=== PATIENT | male | born 1990 | race Caucasian/White ===

== ENCOUNTER 2016-08-03 01:49 | Emergency (ER) | payer MEDICAID ==
--- NOTE | 2016-08-03 03:48 | ER Document Report ---
ED Extremity Problem, Lower - General Chief Complaint: Knee Pain Stated Complaint: RIGHT KNEE SWELLING Time seen by provider: 03:42 Mode of Arrival: Ambulatory Information source: Patient TRAVEL OUTSIDE OF THE [place]. IN LAST 30 DAYS: No - HPI Patient complains to provider of: Pain, Swelling Location: Knee - Right knee Occurred: Other - Chronic worse since Wednesday Where: Home Onset/Duration: Persistent - Chronic, Worse Quality of pain: Pressure, Sharp Severity: Moderate Pain Level: 4 Context: Other - Hemophilia Recent injury: No Associated symptoms: Painful ambulation Exacerbated by: Movement, Walking Relieved by: Nothing - Related Data Allergies/Adverse Reactions: acetaminophen [From Tylenol] Adverse Reaction (Verified 08/03/16 01:53) aspirin [Aspirin] Adverse Reaction (Verified 08/03/16 01:53) bleeding ibuprofen [From Motrin] Adverse Reaction (Verified 08/03/16 01:53) bleeding morphine [Morphine] Adverse Reaction (Verified 08/03/16 01:53) Hives NSAIDS (Non-Steroidal Anti-Inflamma [Nsaids] Adverse Reaction (Verified 01:53) vancomycin [Vancomycin] Adverse Reaction (Verified 08/03/16 01:53) Past Medical History - General Information source: Patient - Social History Smoking Status: Never Smoker Cigarette use (# per day): No Chew tobacco use (# tins/day): No Smoking Education Provided: No Frequency of alcohol use: None Drug Abuse: None Lives with: Family Family History: DM, Other - autoimmune factor VIII deficiency. Hep C - Medical History Medical History: Other - Hemophilia - Past Medical History Cardiac Medical History: Reports: None Pulmonary Medical History: Reports: None EENT Medical History: Reports: None Neurological Medical History: Reports: None Endocrine Medical History: Reports: None Renal/ Medical History: Reports: None Malignancy Medical History: Reports None GI Medical History: Reports: Hx Hepatitis - hep C Musculoskeltal Medical History: Reports Hx Arthritis Psychiatric Medical History: Reports: None Traumatic Medical History: Reports: None Infectious Medical History: Reports: Hx Hepatitis - hep C Past Surgical History: Reports: Hx Orthopedic Surgery - bilat ankles, bilat knees, L elbow, Bilat Forearms - Immunizations Immunizations up to date: Yes Hx Diphtheria, Pertussis, Tetanus Vaccination: Yes Hx Pneumococcal Vaccination: 06/28/09 Review of Systems - Review of Systems Constitutional: No symptoms reported EENT: No symptoms reported Cardiovascular: No symptoms reported Respiratory: No symptoms reported Gastrointestinal: No symptoms reported Genitourinary: No symptoms reported Male Genitourinary: No symptoms reported Musculoskeletal: No symptoms reported Skin: No symptoms reported Hematologic/Lymphatic: No symptoms reported Neurological/Psychological: No symptoms reported -: Yes All other systems reviewed and negative Physical Exam - Vital signs Vitals: Temp Pulse Resp BP Pulse Ox 99.2 F 135 H 18 110/68 95 08/03/16 01:53 08/03/16 01:53 08/03/16 01:53 08/03/16 01:53 08/03/16 01:53 Interpretation: Normal - General General appearance: Appears well, Alert - HEENT Head: Normocephalic, Atraumatic Eyes: Normal Pupils: PERRL - Respiratory Respiratory status: No respiratory distress Chest status: Nontender Breath sounds: Normal Chest palpation: Normal - Cardiovascular Rhythm: Regular Heart sounds: Normal auscultation Murmur: No - Abdominal Inspection: Normal Distension: No distension Bowel sounds: Normal Tenderness: Nontender Organomegaly: No organomegaly - Back Back: Normal, Nontender - Extremities General upper extremity: Normal inspection, Nontender, Normal color, Normal ROM , Normal temperature General lower extremity: Normal color, Normal temperature. No: Nicolasa's sign Knee: Tender, Joint effusion, Pain with ROM Calf: Normal, Nontender Ankle: Normal, Nontender Foot: Normal, Nontender - Neurological Neuro grossly intact: Yes Cognition: Normal Orientation: AAOx4 Lakes[place] Coma Scale Eye Opening: Spontaneous [place] Coma Scale Verbal: Oriented [place] Coma Scale Motor: Obeys Commands [place] Coma Scale Total: 15 Speech: Normal Motor strength normal: LUE, RUE, LLE, RLE Sensory: Normal - Psychological Associated symptoms: Normal affect, Normal mood - Skin Skin Temperature: Warm Skin Moisture: Dry Skin Color: Normal Course - Re-evaluation Re-evalutation: 08/03/16 04:[address] Gonzalez as patient states that he has already spoken with [facility] and they stated he needed to be transferred ED the ED if his knee did not start decreasing in size. He states he has taken all of his hemophilia Medicine as prescribed for the last 3 days in his knee has not decreased in size. Dr. Gonzalez stated that I should go ahead and call [facility] now but get the blood work that I had ordered. [facility] transfer line called and spoke with Dr. Arce in the ED he has accepted the patient since we can transfer. 08/03/16 04:50 transport at the bedside patient will be transferred to [facility] ED to ED. - Vital Signs Vital signs: Temp Pulse Resp BP Pulse Ox 99.2 F 135 H 18 110/68 95 08/03/16 01:53 08/03/16 01:53 08/03/16 01:53 08/03/16 01:53 08/03/16 01:53 - Laboratory Result Diagrams: 08/03/16 04:08 08/03/16 04:08 Laboratory results interpreted by me: 08/03/16 08/03/16 08/03/16 04:08 04:08 04:08 Hgb 10.6 L Hct 33.1 L MCV 74 L MCH 23.8 L RDW 16.8 H APTT 91.1 H Glucose 113 H - Diagnostic Test Radiology reviewed: Image reviewed, Reports reviewed Discharge - Discharge Clinical Impression: Hemophilia A, Effusion, right knee Condition: Stable Disposition: [facility]
[2016-08-03] MEDS ORDERED: HYDROMORPHONE HCL INJ/PF 2 MG/ML AMPULE IV ONE (04:11)
[2016-08-03 04:24] LABS: ABSOLUTE BASOPHILS # (AUTO) 0.1 10^3/uL (0.0-0.2); ABSOLUTE EOSINOPHILS # (AUTO) 0.1 10^3/uL (0.0-0.6); ABSOLUTE MONOCYTES (AUTO) 0.7 10^3/uL (0.1-1.4); ABSOLUTE NEUT (AUTO) 7.5 10^3/uL (1.7-8.2); BASOPHILS % (AUTO) 0.7 % (0-2); EOSINOPHILS % (AUTO) 1.2 % (0-6); HEMATOCRIT 33.1 % (37.9-51.0); HEMOGLOBIN 10.6 g/dL (13.5-17.0); HGB HCT DIFFERENCE -1.3; LYMPHOCYTES % (AUTO) 19.2 % (13-45); MEAN CORPUSCULAR HEMOGLOBIN 23.8 pg (27.0-33.4); MEAN CORPUSCULAR VOLUME 74 fl (80-97); MONOCYTES % (AUTO) 7.1 % (3-13); RED BLOOD COUNT 4.46 10^6/uL (4.35-5.55); RED CELL DISTRIBUTION WIDTH 16.8 % (11.5-14.0); SEGMENTED NEUTROPHILS % (AUTO) 71.8 % (42-78); WHITE BLOOD COUNT 10.4 10^3/uL (4.0-10.5)
--- NOTE | 2016-08-03 04:28 | ER Document Report ---
Doctor's Note Notes: 08/03/16 04:26 Patient is a 26-year-old male with a hemarthrosis of his right knee. Patient has a history of hemophilia and has been taking his medications at home. Patient has had persistent swelling will be transferred to [facility]. Patient agrees with this plan. He is able to bend his right knee slightly. No erythema or discharge. Stable for transfer.
[2016-08-03 04:37] LABS: PROTHROMBIN TIME 13.7 SEC (11.4-15.4)
[2016-08-03 04:38] LABS: ALBUMIN 3.9 g/dL (3.5-5.0); CARBON DIOXIDE 29 mmol/L (22-30); CREATININE RESULT 0.78 mg/dL (0.52-1.25); TOTAL PROTEIN 7.5 g/dL (6.3-8.2)
[2016-08-03 04:39] LABS: PARTIAL THROMBOPLASTIN TIME 91.1 SEC (23.5-35.8)
[2016-08-03 04:41] LABS: ANION GAP 12 (5-19); CHLORIDE 101 mmol/L (98-107); SODIUM 141.5 mmol/L (137-145)
[2016-08-03 04:45] LABS: ALANINE AMINOTRANSFERASE 27 U/L (21-72); ALKALINE PHOSPHATASE 78 U/L (38-126); ASPARTATE AMINO TRANSFERASE 28 U/L (17-59); BILIRUBIN,TOTAL 0.7 mg/dL (0.2-1.3); BLOOD UREA NITROGEN 20 mg/dL (7-20); CALCIUM 9.1 mg/dL (8.4-10.2); GLUCOSE 113 mg/dL (75-110); POTASSIUM 3.7 mmol/L (3.6-5.0)
[2016-08-03 06:25] VITALS: BP 112/69
== END 2016-08-03 05:00 | disposition short-term general hospital (02) ==
LOC: ER 01:49
DX: D66 Hereditary factor VIII deficiency (principal); M25.461 Effusion, right knee; M25.561 Pain in right knee; M79.89 Other specified soft tissue disorders
CPT/HCPCS: 99284; 96374; 36415; 85025; 85610; 85730; 80053; 73564; J1170

== ENCOUNTER 2016-08-22 17:02 | Emergency (ER) | payer MEDICAID ==
[2016-08-22 17:11] VITALS: BP 114/80
--- NOTE | 2016-08-22 17:15 | ER Document Report ---
ED Medical Screen (RME) - General Chief Complaint: Knee Pain Stated Complaint: RIGHT KNEE PAIN, SWELLING Mode of Arrival: Wheelchair Information source: Patient Notes: She presents to the emergency department with complaints of right knee pain. Patient has a history of hemophilia. Patient reports he has given himself all his treatments without relief the symptoms. Patient is usually transfered to [facility] upon arrival to this ER. TRAVEL OUTSIDE OF THE U.S. IN LAST 30 DAYS: No - HPI Onset: Other - 3 days Onset/Duration: Persistent Severity: Severe Pain Level: 5 - Related Data Allergies/Adverse Reactions: acetaminophen [From Tylenol] Adverse Reaction (Verified 08/22/16 17:13) aspirin [Aspirin] Adverse Reaction (Verified 08/22/16 17:13) bleeding ibuprofen [From Motrin] Adverse Reaction (Verified 08/22/16 17:13) bleeding morphine [Morphine] Adverse Reaction (Verified 08/22/16 17:13) Hives NSAIDS (Non-Steroidal Anti-Inflamma [Nsaids] Adverse Reaction (Verified 17:13) vancomycin [Vancomycin] Adverse Reaction (Verified 08/22/16 17:13) Past Medical History - Social History Chew tobacco use (# tins/day): No Frequency of alcohol use: None Drug Abuse: None Family history: Reviewed & Not Pertinent Renal/ Medical History: Denies: Hx Peritoneal Dialysis GI Medical History: Reports: Hx Hepatitis - hep C Musculoskeltal Medical History: Reports Hx Arthritis Psychiatric Medical History: Denies: Hx Depression Infectious Medical History: Reports: Hx Hepatitis - hep C Past Surgical History: Reports: Hx Orthopedic Surgery - bilat ankles, bilat knees, L elbow, Bilat Forearms - Immunizations Immunizations up to date: Yes Hx Diphtheria, Pertussis, Tetanus Vaccination: Yes Physical Exam - Vital signs Vitals: Temp Pulse Resp BP Pulse Ox 98.6 F 126 H 18 114/80 98 08/22/16 17:10 08/22/16 17:10 08/22/16 17:10 08/22/16 17:10 08/22/16 17:10 Course - Vital Signs Vital signs: Temp Pulse Resp BP Pulse Ox 98.6 F 126 H 18 114/80 98 08/22/16 17:10 08/22/16 17:10 08/22/16 17:10 08/22/16 17:10 08/22/16 17:10
[2016-08-22 18:09] LABS: ABSOLUTE LYMPHOCYTES (AUTO) 0.7 10^3/uL (0.5-4.7); ABSOLUTE MONOCYTES (AUTO) 0.9 10^3/uL (0.1-1.4); ABSOLUTE NEUT (AUTO) 6.8 10^3/uL (1.7-8.2); BASOPHILS % (AUTO) 0.4 % (0-2); EOSINOPHILS % (AUTO) 0.5 % (0-6); HEMATOCRIT 31.1 % (37.9-51.0); HGB HCT DIFFERENCE -1.1; LYMPHOCYTES % (AUTO) 7.9 % (13-45); MEAN CORPUSCULAR HEMOGLOBIN 23.5 pg (27.0-33.4); MEAN CORPUSCULAR HGB CONC 32.3 g/dL (32.0-36.0); MEAN CORPUSCULAR VOLUME 73 fl (80-97); MONOCYTES % (AUTO) 11.2 % (3-13); RED BLOOD COUNT 4.25 10^6/uL (4.35-5.55); RED CELL DISTRIBUTION WIDTH 16.6 % (11.5-14.0); WHITE BLOOD COUNT 8.5 10^3/uL (4.0-10.5)
[2016-08-22 18:15] LABS: PROTHROMBIN TIME 13.7 SEC (11.4-15.4)
[2016-08-22 18:17] LABS: PARTIAL THROMBOPLASTIN TIME 110.4 SEC (23.5-35.8)
[2016-08-22 18:29] LABS: ALANINE AMINOTRANSFERASE 22 U/L (21-72); ALBUMIN 4.1 g/dL (3.5-5.0); ALKALINE PHOSPHATASE 69 U/L (38-126); ANION GAP 13 (5-19); ASPARTATE AMINO TRANSFERASE 26 U/L (17-59); BILIRUBIN,TOTAL 1.5 mg/dL (0.2-1.3); BLOOD UREA NITROGEN 11 mg/dL (7-20); CALCIUM 9.5 mg/dL (8.4-10.2); CARBON DIOXIDE 26 mmol/L (22-30); CHLORIDE 98 mmol/L (98-107); CREATININE RESULT 0.66 mg/dL (0.52-1.25); GLUCOSE 122 mg/dL (75-110); POTASSIUM 4.1 mmol/L (3.6-5.0); TOTAL PROTEIN 7.4 g/dL (6.3-8.2)
--- NOTE | 2016-08-22 18:59 | ER Document Report ---
ED Extremity Problem, Lower - General Chief Complaint: Knee Pain Stated Complaint: RIGHT KNEE PAIN, SWELLING Time seen by provider: 18:54 Mode of Arrival: Wheelchair Information source: Patient TRAVEL OUTSIDE OF THE [place]. IN LAST 30 DAYS: No - HPI Patient complains to provider of: Pain, Swelling Location: Knee Occurred: Other - 3 days Where: Home Onset/Duration: Gradual, Persistent Quality of pain: Achy, Fullness, Pressure Severity: Moderate Pain Level: 4 Recent injury: No Exacerbated by: Movement, Walking Relieved by: Nothing Notes: Patient is a 26-year-old male with history of hemophilia who presents to the emergency room complaining of worsening pain and swelling to his right knee that 's been present for the past 3 days, he has a history of chronic hemarthrosis but states this time it is worse than usual, he states he took his factor VIII 9000 units twice a day times the past 3 days with no relief of symptoms, and requested to be transferred to [facility] to see his slip injector and applicator, patient denies any injury - Related Data Allergies/Adverse Reactions: acetaminophen [From Tylenol] Adverse Reaction (Verified 08/22/16 17:13) aspirin [Aspirin] Adverse Reaction (Verified 08/22/16 17:13) bleeding ibuprofen [From Motrin] Adverse Reaction (Verified 08/22/16 17:13) bleeding morphine [Morphine] Adverse Reaction (Verified 08/22/16 17:13) Hives NSAIDS (Non-Steroidal Anti-Inflamma [Nsaids] Adverse Reaction (Verified 17:13) vancomycin [Vancomycin] Adverse Reaction (Verified 08/22/16 17:13) Past Medical History - General Information source: Patient - Social History Smoking Status: Never Smoker Chew tobacco use (# tins/day): No Frequency of alcohol use: None Drug Abuse: None Family History: DM, Other - autoimmune factor VIII deficiency. Hep C Patient has suicidal ideation: No Patient has homicidal ideation: No Renal/ Medical History: Denies: Hx Peritoneal Dialysis GI Medical History: Reports: Hx Hepatitis - hep C Musculoskeltal Medical History: Reports Hx Arthritis Psychiatric Medical History: Denies: Hx Depression Infectious Medical History: Reports: Hx Hepatitis - hep C Past Surgical History: Reports: Hx Orthopedic Surgery - bilat ankles, bilat knees, L elbow, Bilat Forearms - Immunizations Immunizations up to date: Yes Hx Diphtheria, Pertussis, Tetanus Vaccination: Yes Hx Pneumococcal Vaccination: 06/28/09 Review of Systems - Review of Systems Constitutional: No symptoms reported EENT: No symptoms reported Cardiovascular: No symptoms reported Respiratory: No symptoms reported Gastrointestinal: No symptoms reported Genitourinary: No symptoms reported Male Genitourinary: No symptoms reported Musculoskeletal: See HPI Skin: No symptoms reported Hematologic/Lymphatic: See HPI Neurological/Psychological: No symptoms reported -: Yes All other systems reviewed and negative Physical Exam - Vital signs Vitals: Temp Pulse Resp BP Pulse Ox 98.6 F 126 H 18 114/80 98 08/22/16 17:10 08/22/16 17:10 08/22/16 17:10 08/22/16 17:10 08/22/16 17:10 Interpretation: Tachycardic - General General appearance: Appears well, Alert - HEENT Head: Normocephalic, Atraumatic Eyes: Normal Pupils: PERRL - Respiratory Respiratory status: No respiratory distress Chest status: Nontender Breath sounds: Normal Chest palpation: Normal - Cardiovascular Rhythm: Regular Heart sounds: Normal auscultation Murmur: No - Abdominal Inspection: Normal Distension: No distension Bowel sounds: Normal Tenderness: Nontender Organomegaly: No organomegaly - Back Back: Normal, Nontender - Extremities General upper extremity: Normal inspection, Nontender, Normal color, Normal ROM , Normal temperature General lower extremity: No: Nicolasa's sign Knee: Joint effusion - Moderate joint effusion, tenderness to palpate, pain with range of motion testing, distal sensation motor intact, 2+ DP pulses - Neurological Neuro grossly intact: Yes Cognition: Normal Orientation: AAOx4 [place] Coma Scale Eye Opening: Spontaneous [place] Coma Scale Verbal: Oriented [place] Coma Scale Motor: Obeys Commands [place] Coma Scale Total: 15 Speech: Normal Motor strength normal: LUE, RUE, LLE, RLE Sensory: Normal - Psychological Associated symptoms: Normal affect, Normal mood - Skin Skin Temperature: Warm Skin Moisture: Dry Skin Color: Normal Course - Re-evaluation Re-evalutation: 08/22/16 19:00 A call was placed to [facility] transfer center, spoke with Ashley, requested callback from slip injector and applicator 08/22/16 19:[address] Mccormack- heme fellow, accepts for transfer, ED-ED basis, spoke with ED physician Dr Farley who accepts patient for transfer - Vital Signs Vital signs: Temp Pulse Resp BP Pulse Ox 98.6 F 126 H 18 114/80 98 08/22/16 17:10 08/22/16 17:10 08/22/16 17:10 08/22/16 17:10 08/22/16 17:10 - Laboratory Result Diagrams: 08/22/16 17:50 08/22/16 17:50 Laboratory results interpreted by me: 08/22/16 08/22/16 08/22/16 17:50 17:50 17:50 RBC 4.25 L Hgb 10.0 L Hct 31.1 L MCV 73 L MCH 23.5 L RDW 16.6 H Seg Neutrophils % 80.0 H Lymphocytes % 7.9 L APTT 110.4 H Glucose 122 H Total Bilirubin 1.5 H - Diagnostic Test Radiology reviewed: Image reviewed, Reports reviewed Discharge - Discharge Clinical Impression: Hemarthrosis of right knee, Hemophilia A Condition: Stable Disposition: [facility]
[2016-08-22] MEDS ORDERED: HYDROMORPHONE HCL INJ/PF 2 MG/ML AMPULE IV ONE ×2 (19:32→20:44)
== END 2016-08-22 22:00 | disposition short-term general hospital (02) ==
LOC: ER 17:02
DX: M25.061 Hemarthrosis, right knee (principal); D66 Hereditary factor VIII deficiency; Z88.6 Allergy status to analgesic agent; Z88.3 Allergy status to other anti-infective agents; Z86.19 Personal history of other infectious and parasitic diseases
CPT/HCPCS: 96376; 99284; 96374; 36415; 85025; 85610; 85730; 80053; 73564; J1170

== ENCOUNTER 2016-09-14 03:15 | Emergency (ER) | payer MEDICAID ==
--- NOTE | 2016-09-14 04:39 | ER Document Report ---
Addendum entered and electronically signed by BELLO BANSAL NP 09/14/16 11:29 : Course - Re-evaluation Re-evalutation: 09/14/16 11:28 Patient requesting additional pain medication. Patient sitting up to bedside holding right knee. RN states that transfer crew is less than an hour away. Patient stable for transfer. - Vital Signs Vital signs: Temp Pulse Resp BP Pulse Ox 98.0 F 92 16 125/84 98 09/14/16 09:23 09/14/16 09:23 09/14/16 09:23 09/14/16 09:23 09/14/16 09:23 - Laboratory Result Diagrams: 09/14/16 05:33 09/14/16 05:33 Laboratory results interpreted by me: 09/14/16 09/14/16 09/14/16 05:33 05:33 05:33 RBC 4.09 L Hgb 9.7 L Hct 29.8 L MCV 73 L MCH 23.8 L RDW 17.8 H Lymphocytes % 10.6 L APTT 41.4 H Glucose 117 H Total Bilirubin 1.7 H Original Note: ED Extremity Problem, Lower - General Time seen by provider: 04:39 Mode of Arrival: Ambulatory Information source: Patient TRAVEL OUTSIDE OF THE [place]. 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 He has been giving himself factor VIII twice a day as instructed and it has not relieved the symptoms since Wednesday. He is known to the emergency room for high doses of pain medication. I have not seen the patient for a while but then the appears similar to the other visits. No fever or chills. (PRAMOD VELASQUEZ) - Related Data Allergies/Adverse Reactions: acetaminophen [From Tylenol] Adverse Reaction (Verified 09/14/16 03:22) aspirin [Aspirin] Adverse Reaction (Verified 09/14/16 03:22) bleeding ibuprofen [From Motrin] Adverse Reaction (Verified 09/14/16 03:22) bleeding morphine [Morphine] Adverse Reaction (Verified 09/14/16 03:22) Hives NSAIDS (Non-Steroidal Anti-Inflamma [Nsaids] Adverse Reaction (Verified 03:22) vancomycin [Vancomycin] Adverse Reaction (Verified 09/14/16 03:22) Past Medical History - General Information source: Patient - Social History Smoking Status: Never Smoker Chew tobacco use (# tins/day): No Frequency of alcohol use: None Drug Abuse: None Lives with: Spouse/Significant other Family History: DM, Other - autoimmune factor VIII deficiency. Hep C Renal/ Medical History: Denies: Hx Peritoneal Dialysis GI Medical History: Reports: Hx Hepatitis - hep C Musculoskeltal Medical History: Reports Hx Arthritis Psychiatric Medical History: Denies: Hx Depression Infectious Medical History: Reports: Hx Hepatitis - hep C Past Surgical History: Reports: Hx Orthopedic Surgery - bilat ankles, bilat knees, L elbow, Bilat Forearms - Immunizations Immunizations up to date: Yes Hx Diphtheria, Pertussis, Tetanus Vaccination: Yes Hx Pneumococcal Vaccination: 06/28/09 <PRAMOD VELASQUEZ - Last Filed: 09/14/16 07:39> <BELLO BANSAL - Last Filed: 09/14/16 11:28> <KEVIN HANSEN - Last Filed: 09/14/16 11:38> - Medical History Notes: hemophilia (PRAMOD VELASQUEZ) Review of Systems - Review of Systems Constitutional: No symptoms reported EENT: No symptoms reported Cardiovascular: No symptoms reported Respiratory: No symptoms reported Gastrointestinal: No symptoms reported Genitourinary: No symptoms reported Male Genitourinary: No symptoms reported Musculoskeletal: See HPI Skin: No symptoms reported Hematologic/Lymphatic: No symptoms reported Neurological/Psychological: No symptoms reported <PRAMOD VELASQUEZ - Last Filed: 09/14/16 07:39> Physical Exam - Vital signs Interpretation: Normal - General General appearance: Alert In distress: None - pale - HEENT Head: Normocephalic, Atraumatic Eyes: Normal Conjunctiva: Normal Pupils: PERRL Neck: Supple. No: Lymphadenopathy - Respiratory Respiratory status: No respiratory distress Chest status: Nontender Breath sounds: Normal Chest palpation: Normal - Cardiovascular Rhythm: Regular Heart sounds: Normal auscultation Murmur: No - Abdominal Inspection: Normal Distension: No distension Bowel sounds: Normal Tenderness: Nontender Organomegaly: No organomegaly - Back Back: Normal, Nontender. No: CVA tenderness - Extremities General upper extremity: Normal inspection, Nontender, Normal color, Normal ROM , Normal temperature General lower extremity: Normal inspection, Nontender, Normal color, Normal ROM , Normal temperature, Normal weight bearing. No: Nicolasa's sign Knee: Tender, Joint effusion - not red, mild warm - Neurological Neuro grossly intact: Yes Cognition: Normal Orientation: AAOx4 [place] Coma Scale Eye Opening: Spontaneous Lakeshia Coma Scale Verbal: Oriented [place] Coma Scale Motor: Obeys Commands [place] Coma Scale Total: 15 Speech: Normal Motor strength normal: LUE, RUE, LLE, RLE Sensory: Normal - Psychological Associated symptoms: Normal affect, Normal mood - Skin Skin Temperature: Warm Skin Moisture: Dry Skin Color: Normal Skin irregularity: negative: Rash <PRAMOD VELASQUEZ - Last Filed: 09/14/16 07:39> Course - Laboratory Result Diagrams: 09/14/16 05:33 09/14/16 05:33 - Transfer of Care Care transferred to following provider: reema SILVA, dr. hansen aware/ knows the pt, will see pt / sign emtala <PRAMOD VELASQUEZ - Last Filed: 09/14/16 07:39> <BELLO BANSAL - Last Filed: 09/14/16 11:28> - Laboratory Result Diagrams: 09/14/16 05:33 09/14/16 05:33 <KEVIN HANSEN - Last Filed: 09/14/16 11:38> - Re-evaluation Re-evalutation: 09/14/16 04:[address] yoo who states get the labwork first before calling [facility] for transfer to hematology. Also do tx his pain. 09/14/16 06:20 Call to [facility] transfer center for hematology transfer per dr. munoz recommendation. similar care 08-22-16 for factor infusions. 09/14/16 06:[address] mota hem/onc who would consult, it will be ER to ER transfer , [facility] transfer center will call be back with the ER attending. 09/14/16 06:58 Dr. Rosario the ER attending at [facility] will accept the patient for ER to ER transfer. She will be giving report to the ER attending day shift. 09/14/16 07:48 awaiting [facility] (PRAMOD VELASQUEZ) 09/14/16 11:38 Patient reevaluated stable at this time awaiting transport (KEVIN HANSEN) - Vital Signs Vital signs: Temp Pulse Resp BP Pulse Ox 98.5 F 93 15 128/86 H 99 09/14/16 11:14 09/14/16 11:14 09/14/16 11:14 09/14/16 11:14 09/14/16 11:14 - Laboratory Laboratory results interpreted by me: 09/14/16 09/14/16 09/14/16 05:33 05:33 05:33 RBC 4.09 L Hgb 9.7 L Hct 29.8 L MCV 73 L MCH 23.8 L RDW 17.8 H Lymphocytes % 10.6 L APTT 41.4 H Glucose 117 H Total Bilirubin 1.7 H Discharge <PRAMOD VELASQUEZ - Last Filed: 09/14/16 07:39> <BELLO BANSAL - Last Filed: 09/14/16 11:28> <KEVIN HANSEN - Last Filed: 09/14/16 11:38> - Discharge Clinical Impression: Hemarthrosis, right knee, Hemophilia Condition: Good Disposition: HOME, SELF-CARE
[2016-09-14] MEDS ORDERED: ONDANSETRON 4 MG TAB.RAPDIS PO ONE (04:56)
[2016-09-14] MEDS ORDERED: NORMAL SALINE 1000 ML 1,000 ML IV ONE ×2 (04:56→04:57)
[2016-09-14] MEDS ORDERED: HYDROMORPHONE HCL INJ/PF 2 MG/ML AMPULE IV ONE ×5 (04:56→11:27)
[2016-09-14 05:47] LABS: ABSOLUTE MONOCYTES (AUTO) 1.2 10^3/uL (0.1-1.4); ABSOLUTE NEUT (AUTO) 7.5 10^3/uL (1.7-8.2); BASOPHILS % (AUTO) 0.2 % (0-2); EOSINOPHILS % (AUTO) 0.3 % (0-6); HEMATOCRIT 29.8 % (37.9-51.0); HEMOGLOBIN 9.7 g/dL (13.5-17.0); HGB HCT DIFFERENCE -0.7; LYMPHOCYTES % (AUTO) 10.6 % (13-45); MEAN CORPUSCULAR HEMOGLOBIN 23.8 pg (27.0-33.4); MEAN CORPUSCULAR HGB CONC 32.7 g/dL (32.0-36.0); MEAN CORPUSCULAR VOLUME 73 fl (80-97); MONOCYTES % (AUTO) 12.3 % (3-13); RED BLOOD COUNT 4.09 10^6/uL (4.35-5.55); RED CELL DISTRIBUTION WIDTH 17.8 % (11.5-14.0); SEGMENTED NEUTROPHILS % (AUTO) 76.6 % (42-78); WHITE BLOOD COUNT 9.8 10^3/uL (4.0-10.5)
[2016-09-14 05:53] LABS: PROTHROMBIN TIME 13.8 SEC (11.4-15.4)
[2016-09-14 05:54] LABS: PARTIAL THROMBOPLASTIN TIME 41.4 SEC (23.5-35.8)
[2016-09-14 06:08] LABS: ALANINE AMINOTRANSFERASE 32 U/L (21-72); ALBUMIN 4.1 g/dL (3.5-5.0); ALKALINE PHOSPHATASE 84 U/L (38-126); ANION GAP 10 (5-19); ASPARTATE AMINO TRANSFERASE 19 U/L (17-59); BILIRUBIN,TOTAL 1.7 mg/dL (0.2-1.3); BLOOD UREA NITROGEN 9 mg/dL (7-20); CALCIUM 9.6 mg/dL (8.4-10.2); CARBON DIOXIDE 29 mmol/L (22-30); CHLORIDE 99 mmol/L (98-107); CREATININE RESULT 0.59 mg/dL (0.52-1.25); GLUCOSE 117 mg/dL (75-110); POTASSIUM 4.1 mmol/L (3.6-5.0); SODIUM 137.5 mmol/L (137-145); TOTAL PROTEIN 6.8 g/dL (6.3-8.2)
[2016-09-14 11:31] VITALS: BP 128/86
== END 2016-09-14 11:44 | disposition short-term general hospital (02) ==
LOC: ER 03:15
DX: M25.061 Hemarthrosis, right knee (principal); D66 Hereditary factor VIII deficiency; M25.561 Pain in right knee
CPT/HCPCS: 96376; 99284; 96374; 36415; 85025; 85610; 85730; 80053; 73560; S0119; J1170; J7030

== ENCOUNTER 2016-11-26 10:57 | Emergency (ER) | payer MEDICAID ==
[2016-11-26] MEDS ORDERED: OXYCODONE HCL SR 10 MG TABLET PO ONE (11:30)
--- NOTE | 2016-11-26 11:31 | ER Document Report ---
ED Medical Screen (RME) - General Chief Complaint: Swelling of Lower Extremity Stated Complaint: LEG/FOOT SWELLING Time Seen by Provider: 11/26/16 11:21 Mode of Arrival: Ambulatory Information source: Patient Notes: Patient presents to emergency department with hemophilia factor VIII. Reports pain to his right knee with swelling. Patient has been homeless for the past week and out of his factor VIII. Patient has been here in the past and is usually transferred to [facility]. TRAVEL OUTSIDE OF THE [place] IN LAST 30 DAYS: No - Related Data Allergies/Adverse Reactions: acetaminophen [From Tylenol] Adverse Reaction (Verified 11/26/16 11:01) aspirin [Aspirin] Adverse Reaction (Verified 11/26/16 11:01) bleeding ibuprofen [From Motrin] Adverse Reaction (Verified 11/26/16 11:01) bleeding morphine [Morphine] Adverse Reaction (Verified 11/26/16 11:01) Hives NSAIDS (Non-Steroidal Anti-Inflamma [Nsaids] Adverse Reaction (Verified 11:01) vancomycin [Vancomycin] Adverse Reaction (Verified 11/26/16 11:01) Past Medical History - Social History Family history: Reviewed & Not Pertinent Renal/ Medical History: Denies: Hx Peritoneal Dialysis GI Medical History: Reports: Hx Hepatitis - hep C Musculoskeltal Medical History: Reports Hx Arthritis Psychiatric Medical History: Denies: Hx Depression Infectious Medical History: Reports: Hx Hepatitis - hep C Past Surgical History: Reports: Hx Orthopedic Surgery - bilat ankles, bilat knees, L elbow, Bilat Forearms - Immunizations Immunizations up to date: Yes Hx Diphtheria, Pertussis, Tetanus Vaccination: Yes Physical Exam - Vital signs Vitals: Temp Pulse Resp BP Pulse Ox 98.4 F 91 16 120/79 98 11/26/16 11:11/26/16 11:11/26/16 11:11/26/16 11:01 11/26/16 11:01 Course - Vital Signs Vital signs: Temp Pulse Resp BP Pulse Ox 98.4 F 91 16 120/79 98 11/26/16 11:01 11/26/16 11:01 11/26/16 11:01 11/26/16 11:01 11/26/16 11:01
--- NOTE | 2016-11-26 12:50 | RADIOLOGY REPORT (SQ) ---
EXAM DESCRIPTION: KNEE RIGHT 4 VIEWS COMPLETED DATE/TIME: 11/26/2016 12:17 pm REASON FOR STUDY: swelling pain COMPARISON: None. NUMBER OF VIEWS: Four views. TECHNIQUE: AP, lateral, and both oblique radiographic images acquired of the right knee. LIMITATIONS: None. FINDINGS: MINERALIZATION: Normal. BONES: No acute fracture or dislocation. No worrisome bone lesions. JOINT: 3 compartment degenerative joint changes are present. There is subchondral sclerosis and ther e are subchondral cysts in the femoral condyles and in the tibial plateaus. There are posterior estrada llar spurs. There is a joint effusion. SOFT TISSUES: No soft tissue swelling. No radio-opaque foreign body. OTHER: No other significant finding. IMPRESSION: Extensive degenerative joint disease striking because of the patient's age. There is an effusion in the joint. If there is clinical suspicion of internal derangement, consider MRI. TECHNICAL DOCUMENTATION: JOB ID: [id number] [employer]- All Rights Reserved
[2016-11-26 12:56] LABS: ABSOLUTE EOSINOPHILS # (AUTO) 0.1 10^3/uL (0.0-0.6); ABSOLUTE LYMPHOCYTES (AUTO) 1.4 10^3/uL (0.5-4.7); ABSOLUTE MONOCYTES (AUTO) 0.6 10^3/uL (0.1-1.4); ABSOLUTE NEUT (AUTO) 3.7 10^3/uL (1.7-8.2); BASOPHILS % (AUTO) 0.4 % (0-2); EOSINOPHILS % (AUTO) 1.3 % (0-6); HEMATOCRIT 37.5 % (37.9-51.0); HEMOGLOBIN 11.8 g/dL (13.5-17.0); HGB HCT DIFFERENCE -2.1; LYMPHOCYTES % (AUTO) 23.7 % (13-45); MEAN CORPUSCULAR HEMOGLOBIN 23.9 pg (27.0-33.4); MEAN CORPUSCULAR HGB CONC 31.4 g/dL (32.0-36.0); MEAN CORPUSCULAR VOLUME 76 fl (80-97); MONOCYTES % (AUTO) 10.9 % (3-13); RED BLOOD COUNT 4.93 10^6/uL (4.35-5.55); RED CELL DISTRIBUTION WIDTH 18.7 % (11.5-14.0); SEGMENTED NEUTROPHILS % (AUTO) 63.7 % (42-78); WHITE BLOOD COUNT 5.8 10^3/uL (4.0-10.5)
[2016-11-26 12:59] LABS: PROTHROMBIN TIME 12.8 SEC (11.4-15.4)
[2016-11-26 13:01] LABS: PARTIAL THROMBOPLASTIN TIME 88.7 SEC (23.5-35.8)
[2016-11-26 15:01] LABS: ALANINE AMINOTRANSFERASE 35 U/L (21-72); ALBUMIN 4.5 g/dL (3.5-5.0); ALKALINE PHOSPHATASE 96 U/L (38-126); ANION GAP 14 (5-19); ASPARTATE AMINO TRANSFERASE 32 U/L (17-59); BILIRUBIN,DIRECT 0.4 mg/dL (0.0-0.4); BILIRUBIN,TOTAL 1.1 mg/dL (0.2-1.3); BLOOD UREA NITROGEN 16 mg/dL (7-20); CARBON DIOXIDE 27 mmol/L (22-30); CHLORIDE 104 mmol/L (98-107); CREATININE RESULT 0.79 mg/dL (0.52-1.25); GLUCOSE 84 mg/dL (75-110); POTASSIUM 4.2 mmol/L (3.6-5.0); SODIUM 144.6 mmol/L (137-145); TOTAL PROTEIN 7.6 g/dL (6.3-8.2)
[2016-11-26] MEDS ORDERED: HYDROMORPHONE HCL INJ/PF 2 MG/ML AMPULE IV ONE ×2 (15:49→17:44)
--- NOTE | 2016-11-26 15:56 | ER Document Report ---
ED General - General Chief Complaint: Swelling of Lower Extremity Stated Complaint: LEG/FOOT SWELLING Time Seen by Provider: 11/26/16 11:21 Mode of Arrival: Ambulatory Information source: Patient Notes: This is a 26-year-old man with a history of hemophilia A (father that [employer]) who presents to the emergency room with pain and spontaneous bruising to the left foot as well as pain and swelling to the right knee. TRAVEL OUTSIDE OF THE [place] IN LAST 30 DAYS: No - HPI Onset: Yesterday Onset/Duration: Gradual Quality of pain: Dull Severity: Moderate Pain Level: 3 Associated symptoms: denies: Chills, Nonproductive cough, Productive cough, Fever, Shortness of breath Exacerbated by: Movement Relieved by: Remaining still Similar symptoms previously: Yes Recently seen / treated by doctor: Yes - Related Data Allergies/Adverse Reactions: acetaminophen [From Tylenol] Adverse Reaction (Verified 11/26/16 11:01) aspirin [Aspirin] Adverse Reaction (Verified 11/26/16 11:01) bleeding ibuprofen [From Motrin] Adverse Reaction (Verified 11/26/16 11:01) bleeding morphine [Morphine] Adverse Reaction (Verified 11/26/16 11:01) Hives NSAIDS (Non-Steroidal Anti-Inflamma [Nsaids] Adverse Reaction (Verified 11:01) vancomycin [Vancomycin] Adverse Reaction (Verified 11/26/16 11:01) Past Medical History - General Information source: Patient - Social History Smoking Status: Never Smoker Chew tobacco use (# tins/day): No Frequency of alcohol use: None Drug Abuse: None Lives with: Family Family History: DM, Other - autoimmune factor VIII deficiency. Hep C Patient has suicidal ideation: No Patient has homicidal ideation: No - Medical History Notes: Patient has a history of hemophilia A - Past Medical History Cardiac Medical History: Reports: None Pulmonary Medical History: Reports: None EENT Medical History: Reports: None Neurological Medical History: Reports: None Endocrine Medical History: Reports: None Renal/ Medical History: Reports: None. Denies: Hx Peritoneal Dialysis Malignancy Medical History: Reports None GI Medical History: Reports: None, Hx Hepatitis - hep C Musculoskeltal Medical History: Reports Hx Arthritis Skin Medical History: Reports None Psychiatric Medical History: Denies: Hx Depression Infectious Medical History: Reports: Hx Hepatitis - hep C Past Surgical History: Reports: Hx Orthopedic Surgery - bilat ankles, bilat knees, L elbow, Bilat Forearms - Immunizations Immunizations up to date: Yes Hx Diphtheria, Pertussis, Tetanus Vaccination: Yes Hx Pneumococcal Vaccination: 06/28/09 Immunizations Comment: +pneu vacx Review of Systems - Review of Systems Constitutional: denies: Chills, Fever EENT: No symptoms reported Cardiovascular: No symptoms reported Respiratory: No symptoms reported Gastrointestinal: No symptoms reported Genitourinary: No symptoms reported Male Genitourinary: No symptoms reported Musculoskeletal: See HPI Skin: No symptoms reported Hematologic/Lymphatic: No symptoms reported Neurological/Psychological: No symptoms reported Physical Exam - Vital signs Vitals: Temp Pulse Resp BP Pulse Ox 98.4 F 91 16 120/79 98 11/26/16 11:11/26/16 11:11/26/16 11:11/26/16 11:11/26/16 11:01 Notes: Physical exam: GENERAL: 26-year-old man, alert and oriented 3, no acute distress HEAD: Atraumatic, normocephalic. EYES: Pupils equal round and reactive to light, extraocular movements intact, sclera anicteric, conjunctiva are normal. ENT: TMs normal, nares patent, oropharynx clear without exudates. Moist mucous membranes. NECK: Normal range of motion, supple without lymphadenopathy or JVD. LUNGS: Breath sounds clear to auscultation bilaterally and equal. No wheezes rales or rhonchi. HEART: Regular rate and rhythm without murmurs, rubs or gallops. ABDOMEN: Soft, normoactive bowel sounds. No tenderness to palpation. No guarding, no rebound. No masses appreciated. EXTREMITIES: Right knee pain and swelling. No erythema or warmth. Left foot contusion dorsally. Evidence of old surgery on the left ankle. NEUROLOGICAL: Cranial nerves II through XII grossly intact. Normal speech, normal gait. PSYCH: Normal mood, normal affect. SKIN: Warm, Dry, normal turgor, no rashes or lesions noted. Course - Re-evaluation Re-evalutation: 11/26/16 18:29 Note: This is a 26-year-old man with hemophilia A followed at [facility] (Dr. Horvath) who presents to the emergency room with right knee pain and left foot hematoma. Patient has had spontaneous hemarthrosis in the past and the concern is that he is having this event now. He has not had any trauma. He does not have his own factor. Discussed the case with Dr. Arthur (hematology fellow at [facility]). We have discussed the case and I informed him that the only factor we have is Humate-P. He discussed the case with his attending physician and they have recommended that we give the patient Humate-P. We have enough Humate-P for 39units/kg will not correct him to 100%. Therefore initiate Humate-P here and arrange transport to [facility]. Dementia has recommended that we transfer the patient ER to ER. I have Spoken with Dr. Davies accepted the patient to the ER. - Vital Signs Vital signs: Temp Pulse Resp BP Pulse Ox 98.4 F 86 16 104/65 98 11/26/16 19:06 11/26/16 19:06 11/26/16 19:06 11/26/16 19:06 11/26/16 19:06 - Laboratory Result Diagrams: 11/26/16 12:43 11/26/16 14:10 Laboratory results interpreted by me: 11/26/16 11/26/16 12:43 12:43 Hgb 11.8 L Hct 37.5 L MCV 76 L MCH 23.9 L MCHC 31.4 L RDW 18.7 H APTT 88.7 H Critical Care Note - Critical Care Note Total time excluding time spent on procedures (mins): 55 Discharge - Discharge Clinical Impression: Hemophilia A, Hemarthrosis spontaneous Condition: Stable Disposition: [facility]
[2016-11-26] MEDS ORDERED: DIPHENHYDRAMINE HCL 50 MG/ML VIAL IV ONE (18:13)
[2016-11-26] MEDS ORDERED: [UNRECOGNIZED DRUG - MIXTURE] IV ONE (19:00)
[2016-11-26 19:09] VITALS: BP 104/65
== END 2016-11-26 19:22 | disposition short-term general hospital (02) ==
LOC: ER 10:57
DX: D66 Hereditary factor VIII deficiency (principal); M25.00 Hemarthrosis, unspecified joint; M79.89 Other specified soft tissue disorders; Z88.6 Allergy status to analgesic agent; Z86.19 Personal history of other infectious and parasitic diseases
CPT/HCPCS: 96376; 99284; 96374; 96375; 36415; 85025; 85610; 85730; 80053; 73564; J1200; J3490 ×2; J1170; J7187

== ENCOUNTER 2017-01-06 11:12 | Emergency (ER) | payer MEDICAID ==
--- NOTE | 2017-01-06 11:44 | ER Document Report ---
ED Medical Screen (RME) - General Chief Complaint: Knee Pain Stated Complaint: RIGHT KNEE SWELLING Time Seen by Provider: 01/06/17 11:38 TRAVEL OUTSIDE OF THE [place] IN LAST 30 DAYS: No - HPI Notes: 01/06/17 11:41 Patient is a 26-year-old male with a history of factor VIII deficiency and hemarthrosis who presents to the ED complaining of right knee pain. Patient states that his been inflamed over the last 3-4 days. He has not had any of his factor injections in the last 3 weeks. Patient states that he believes that he needs transferred again to [facility] as this is usually what happens when he comes here for this knee pain and swelling. Denies any fever, chest pain, shortness of breath, purulent drainage, erythema. I have treated and performed a rapid initial assessment of this patient. A comprehensive ED assessment and evaluation of the patient, analysis of test results and completion of medical decision making process will be conducted by additional ED providers. - Related Data Allergies/Adverse Reactions: acetaminophen [From Tylenol] Adverse Reaction (Verified 01/06/17 11:27) aspirin [Aspirin] Adverse Reaction (Verified 01/06/17 11:27) bleeding ibuprofen [From Motrin] Adverse Reaction (Verified 01/06/17 11:27) bleeding morphine [Morphine] Adverse Reaction (Verified 01/06/17 11:27) Hives NSAIDS (Non-Steroidal Anti-Inflamma [Nsaids] Adverse Reaction (Verified 11:27) vancomycin [Vancomycin] Adverse Reaction (Verified 01/06/17 11:27) Past Medical History - Social History Family history: Reviewed & Not Pertinent Renal/ Medical History: Denies: Hx Peritoneal Dialysis GI Medical History: Reports: Hx Hepatitis - hep C Musculoskeltal Medical History: Reports Hx Arthritis Psychiatric Medical History: Denies: Hx Depression Infectious Medical History: Reports: Hx Hepatitis - hep C Past Surgical History: Reports: Hx Orthopedic Surgery - bilat ankles, bilat knees, L elbow, Bilat Forearms - Immunizations Immunizations up to date: Yes Hx Diphtheria, Pertussis, Tetanus Vaccination: Yes Physical Exam - Vital signs Vitals: Temp Pulse Resp BP Pulse Ox 98.1 F 82 16 117/82 98 01/06/17 11:28 01/06/17 11:28 01/06/17 11:28 01/06/17 11:28 01/06/17 11:28 - Extremities General lower extremity: Tender - rt knee, Edema - + swelling/effusion noted to rt knee, Normal color - rt knee, Normal strength, Normal temperature - rt knee Course - Vital Signs Vital signs: Temp Pulse Resp BP Pulse Ox 98.1 F 82 16 117/82 98 01/06/17 11:28 01/06/17 11:28 01/06/17 11:28 01/06/17 11:28 01/06/17 11:28
[2017-01-06] MEDS ORDERED: PROMETHAZINE HCL 25 MG TABLET PO ONE ×2 (13:32→18:51)
[2017-01-06] MEDS ORDERED: OXYCODONE-ACETAMINOPHEN 5-325 MG TABLET PO ONE (13:32)
[2017-01-06] MEDS ORDERED: OXYCODONE HCL IR 5 MG TABLET PO ONE ×2 (13:41→18:50)
--- NOTE | 2017-01-06 16:41 | ER Document Report ---
ED Extremity Problem, Lower - General Chief Complaint: Knee Pain Stated Complaint: RIGHT KNEE SWELLING Time Seen by Provider: 01/06/17 11:38 Notes: Patient is complaining of pain and swelling of his right knee for the past 3-4 days. Patient is a known hemophiliac, factor VIII deficient. He normally takes prophylactic factor VIII-III times a week, but has been incarcerated for the past 3 weeks so he has not had this prophylactic factor VIII for 3 weeks. He has no injury history to the knee. This is a typical presentation for this patient. Patient has been under the care of the hematology department at [place]. Usually, when the patient presents in this manner, he is transferred to another facility such as [place] where he receives a continuous infusion drip of factor VIII. TRAVEL OUTSIDE OF THE [place] IN LAST 30 DAYS: No - Related Data Allergies/Adverse Reactions: acetaminophen [From Tylenol] Adverse Reaction (Verified 01/06/17 11:27) aspirin [Aspirin] Adverse Reaction (Verified 01/06/17 11:27) bleeding ibuprofen [From Motrin] Adverse Reaction (Verified 01/06/17 11:27) bleeding morphine [Morphine] Adverse Reaction (Verified 01/06/17 11:27) Hives NSAIDS (Non-Steroidal Anti-Inflamma [Nsaids] Adverse Reaction (Verified 11:27) vancomycin [Vancomycin] Adverse Reaction (Verified 01/06/17 11:27) Past Medical History - Social History Smoking Status: Never Smoker Frequency of alcohol use: None Drug Abuse: None Family History: Reviewed & Not Pertinent, DM, Other - autoimmune factor VIII deficiency. Hep C GI Medical History: Reports: Hx Hepatitis - hep C Musculoskeltal Medical History: Reports Hx Arthritis Infectious Medical History: Reports: Hx Hepatitis - hep C Past Surgical History: Reports: Hx Orthopedic Surgery - bilat ankles, bilat knees, L elbow, Bilat Forearms Removal synovial memb L - Immunizations Immunizations up to date: Yes Hx Diphtheria, Pertussis, Tetanus Vaccination: Yes Hx Pneumococcal Vaccination: 06/28/09 Review of Systems - Review of Systems Notes: REVIEW OF SYSTEMS: CONSTITUTIONAL : Denies fever. EENT: Denies eye, ear, nose or mouth or throat pain or other symptoms. CARDIOVASCULAR: Denies chest pain. RESPIRATORY: Denies cough, chest congestion, or shortness of breath. GASTROINTESTINAL: Denies abdominal pain or nausea, vomiting, or diarrhea. GENITOURINARY: Denies difficulty or painful urinating, urinary frequency, blood in urine. MUSCULOSKELETAL: Denies back or neck pain. See HPI.. SKIN: Denies rash or skin lesions. NEUROLOGICAL: Denies LOC or altered mental status. Denies headache. Denies sensory loss or motor deficits. ALL OTHER SYSTEMS REVIEWED AND NEGATIVE. Physical Exam - Vital signs Vitals: Temp Pulse Resp BP Pulse Ox 98.1 F 82 16 117/82 98 01/06/17 11:28 01/06/17 11:28 01/06/17 11:28 01/06/17 11:28 01/06/17 11:28 Interpretation: Normal - Notes Notes: PHYSICAL EXAMINATION: Vital signs are all normal. GENERAL: Well-appearing, in no acute distress. Initially in handcuffs and ankle cuffs. Patient is in police custody. HEAD: Atraumatic, normocephalic. EYES: Pupils equal round and reactive to light, extraocular movements intact. ENT: oropharynx clear without exudates. Moist mucous membranes. NECK: Normal range of motion, supple. LUNGS: Breath sounds clear and equal bilaterally. HEART: Regular rate and rhythm without murmurs. ABDOMEN: Soft, nontender. No guarding or rebound. BACK: No tenderness throughout entire back. EXTREMITIES: Normal range of motion without pain. Right knee with a moderate amount of effusion, tender to the touch or any attempted flexion. NEUROLOGICAL: Normal speech, normal gait. Normal sensory, motor, and reflex exams. Awake, alert, and oriented x3. Cranial nerves normal. PSYCH: Normal mood, normal affect. SKIN: Warm, dry, no rashes. Course - Re-evaluation Re-evalutation: During the patient's stay, I contacted hematology at [facility] in [place]. I also spoke with the hospitalist about transferring this patient. Both of them were agreeable to accepting the patient in transfer to give him a constant infusion of factor VIII, but they did not have any beds at [place]. Eventually, we were able to obtain an accepting doctor at the [facility] and a bed was available and they were able to accept this patient to be transferred there to receive factor VIII infusion. I chose not to give the patient the entire supply of factor VIII that we have here as this hospital as we only had enough to give him a bolus of about 50 U/ kg and would not be able to follow that up with any more factor VIII here because our stock would be completely infused in this patient. 01/06/17 19:35 - Vital Signs Vital signs: Temp Pulse Resp BP Pulse Ox 98.1 F 85 16 99/56 L 98 01/06/17 19:06 01/06/17 19:06 01/06/17 19:06 01/06/17 19:06 01/06/17 19:06 Discharge - Discharge Clinical Impression: Hemophilia, Hemarthrosis, right knee Condition: Stable Disposition: [place]
[2017-01-06] MEDS ORDERED: HYDROMORPHONE HCL 2 MG TABLET PO ONE (22:04)
[2017-01-07 00:19] VITALS: BP 104/66
== END 2017-01-07 00:45 | disposition short-term general hospital (02) ==
LOC: ER 11:12
DX: M25.061 Hemarthrosis, right knee (principal); T45.8X6A Underdosing of other primarily systemic and hematological agents, initial encounter; Z91.128 Patient's intentional underdosing of medication regimen for other reason; Y92.149 Unspecified place in prison as the place of occurrence of the external cause; Z91.14 Patient's other noncompliance with medication regimen; D66 Hereditary factor VIII deficiency
CPT/HCPCS: 99285; J3490 ×3

== ENCOUNTER 2017-01-17 10:47 | Emergency (ER) | payer MEDICAID ==
[2017-01-17] MEDS ORDERED: HYDROMORPHONE HCL 2 MG TABLET PO ONE (12:57)
--- NOTE | 2017-01-17 13:48 | ER Document Report ---
ED Extremity Problem, Lower - General Chief Complaint: Knee Pain Stated Complaint: RIGHT KNEE SWELLING Time Seen by Provider: 01/17/17 11:46 TRAVEL OUTSIDE OF THE [place] IN LAST 30 DAYS: No - Related Data Allergies/Adverse Reactions: acetaminophen [From Tylenol] Adverse Reaction (Verified 01/17/17 11:44) aspirin [Aspirin] Adverse Reaction (Verified 01/17/17 11:44) bleeding ibuprofen [From Motrin] Adverse Reaction (Verified 01/17/17 11:44) bleeding morphine [Morphine] Adverse Reaction (Verified 01/17/17 11:44) Hives NSAIDS (Non-Steroidal Anti-Inflamma [Nsaids] Adverse Reaction (Verified 11:44) vancomycin [Vancomycin] Adverse Reaction (Verified 01/17/17 11:44) Home Medications: Current Home Medications No Home Medications 01/17/17 [History] Past Medical History - Social History Smoking Status: Never Smoker Chew tobacco use (# tins/day): No Frequency of alcohol use: None Drug Abuse: None Family History: Reviewed & Not Pertinent, DM, Other - autoimmune factor VIII deficiency. Hep C Patient has suicidal ideation: No Patient has homicidal ideation: No Renal/ Medical History: Denies: Hx Peritoneal Dialysis GI Medical History: Reports: Hx Hepatitis - hep C Musculoskeltal Medical History: Reports Hx Arthritis Psychiatric Medical History: Denies: Hx Depression Infectious Medical History: Reports: Hx Hepatitis - hep C Past Surgical History: Reports: Hx Orthopedic Surgery - bilat ankles, bilat knees, L elbow, Bilat Forearms Removal synovial memb L - Immunizations Immunizations up to date: Yes Hx Diphtheria, Pertussis, Tetanus Vaccination: Yes Hx Pneumococcal Vaccination: 06/28/09 Review of Systems - Review of Systems Constitutional: No symptoms reported. denies: Chills, Fever EENT: No symptoms reported Cardiovascular: No symptoms reported Respiratory: No symptoms reported Gastrointestinal: No symptoms reported Genitourinary: No symptoms reported Musculoskeletal: See HPI Skin: No symptoms reported Neurological/Psychological: No symptoms reported Physical Exam - Vital signs Vitals: Temp Pulse Resp BP Pulse Ox 98.7 F 100 18 124/85 97 01/17/17 10:50 01/17/17 10:50 01/17/17 10:50 01/17/17 10:50 01/17/17 10:50 Interpretation: Normal - General General appearance: Appears well, Alert In distress: None - HEENT Head: Normocephalic Eyes: Normal Conjunctiva: Normal Ears: Normal Nasal: Normal Mouth/Lips: Normal Mucous membranes: Normal - Respiratory Respiratory status: No respiratory distress - Cardiovascular Rhythm: Regular - Abdominal Inspection: Normal Distension: No distension - Extremities General upper extremity: Normal inspection General lower extremity: No: Normal inspection - R. KNEE (SEE BELOW) Knee: Tender, Joint effusion, Pain with ROM - Neurological Neuro grossly intact: Yes Cognition: Normal Orientation: AAOx4 - Psychological Associated symptoms: Normal affect, Normal mood - Skin Skin Temperature: Warm Skin Moisture: Dry Skin Color: Normal Skin Turgor: Elastic Course - Re-evaluation Re-evalutation: 01/17/17 21:30 PATIENT RE-EVALUATED @ 1445: STATUS UNCHANGED, STABLE FOR TRANSPORT - Vital Signs Vital signs: Temp Pulse Resp BP Pulse Ox 98.1 F 78 18 119/83 97 01/17/17 14:18 01/17/17 14:18 01/17/17 14:18 01/17/17 14:18 01/17/17 14:18 - Consults HEATHER Time consulted: 13:05 Reason for consultation: 01/17/17 21:29 ACCEPTED FOR TRANSFER, ED-TO-ED Discharge - Discharge Clinical Impression: Hemophilia A, Hemarthrosis of knee, right Condition: Good Disposition: [facility]
[2017-01-17 14:19] VITALS: BP 119/83
== END 2017-01-17 14:32 | disposition short-term general hospital (02) ==
LOC: ER 10:47
DX: D66 Hereditary factor VIII deficiency (principal); M25.061 Hemarthrosis, right knee; Z86.19 Personal history of other infectious and parasitic diseases; Z98.890 Other specified postprocedural states
CPT/HCPCS: 99284; J3490

== ENCOUNTER 2017-01-24 17:27 | Emergency (ER) | payer MEDICAID ==
--- NOTE | 2017-01-24 18:58 | ER Document Report ---
ED Medical Screen (RME) - General Chief Complaint: Knee Pain Stated Complaint: KNEE PAIN Time Seen by Provider: 01/24/17 18:41 Notes: Patient is a 18-year-old male who presents emergency department complaining of left ankle and right knee pain. Patient states that he tripped in a pothole last evening, causing left ankle pain. Patient states that he woke up this morning with right knee swelling. Patient states that when his right knee swelled up it is indicative of his hemophilia A. Patient states that in the past he is come here for pain management and usually requires transfer for her to [facility] monthly. Patient states that he is up-to-date on his injections he received blood last . Was recently discharged from [facility]. states that he was taking 15 mg oxycodone with minimal improvement in his pain. TRAVEL OUTSIDE OF THE [place] IN LAST 30 DAYS: No - Related Data Allergies/Adverse Reactions: acetaminophen [From Tylenol] Adverse Reaction (Verified 01/24/17 17:53) aspirin [Aspirin] Adverse Reaction (Verified 01/24/17 17:53) bleeding ibuprofen [From Motrin] Adverse Reaction (Verified 01/24/17 17:53) bleeding morphine [Morphine] Adverse Reaction (Verified 01/24/17 17:53) Hives NSAIDS (Non-Steroidal Anti-Inflamma [Nsaids] Adverse Reaction (Verified 17:53) vancomycin [Vancomycin] Adverse Reaction (Verified 01/24/17 17:53) Past Medical History - Social History Family history: Reviewed & Not Pertinent Renal/ Medical History: Denies: Hx Peritoneal Dialysis GI Medical History: Reports: Hx Hepatitis - hep C Musculoskeltal Medical History: Reports Hx Arthritis Psychiatric Medical History: Denies: Hx Depression Infectious Medical History: Reports: Hx Hepatitis - hep C Past Surgical History: Reports: Hx Orthopedic Surgery - bilat ankles, bilat knees, L elbow, Bilat Forearms Removal synovial memb L - Immunizations Immunizations up to date: Yes Hx Diphtheria, Pertussis, Tetanus Vaccination: Yes Physical Exam - Vital signs Vitals: Temp Pulse Resp BP Pulse Ox 98.0 F 84 16 118/82 100 01/24/17 17:52 01/24/17 17:52 01/24/17 17:52 01/24/17 17:52 01/24/17 17:52 - Extremities Knee: Tender, Joint effusion - Right knee Ankle: Normal, Nontender, Tender - along the lateral aspect of the left ankle. No: Edema, Unable to bear weight - Skin Skin Color: Normal Skin Turgor: Elastic Course - Vital Signs Vital signs: Temp Pulse Resp BP Pulse Ox 98.0 F 84 16 118/82 100 01/24/17 17:52 01/24/17 17:52 01/24/17 17:52 01/24/17 17:52 01/24/17 17:52
[2017-01-24] MEDS ORDERED: OXYCODONE HCL IR 5 MG TABLET PO PRN (19:12)
--- NOTE | 2017-01-24 19:18 | ER Document Report ---
ED General - General Chief Complaint: Knee Pain Stated Complaint: KNEE PAIN Time Seen by Provider: 01/24/17 18:41 Notes: Patient is a 26-year-old male with a past medical history of hemophilia A, frequent visits to the emergency department for right-sided knee hemarthrosis who presents today again with concerns that he has developed recurrent hemarthrosis. Patient was just discharged from [facility] for the exact same presentation 3 days ago. States that however the hemarthrosis has recurred after he stepped in a pothole and twisted his knee. He is asking for oxycodone for pain control. States that he has a severe, constant, throbbing pain to the right knee. Moving worsens the pain. Nothing improves the pain. TRAVEL OUTSIDE OF THE [place] IN LAST 30 DAYS: No - Related Data Allergies/Adverse Reactions: acetaminophen [From Tylenol] Adverse Reaction (Verified 01/24/17 17:53) aspirin [Aspirin] Adverse Reaction (Verified 01/24/17 17:53) bleeding ibuprofen [From Motrin] Adverse Reaction (Verified 01/24/17 17:53) bleeding morphine [Morphine] Adverse Reaction (Verified 01/24/17 17:53) Hives NSAIDS (Non-Steroidal Anti-Inflamma [Nsaids] Adverse Reaction (Verified 17:53) vancomycin [Vancomycin] Adverse Reaction (Verified 01/24/17 17:53) Past Medical History - General Information source: Patient - Social History Smoking Status: Never Smoker Chew tobacco use (# tins/day): No Frequency of alcohol use: None Drug Abuse: None Family History: Reviewed & Not Pertinent, DM, Other - autoimmune factor VIII deficiency. Hep C Renal/ Medical History: Denies: Hx Peritoneal Dialysis GI Medical History: Reports: Hx Hepatitis - hep C Musculoskeltal Medical History: Reports Hx Arthritis Psychiatric Medical History: Denies: Hx Depression Infectious Medical History: Reports: Hx Hepatitis - hep C Past Surgical History: Reports: Hx Orthopedic Surgery - bilat ankles, bilat knees, L elbow, Bilat Forearms Removal synovial memb L - Immunizations Immunizations up to date: Yes Hx Diphtheria, Pertussis, Tetanus Vaccination: Yes Hx Pneumococcal Vaccination: 06/28/09 Review of Systems - Review of Systems Notes: Constitutional: Negative for fever. HENT: Negative for sore throat. Eyes: Negative for visual changes. Cardiovascular: Negative for chest pain. Respiratory: Negative for shortness of breath. Gastrointestinal: Negative for abdominal pain, vomiting or diarrhea. Genitourinary: Negative for dysuria. Musculoskeletal: Positive for right knee and left ankle pain Skin: Negative for rash. Neurological: Negative for headaches, weakness or numbness. 10 point ROS negative except as marked above and in HPI. Physical Exam - Vital signs Vitals: Temp Pulse Resp BP Pulse Ox 98.0 F 84 16 118/82 100 01/24/17 17:52 01/24/17 17:52 01/24/17 17:52 01/24/17 17:52 01/24/17 17:52 Interpretation: Normal Notes: PHYSICAL EXAMINATION: GENERAL: Well-appearing, well-nourished and in no acute distress. HEAD: Atraumatic, normocephalic. EYES: Pupils equal round and reactive to light, extraocular movements intact, sclera anicteric, conjunctiva are normal. ENT: nares patent, oropharynx clear without exudates. Moist mucous membranes. NECK: Normal range of motion, supple without lymphadenopathy LUNGS: Breath sounds clear to auscultation bilaterally and equal. No wheezes rales or rhonchi. HEART: Regular rate and rhythm without murmurs ABDOMEN: Soft, nontender, normoactive bowel sounds. No guarding, no rebound. No masses appreciated. EXTREMITIES: Normal range of motion, mild swelling to the right knee without any appreciable erythema or limited range of motion. Left ankle without any focal tenderness to palpation or limited range of motion NEUROLOGICAL: No focal neurological deficits. Moves all extremities spontaneously and on command. PSYCH: Patient seems ambivalent to being in the emergency department, playing on his cell phone SKIN: Warm, Dry, normal turgor, no rashes or lesions noted. Course - Re-evaluation Re-evalutation: 01/24/17 19:15 Patient presents with a recurrent right knee hemarthrosis complaining of significant pain although he does not appear to be in any pain whatsoever, playing on a cell phone. He frequently comes to the emergency department and subsequently transferred to [facility] for factor VIII infusions. He was after just discharged 3 days ago and is stating that he stepped in a pothole and injured that knee again. He does have high opiate requirement stating that nothing less than 15 mg of oxycodone controls his pain. Patient is often transferred to [facility] for this exact presentation. 01/24/17 19:35 I discussed this case with hematology oncology fellow on-call who will speak with her attending. Apparently patient never follows up for his hematology oncology appointments and did not receive any narcotic or factor prescriptions upon discharge from their facility due to his refusal to follow-up in clinic appointments. Again I have a high level of concern that this patient does demonstrate drug-seeking behaviors although he clearly does have underlying pathology. I am working to confirm that 01/24/17 20:28 I discussed with the heme fellow at [facility] who is working under who has stated patient can be transferred to [facility] ED-ED with the understanding that he will not receive pain medications while admitted. I have discussed this with the patient who is agreeable to transfer despite the understand that he will not receive pain medications here or at that facility. I will contact the [facility] emergency department for transfer at this time 01/25/17 00:26 Transport has arrived for transfer. Patient remained stable and is cleared for transport - Vital Signs Vital signs: Temp Pulse Resp BP Pulse Ox 98.0 F 99 17 105/63 97 01/25/17 00:00 01/25/17 00:00 01/25/17 00:00 01/25/17 00:00 01/25/17 00:00 - Diagnostic Test Radiology reviewed: Image reviewed, Reports reviewed Discharge - Discharge Clinical Impression: Hemarthrosis of knee, right, Hemophilia A Condition: Stable Disposition: [place]
--- NOTE | 2017-01-24 19:56 | RADIOLOGY REPORT (SQ) ---
EXAM DESCRIPTION: KNEE RIGHT 4 VIEWS COMPLETED DATE/TIME: 01/24/2017 7:44 pm REASON FOR STUDY: fall with hemophilia COMPARISON: 11/26/2016 NUMBER OF VIEWS: Four views. TECHNIQUE: AP, lateral, and both oblique radiographic images acquired of the right knee. LIMITATIONS: None. FINDINGS: MINERALIZATION: Normal. BONES: Extensive degenerative changes. JOINT: Joint effusion. SOFT TISSUES: No soft tissue swelling. No radio-opaque foreign body. OTHER: No other significant finding. IMPRESSION: Chronic bony changes. Joint effusion. No acute fracture. TECHNICAL DOCUMENTATION: JOB ID: [id number] [email or web address]- All Rights Reserved
--- NOTE | 2017-01-24 19:57 | RADIOLOGY REPORT (SQ) ---
EXAM DESCRIPTION: ANKLE LEFT COMPLETE COMPLETED DATE/TIME: 01/24/2017 7:44 pm REASON FOR STUDY: fall with hemophilia COMPARISON: 01/16/2016 NUMBER OF VIEWS: Three views. TECHNIQUE: AP, lateral, and oblique radiographic images acquired of the left ankle. LIMITATIONS: None. FINDINGS: MINERALIZATION: Normal. BONES: No acute fracture. Old ankle fusion. Old posttraumatic changes. JOINTS: No effusions. SOFT TISSUES: No soft tissue swelling. No foreign body. OTHER: No other significant finding. IMPRESSION: No acute fracture. Chronic postsurgical and posttraumatic changes. TECHNICAL DOCUMENTATION: JOB ID: [id number] [employer]- All Rights Reserved
[2017-01-25 00:24] VITALS: BP 105/63
== END 2017-01-25 00:28 | disposition short-term general hospital (02) ==
LOC: ER 17:27
DX: M25.061 Hemarthrosis, right knee (principal); S89.91XA Unspecified injury of right lower leg, initial encounter; X50.1XXA Overexertion from prolonged static or awkward postures, initial encounter; Y93.9 Activity, unspecified; D66 Hereditary factor VIII deficiency; Z88.8 Allergy status to other drugs, medicaments and biological substances; M25.561 Pain in right knee; M25.572 Pain in left ankle and joints of left foot
CPT/HCPCS: 99284; 73610; 73564; J3490

== ENCOUNTER 2017-02-01 12:42 | Emergency (ER) | payer MEDICAID ==
--- NOTE | 2017-02-01 16:22 | ER Document Report ---
ED Extremity Problem, Lower - General Chief Complaint: Knee Pain Stated Complaint: RIGHT KNEE SWELLING Time Seen by Provider: 02/01/17 13:19 Notes: Patient is a 26-year-old male who is here for concerns with his hemophilia A. Patient was discharged on 01/28/2017 from [facility] with a prescription for Factor 8. he states he has not been able to get his factor 8 because he has moved out of his family home with his and children. He states he cannot live there and will not go back. He states he is trying to get into a new apartment within the next week. Until then, he states he does not have a place to keep his factor 8 stored appropriately. He states he needs to be transferred to [facility] so they can manage his current right knee discomfort/hemarthrosis. He states he has not been taking his factor 8 as prescribed therefore his right knee has started hurt over the past 24 hours. he states he Has been able to walk without difficulty. States the swelling is about the same as his baseline He is due to follow up with [facility] 02/17/2017 TRAVEL OUTSIDE OF THE [place] IN LAST 30 DAYS: No - Related Data Allergies/Adverse Reactions: acetaminophen [From Tylenol] Adverse Reaction (Verified 02/01/17 12:46) aspirin [Aspirin] Adverse Reaction (Verified 02/01/17 12:46) bleeding ibuprofen [From Motrin] Adverse Reaction (Verified 02/01/17 12:46) bleeding morphine [Morphine] Adverse Reaction (Verified 02/01/17 12:46) Hives NSAIDS (Non-Steroidal Anti-Inflamma [Nsaids] Adverse Reaction (Verified 12:46) vancomycin [Vancomycin] Adverse Reaction (Verified 02/01/17 12:46) Past Medical History - Social History Smoking Status: Current Every Day Smoker Family History: Reviewed & Not Pertinent, DM, Other - autoimmune factor VIII deficiency. Hep C Renal/ Medical History: Denies: Hx Peritoneal Dialysis GI Medical History: Reports: Hx Hepatitis - hep C Musculoskeltal Medical History: Reports Hx Arthritis Psychiatric Medical History: Denies: Hx Depression Infectious Medical History: Reports: Hx Hepatitis - hep C Past Surgical History: Reports: Hx Orthopedic Surgery - bilat ankles, bilat knees, L elbow, Bilat Forearms Removal synovial memb L, Hx Vascular Surgery - ports (inactive) - Immunizations Immunizations up to date: Yes Hx Diphtheria, Pertussis, Tetanus Vaccination: Yes Hx Pneumococcal Vaccination: 06/28/09 Review of Systems - Review of Systems Constitutional: No symptoms reported Physical Exam - Vital signs Vitals: Temp Pulse Resp BP Pulse Ox 98.6 F 115 H 16 125/78 97 02/01/17 12:46 02/01/17 12:46 02/01/17 12:46 02/01/17 12:46 02/01/17 12:46 - Notes Notes: PHYSICAL EXAM GENERAL: Alert, interacts well. LUNGS: Clear to auscultation bilaterally, no wheezes, rales, or rhonchi. No respiratory distress. HEART: Regular rate and rhythm. No murmurs, gallops, or rubs. EXTREMITIES: Normal range of motion, mild swelling to the right knee without any appreciable erythema or limited range of motion. Remaining joints without any focal tenderness to palpation or limited range of motion. No edema, radial and dorsalis pedis pulses 2/4 bilaterally. No cyanosis. NEUROLOGICAL: Alert and oriented x4. Normal speech. PSYCH: Normal affect, normal mood. SKIN: Warm, dry, normal turgor. No rashes or lesions noted. Course - Re-evaluation Re-evalutation: 02/01/17 13:30 Patient presents with a recurrent right knee hemarthrosis stating he needs to be transferred to [facility] because he doesnt have a refrigerator for his factor 8. He does not appear to be in any pain whatsoever, playing on a cell phone. He frequently comes to the emergency department and subsequently transferred to [facility] for factor VIII infusions. He was just discharged 4 days ago and has been noncompliant with factor 8 because he refuses to live at his current address due to social issues. He does have high opiate requirement stating that nothing less than 15 mg of oxycodone controls his pain. Patient is often transferred to [facility] for this exact presentation. 01/24/17 14:36 I discussed this case with hematology oncology attending Dr. Shreyas Stephens at [facility] who agrees that this patient does not require transfer to [facility]. The patient is medically stable, no acute distress and afebrile playing on his phone. His physician at [facility] states the pharmacy who mails him his medications can be sent to any address. I have consulted our case manage to help organize a solution given patient has a home he is refusing to return to and is in the process of getting a new apartment. He is stating that he has spoken with the nurse at [facility] who is stating he needs to be transferred but when I spoke with Dr. Stephens, this is not the case. 01/24/17 16:22 Our case preparer and liner has spoken with a pharmacist at [facility] pharmacy in [place] who is willing to hold the medication there and the patient can give his injections himself. In the meantime he was given resources for local homeless halfway and transition housing. Patient is DECLINING assistance with this plan. He states he came here so he could be transferred to [facility]. I have gone over with the patient multiple times that his complaint does not require inpatient treatment and can continue to treat himself with factor 8 with the plan described above. He states that he would like to leave and does not want me to organize his factor 8 to be delivered to a pharmacy in the area. I have discussed this with Dr. Stephens and he states he will have his social media content specialist at [facility] touch base with him 01/24/17 17:15 Dr. Stephens states his social media content specialist was able to speak with the patient. Per Dr. Stephens, patient declined assistance - Vital Signs Vital signs: Temp Pulse Resp BP Pulse Ox 98.0 F 78 18 115/79 100 02/01/17 16:30 02/01/17 16:30 02/01/17 16:30 02/01/17 16:30 02/01/17 16:30 Discharge - Discharge Clinical Impression: Hemophilia A Condition: Good Disposition: HOME, SELF-CARE Additional Instructions: Please follow-up with your Hematology and Oncology team at [facility] at Please feel free to contact [facility] located at [address] [place] [address] [address], [place] [address], regarding storing your medication. Please follow up with the local [facility] homeless halfway while you are establishing residency
[2017-02-01 16:31] VITALS: BP 115/79
== END 2017-02-01 16:31 | disposition home or self-care (01) ==
LOC: ER 12:42
DX: D66 Hereditary factor VIII deficiency (principal); M25.561 Pain in right knee; M79.89 Other specified soft tissue disorders; F17.200 Nicotine dependence, unspecified, uncomplicated
CPT/HCPCS: 99283

== ENCOUNTER 2017-02-02 17:23 | Emergency (ER) | payer MEDICAID ==
[2017-02-02 17:37] VITALS: BP 130/78
--- NOTE | 2017-02-02 17:52 | ER Document Report ---
ED Medical Screen (RME) - General Chief Complaint: Knee Injury Stated Complaint: RIGHT KNEE PAIN Time Seen by Provider: 02/02/17 17:51 Notes: Patient is a hemophiliac who has been here multiple times. He states he has had some right knee swelling and has been using his factor at home but with no relief. He states he came here because he needs help with supplies and he needs to have someone discussed the case with his station operator. TRAVEL OUTSIDE OF THE [place] IN LAST 30 DAYS: No - Related Data Allergies/Adverse Reactions: acetaminophen [From Tylenol] Adverse Reaction (Verified 02/01/17 12:46) aspirin [Aspirin] Adverse Reaction (Verified 02/01/17 12:46) bleeding ibuprofen [From Motrin] Adverse Reaction (Verified 02/01/17 12:46) bleeding morphine [Morphine] Adverse Reaction (Verified 02/01/17 12:46) Hives NSAIDS (Non-Steroidal Anti-Inflamma [Nsaids] Adverse Reaction (Verified 12:46) vancomycin [Vancomycin] Adverse Reaction (Verified 02/01/17 12:46) Past Medical History - Social History Drug Abuse: None Family history: Reviewed & Not Pertinent Renal/ Medical History: Denies: Hx Peritoneal Dialysis GI Medical History: Reports: Hx Hepatitis - hep C Musculoskeltal Medical History: Reports Hx Arthritis Psychiatric Medical History: Denies: Hx Depression Infectious Medical History: Reports: Hx Hepatitis - hep C Past Surgical History: Reports: Hx Orthopedic Surgery - bilat ankles, bilat knees, L elbow, Bilat Forearms Removal synovial memb L, Hx Vascular Surgery - ports (inactive) - Immunizations Immunizations up to date: Yes Hx Diphtheria, Pertussis, Tetanus Vaccination: Yes Physical Exam - Vital signs Vitals: Temp Pulse Resp BP Pulse Ox 98.7 F 103 H 14 130/78 H 97 02/02/17 17:36 02/02/17 17:36 02/02/17 17:36 02/02/17 17:36 02/02/17 17:36 Course - Vital Signs Vital signs: Temp Pulse Resp BP Pulse Ox 98.7 F 103 H 14 130/78 H 97 02/02/17 17:36 02/02/17 17:36 02/02/17 17:36 02/02/17 17:36 02/02/17 17:36
--- NOTE | 2017-02-02 18:28 | ER Document Report ---
ED Extremity Problem, Lower - General Mode of Arrival: Ambulatory Information source: Patient TRAVEL OUTSIDE OF THE [place] IN LAST 30 DAYS: No - HPI Patient complains to provider of: Swelling Location: Knee - right Occurred: Other - Refer to HPI notes <DANO MATA - Last Filed: 02/02/17 19:15> <STACY RAMOS - Last Filed: 02/08/17 12:17> - General Chief Complaint: Knee Injury Stated Complaint: RIGHT KNEE PAIN Time Seen by Provider: 02/02/17 17:51 Notes: Patient is a 26 year old male presenting to the ED for right knee swelling and a history of hemophilia. Patient has been evaluated at this emergency department multiple times in the past for this. 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 Patient is homeless. Patient presents with the same symptoms as he did yesterday but states he has his supplies here and just needs a "butterfly and syringe" in order to mix and give himself the dose of medication. Patient states he is not out of the medication and that he just needs supplies. Patient does not have a primary care physician. (DANO MATA) - Related Data Allergies/Adverse Reactions: acetaminophen [From Tylenol] Adverse Reaction (Verified 02/01/17 12:46) aspirin [Aspirin] Adverse Reaction (Verified 02/01/17 12:46) bleeding ibuprofen [From Motrin] Adverse Reaction (Verified 02/01/17 12:46) bleeding morphine [Morphine] Adverse Reaction (Verified 02/01/17 12:46) Hives NSAIDS (Non-Steroidal Anti-Inflamma [Nsaids] Adverse Reaction (Verified 12:46) vancomycin [Vancomycin] Adverse Reaction (Verified 02/01/17 12:46) Home Medications: Current Home Medications Antihemophilic Factor/Vwf [Alphanate 2,000-800 Unit Vial] 5,000 unit IV ASDIR PRN 02/02/17 [History] Past Medical History - General Information source: Patient - Social History Smoking Status: Never Smoker Cigarette use (# per day): No Chew tobacco use (# tins/day): No Smoking Education Provided: No Frequency of alcohol use: None Drug Abuse: None Family History: DM, Other - autoimmune factor VIII deficiency. Hep C Patient has suicidal ideation: No Patient has homicidal ideation: No GI Medical History: Reports: Hx Hepatitis - hep C Musculoskeltal Medical History: Reports Hx Arthritis Infectious Medical History: Reports: Hx Hepatitis - hep C Past Surgical History: Reports: Hx Orthopedic Surgery - bilat ankles, bilat knees, L elbow, Bilat Forearms Removal synovial memb L, Hx Vascular Surgery - ports (inactive) - Immunizations Immunizations up to date: Yes Hx Diphtheria, Pertussis, Tetanus Vaccination: Yes Hx Pneumococcal Vaccination: 06/28/09 <DANO MATA - Last Filed: 02/02/17 19:15> Review of Systems - Review of Systems Constitutional: No symptoms reported EENT: No symptoms reported Cardiovascular: No symptoms reported Respiratory: No symptoms reported Gastrointestinal: No symptoms reported Genitourinary: No symptoms reported Male Genitourinary: No symptoms reported Musculoskeletal: See HPI Skin: No symptoms reported Hematologic/Lymphatic: No symptoms reported Neurological/Psychological: No symptoms reported -: Yes All other systems reviewed and negative <ADOLFODANO - Last Filed: 02/02/17 19:15> Physical Exam - Vital signs Interpretation: Normal <DANO MATA - Last Filed: 02/02/17 19:15> <RACHELHARSHADSTACY - Last Filed: 02/08/17 12:17> - Vital signs Vitals: Temp Pulse Resp BP Pulse Ox 98.7 F 103 H 14 130/78 H 97 02/02/17 17:36 02/02/17 17:36 02/02/17 17:36 02/02/17 17:36 02/02/17 17:36 - Notes Notes: GENERAL: Alert, interacts well. No acute distress. HEAD: Normocephalic, atraumatic. EYES: Appear normal. Pupils equal, round, and reactive to light. ENT: Moist mucus membranes, tongue midline. NECK: Full range of motion. Supple. Trachea midline. LUNGS: Clear to auscultation bilaterally, no wheezes, rales, or rhonchi. No respiratory distress. HEART: Regular rate and rhythm. No murmurs, gallops, or rubs. ABDOMEN: Soft, non-tender. Non-distended. Normal bowel sounds. EXTREMITIES: Moves all 4 extremities spontaneously. Normal strength. Swelling over the right knee which is consistent to yesterday's exam. NEUROLOGICAL: Alert and oriented x3. Normal speech. No focal neurological deficits. GSC 15. PSYCH: Normal affect, normal mood. SKIN: Warm, dry, normal turgor. No rashes or lesions noted. (DANO MATA) Course - Laboratory Result Diagrams: 02/02/17 18:15 02/02/17 18:15 <ADOLFOAMILCARDANO - Last Filed: 02/02/17 19:15> - Laboratory Result Diagrams: 02/02/17 18:15 02/02/17 18:15 <STACY RAMOS - Last Filed: 02/08/17 12:17> - Re-evaluation Re-evalutation: 02/02/17 18:29 Patient has a history of factor VIII hemophilia a has been seen in our emergency department numerous times including yesterday below is a summary that was written by the APC who cared form yesterday including talking with attendings at [facility] and finding a pharmacy to store his medication. He is here today saying he has his medication that he does not have anything to give it to himself and he came to the emergency department so he could administer it himself with our supplies. On examination I had the same APC calling come and see the patient is not a different from yesterday. He is awake alert minimal right knee swelling. He has medication with them at the bedside the nurse is going to confirm the medicine with pharmacy and administer the medicine herself. And the patient will be discharged. He needs to contact the individuals who provide supplies for him to make sure he is not running out of them. Discussed clinic follow-up urgent care and reasons for ED return sooner Patient presents with a recurrent right knee hemarthrosis stating he needs to be transferred to [facility] because he doesnt have a refrigerator for his factor 8. He does not appear to be in any pain whatsoever, playing on a cell phone. He frequently comes to the emergency department and subsequently transferred to [facility] for factor VIII infusions. He was just discharged 4 days ago and has been noncompliant with factor 8 because he refuses to live at his current address due to social issues. He does have high opiate requirement stating that nothing less than 15 mg of oxycodone controls his pain. Patient is often transferred to [facility] for this exact presentation. 01/24/17 14:36 I discussed this case with hematology oncology attending Dr. Shreyas Stephens at [facility] who agrees that this patient does not require transfer to [facility]. The patient is medically stable, no acute distress and afebrile playing on his phone. His physician at [facility] states the pharmacy who mails him his medications can be sent to any address. I have consulted our case manage to help organize a solution given patient has a home he is refusing to return to and is in the process of getting a new apartment. He is stating that he has spoken with the nurse at [facility] who is stating he needs to be transferred but when I spoke with Dr. Stephens, this is not the case. 01/24/17 16:22 Our nurse outreach case manager has spoken with a pharmacist at [facility] pharmacy in [place] who is willing to hold the medication there and the patient can give his injections himself. In the meantime he was given resources for local homeless skilled nursing and transition housing. Patient is DECLINING assistance with this plan. He states he came here so he could be transferred to [facility]. I have gone over with the patient multiple times that his complaint does not require inpatient treatment and can continue to treat himself with factor 8 with the plan described above. He states that he would like to leave and does not want me to organize his factor 8 to be delivered to a pharmacy in the area. I have discussed this with Dr. Stephens and he states he will have his outreach and education social worker at [facility] touch base with him 01/24/17 17:15 Dr. Stephens states his outreach and education social worker was able to speak with the patient. Per Dr. Stephens, patient declined assistance (STACY RAMOS) - Vital Signs Vital signs: Temp Pulse Resp BP Pulse Ox 98.7 F 99 18 130/78 H 100 02/02/17 17:36 02/02/17 22:16 02/02/17 22:16 02/02/17 17:36 02/02/17 22:16 - Laboratory Laboratory results interpreted by sc: 02/02/17 02/02/17 18:15 18:15 Hgb 12.6 L MCV 78 L MCH 24.8 L MCHC 31.6 L RDW 17.5 H Carbon Dioxide 20 L Glucose 159 H Discharge <DANO MATA - Last Filed: 02/02/17 19:15> <STACY RAMOS - Last Filed: 02/08/17 12:17> - Discharge Clinical Impression: Administration of factor VIII Condition: Stable Disposition: HOME, SELF-CARE Additional Instructions: factor 8 Hemophilia is an inherited disease that prevents proper clotting of the blood. The three types are Hemophilia A (classic hemophilia), Hemophilia B ( Viborg disease), and von Willebrand's disease. In each type of hemophilia, a different "clotting factor" is missing. Von Willebrand's disease is milder, and usually only becomes a problem after major trauma or during surgery. In hemophilia A and B, there is often severe bleeding after dental work, tongue biting, or small cuts. Sports can cause hemorrhages in the muscle. Spontaneous bleeding can occur into a joint or muscle. We treat bleeding episodes by replacing the missing factor. With less dangerous bleeding, we replace just enough to control the bleeding. With more dangerous problems (for example, head injury or major surgery), we continue replacing clotting factor for a week or more, until there's complete healing. Ice packs, splinting, and an chelsi wrap can help limit extremity bleeding. Sometimes steroids are used after joint hemorrhages. Pain medication is often required. Of course, you should avoid anything containing aspirin or aspirin- like antiinflammatory medicines. Return if symptoms increase, or if there are new symptoms (such as numbness or weakness "downstream" from the area of bleeding). Referrals: [facility] [Provider Group] (Call them to make arrangements to assist you with your factor VIII that you require and supplies. Return to emerged from sooner for increasing worsening or new symptoms) Scribe Attestation: 02/02/17 19:11 I personally performed the services described in the documentation reviewed the documentation recorded by my scribe in my presence and it accurately and completely records my words and actions (STACY RAMOS) Scribe Documentation - Scribe Written by Marcus:: Marcus Manriquez 02/02/17 19:32 acting as scribe for :: Rachel <DANO MATA - Last Filed: 02/02/17 19:15>
[2017-02-02 18:39] LABS: ABSOLUTE EOSINOPHILS # (AUTO) 0.2 10^3/uL (0.0-0.6); ABSOLUTE LYMPHOCYTES (AUTO) 1.8 10^3/uL (0.5-4.7); ABSOLUTE MONOCYTES (AUTO) 0.7 10^3/uL (0.1-1.4); ABSOLUTE NEUT (AUTO) 4.5 10^3/uL (1.7-8.2); BASOPHILS % (AUTO) 0.5 % (0-2); EOSINOPHILS % (AUTO) 2.8 % (0-6); HEMOGLOBIN 12.6 g/dL (13.5-17.0); HGB HCT DIFFERENCE -2.2; LYMPHOCYTES % (AUTO) 25.3 % (13-45); MEAN CORPUSCULAR HEMOGLOBIN 24.8 pg (27.0-33.4); MEAN CORPUSCULAR HGB CONC 31.6 g/dL (32.0-36.0); MEAN CORPUSCULAR VOLUME 78 fl (80-97); MONOCYTES % (AUTO) 9.6 % (3-13); RED CELL DISTRIBUTION WIDTH 17.5 % (11.5-14.0); SEGMENTED NEUTROPHILS % (AUTO) 61.8 % (42-78); WHITE BLOOD COUNT 7.2 10^3/uL (4.0-10.5)
[2017-02-02 18:47] LABS: ANION GAP 16 (5-19); BLOOD UREA NITROGEN 13 mg/dL (7-20); CARBON DIOXIDE 20 mmol/L (22-30); CHLORIDE 105 mmol/L (98-107); CREATININE RESULT 0.74 mg/dL (0.52-1.25); GLUCOSE 159 mg/dL (75-110); POTASSIUM 3.8 mmol/L (3.6-5.0); SODIUM 140.8 mmol/L (137-145)
[2017-02-02] MEDS ORDERED: [UNRECOGNIZED DRUG - MIXTURE] IV PRN (20:13)
[2017-02-02] MEDS ORDERED: [UNRECOGNIZED DRUG - OTHER] IV PRN ×2 (20:15→20:22)
[2017-02-02] MEDS ORDERED: ANTIHEMOPHILIC FACTOR IV PRN ×2 (20:15→20:22)
== END 2017-02-02 21:01 | disposition home or self-care (01) ==
LOC: ER 17:23
DX: D66 Hereditary factor VIII deficiency (principal); Z91.19 Patient's noncompliance with other medical treatment and regimen; Z59.0 Homelessness; Z88.6 Allergy status to analgesic agent; Z88.3 Allergy status to other anti-infective agents; Z86.19 Personal history of other infectious and parasitic diseases
CPT/HCPCS: 36415; 80048; 85025; 99283

== ENCOUNTER 2017-02-03 17:44 | Emergency (ER) | payer MEDICAID ==
--- NOTE | 2017-02-03 19:17 | ER Document Report ---
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 He states that he has not gone away in 3 days and usually that means he needs to be transferred. He has been giving himself factor VIII with the help of the ED in fact he has been here several times to either get the fracture or get supplies to administer the factor as he is homeless. Denies fever chills. He says he can barely bear weight but when I pulled into the parking lot he saw the patient walking into the ED without apparent limp. TRAVEL OUTSIDE OF THE [place] IN LAST 30 DAYS: No - Related Data Allergies/Adverse Reactions: acetaminophen [From Tylenol] Adverse Reaction (Verified 02/01/17 12:46) aspirin [Aspirin] Adverse Reaction (Verified 02/01/17 12:46) bleeding ibuprofen [From Motrin] Adverse Reaction (Verified 02/01/17 12:46) bleeding morphine [Morphine] Adverse Reaction (Verified 02/01/17 12:46) Hives NSAIDS (Non-Steroidal Anti-Inflamma [Nsaids] Adverse Reaction (Verified 12:46) vancomycin [Vancomycin] Adverse Reaction (Verified 02/01/17 12:46) Past Medical History - General Information source: Patient - Social History Smoking Status: Never Smoker Chew tobacco use (# tins/day): No Frequency of alcohol use: None Drug Abuse: None Family History: DM, Other - autoimmune factor VIII deficiency. Hep C Renal/ Medical History: Denies: Hx Peritoneal Dialysis GI Medical History: Reports: Hx Hepatitis - hep C Musculoskeltal Medical History: Reports Hx Arthritis Psychiatric Medical History: Denies: Hx Depression Infectious Medical History: Reports: Hx Hepatitis - hep C Past Surgical History: Reports: Hx Orthopedic Surgery - bilat ankles, bilat knees, L elbow, Bilat Forearms Removal synovial memb L, Hx Vascular Surgery - ports (inactive) - Immunizations Immunizations up to date: Yes Hx Diphtheria, Pertussis, Tetanus Vaccination: Yes Hx Pneumococcal Vaccination: 06/28/09 Review of Systems - Review of Systems Notes: REVIEW OF SYSTEMS GEN: Denies fever, chills, weight loss ENT: Denies sore throat, nasal discharge, ear pain EYES: Denies blurry vision, eye pain, discharge CV: Denies chest pain, palpitations, edema RESP: Denies cough, shortness of breath, wheezing GI: Denies abdominal pain, nausea, vomiting, diarrhea MSK: R knee pain swelling SKIN: Denies rash, skin lesions LYMPH: Denies swollen glands/lymph nodes NEURO: Denies headache, focal weakness or numbness, dizziness PSYCH: Denies depression, suicidal or homicidal ideation PHYSICAL EXAMINATION General: No acute distress, well-nourished Head: Atraumatic, normocephalic ENT: Mouth normal, oropharynx moist, no exudates or tonsillar enlargement Eyes: Conjunctiva normal, pupils equal, lids normal Neck: No JVD, supple, no guarding CVS: Normal rate, regular rhythm, no murmurs Resp: No resp distress, equal and normal breath sounds bilaterally GI: Nondistended, soft, no tenderness to palpation, no rebound or guarding Ext: R knee mild/mod effusion decr OM, min TTP Back: No CVA or midline TTP Skin: No rash, warm Lymphatic: No lymphadeopathy noted Neuro: Awake, alert. Face symmetric. GCS 15. Physical Exam - Vital signs Vitals: Temp Pulse Resp BP Pulse Ox 97.8 F 87 16 115/80 100 02/03/17 18:21 02/03/17 18:21 02/03/17 18:21 02/03/17 18:21 02/03/17 18:21 Course - Re-evaluation Re-evalutation: 02/03/17 19:17 02/03/17 19:24 18-year-old male presents with 3 days of right knee swelling in the setting of hemophilia. The patient has multiple ED visits and I suspect there is some component of secondary gain since he is not housed as well as desire for pain medication. That said he does have a hemarthrosis with limited range of motion. He is embellishing his symptoms because I in fact witnessed him walking as I was driving into work and he was not limping. That said he claims that the doctor at [place] who he called and stated that he needed to be transferred. Consequently, I page for hematology consult via the transfer center at [place] to discuss the case. 02/03/17 19:[address] avina from hematology oncology at [facility] who stated that is not necessary to transfer the patient and he would not accept the patient unless he were nonambulatory or had uncontrollable pain. The patient swelling is minimal does not seem worse than before and his pain seems adequately controlled without any ED intervention. I discussed this with the patient he is amenable to discharge pain medication and close follow-up. I have discussed with the patient there likely diagnosis, aftercare plan, follow -up plans and my usual and customary return precautions. They verbalized understanding of this. - Vital Signs Vital signs: Temp Pulse Resp BP Pulse Ox 97.8 F 87 16 115/80 100 02/03/17 18:21 02/03/17 18:21 02/03/17 18:21 02/03/17 18:21 02/03/17 18:21 Discharge - Discharge Clinical Impression: Hemarthrosis, right knee Condition: Good Disposition: HOME, SELF-CARE Instructions: Oral Narcotic Medication ([facility]) Additional Instructions: If despite taking the factor in the pain medicine you are unable to walk or swelling gets worse or your pain is uncontrolled please return to the ER for transfer to [facility]. Prescriptions: Oxycodone HCl/Acetaminophen [Percocet 5-325 mg Tablet] 1 - 2 tab PO Q4H PRN #25 tablet PRN Reason:
[2017-02-03] MEDS ORDERED: OXYCODONE HCL IR 5 MG TABLET PO ONE (19:25)
[2017-02-03 21:23] VITALS: BP 127/83
== END 2017-02-03 20:15 | disposition home or self-care (01) ==
LOC: ER 17:44
DX: M25.061 Hemarthrosis, right knee (principal); M25.561 Pain in right knee; D66 Hereditary factor VIII deficiency; Z59.0 Homelessness
CPT/HCPCS: 99283

== ENCOUNTER 2017-02-13 19:06 | Emergency (ER) | payer MEDICAID ==
[2017-02-13 19:11] VITALS: BP 133/90
== END 2017-02-13 19:45 | disposition left against medical advice (07) ==
LOC: ER 19:06
DX: M25.561 Pain in right knee (principal); Z53.21 Procedure and treatment not carried out due to patient leaving prior to being seen by health care provider

== ENCOUNTER 2017-02-14 21:02 | Emergency (ER) | payer MEDICAID ==
[2017-02-14 21:41] VITALS: BP 117/74
== END 2017-02-14 22:34 | disposition left against medical advice (07) ==
LOC: ER 21:02
DX: Z53.21 Procedure and treatment not carried out due to patient leaving prior to being seen by health care provider (principal)

== ENCOUNTER 2017-02-15 11:36 | Emergency (ER) | payer MEDICAID ==
--- NOTE | 2017-02-15 12:01 | ER Document Report ---
ED Medical Screen (RME) - General Chief Complaint: Knee Pain Stated Complaint: KNEE PAIN Time Seen by Provider: 02/15/17 12:00 Notes: The patient is a 26-year-old male, past medical history hemophiliac, presents with increased swelling of his right knee. He used his factor VIII eight times this morning without relief of his pain or swelling. He follows at [facility] hematology and was told to come to the ER. He frequently comes to the ER for similar complaints. PE: Mild swelling of right knee. No redness or warmth. I have greeted and performed a rapid initial assessment of this patient. A comprehensive ED assessment and evaluation of the patient, analysis of test results and completion of the medical decision making process will be conducted by additional ED providers. TRAVEL OUTSIDE OF THE [place] IN LAST 30 DAYS: No - Related Data Allergies/Adverse Reactions: acetaminophen [From Tylenol] Adverse Reaction (Verified 02/15/17 11:47) aspirin [Aspirin] Adverse Reaction (Verified 02/15/17 11:47) bleeding ibuprofen [From Motrin] Adverse Reaction (Verified 02/15/17 11:47) bleeding morphine [Morphine] Adverse Reaction (Verified 02/15/17 11:47) Hives NSAIDS (Non-Steroidal Anti-Inflamma [Nsaids] Adverse Reaction (Verified 11:47) vancomycin [Vancomycin] Adverse Reaction (Verified 02/15/17 11:47) Past Medical History - Social History Chew tobacco use (# tins/day): No Frequency of alcohol use: None Drug Abuse: None Family history: Reviewed & Not Pertinent Renal/ Medical History: Denies: Hx Peritoneal Dialysis GI Medical History: Reports: Hx Hepatitis - hep C Musculoskeltal Medical History: Reports Hx Arthritis Psychiatric Medical History: Denies: Hx Depression Infectious Medical History: Reports: Hx Hepatitis - hep C Past Surgical History: Reports: Hx Orthopedic Surgery - bilat ankles, bilat knees, L elbow, Bilat Forearms Removal synovial memb L, Hx Vascular Surgery - ports (inactive) - Immunizations Immunizations up to date: Yes Hx Diphtheria, Pertussis, Tetanus Vaccination: Yes Physical Exam - Vital signs Vitals: Temp Pulse Resp BP Pulse Ox 98.4 F 83 16 130/73 H 97 02/15/17 11:43 02/15/17 11:43 02/15/17 11:43 02/15/17 11:43 02/15/17 11:43 Course - Vital Signs Vital signs: Temp Pulse Resp BP Pulse Ox 98.4 F 83 16 130/73 H 97 02/15/17 11:43 02/15/17 11:43 02/15/17 11:43 02/15/17 11:43 02/15/17 11:43
--- NOTE | 2017-02-15 12:35 | ER Document Report ---
ED Extremity Problem, Lower - General Mode of Arrival: Ambulatory Information source: Patient TRAVEL OUTSIDE OF THE U.S. IN LAST 30 DAYS: No - HPI Patient complains to provider of: Pain, Swelling Location: Knee - right Associated symptoms: Other - see above - General Chief Complaint: Knee Pain Stated Complaint: KNEE PAIN Time Seen by Provider: 02/15/17 12:00 Notes: Patient is a 26 year old male who presents to the ED with complaints of right knee pain and swelling. Patient has been walking on his leg a lot and states he cannot get off of his feet here because he has kids. Patient has a history of hemophilia and he states he has been taking his factor injections 2x a day for the past 3 days with no relief. Patient states he needs to be admitted and transferred to [facility] for treatment like in the past. He states his pain is as bad as the last time he was admitted for this. Patient was in the ED on 02/13/2017 stayed for 1 hour after being triaged and then left without treatment and again on 02/14/2017 and stayed for 1 hour before leaving without being seen. Patient is requesting pain medication at this time and was told he will not be receiving any Narcotics. Patient admitted that when he was admitted to [facility], his knee improved because he was kept off of it. He states that he cannot do that here because he has kids. Patient was told he will no longer be receiving Narcotic pain medication when he was asking for pain medication. Patient ambulated into the ED and did not appear to be in any distress as he was playing on his phone. (NUHA BANG) - Related Data Allergies/Adverse Reactions: acetaminophen [From Tylenol] Adverse Reaction (Verified 02/15/17 11:47) aspirin [Aspirin] Adverse Reaction (Verified 02/15/17 11:47) bleeding ibuprofen [From Motrin] Adverse Reaction (Verified 02/15/17 11:47) bleeding morphine [Morphine] Adverse Reaction (Verified 02/15/17 11:47) Hives NSAIDS (Non-Steroidal Anti-Inflamma [Nsaids] Adverse Reaction (Verified 11:47) vancomycin [Vancomycin] Adverse Reaction (Verified 02/15/17 11:47) Past Medical History - General Information source: Patient - Social History Smoking Status: Never Smoker Chew tobacco use (# tins/day): No Frequency of alcohol use: None Drug Abuse: None Family History: DM, Other - autoimmune factor VIII deficiency. Hep C Renal/ Medical History: Denies: Hx Peritoneal Dialysis GI Medical History: Reports: Hx Hepatitis - hep C Musculoskeltal Medical History: Reports Hx Arthritis Psychiatric Medical History: Denies: Hx Depression Infectious Medical History: Reports: Hx Hepatitis - hep C Past Surgical History: Reports: Hx Orthopedic Surgery - bilat ankles, bilat knees, L elbow, Bilat Forearms Removal synovial memb L, Hx Vascular Surgery - ports (inactive) - Immunizations Immunizations up to date: Yes Hx Diphtheria, Pertussis, Tetanus Vaccination: Yes Hx Pneumococcal Vaccination: 06/28/09 Review of Systems - Review of Systems Constitutional: No symptoms reported EENT: No symptoms reported Cardiovascular: No symptoms reported Respiratory: No symptoms reported Gastrointestinal: No symptoms reported Genitourinary: No symptoms reported Male Genitourinary: No symptoms reported Musculoskeletal: See HPI, Joint pain - right knee, Joint swelling - right knee Skin: No symptoms reported Hematologic/Lymphatic: No symptoms reported Neurological/Psychological: No symptoms reported Physical Exam - General General appearance: Appears well, Alert, Other - playing on phone, does not appear to be in any distress, ambulated into the ED, requesting pain medication In distress: None - HEENT Head: Normocephalic, Atraumatic Eyes: Normal Extraocular movements intact: Yes Pupils: PERRL - Respiratory Respiratory status: No respiratory distress - Cardiovascular Rhythm: Regular - Abdominal Distension: No distension - Back Back: Normal - Extremities General upper extremity: Normal inspection, Normal ROM General lower extremity: Normal ROM, Other - right knee has mild effusion, he claims it is very tender, no warmth - Neurological Neuro grossly intact: Yes - Psychological Associated symptoms: Normal affect, Normal mood - Skin Skin Temperature: Warm Skin Moisture: Dry Skin Color: Normal - Vital signs Vitals: Temp Pulse Resp BP Pulse Ox 98.4 F 83 16 130/73 H 97 02/15/17 11:43 02/15/17 11:43 02/15/17 11:43 02/15/17 11:43 02/15/17 11:43 Course - Consults [facility] transfer line Time consulted: 12:40 Dr. Ward Time consulted: 12:57 - Re-evaluation Re-evalutation: 02/15/17 13:52 I discussed this patient's case with a Dr. Berrios at [facility]. He had a long discussion with Dr. Bates, the hematology-oncology attending and with the pharmacist. They did extensive review of the patient's records. On his most recent visit his factor VIII level was 130% of normal and they felt it should still be fine. He was just discharged on 02/11/2017. Apparently this patient's case was discussed extensively by the ethics committee recently. At this time they feel that if the exam here and clinical feeling is that he does not warrant transfer, then he should not be transferred. If he wants to have his factor VIII level checked, he can drive himself to the [facility] emergency room. He did suggest that I check a PTT since we cannot get factor VIII levels here, and if it is close to normal that is indication that he is receiving adequate levels of factor VIII and his self-administered injections. The caveat being that he did give himself an injection today. 02/15/17 15:43 The patient's PTT is 73.0 this afternoon. He states he last took his factor VIII at 10 PM last night. That is unlikely since he checked in at triage about 20 minutes before 10 PM last night and left without being seen sometime before 10:30 PM. 02/15/17 15:53 The manager social work nurse here tells me she spoke with his Medicaid paralegal and found the phone number he gave was not good. She also reports the patient was discharged from [place] on 02/11/2017, at that time he was quite upset about not receiving additional pain medication and stated he was not coming back for follow-up. 02/15/17 15:58 The patient claimed the number was good, so the manager social work here dialed the number in front of him to let him here the recording that the number was changed or is no longer in service. He then provided the real phone number to his phone. 02/15/17 16:26 I discussed the case again in view of the PTT of [address] Berrios and his team, they agreed given all the known fax in this case that it is unlikely he is taking his medication and requests that he be instructed to take the medicine twice daily, stay off of the leg for the next few days to let it get well. 02/15/17 16:40 The patient tells me that he cannot stay off of his knee because he is homeless , and that he has to go see his children every day. When I pointed out to him that he does not see his children if he is in the hospital at [place] he had no response. I believe that he is homeless due to his spouse kicking him out of the house. ( HILARIO HERNANDEZ) - Vital Signs Vital signs: Temp Pulse Resp BP Pulse Ox 98.4 F 83 16 130/73 H 97 02/15/17 11:43 02/15/17 11:43 02/15/17 11:43 02/15/17 11:43 02/15/17 11:43 - Laboratory Laboratory results interpreted by me: 02/15/17 14:00 APTT 73.0 H - Consults [facility] transfer line Reason for consultation: 02/15/17 12:41 Discussed patient with [facility] transfer line. They will have the appropriate doctor call back. (NUHA BANG) Dr. Ward Reason for consultation: 02/15/17 12:59 Discussed patient. He is a Fellow and somewhat familiar with the case. He will call the attending to discuss the case and call back. (NUHA BANG) Discharge - Discharge Clinical Impression: Hemarthrosis, Hemophilia Condition: Stable Disposition: HOME, SELF-CARE Additional Instructions: Your hematology doctors at [facility] have asked that you be sure to take your medicine twice daily and to go home and stay off of the leg to let the knee improve. They do not feel you need to be admitted to the hospital to stop walking around. You should follow-up with your doctors at [facility] and your Medicaid paralegal for any problems. [email or web address] Attestation: 02/15/17 16:28 I personally performed the services described in the documentation, reviewed and edited the documentation which was dictated to the scribe in my presence, and it accurately records my words and actions. (HILARIO HERNANDEZ) Scribe Documentation - Scribe Written by Freddie:: freddie Melendrez, 02/15/2017, 1240 acting as scribe for :: Alma
[2017-02-15] MEDS ORDERED: TRAMADOL HCL 50 MG TABLET PO ONE (12:42)
[2017-02-15 16:53] VITALS: BP 110/67
== END 2017-02-15 17:03 | disposition home or self-care (01) ==
LOC: ER 11:36
DX: M25.561 Pain in right knee (principal); M25.061 Hemarthrosis, right knee; D66 Hereditary factor VIII deficiency; Z59.0 Homelessness; Z86.19 Personal history of other infectious and parasitic diseases; Z88.3 Allergy status to other anti-infective agents; Z88.6 Allergy status to analgesic agent
CPT/HCPCS: 36415; 85730; 99283

== ENCOUNTER 2017-06-15 10:34 | Emergency (ER) | payer SELFPAY ==
--- NOTE | 2017-06-15 11:04 | ER Document Report ---
ED Medical Screen (RME) - General Chief Complaint: Knee Pain Stated Complaint: RIGHT KNEE PAIN Notes: Patient has a history of hemophilia A. He states he is having right knee swelling. He states usually when this happens he comes here and is transferred to [facility] hospital for further treatment. TRAVEL OUTSIDE OF THE U.S[place] IN LAST 30 DAYS: No - Related Data Allergies/Adverse Reactions: acetaminophen [From Tylenol] Adverse Reaction (Verified 06/15/17 10:35) aspirin [Aspirin] Adverse Reaction (Verified 06/15/17 10:35) bleeding ibuprofen [From Motrin] Adverse Reaction (Verified 06/15/17 10:35) bleeding morphine [Morphine] Adverse Reaction (Verified 06/15/17 10:35) Hives NSAIDS (Non-Steroidal Anti-Inflamma [Nsaids] Adverse Reaction (Verified 10:35) vancomycin [Vancomycin] Adverse Reaction (Verified 06/15/17 10:35) Past Medical History - Social History Chew tobacco use (# tins/day): No Frequency of alcohol use: None Drug Abuse: None Family history: Reviewed & Not Pertinent Renal/ Medical History: Denies: Hx Peritoneal Dialysis GI Medical History: Reports: Hx Hepatitis - hep C Musculoskeltal Medical History: Reports Hx Arthritis Psychiatric Medical History: Denies: Hx Depression Infectious Medical History: Reports: Hx Hepatitis - hep C Past Surgical History: Reports: Hx Orthopedic Surgery - bilat ankles, bilat knees, L elbow, Bilat Forearms Removal synovial memb L, Hx Vascular Surgery - ports (inactive) - Immunizations Immunizations up to date: Yes Hx Diphtheria, Pertussis, Tetanus Vaccination: Yes Physical Exam - Vital signs Vitals: Temp Pulse Resp BP Pulse Ox 98.4 F 93 18 116/73 98 06/15/17 10:45 06/15/17 10:45 06/15/17 10:45 06/15/17 10:45 06/15/17 10:45 Course - Vital Signs Vital signs: Temp Pulse Resp BP Pulse Ox 98.4 F 93 18 116/73 98 06/15/17 10:45 06/15/17 10:45 06/15/17 10:45 06/15/17 10:45 06/15/17 10:45
--- NOTE | 2017-06-15 12:21 | ER Document Report ---
ED Extremity Problem, Lower - General Chief Complaint: Knee Pain Stated Complaint: RIGHT KNEE PAIN Time Seen by Provider: 06/15/17 11:37 Notes: Patient twisted his right knee and right ankle yesterday playing with his daughter. He says he was not running when it happened, but right knee got pulled and that resulted in twisting of the knee and the ankle. Patient now has swelling of both the right knee with what appears to be an effusion and soft tissue swelling of the right ankle. Denies any other injuries. Denies any fever. Says he has difficulty walking on this leg because of the pain. Patient is a factor VIII deficient hemophiliac. Patient usually gives himself factor VIII 3 times a week prophylactically, but he has been out of his factor VIII for a couple of weeks because he does not have insurance to cover the cost. Patient has been a frequent visitor to this emergency department in the past, although he has not been here since February 15, of this year. He is followed at [facility] and his last visit to their clinics was in early January. TRAVEL OUTSIDE OF THE [place] IN LAST 30 DAYS: No - Related Data Allergies/Adverse Reactions: acetaminophen [From Tylenol] Adverse Reaction (Verified 06/15/17 10:35) aspirin [Aspirin] Adverse Reaction (Verified 06/15/17 10:35) bleeding ibuprofen [From Motrin] Adverse Reaction (Verified 06/15/17 10:35) bleeding morphine [Morphine] Adverse Reaction (Verified 06/15/17 10:35) Hives NSAIDS (Non-Steroidal Anti-Inflamma [Nsaids] Adverse Reaction (Verified 10:35) vancomycin [Vancomycin] Adverse Reaction (Verified 06/15/17 10:35) Past Medical History - Social History Smoking Status: Never Smoker Chew tobacco use (# tins/day): No Frequency of alcohol use: None Drug Abuse: None Family History: Reviewed & Not Pertinent, DM, Other - autoimmune factor VIII deficiency. Hep C Patient has suicidal ideation: No Patient has homicidal ideation: No - Medical History Medical History: Other - Factor VIII deficient hemophilia GI Medical History: Reports: Hx Hepatitis - hep C Musculoskeltal Medical History: Reports Hx Arthritis Infectious Medical History: Reports: Hx Hepatitis - hep C Past Surgical History: Reports: Hx Orthopedic Surgery - bilat ankles, bilat knees, L elbow, Bilat Forearms Removal synovial memb L, Hx Vascular Surgery - ports (inactive) - Immunizations Immunizations up to date: Yes Hx Diphtheria, Pertussis, Tetanus Vaccination: Yes Hx Pneumococcal Vaccination: 06/28/09 Review of Systems - Review of Systems Notes: REVIEW OF SYSTEMS: CONSTITUTIONAL : Denies fever. EENT: Denies eye, ear, nose or mouth or throat pain or other symptoms. CARDIOVASCULAR: Denies chest pain. RESPIRATORY: Denies cough, chest congestion, or shortness of breath. GASTROINTESTINAL: Denies abdominal pain or nausea, vomiting, or diarrhea. GENITOURINARY: Denies difficulty or painful urinating, urinary frequency, blood in urine. MUSCULOSKELETAL: Denies back or neck pain. See HPI. SKIN: Denies rash or skin lesions. NEUROLOGICAL: Denies LOC or altered mental status. Denies headache. Denies sensory loss or motor deficits. ALL OTHER SYSTEMS REVIEWED AND NEGATIVE. Physical Exam - Vital signs Vitals: Temp Pulse Resp BP Pulse Ox 98.4 F 93 18 116/73 98 06/15/17 10:45 06/15/17 10:45 06/15/17 10:45 06/15/17 10:45 06/15/17 10:45 Interpretation: Normal - Notes Notes: PHYSICAL EXAMINATION: GENERAL: Well-appearing, in no acute distress. Vital signs are all normal. Afebrile. HEAD: Atraumatic, normocephalic. EYES: Pupils equal round and reactive to light, extraocular movements intact. ENT: oropharynx clear without exudates. Moist mucous membranes. NECK: Normal range of motion, supple. LUNGS: Breath sounds clear and equal bilaterally. HEART: Regular rate and rhythm without murmurs. ABDOMEN: Soft, nontender. No guarding or rebound. BACK: No tenderness throughout entire back. EXTREMITIES: Right knee has a moderate size effusion, not tense. Some pain to palpate and move the right knee joint. The right ankle joint has some soft tissue swelling, mostly posterior to the medial malleolus. I do not feel an actual effusion of the ankle. Neither of these is warm or red or suggestive of infection. Patient is unable to bear weight on these because of pain. No other joint involvement. NEUROLOGICAL: Normal speech, normal gait. Normal sensory, motor, and reflex exams. Awake, alert, and oriented x3. Cranial nerves normal. PSYCH: Normal mood, normal affect. SKIN: Warm, dry, no rashes. Course - Re-evaluation Re-evalutation: 06/15/17 12:21 Have called [facility] and spoken with Dr. Bates. 06/15/17 18:50 late entry Several phone calls later, Dr. Linn accepted the patient in transfer to [place]. However, no beds are available. Hopefully there will be one available later in the afternoon or evening. I also tried [facility] for transfer, but they declined transferring the patient to their facility. I found that the hospital actually has 6 vials of factor VIII, each with 504 units present resulting in about 3000 units. Patient says he usually gets about 2786-7315 units twice a day when he is in his current condition. Still, I went ahead and gave the patient what we had available. We got word the patient does have a bed assignment, but initially, we were not going to have transport because the patient has no health insurance or capability of pain for the transport. Later, hospital was able to agree to pay the patient's transport fee. - Vital Signs Vital signs: Temp Pulse Resp BP Pulse Ox 98.1 F 81 18 111/70 100 06/15/17 17:11 06/15/17 17:11 06/15/17 17:11 06/15/17 17:11 06/15/17 17:11 - Laboratory Result Diagrams: 06/15/17 13:35 06/15/17 13:35 Laboratory results interpreted by me: 06/15/17 06/15/17 06/15/17 13:35 13:35 13:35 RDW 15.1 H APTT 84.2 H Carbon Dioxide 31 H Glucose 141 H Total Bilirubin 1.9 H Discharge - Discharge Clinical Impression: Factor VIII deficiency hemophilia, Knee effusion, right Condition: Stable Disposition: [place]
[2017-06-15 13:51] LABS: ABSOLUTE LYMPHOCYTES (AUTO) 1.1 10^3/uL (0.5-4.7); ABSOLUTE MONOCYTES (AUTO) 0.5 10^3/uL (0.1-1.4); BASOPHILS % (AUTO) 0.3 % (0-2); EOSINOPHILS % (AUTO) 0.3 % (0-6); HEMOGLOBIN 13.6 g/dL (13.5-17.0); HGB HCT DIFFERENCE 1.8; LYMPHOCYTES % (AUTO) 16.5 % (13-45); MEAN CORPUSCULAR HEMOGLOBIN 29.3 pg (27.0-33.4); MEAN CORPUSCULAR HGB CONC 34.9 g/dL (32.0-36.0); MEAN CORPUSCULAR VOLUME 84 fl (80-97); MONOCYTES % (AUTO) 8.1 % (3-13); RED BLOOD COUNT 4.64 10^6/uL (4.35-5.55); RED CELL DISTRIBUTION WIDTH 15.1 % (11.5-14.0); SEGMENTED NEUTROPHILS % (AUTO) 74.8 % (42-78); WHITE BLOOD COUNT 6.6 10^3/uL (4.0-10.5)
[2017-06-15 14:25] LABS: ALANINE AMINOTRANSFERASE 46 U/L (21-72); ALBUMIN 4.8 g/dL (3.5-5.0); ALKALINE PHOSPHATASE 88 U/L (38-126); ANION GAP 13 (5-19); ASPARTATE AMINO TRANSFERASE 34 U/L (17-59); BILIRUBIN,DIRECT 0.3 mg/dL (0.0-0.4); BILIRUBIN,TOTAL 1.9 mg/dL (0.2-1.3); BLOOD UREA NITROGEN 15 mg/dL (7-20); CALCIUM 9.6 mg/dL (8.4-10.2); CARBON DIOXIDE 31 mmol/L (22-30); CHLORIDE 98 mmol/L (98-107); CREATININE RESULT 0.69 mg/dL (0.52-1.25); GLUCOSE 141 mg/dL (75-110); POTASSIUM 4.3 mmol/L (3.6-5.0); SODIUM 142.3 mmol/L (137-145); TOTAL PROTEIN 7.3 g/dL (6.3-8.2)
[2017-06-15] MEDS ORDERED: OXYCODONE HCL SR 10 MG TABLET PO ONE (16:48)
[2017-06-15] MEDS ORDERED: OXYCODONE HCL IR 5 MG TABLET PO ONE (17:08)
[2017-06-15] MEDS ORDERED: [UNRECOGNIZED DRUG - MIXTURE] IV ONE (18:00)
[2017-06-15 20:14] VITALS: BP 123/75
== END 2017-06-15 20:05 | disposition short-term general hospital (02) ==
LOC: ER 10:34
DX: D66 Hereditary factor VIII deficiency (principal); M25.461 Effusion, right knee; M25.561 Pain in right knee; M79.89 Other specified soft tissue disorders; X50.1XXA Overexertion from prolonged static or awkward postures, initial encounter
CPT/HCPCS: 99285; 96365; 36415; 85025; 85730; 80053; J3490; J7187

== ENCOUNTER 2017-07-06 10:00 | Emergency (ER) | payer SELFPAY ==
[2017-07-06] MEDS ORDERED: OXYCODONE-ACETAMINOPHEN 5-325 MG TABLET PO ONE (10:35)
--- NOTE | 2017-07-06 10:39 | ER Document Report ---
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 Slipped on ice this morning twisting his right knee. Is now starting to swell and hurt. He does not have factor VIII at home for administration. Pharmacy reports that it has to be ordered on a written form and cannot be ordered through the [employer] system. His normal dose is about 60 mL's of the factor VIII which is just over 3000 units. I have greeted and performed a rapid initial assessment of this patient. A comprehensive ED assessment and evaluation of the patient, analysis of test results and completion of the medical decision making process will be conducted by additional ED providers. TRAVEL OUTSIDE OF THE [place] IN LAST 30 DAYS: No - Related Data Allergies/Adverse Reactions: acetaminophen [From Tylenol] Adverse Reaction (Verified 07/06/17 10:21) aspirin [Aspirin] Adverse Reaction (Verified 07/06/17 10:21) bleeding ibuprofen [From Motrin] Adverse Reaction (Verified 07/06/17 10:21) bleeding morphine [Morphine] Adverse Reaction (Verified 07/06/17 10:21) Hives NSAIDS (Non-Steroidal Anti-Inflamma [Nsaids] Adverse Reaction (Verified 10:21) vancomycin [Vancomycin] Adverse Reaction (Verified 07/06/17 10:21) Past Medical History - Social History Chew tobacco use (# tins/day): No Frequency of alcohol use: None Drug Abuse: None Family history: Reviewed & Not Pertinent Renal/ Medical History: Denies: Hx Peritoneal Dialysis GI Medical History: Reports: Hx Hepatitis - hep C Musculoskeltal Medical History: Reports Hx Arthritis Psychiatric Medical History: Denies: Hx Depression Infectious Medical History: Reports: Hx Hepatitis - hep C Past Surgical History: Reports: Hx Orthopedic Surgery - bilat ankles, bilat knees, L elbow, Bilat Forearms Removal synovial memb L, Hx Vascular Surgery - ports (inactive) - Immunizations Immunizations up to date: Yes Hx Diphtheria, Pertussis, Tetanus Vaccination: Yes Physical Exam - Vital signs Vitals: Temp Pulse Resp BP Pulse Ox 98.9 F 126 H 14 116/82 97 07/06/17 10:11 07/06/17 10:11 07/06/17 10:11 07/06/17 10:11 07/06/17 10:11 Course - Vital Signs Vital signs: Temp Pulse Resp BP Pulse Ox 98.9 F 126 H 14 116/82 97 07/06/17 10:11 07/06/17 10:11 07/06/17 10:11 07/06/17 10:11 07/06/17 10:11
[2017-07-06] MEDS ORDERED: OXYCODONE HCL IR 5 MG TABLET PO ONE (10:51)
[2017-07-06] MEDS ORDERED: ANTIHEMOPHILIC FACTOR IV ONE ×4 (12:00→12:30)
[2017-07-06] MEDS ORDERED: [UNRECOGNIZED DRUG - OTHER] IV ONE ×4 (12:00→12:30)
--- NOTE | 2017-07-06 13:07 | ER Document Report ---
ED Extremity Problem, Lower - General Chief Complaint: Knee Injury Stated Complaint: FALL, KNEE PAIN Time Seen by Provider: 07/06/17 10:25 Mode of Arrival: Ambulatory Information source: Patient, [facility] Records Notes: This 27-year-old male patient comes emergency room complaining of pain and swelling to his right knee. He reports slipping on ice this morning and twisting the about 7 AM. It is begun to swell and hurt. 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 He does not have effect rate medication to be given due to being off of Medicaid at this time. TRAVEL OUTSIDE OF THE [place] IN LAST 30 DAYS: No - Related Data Allergies/Adverse Reactions: acetaminophen [From Tylenol] Adverse Reaction (Verified 07/06/17 10:21) aspirin [Aspirin] Adverse Reaction (Verified 07/06/17 10:21) bleeding ibuprofen [From Motrin] Adverse Reaction (Verified 07/06/17 10:21) bleeding morphine [Morphine] Adverse Reaction (Verified 07/06/17 10:21) Hives NSAIDS (Non-Steroidal Anti-Inflamma [Nsaids] Adverse Reaction (Verified 10:21) vancomycin [Vancomycin] Adverse Reaction (Verified 07/06/17 10:21) Past Medical History - General Information source: Patient, [facility] Records - Social History Smoking Status: Never Smoker Cigarette use (# per day): No Chew tobacco use (# tins/day): No Smoking Education Provided: No Frequency of alcohol use: None Drug Abuse: None Occupation: Unemployed Lives with: Family Family History: Reviewed & Not Pertinent, DM, Other - autoimmune factor VIII deficiency. Hep C Patient has suicidal ideation: No Patient has homicidal ideation: No - Medical History Medical History: Other - Autoimmune factor VIII deficiency - Past Medical History Cardiac Medical History: Reports: None Pulmonary Medical History: Reports: None EENT Medical History: Reports: None Neurological Medical History: Reports: None Endocrine Medical History: Reports: None Renal/ Medical History: Reports: None GI Medical History: Reports: Hx Hepatitis - hep C Musculoskeltal Medical History: Reports Hx Arthritis Skin Medical History: Reports None Psychiatric Medical History: Reports: None Infectious Medical History: Reports: Hx Hepatitis - hep C Past Surgical History: Reports: Hx Orthopedic Surgery - bilat ankles, bilat knees, L elbow, Bilat Forearms Removal synovial memb L, Hx Vascular Surgery - ports (inactive) - Immunizations Immunizations up to date: Yes Hx Diphtheria, Pertussis, Tetanus Vaccination: Yes Hx Pneumococcal Vaccination: 06/28/09 Review of Systems - Review of Systems Constitutional: No symptoms reported EENT: No symptoms reported Cardiovascular: No symptoms reported Respiratory: No symptoms reported Gastrointestinal: No symptoms reported Genitourinary: No symptoms reported Musculoskeletal: See HPI Skin: No symptoms reported Hematologic/Lymphatic: Easy bleeding, Easy bruising Neurological/Psychological: No symptoms reported Physical Exam - Vital signs Vitals: Temp Pulse Resp BP Pulse Ox 98.9 F 126 H 14 116/82 97 07/06/17 10:11 07/06/17 10:11 07/06/17 10:11 07/06/17 10:11 07/06/17 10:11 Interpretation: Normal - General General appearance: Appears well, Alert In distress: Mild - HEENT Head: Normocephalic, Atraumatic Eyes: Normal Pupils: PERRL - Respiratory Respiratory status: No respiratory distress - Cardiovascular Rhythm: Regular - Abdominal Inspection: Normal - Back Back: Normal - Extremities General upper extremity: Normal inspection General lower extremity: Other - Right knee is tender with some effusion developing. - Neurological Neuro grossly intact: Yes - Psychological Associated symptoms: Normal affect, Normal mood - Skin Skin Temperature: Warm Skin Moisture: Dry Skin Color: Normal Course - Re-evaluation Re-evalutation: 07/06/17 14:26 Patient was given 3000 units of factor VIII, pain medication prescription and discharged home. He is to follow-up with his doctors in [place] if any problems. - Vital Signs Vital signs: Temp Pulse Resp BP Pulse Ox 98.1 F 95 16 115/80 100 07/06/17 13:12 07/06/17 13:12 07/06/17 13:12 07/06/17 13:12 07/06/17 13:12 Discharge - Discharge Clinical Impression: Hemarthrosis, right knee, Hemophilia A Condition: Stable Disposition: HOME, SELF-CARE Additional Instructions: Elevate your leg. Use ice packs today. Limit walking and only use crutches to avoid weightbearing. Follow-up with your doctors in [place] if not improving. Prescriptions: Oxycodone HCl 5 mg PO Q4 PRN #12 tablet PRN Reason:
[2017-07-06 13:13] VITALS: BP 115/80
== END 2017-07-06 13:13 | disposition home or self-care (01) ==
LOC: ER 10:00
DX: M25.061 Hemarthrosis, right knee (principal); D66 Hereditary factor VIII deficiency; S89.91XA Unspecified injury of right lower leg, initial encounter; M25.561 Pain in right knee; X50.1XXA Overexertion from prolonged static or awkward postures, initial encounter
CPT/HCPCS: 99283; 96374; J3490; J7187

== ENCOUNTER 2017-07-07 12:20 | Emergency (ER) | payer SELFPAY ==
[2017-07-07] MEDS ORDERED: OXYCODONE HCL IR 5 MG TABLET PO ONE (13:32)
--- NOTE | 2017-07-07 13:33 | ER Document Report ---
ED Medical Screen (RME) - General Chief Complaint: Knee Injury Stated Complaint: RIGHT KNEE PAIN Time Seen by Provider: 07/07/17 13:28 Mode of Arrival: Ambulatory Information source: Patient Notes: Pt slipped and fell two days ago, injuring his right knee. 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 [facility] harbor boat pilot that follows him says he needs more factor today. told him to come to ER. TRAVEL OUTSIDE OF THE [place] IN LAST 30 DAYS: No - Related Data Allergies/Adverse Reactions: acetaminophen [From Tylenol] Adverse Reaction (Verified 07/07/17 12:24) aspirin [Aspirin] Adverse Reaction (Verified 07/07/17 12:24) bleeding ibuprofen [From Motrin] Adverse Reaction (Verified 07/07/17 12:24) bleeding morphine [Morphine] Adverse Reaction (Verified 07/07/17 12:24) Hives NSAIDS (Non-Steroidal Anti-Inflamma [Nsaids] Adverse Reaction (Verified 12:24) vancomycin [Vancomycin] Adverse Reaction (Verified 07/07/17 12:24) Past Medical History - General Information source: Patient - Social History Family history: Reviewed & Not Pertinent Renal/ Medical History: Denies: Hx Peritoneal Dialysis GI Medical History: Reports: Hx Hepatitis - hep C Musculoskeltal Medical History: Reports Hx Arthritis Psychiatric Medical History: Denies: Hx Depression Infectious Medical History: Reports: Hx Hepatitis - hep C Past Surgical History: Reports: Hx Orthopedic Surgery - bilat ankles, bilat knees, L elbow, Bilat Forearms Removal synovial memb L, Hx Vascular Surgery - ports (inactive) - Immunizations Immunizations up to date: Yes Hx Diphtheria, Pertussis, Tetanus Vaccination: Yes Review of Systems - Review of Systems Musculoskeletal: See HPI Physical Exam - Vital signs Vitals: Temp Pulse Resp BP Pulse Ox 98.9 F 113 H 16 106/70 95 07/07/17 12:37 07/07/17 12:37 07/07/17 12:37 07/07/17 12:37 07/07/17 12:37 - Notes Notes: general: holding right knee Course - Vital Signs Vital signs: Temp Pulse Resp BP Pulse Ox 98.6 F 107 H 18 133/115 H 96 07/07/17 12:46 07/07/17 12:46 07/07/17 12:46 07/07/17 12:46 07/07/17 12:46
--- NOTE | 2017-07-07 13:56 | RADIOLOGY REPORT (SQ) ---
EXAM DESCRIPTION: KNEE RIGHT 2 VIEWS COMPLETED DATE/TIME: 07/07/2017 1:45 pm REASON FOR STUDY: fell on ice, hemophilia A COMPARISON: 12/22/2014, 03/05/2016, 01/24/2017 right knee films NUMBER OF VIEWS: Two views. TECHNIQUE: AP and lateral radiographic images acquired of the right knee. LIMITATIONS: None. FINDINGS: MINERALIZATION: Overall bone density is normal. Over the series of exams, patient has dev eloped diffuse chondromalacia, with joint space narrowing and subcortical cyst formation along the ar ticular surfaces of the right knee joint, related to patient's hemophilia at multiple repeated hemart hrosis. BONES: No acute fracture or dislocation. Articular surface subcortical cyst formation along the estrada lla, fever, tibia. JOINT: Large suprapatellar knee joint effusion SOFT TISSUES: No soft tissue swelling. No radio-opaque foreign body. OTHER: No other significant finding. IMPRESSION: Large suprapatellar knee joint effusion Progressive arthritis right knee with joint space narrowing and subcortical cyst formation related to multiple repeated hemarthrosis from patient's hemophilia TECHNICAL DOCUMENTATION: JOB ID: [id number] [employer]- All Rights Reserved
[2017-07-07] MEDS ORDERED: TRAMADOL HCL 50 MG TABLET PO ONE (15:14)
[2017-07-07 15:16] LABS: ABSOLUTE EOSINOPHILS # (AUTO) 0.1 10^3/uL (0.0-0.6); ABSOLUTE LYMPHOCYTES (AUTO) 1.7 10^3/uL (0.5-4.7); ABSOLUTE MONOCYTES (AUTO) 0.9 10^3/uL (0.1-1.4); ABSOLUTE NEUT (AUTO) 6.1 10^3/uL (1.7-8.2); BASOPHILS % (AUTO) 0.2 % (0-2); EOSINOPHILS % (AUTO) 0.7 % (0-6); HEMATOCRIT 36.8 % (37.9-51.0); HEMOGLOBIN 12.5 g/dL (13.5-17.0); LYMPHOCYTES % (AUTO) 19.7 % (13-45); MEAN CORPUSCULAR HEMOGLOBIN 29.1 pg (27.0-33.4); MEAN CORPUSCULAR HGB CONC 33.9 g/dL (32.0-36.0); MEAN CORPUSCULAR VOLUME 86 fl (80-97); MONOCYTES % (AUTO) 10.3 % (3-13); PLATELET COUNT 330 10^3/uL (150-450); RED BLOOD COUNT 4.28 10^6/uL (4.35-5.55); RED CELL DISTRIBUTION WIDTH 16.7 % (11.5-14.0); SEGMENTED NEUTROPHILS % (AUTO) 69.1 % (42-78); TOTAL CELLS COUNTED % (AUTO) 100 %; WHITE BLOOD COUNT 8.8 10^3/uL (4.0-10.5)
[2017-07-07 15:25] LABS: INTERNATIONAL RATION (INR) 0.86; PROTHROMBIN TIME 12.4 SEC (11.4-15.4)
[2017-07-07 15:26] LABS: PARTIAL THROMBOPLASTIN TIME 59.4 SEC (23.5-35.8)
[2017-07-07 15:47] LABS: ALANINE AMINOTRANSFERASE 60 U/L (21-72); ALBUMIN 4.7 g/dL (3.5-5.0); ALKALINE PHOSPHATASE 78 U/L (38-126); ANION GAP 13 (5-19); ASPARTATE AMINO TRANSFERASE 54 U/L (17-59); BILIRUBIN,DIRECT 0.4 mg/dL (0.0-0.4); BILIRUBIN,TOTAL 2.2 mg/dL (0.2-1.3); BLOOD UREA NITROGEN 15 mg/dL (7-20); CALCIUM 9.5 mg/dL (8.4-10.2); CARBON DIOXIDE 30 mmol/L (22-30); CHLORIDE 97 mmol/L (98-107); GLUCOSE 89 mg/dL (75-110); SODIUM 140.4 mmol/L (137-145); TOTAL PROTEIN 7.6 g/dL (6.3-8.2)
--- NOTE | 2017-07-07 18:12 | ER Document Report ---
ED Extremity Problem, Lower - General Chief Complaint: Knee Injury Stated Complaint: RIGHT KNEE PAIN Time Seen by Provider: 07/07/17 13:28 Mode of Arrival: Ambulatory Notes: Patient with history of hemophilia A. Chronic condition. Seen here on countless visits for same complaint of right knee pain. States he needs multiple days of factor VIII and pain medication. Was seen here yesterday and received 3000 units of factor VIII and given prescription medications for pain and was DC'd. Now back to the ER requesting to be transferred to [facility] to be treated by robot programmer. Denies any fevers, chills, sweats. Denies any other conditions at this time. States that his right foot is numb. TRAVEL OUTSIDE OF THE [place]. IN LAST 30 DAYS: No - HPI Patient complains to provider of: Altered sensation, Pain, Swelling Onset/Duration: Gradual, Constant Severity: Severe Pain Level: 4 - Related Data Allergies/Adverse Reactions: acetaminophen [From Tylenol] Adverse Reaction (Verified 07/07/17 12:24) aspirin [Aspirin] Adverse Reaction (Verified 07/07/17 12:24) bleeding ibuprofen [From Motrin] Adverse Reaction (Verified 07/07/17 12:24) bleeding morphine [Morphine] Adverse Reaction (Verified 07/07/17 12:24) Hives NSAIDS (Non-Steroidal Anti-Inflamma [Nsaids] Adverse Reaction (Verified 12:24) vancomycin [Vancomycin] Adverse Reaction (Verified 07/07/17 12:24) Past Medical History - General Information source: Patient - Social History Smoking Status: Never Smoker Chew tobacco use (# tins/day): No Frequency of alcohol use: None Drug Abuse: None Family History: Reviewed & Not Pertinent, DM, Other - autoimmune factor VIII deficiency. Hep C Patient has suicidal ideation: No Patient has homicidal ideation: No Renal/ Medical History: Denies: Hx Peritoneal Dialysis GI Medical History: Reports: Hx Hepatitis - hep C Musculoskeltal Medical History: Reports Hx Arthritis Psychiatric Medical History: Denies: Hx Depression Infectious Medical History: Reports: Hx Hepatitis - hep C Past Surgical History: Reports: Hx Orthopedic Surgery - bilat ankles, bilat knees, L elbow, Bilat Forearms Removal synovial memb L, Hx Vascular Surgery - ports (inactive) - Immunizations Immunizations up to date: Yes Hx Diphtheria, Pertussis, Tetanus Vaccination: Yes Hx Pneumococcal Vaccination: 06/28/09 Review of Systems - Review of Systems Constitutional: No symptoms reported Cardiovascular: No symptoms reported Respiratory: No symptoms reported Gastrointestinal: No symptoms reported Musculoskeletal: Joint swelling Hematologic/Lymphatic: See HPI Physical Exam - Vital signs Vitals: Temp Pulse Resp BP Pulse Ox 98.9 F 113 H 16 106/70 95 07/07/17 12:37 07/07/17 12:37 07/07/17 12:37 07/07/17 12:37 07/07/17 12:37 Interpretation: Tachycardic - General General appearance: Appears well Notes: No acute distress. Requesting pain medication on initial evaluation of note patient received oral pain medication at triage. - Respiratory Respiratory status: No respiratory distress Breath sounds: Normal Chest palpation: Normal - Cardiovascular Rhythm: Tachycardia Heart sounds: Normal auscultation - Extremities General upper extremity: Normal inspection, Nontender General lower extremity: Other - Left knee is normal in appearance and palpation. Right knee with small N. Diffusely tender. Able to locate landmarks without difficulty. Able to palpate the patella without difficulty. Patient has bounding pulses in dorsalis pedis as well as posterior tibialis of the right knee. - Neurological Cognition: Normal Orientation: AAOx4 Speech: Normal Sensory: Normal - Skin Skin Temperature: Warm Skin Color: Normal Skin irregularity: negative: Rash Course - Re-evaluation Re-evalutation: 07/07/17 18:19 Patient has a chronic condition. Received factor VIII yesterday. No other factor VIII is available in the hospital at this time. Will consult with robot programmer at [facility]. 07/07/17 18:19 Laboratory 07/07/17 07/07/17 07/07/17 14:55 14:55 14:55 WBC 8.8 RBC 4.28 L Hgb 12.5 L Hct 36.8 L MCV 86 MCH 29.1 MCHC 33.9 RDW 16.7 H Plt Count 330 Seg Neutrophils % 69.1 Lymphocytes % 19.7 Monocytes % 10.3 Eosinophils % 0.7 Basophils % 0.2 Absolute Neutrophils 6.1 Absolute Lymphocytes 1.7 Absolute Monocytes 0.9 Absolute Eosinophils 0.1 Absolute Basophils 0.0 PT 12.4 INR 0.86 APTT 59.4 H Sodium 140.4 Potassium 4.0 Chloride 97 L Carbon Dioxide 30 Anion Gap 13 BUN 15 Creatinine 0.67 Est GFR ( Amer) > 60 Est GFR (Non-Af Amer) > 60 Glucose 89 Calcium 9.5 Total Bilirubin 2.2 H Direct Bilirubin 0.4 Neonat Total Bilirubin Not Reportable Neonat Direct Bilirubin Not Reportable Neonat Indirect Bili Not Reportable AST 54 ALT 60 Alkaline Phosphatase 78 Total Protein 7.6 Albumin 4.7 07/07/17 19:16 Previous physician which saw patient last night states that the knee is getting worse. Will call the oncologist/robot programmer back and see if we can get him transferred to [facility] as there is no product available in this hospital for treatment. 07/07/17 20:31 No beds are available at [facility], [facility], [facility] there is no factors available at our hospital. Discussed these options with the patient. No clear answer at this time of what to do. No one is excepting the patient. I will give him some pain medication. I do not feel at this time that this is a life-threatening condition. He did have a dose of factor VIII yesterday. 07/07/17 21:13 At this time pain is not getting worse. I have exhausted all options that I am aware of at this time. Patient states that he would rather go home. I have instructed him to immobilize the knee, elevated, ice it, pain control as needed and to return if things are getting worse or go to another hospital that may potentially carry the factor where he can get it even as an ER patient which will be unlikely here. - Vital Signs Vital signs: Temp Pulse Resp BP Pulse Ox 98.1 F 111 H 18 117/77 98 07/07/17 20:08 07/07/17 20:08 07/07/17 20:08 07/07/17 20:08 07/07/17 20:08 - Laboratory Result Diagrams: 07/07/17 14:55 07/07/17 14:55 Laboratory results interpreted by me: 07/07/17 07/07/17 07/07/17 14:55 14:55 14:55 RBC 4.28 L Hgb 12.5 L Hct 36.8 L RDW 16.7 H APTT 59.4 H Chloride 97 L Total Bilirubin 2.2 H Discharge - Discharge Clinical Impression: Hemarthrosis, Hemophilia A, Hemarthrosis, right knee Condition: Good Disposition: HOME, SELF-CARE Instructions: Ice & Elevation ([facility]) Additional Instructions: Please follow-up with a robot programmer. If symptoms are getting worse and no better please return to the emergency department or to the nearest facility. Prescriptions: Hydromorphone HCl [Dilaudid 2 mg Tablet] 2 mg PO Q6H PRN 5 Days #15 tablet PRN Reason:
[2017-07-07] MEDS ORDERED: FENTANYL CITRATE INJ/PF 100 MCG/2 ML AMPUL IV ONE (19:16)
[2017-07-07 21:55] VITALS: BP 120/72
== END 2017-07-07 21:55 | disposition home or self-care (01) ==
LOC: ER 12:20
DX: M25.061 Hemarthrosis, right knee (principal); D66 Hereditary factor VIII deficiency; R20.0 Anesthesia of skin; M25.561 Pain in right knee
CPT/HCPCS: 99284; 96374; 36415; 85025; 85610; 85730; 80053; 73560; J3010

== ENCOUNTER 2017-07-10 07:55 | Emergency (ER) | payer SELFPAY ==
--- NOTE | 2017-07-10 08:08 | ER Document Report ---
ED Extremity Problem, Lower - General Chief Complaint: Knee Pain Stated Complaint: KNEE SWELLING Time Seen by Provider: 07/10/17 08:08 Notes: Patient is a 27-year-old male who is well-known to this emergency department with a history of hemophilia and hemarthrosis of the right knee. Patient presents today with concern for his left knee with pain and swelling. Patient states he has not had a bleed into his left knee since he was 14. Patient states that since he lost his insurance is not been able to do his home factor VIII. Patient was seen 3 days ago in this emergency department with the hopes for transfer to [facility] but they were diverting and did not have any beds available. Patient was discharged home with pain medication. Otherwise he denies any recent traumas, fevers, weakness. TRAVEL OUTSIDE OF THE [place] IN LAST 30 DAYS: No - Related Data Allergies/Adverse Reactions: acetaminophen [From Tylenol] Adverse Reaction (Verified 07/07/17 12:24) aspirin [Aspirin] Adverse Reaction (Verified 07/07/17 12:24) bleeding ibuprofen [From Motrin] Adverse Reaction (Verified 07/07/17 12:24) bleeding morphine [Morphine] Adverse Reaction (Verified 07/07/17 12:24) Hives NSAIDS (Non-Steroidal Anti-Inflamma [Nsaids] Adverse Reaction (Verified 12:24) vancomycin [Vancomycin] Adverse Reaction (Verified 07/07/17 12:24) Past Medical History - Social History Smoking Status: Current Every Day Smoker Family History: Reviewed & Not Pertinent, DM, Other - autoimmune factor VIII deficiency. Hep C Renal/ Medical History: Denies: Hx Peritoneal Dialysis GI Medical History: Reports: Hx Hepatitis - hep C Musculoskeltal Medical History: Reports Hx Arthritis Psychiatric Medical History: Denies: Hx Depression Infectious Medical History: Reports: Hx Hepatitis - hep C Past Surgical History: Reports: Hx Orthopedic Surgery - bilat ankles, bilat knees, L elbow, Bilat Forearms Removal synovial memb L, Hx Vascular Surgery - ports (inactive) - Immunizations Immunizations up to date: Yes Hx Diphtheria, Pertussis, Tetanus Vaccination: Yes Hx Pneumococcal Vaccination: 06/28/09 Review of Systems - Review of Systems Constitutional: No symptoms reported Cardiovascular: No symptoms reported Respiratory: No symptoms reported Gastrointestinal: No symptoms reported Musculoskeletal: See HPI Hematologic/Lymphatic: See HPI -: Yes All other systems reviewed and negative Physical Exam - Vital signs Vitals: Temp Pulse Resp BP Pulse Ox 98.1 F 127 H 24 H 127/76 H 96 07/10/17 07:58 07/10/17 07:58 07/10/17 07:58 07/10/17 07:58 07/10/17 07:58 - Notes Notes: PHYSICAL EXAM GENERAL: Alert, interacts well. LUNGS: Clear to auscultation bilaterally, no wheezes, rales, or rhonchi. No respiratory distress. HEART: Regular rate and rhythm. No murmurs, gallops, or rubs. ABDOMEN: Soft, nondistended, nontender. No guarding, rebound, or rigidity.. Bowel sounds present in all 4 quadrants. EXTREMITIES: Patient with bilateral swelling of the knees. Right worse than the left. Patient not able to bend his right knee at all with palpable swelling. Left knee able to bend but not to 90 with palpable effusion. No evidence of bruising or deformity at this time.. No edema, radial and dorsalis pedis pulses 2/4 bilaterally. No cyanosis. NEUROLOGICAL: Alert and oriented x4. Normal speech. PSYCH: Normal affect, normal mood. SKIN: Warm, dry, normal turgor. No rashes or lesions noted. Course - Re-evaluation Re-evalutation: 07/10/17 9:50 Patient is a 27-year-old male who is hemodynamically stable, no acute distress and afebrile. Labs were sent as well as a image of the left knee. I have ordered a dose of factor VIII to be given here. This is all that we have in the hospital. Patient is presenting with concerns for hemarthrosis of the left knee. Discussed with hospitalist Dr. Sharma was agrees that if we do not have factor VIII at the facility that we will not be able to manage him here therefore he requires transport to a tertiary center with enough product to manage this patient. I did get in contact with [facility] with hospitalist Dr. Snyder and camilo Logan specialist on-call who both agreed that the patient does not meet requirement for transfer and they will discuss with their transfer department about bed availability in the meantime suggesting I reached out to surrounding facilities. 07/10/17 1015 call placed to [facility]. I spoke with Dr. Patrick who is a hospitalist, He will talk to Dr. Vang of hem onc. Both do agree that the patient does require transfer for factor VIII administration. They state that their transfer facility is also backed up that they do not think that they have in a factory to their facility to treat the patient. Recommending discussion with [facility] Patient CBC does show evidence of blood loss from labs drawn 3 days ago when his hemoglobin was 12.5 now down to 10.8. Based on my assessment I do not think that the patient requires transfusion at this time given that his labs are still stable and patient is hemodynamically stable. We will continue to monitor 07/10/17 10:47 Discussion with [facility] who state that they were not accepting any patients from outside of their hospitals. Discussion with [facility] who states that they do not have beds available at this time. Meanwhile I did receive a phone call from [facility] who has accepted the patient under Dr. Carlos Yeboah. Transport pending at this time. 07/10/17 15:12 patient is resting comfortably he was able to eat. Ice has been applied to both knees any has been waiting for transport. Has been premedicated for pain at this time. - Vital Signs Vital signs: Temp Pulse Resp BP Pulse Ox 98.0 F 127 H 18 121/87 H 100 07/10/17 15:22 07/10/17 07:58 07/10/17 15:22 07/10/17 15:22 07/10/17 15:22 - Laboratory Result Diagrams: 07/10/17 09:15 07/10/17 09:15 Laboratory results interpreted by me: 07/10/17 07/10/17 07/10/17 09:15 09:15 09:15 RBC 3.75 L Hgb 10.8 L Hct 32.5 L RDW 16.3 H Lymphocytes % 12.2 L Monocytes % 15.4 H APTT 62.1 H Glucose 118 H Total Bilirubin 1.6 H - Diagnostic Test Radiology reviewed: Image reviewed, Reports reviewed Discharge - Discharge Clinical Impression: Hemophilia A, Hemarthrosis Condition: Stable Disposition: [place]
[2017-07-10 09:27] LABS: ABSOLUTE BASOPHILS # (AUTO) 0.1 10^3/uL (0.0-0.2); ABSOLUTE EOSINOPHILS # (AUTO) 0.1 10^3/uL (0.0-0.6); ABSOLUTE LYMPHOCYTES (AUTO) 0.8 10^3/uL (0.5-4.7); ABSOLUTE MONOCYTES (AUTO) 0.9 10^3/uL (0.1-1.4); ABSOLUTE NEUT (AUTO) 4.3 10^3/uL (1.7-8.2); BASOPHILS % (AUTO) 0.9 % (0-2); EOSINOPHILS % (AUTO) 1.6 % (0-6); HEMATOCRIT 32.5 % (37.9-51.0); HEMOGLOBIN 10.8 g/dL (13.5-17.0); LYMPHOCYTES % (AUTO) 12.2 % (13-45); MEAN CORPUSCULAR HEMOGLOBIN 28.9 pg (27.0-33.4); MEAN CORPUSCULAR HGB CONC 33.3 g/dL (32.0-36.0); MEAN CORPUSCULAR VOLUME 87 fl (80-97); MONOCYTES % (AUTO) 15.4 % (3-13); PLATELET COUNT 226 10^3/uL (150-450); RED BLOOD COUNT 3.75 10^6/uL (4.35-5.55); RED CELL DISTRIBUTION WIDTH 16.3 % (11.5-14.0); SEGMENTED NEUTROPHILS % (AUTO) 69.9 % (42-78); TOTAL CELLS COUNTED % (AUTO) 100 %; WHITE BLOOD COUNT 6.2 10^3/uL (4.0-10.5)
[2017-07-10 09:33] LABS: INTERNATIONAL RATION (INR) 0.87; PROTHROMBIN TIME 12.5 SEC (11.4-15.4)
[2017-07-10 09:34] LABS: PARTIAL THROMBOPLASTIN TIME 62.1 SEC (23.5-35.8)
[2017-07-10 09:48] LABS: ALANINE AMINOTRANSFERASE 53 U/L (21-72); ALBUMIN 3.9 g/dL (3.5-5.0); ALKALINE PHOSPHATASE 59 U/L (38-126); ANION GAP 10 (5-19); ASPARTATE AMINO TRANSFERASE 36 U/L (17-59); BILIRUBIN,DIRECT 0.4 mg/dL (0.0-0.4); BILIRUBIN,TOTAL 1.6 mg/dL (0.2-1.3); BLOOD UREA NITROGEN 16 mg/dL (7-20); CALCIUM 9.1 mg/dL (8.4-10.2); CARBON DIOXIDE 28 mmol/L (22-30); CHLORIDE 105 mmol/L (98-107); GLUCOSE 118 mg/dL (75-110); POTASSIUM 3.9 mmol/L (3.6-5.0); TOTAL PROTEIN 6.6 g/dL (6.3-8.2)
[2017-07-10] MEDS ORDERED: HYDROMORPHONE HCL 2 MG TABLET PO ONE (09:49)
--- NOTE | 2017-07-10 09:51 | RADIOLOGY REPORT (SQ) ---
EXAM DESCRIPTION: KNEE LEFT 3 VIEWS COMPLETED DATE/TIME: 07/10/2017 9:32 am REASON FOR STUDY: hemaphilia A, pain, swelling COMPARISON: None. NUMBER OF VIEWS: 3 views. TECHNIQUE: AP, lateral, sunrise view of the patella radiographic images acquired of the left knee. LIMITATIONS: None. FINDINGS: MINERALIZATION: No osteopenia or demineralization identified. BONES: Subchondral cystic change medial tibial plateau. Subchondral cystic change left lateral femor al condyle. JOINT: Prominent joint effusion possibly hemarthrosis SOFT TISSUES: No soft tissue swelling. No radio-opaque foreign body. OTHER: No other significant finding. IMPRESSION: Prominent left knee effusion and subchondral cystic changes which can be seen with hemop hilic arthritis. TECHNICAL DOCUMENTATION: JOB ID: [id number] [email or web address]- All Rights Reserved
[2017-07-10] MEDS ORDERED: [UNRECOGNIZED DRUG - MIXTURE] IV ONE (10:30)
[2017-07-10] MEDS ORDERED: [UNRECOGNIZED DRUG - OTHER] IV ONE ×2 (11:00)
[2017-07-10] MEDS ORDERED: ANTIHEMOPHILIC FACTOR IV ONE ×2 (11:00)
[2017-07-10] MEDS ORDERED: HYDROMORPHONE HCL INJ/PF 2 MG/ML AMPULE IV ONE (14:54)
[2017-07-10 15:25] VITALS: BP 121/87
== END 2017-07-10 15:30 | disposition short-term general hospital (02) ==
LOC: ER 07:55
DX: D66 Hereditary factor VIII deficiency (principal); M25.00 Hemarthrosis, unspecified joint; M25.561 Pain in right knee; F17.200 Nicotine dependence, unspecified, uncomplicated; Z88.6 Allergy status to analgesic agent; Z88.3 Allergy status to other anti-infective agents; Z86.19 Personal history of other infectious and parasitic diseases
CPT/HCPCS: 96376; 99285; 96374; 36415; 85025; 85610; 85730; 80053; 73562; J3490; J1170; J7187

== ENCOUNTER 2017-07-20 08:27 | Emergency (ER) | payer MEDICAID ==
--- NOTE | 2017-07-20 09:36 | ER Document Report ---
ED Extremity Problem, Lower - General Mode of Arrival: Ambulatory Information source: Patient TRAVEL OUTSIDE OF THE [place] IN LAST 30 DAYS: No - HPI Patient complains to provider of: Pain, Swelling Location: Knee - right Occurred: This morning Context: Other - history of hemophilia A Associated symptoms: Other - see notes above <TOBIAS SANZ - Last Filed: 07/20/17 12:35> <MARTHABEAR Shanks - Last Filed: 07/20/17 12:45> - General Chief Complaint: Knee Pain Stated Complaint: KNEE SWELLING Time Seen by Provider: 07/20/17 09:29 Notes: 27 year old male with history of hemophilia A presents to the ED complaining of right knee swelling and pain that started this morning. Patient was last seen here on 07/10/2017 for similar reasons and was sent to [place] to receive factor treatments. Patient explains that he was given factor twice daily for many days until the swelling was under control. Patient was discharged and noticed swelling this morning. Patient's last factor dose was 4 days ago, but has since ran out. Patient is here to receive a dose of factor to get him through today since he has factor coming in tomorrow. Patient denies lightheadedness, dizziness, or any other recent illnesses. (TOBIAS SANZ) - Related Data Allergies/Adverse Reactions: acetaminophen [From Tylenol] Adverse Reaction (Verified 07/07/17 12:24) aspirin [Aspirin] Adverse Reaction (Verified 07/07/17 12:24) bleeding ibuprofen [From Motrin] Adverse Reaction (Verified 07/07/17 12:24) bleeding morphine [Morphine] Adverse Reaction (Verified 07/07/17 12:24) Hives NSAIDS (Non-Steroidal Anti-Inflamma [Nsaids] Adverse Reaction (Verified 12:24) vancomycin [Vancomycin] Adverse Reaction (Verified 07/07/17 12:24) Past Medical History - General Information source: Patient - Social History Smoking Status: Former Smoker Chew tobacco use (# tins/day): No Frequency of alcohol use: None Drug Abuse: None Family History: Reviewed & Not Pertinent, DM, Other - autoimmune factor VIII deficiency. Hep C Patient has suicidal ideation: No Patient has homicidal ideation: No Renal/ Medical History: Denies: Hx Peritoneal Dialysis GI Medical History: Reports: Hx Hepatitis - hep C Musculoskeltal Medical History: Reports Hx Arthritis Psychiatric Medical History: Denies: Hx Depression Infectious Medical History: Reports: Hx Hepatitis - hep C Past Surgical History: Reports: Hx Orthopedic Surgery - bilat ankles, bilat knees, L elbow, Bilat Forearms Removal synovial memb L, Hx Vascular Surgery - ports (inactive) - Immunizations Immunizations up to date: Yes Hx Diphtheria, Pertussis, Tetanus Vaccination: Yes Hx Pneumococcal Vaccination: 06/28/09 <TOBIAS SANZ - Last Filed: 07/20/17 12:35> <BEAR THOMAS - Last Filed: 07/20/17 12:45> - Medical History Notes: history of Hemophilia A (TOBIAS SANZ) Review of Systems - Review of Systems Constitutional: No symptoms reported. denies: Recent illness EENT: No symptoms reported Cardiovascular: No symptoms reported. denies: Dizziness, Lightheaded Respiratory: No symptoms reported Gastrointestinal: No symptoms reported Genitourinary: No symptoms reported Male Genitourinary: No symptoms reported Musculoskeletal: See HPI, Joint pain - right knee, Joint swelling - right knee Skin: No symptoms reported Hematologic/Lymphatic: No symptoms reported Neurological/Psychological: No symptoms reported -: Yes All other systems reviewed and negative <TOBIAS SANZ - Last Filed: 07/20/17 12:35> Physical Exam - General General appearance: Alert In distress: None - HEENT Head: Normocephalic, Atraumatic Eyes: Normal Conjunctiva: Normal Extraocular movements intact: Yes Pupils: PERRL - Respiratory Respiratory status: No respiratory distress Breath sounds: Normal - Cardiovascular Rhythm: Regular, Tachycardia Heart sounds: Normal auscultation Murmur: No - Abdominal Inspection: Normal - Back Back: Normal - Extremities General upper extremity: Normal inspection, Normal ROM General lower extremity: No: Normal inspection - see knee exam below Knee: Other - Swelling and minor tenderness to palpation of the right knee. Patient is able to bend and ambulate on right knee.. No: Normal, Abrasion, Deformity, Ecchymosis - Neurological Neuro grossly intact: Yes Cognition: Normal Orientation: AAOx4 [place] Coma Scale Eye Opening: Spontaneous [place] Coma Scale Verbal: Oriented [place] Coma Scale Motor: Obeys Commands [place] Coma Scale Total: 15 Speech: Normal - Psychological Associated symptoms: Normal affect, Normal mood - Skin Skin Temperature: Warm Skin Moisture: Dry Skin Color: Normal <TOBIAS SANZ - Last Filed: 07/20/17 12:35> - Vital signs Vitals: Temp Pulse Resp BP Pulse Ox 98.3 F 114 H 20 124/85 95 07/20/17 08:32 07/20/17 08:32 07/20/17 08:32 07/20/17 08:32 07/20/17 08:32 Course - Laboratory Result Diagrams: 07/20/17 10:10 <TOBIAS SANZ - Last Filed: 07/20/17 12:35> - Laboratory Result Diagrams: 07/20/17 10:10 <BEAR THOMAS - Last Filed: 07/20/17 12:45> - Re-evaluation Re-evalutation: 07/20/17 11:09 Patient is seen ambulating throughout the ED. (TOBIAS SANZ) 07/20/17 12:30 Patient is well-appearing with x-ray showed mild effusion. Medications were hung in the emergency department. Patient is receiving his home medications tomorrow. Discussed with any worsening symptoms return for evaluation (BEAR THOMAS) - Vital Signs Vital signs: Temp Pulse Resp BP Pulse Ox 98.3 F 114 H 20 124/85 95 07/20/17 08:32 07/20/17 08:32 07/20/17 08:32 07/20/17 08:32 07/20/17 08:32 - Laboratory Laboratory results interpreted by me: 07/20/17 10:10 RDW 16.1 H Discharge <TOBIAS SANZ - Last Filed: 07/20/17 12:35> <BEAR THOMAS - Last Filed: 07/20/17 12:45> - Discharge Clinical Impression: Effusion, right knee, Hemophilia A Condition: Good Disposition: HOME, SELF-CARE Instructions: Knee Effusion ([facility]) Additional Instructions: Please follow up with your java engineer regarding your visit to the ED. Please return to the ED for any new or worsening symptoms. Prescriptions: Oxycodone HCl 5 mg PO Q6HWA #6 tablet Scribe Documentation - Scribe Written by Marcus:: Marcus Urias, 07/20/2017 [id number] acting as scribe for :: Martha <TOBIAS SANZ - Last Filed: 07/20/17 12:35>
--- NOTE | 2017-07-20 10:20 | RADIOLOGY REPORT (SQ) ---
EXAM DESCRIPTION: KNEE RIGHT 3 VIEWS COMPLETED DATE/TIME: 07/20/2017 10:07 am REASON FOR STUDY: knee pain, effusion COMPARISON: 07/07/2017, 11/26/2016, 03/05/2016, 12/22/2014, 11/04/2011, 02/19/2011 NUMBER OF VIEWS: Three views. TECHNIQUE: AP, lateral, and sunrise patella radiographic images acquired of the right knee. LIMITATIONS: None. FINDINGS: MINERALIZATION: Normal. BONES: No acute fracture or dislocation. No worrisome bone lesions. JOINT: Small suprapatellar knee joint effusion. High-grade medial and lateral compartment and high-g rade patellofemoral compartment joint space narrowing is present, with subcortical cyst formation. M inimal osteophyte formation findings are worrisome for rheumatoid arthritis or other spondyloarthropa thy. SOFT TISSUES: No soft tissue swelling. No radio-opaque foreign body. OTHER: No other significant finding. IMPRESSION: Tricompartment high-grade joint space narrowing with subcortical cyst formation and smal l joint effusion No acute fracture TECHNICAL DOCUMENTATION: JOB ID: [id number]- All Rights Reserved
[2017-07-20 10:22] LABS: ABSOLUTE EOSINOPHILS # (AUTO) 0.1 10^3/uL (0.0-0.6); ABSOLUTE LYMPHOCYTES (AUTO) 1.5 10^3/uL (0.5-4.7); ABSOLUTE MONOCYTES (AUTO) 0.7 10^3/uL (0.1-1.4); ABSOLUTE NEUT (AUTO) 7.5 10^3/uL (1.7-8.2); BASOPHILS % (AUTO) 0.4 % (0-2); EOSINOPHILS % (AUTO) 0.7 % (0-6); HEMATOCRIT 41.9 % (37.9-51.0); HEMOGLOBIN 14.1 g/dL (13.5-17.0); LYMPHOCYTES % (AUTO) 15.1 % (13-45); MEAN CORPUSCULAR HEMOGLOBIN 29.4 pg (27.0-33.4); MEAN CORPUSCULAR HGB CONC 33.7 g/dL (32.0-36.0); MEAN CORPUSCULAR VOLUME 87 fl (80-97); PLATELET COUNT 326 10^3/uL (150-450); RED BLOOD COUNT 4.79 10^6/uL (4.35-5.55); RED CELL DISTRIBUTION WIDTH 16.1 % (11.5-14.0); SEGMENTED NEUTROPHILS % (AUTO) 76.8 % (42-78); TOTAL CELLS COUNTED % (AUTO) 100 %; WHITE BLOOD COUNT 9.8 10^3/uL (4.0-10.5)
[2017-07-20] MEDS ORDERED: OXYCODONE HCL IR 5 MG TABLET PO ONE (10:46)
[2017-07-20] MEDS ORDERED: ANTIHEMOPHILIC FACTOR IV ONE ×2 (12:00)
[2017-07-20] MEDS ORDERED: [UNRECOGNIZED DRUG - OTHER] IV ONE ×2 (12:00)
[2017-07-20] MEDS ORDERED: [UNRECOGNIZED DRUG - MIXTURE] IV ONE (12:00)
[2017-07-20 13:03] VITALS: BP 131/81
== END 2017-07-20 13:03 | disposition home or self-care (01) ==
LOC: ER 08:27
DX: M25.461 Effusion, right knee (principal); D66 Hereditary factor VIII deficiency; M25.561 Pain in right knee; M79.89 Other specified soft tissue disorders; Z87.891 Personal history of nicotine dependence
CPT/HCPCS: 99283; 36415; 85025; 73562; J3490 ×2; J7187

== ENCOUNTER 2017-07-21 12:56 | Observation (INO) | payer MEDICAID ==
[2017-07-21] MEDS ORDERED: OXYCODONE HCL IR 5 MG TABLET PO ONE ×2 (15:13→18:31)
--- NOTE | 2017-07-21 16:53 | ER Document Report ---
ED Medical Screen (RME) - General Chief Complaint: Knee Pain Stated Complaint: KNEE PAIN Time Seen by Provider: 07/21/17 15:10 Notes: Patient presents stating that he needs to give himself his factor twice a day. He states he has had some right knee swelling and he is unable to give himself his factor because his veins keep blowing. A PICC line was attempted but there was no appropriate access identified. TRAVEL OUTSIDE OF THE [place] IN LAST 30 DAYS: No - Related Data Allergies/Adverse Reactions: acetaminophen [From Tylenol] Adverse Reaction (Verified 07/21/17 12:57) aspirin [Aspirin] Adverse Reaction (Verified 07/21/17 12:57) bleeding ibuprofen [From Motrin] Adverse Reaction (Verified 07/21/17 12:57) bleeding morphine [Morphine] Adverse Reaction (Verified 07/21/17 12:57) Hives NSAIDS (Non-Steroidal Anti-Inflamma [Nsaids] Adverse Reaction (Verified 12:57) vancomycin [Vancomycin] Adverse Reaction (Verified 07/21/17 12:57) Past Medical History - Social History Chew tobacco use (# tins/day): No Frequency of alcohol use: None Drug Abuse: None Family history: Reviewed & Not Pertinent Renal/ Medical History: Denies: Hx Peritoneal Dialysis GI Medical History: Reports: Hx Hepatitis - hep C Musculoskeltal Medical History: Reports Hx Arthritis Psychiatric Medical History: Denies: Hx Depression Infectious Medical History: Reports: Hx Hepatitis - hep C Past Surgical History: Reports: Hx Orthopedic Surgery - bilat ankles, bilat knees, L elbow, Bilat Forearms Removal synovial memb L, Hx Vascular Surgery - ports (inactive) - Immunizations Immunizations up to date: Yes Hx Diphtheria, Pertussis, Tetanus Vaccination: Yes Physical Exam - Vital signs Vitals: Temp Pulse Resp BP Pulse Ox 98.7 F 104 H 16 124/79 99 07/21/17 13:18 07/21/17 13:18 07/21/17 13:18 07/21/17 13:18 07/21/17 13:18 Course - Vital Signs Vital signs: Temp Pulse Resp BP Pulse Ox 98.7 F 104 H 16 124/79 99 07/21/17 13:18 07/21/17 13:18 07/21/17 13:18 07/21/17 13:18 07/21/17 13:18
--- NOTE | 2017-07-21 17:44 | ER Document Report ---
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 Patient states he has been unable to take his Factor 8. Upon arrival to the emergency department a PICC line was attempted on the patient but was unsuccessful. TRAVEL OUTSIDE OF THE [place] IN LAST 30 DAYS: No - Related Data Allergies/Adverse Reactions: acetaminophen [From Tylenol] Adverse Reaction (Verified 07/21/17 12:57) aspirin [Aspirin] Adverse Reaction (Verified 07/21/17 12:57) bleeding ibuprofen [From Motrin] Adverse Reaction (Verified 07/21/17 12:57) bleeding morphine [Morphine] Adverse Reaction (Verified 07/21/17 12:57) Hives NSAIDS (Non-Steroidal Anti-Inflamma [Nsaids] Adverse Reaction (Verified 12:57) vancomycin [Vancomycin] Adverse Reaction (Verified 07/21/17 12:57) Past Medical History - General Information source: Patient - Social History Smoking Status: Never Smoker Chew tobacco use (# tins/day): No Frequency of alcohol use: None Drug Abuse: None Family History: Reviewed & Not Pertinent, DM, Other - autoimmune factor VIII deficiency. Hep C Patient has suicidal ideation: No Patient has homicidal ideation: No GI Medical History: Reports: Hx Hepatitis - hep C Musculoskeltal Medical History: Reports Hx Arthritis Infectious Medical History: Reports: Hx Hepatitis - hep C Past Surgical History: Reports: Hx Orthopedic Surgery - bilat ankles, bilat knees, L elbow, Bilat Forearms Removal synovial memb L, Hx Vascular Surgery - ports (inactive) - Immunizations Immunizations up to date: Yes Hx Diphtheria, Pertussis, Tetanus Vaccination: Yes Hx Pneumococcal Vaccination: 06/28/09 Review of Systems - Review of Systems Constitutional: No symptoms reported EENT: No symptoms reported Cardiovascular: No symptoms reported Respiratory: No symptoms reported Gastrointestinal: No symptoms reported Genitourinary: No symptoms reported Male Genitourinary: No symptoms reported Musculoskeletal: See HPI, Joint swelling Skin: No symptoms reported Hematologic/Lymphatic: No symptoms reported Neurological/Psychological: No symptoms reported -: Yes All other systems reviewed and negative Physical Exam - Vital signs Vitals: Temp Pulse Resp BP Pulse Ox 98.7 F 104 H 16 124/79 99 07/21/17 13:18 07/21/17 13:18 07/21/17 13:18 07/21/17 13:18 07/21/17 13:18 - Extremities Knee: Other - Swelling to the right knee. Course - Vital Signs Vital signs: Temp Pulse Resp BP Pulse Ox 98.7 F 104 H 16 124/79 99 07/21/17 13:18 07/21/17 13:18 07/21/17 13:18 07/21/17 13:18 07/21/17 13:18 Scribe Documentation - Scribe Written by Marcus:: Marcus Coronado, 07/21/2017 17:50 acting as scribe for :: Satish
--- NOTE | 2017-07-21 18:30 | ER Document Report ---
ED General <ANNEL PARKER - Last Filed: 07/21/17 18:56> - General Mode of Arrival: Ambulatory TRAVEL OUTSIDE OF THE [place] IN LAST 30 DAYS: No <BEAR THOMAS - Last Filed: 07/22/17 11:01> - General Chief Complaint: Knee Pain Stated Complaint: KNEE PAIN Time Seen by Provider: 07/21/17 15:10 Notes: Patient with known history of hemophilia a presents to emergency department for concern of unable to establish IV access. Patient takes factor VIII twice a day when he had symptoms of hemarthrosis. He currently has a right joint effusion in the absence of any recent fevers or illnesses to signify infection. He comes to the emergency department with his factor VIII because he is unable to insert IV several times at his home. PICC line group was consulted in triage and was able to obtain access due to scarring of the patient's bilateral upper extremities due to multiple insertions in the past. (BEAR THOMAS) - Related Data Allergies/Adverse Reactions: acetaminophen [From Tylenol] Adverse Reaction (Verified 07/21/17 12:57) aspirin [Aspirin] Adverse Reaction (Verified 07/21/17 12:57) bleeding ibuprofen [From Motrin] Adverse Reaction (Verified 07/21/17 12:57) bleeding morphine [Morphine] Adverse Reaction (Verified 07/21/17 12:57) Hives NSAIDS (Non-Steroidal Anti-Inflamma [Nsaids] Adverse Reaction (Verified 12:57) vancomycin [Vancomycin] Adverse Reaction (Verified 07/21/17 12:57) Past Medical History - General Information source: Patient - Social History Smoking Status: Current Some Day Smoker Chew tobacco use (# tins/day): No Frequency of alcohol use: None Drug Abuse: None Family History: Reviewed & Not Pertinent, DM, Other - autoimmune factor VIII deficiency. Hep C Patient has suicidal ideation: No Patient has homicidal ideation: No Renal/ Medical History: Denies: Hx Peritoneal Dialysis GI Medical History: Reports: Hx Hepatitis - hep C Musculoskeltal Medical History: Reports Hx Arthritis Psychiatric Medical History: Denies: Hx Depression Infectious Medical History: Reports: Hx Hepatitis - hep C Past Surgical History: Reports: Hx Orthopedic Surgery - bilat ankles, bilat knees, L elbow, Bilat Forearms Removal synovial memb L, Hx Vascular Surgery - ports (inactive) - Immunizations Immunizations up to date: Yes Hx Diphtheria, Pertussis, Tetanus Vaccination: Yes Hx Pneumococcal Vaccination: 06/28/09 <BEAR THOMAS - Last Filed: 07/22/17 11:01> Review of Systems - Review of Systems Constitutional: No symptoms reported EENT: No symptoms reported Cardiovascular: No symptoms reported Respiratory: No symptoms reported Gastrointestinal: No symptoms reported Genitourinary: No symptoms reported Male Genitourinary: See HPI Musculoskeletal: No symptoms reported Skin: No symptoms reported Hematologic/Lymphatic: No symptoms reported Neurological/Psychological: No symptoms reported <BEAR THOMAS - Last Filed: 07/22/17 11:01> Physical Exam - General General appearance: Appears well, Alert - HEENT Head: Normocephalic, Atraumatic - Respiratory Respiratory status: No respiratory distress Chest status: Nontender Breath sounds: Normal Chest palpation: Normal - Cardiovascular Rhythm: Regular Heart sounds: Normal auscultation - Abdominal Inspection: Normal Distension: No distension - Extremities General upper extremity: Normal inspection Knee: Other - Able to ambulate mild tenderness to right knee with full range of motion but with mild pain - Skin Irregularity with: Other - Multiple scarring on upper extremities from multiple insertion attempts from previous history of hemophilia A <BEAR THOMAS - Last Filed: 07/22/17 11:01> - Vital signs Vitals: Temp Pulse Resp BP Pulse Ox 98.7 F 104 H 16 124/79 99 07/21/17 13:18 07/21/17 13:18 07/21/17 13:18 07/21/17 13:18 07/21/17 13:18 Course - Laboratory Result Diagrams: 07/21/17 18:00 07/21/17 18:00 <ANNEL PARKER - Last Filed: 07/21/17 18:56> - Laboratory Result Diagrams: 07/22/17 07:19 07/22/17 07:19 <BEAR THOMAS - Last Filed: 07/22/17 11:01> - Re-evaluation Re-evalutation: 07/21/17 18:29 Due to patient's inability to obtain access and need on a daily to by daily basis patient will be admitted for factor VIII administration and surgical consultation for tunnel cath line consideration (BEAR THOMAS) - Vital Signs Vital signs: Temp Pulse Resp BP Pulse Ox 98.3 F 97 18 108/69 96 07/22/17 08:23 07/22/17 08:23 07/22/17 08:23 07/22/17 08:23 07/22/17 08:23 - Laboratory Laboratory results interpreted by me: 07/21/17 07/21/17 18:00 19:25 RBC 4.25 L Hgb 12.4 L Hct 37.2 L RDW 15.7 H Chloride 97 L Albumin 5.1 H Discharge - Discharge Admitting Provider: Jamaal Unit Admitted: Medical Floor <ANNEL PARKER - Last Filed: 07/21/17 18:56> - Discharge Admitting Provider: Jamaal <BEAR THOMAS - Last Filed: 07/22/17 11:01> - Discharge Clinical Impression: Hemophilia A Condition: Good Disposition: ADMITTED INPATIENT Scribe Attestation: 07/22/17 11:01 I personally performed the services described in the documentation, reviewed and edited the documentation which was dictated to describe my presence, and it accurately records my words and actions (BEAR THOMAS)
[2017-07-21 18:39] LABS: ABSOLUTE BASOPHILS # (AUTO) 0.1 10^3/uL (0.0-0.2); ABSOLUTE EOSINOPHILS # (AUTO) 0.1 10^3/uL (0.0-0.6); ABSOLUTE LYMPHOCYTES (AUTO) 1.9 10^3/uL (0.5-4.7); ABSOLUTE NEUT (AUTO) 6.2 10^3/uL (1.7-8.2); BASOPHILS % (AUTO) 0.5 % (0-2); EOSINOPHILS % (AUTO) 0.6 % (0-6); HEMATOCRIT 37.2 % (37.9-51.0); HEMOGLOBIN 12.4 g/dL (13.5-17.0); LYMPHOCYTES % (AUTO) 20.6 % (13-45); MEAN CORPUSCULAR HEMOGLOBIN 29.2 pg (27.0-33.4); MEAN CORPUSCULAR HGB CONC 33.4 g/dL (32.0-36.0); MEAN CORPUSCULAR VOLUME 88 fl (80-97); MONOCYTES % (AUTO) 10.9 % (3-13); PLATELET COUNT 290 10^3/uL (150-450); RED BLOOD COUNT 4.25 10^6/uL (4.35-5.55); RED CELL DISTRIBUTION WIDTH 15.7 % (11.5-14.0); SEGMENTED NEUTROPHILS % (AUTO) 67.4 % (42-78); TOTAL CELLS COUNTED % (AUTO) 100 %; WHITE BLOOD COUNT 9.2 10^3/uL (4.0-10.5)
--- NOTE | 2017-07-21 19:12 | PDOC CONSULTATION ---
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 He injects himself Factor VIII three times a week vi self started peripheral IV's; however, doring the past few days he not been able to access hi peripheral veins. This has complicated his need for additional F VIII necessary to control his recently developed right knee hemoarthrosis. Usualy, his F VIII is in the range of @ 40%. 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 Hep C Parental Family History Reviewed: Yes - mother was Hemophylia gene carrier Children Family History Reviewed: Yes Sibling(s) Family History Reviewed.: Yes Medication/Allergy Home Medications: Antihemophilic Factor/Vwf [Alphanate 2,000-800 Unit Vial] 5,000 unit IV ASDIR PRN 02/02/17 Oxycodone HCl 5 mg PO Q4 PRN #12 tablet 07/06/17 Hydromorphone HCl [Dilaudid 2 mg Tablet] 2 mg PO Q6H PRN 5 Days #15 tablet 07/07 Oxycodone HCl 5 mg PO Q6HWA #6 tablet 07/20/17 Allergies/Adverse Reactions: acetaminophen [From Tylenol] Adverse Reaction (Verified 07/21/17 12:57) aspirin [Aspirin] Adverse Reaction (Verified 07/21/17 12:57) bleeding ibuprofen [From Motrin] Adverse Reaction (Verified 07/21/17 12:57) bleeding morphine [Morphine] Adverse Reaction (Verified 07/21/17 12:57) Hives NSAIDS (Non-Steroidal Anti-Inflamma [Nsaids] Adverse Reaction (Verified 12:57) vancomycin [Vancomycin] Adverse Reaction (Verified 07/21/17 12:57) Physical Exam Vital Signs: Temp Pulse Resp BP Pulse Ox 98.7 F 103 H 16 124/79 99 07/21/17 18:12 07/21/17 18:12 07/21/17 18:12 07/21/17 18:12 07/21/17 18:12 General appearance: PRESENT: no acute distress, well-developed, well-nourished Head exam: PRESENT: atraumatic, normocephalic Eye exam: PRESENT: conjunctiva pink, EOMI, PERRLA. ABSENT: scleral icterus Ear exam: PRESENT: normal external ear exam Mouth exam: PRESENT: moist, tongue midline Neck exam: PRESENT: full ROM. ABSENT: carotid bruit, JVD, lymphadenopathy, thyromegaly Respiratory exam: PRESENT: clear to auscultation iliana. ABSENT: rales, rhonchi, wheezes Cardiovascular exam: PRESENT: RRR. ABSENT: diastolic murmur, rubs, systolic murmur Pulses: PRESENT: normal dorsalis pedis pul Vascular exam: PRESENT: normal capillary refill GI/Abdominal exam: PRESENT: normal bowel sounds, soft. ABSENT: distended, guarding, mass, organolmegaly, rebound, tenderness Rectal exam: PRESENT: deferred Extremities exam: PRESENT: full ROM. ABSENT: calf tenderness, clubbing, pedal edema Musculoskeletal exam: PRESENT: deformity - rigth knee, swollen Neurological exam: PRESENT: alert, awake, oriented to person, oriented to place , oriented to time, oriented to situation, CN II-XII grossly intact. ABSENT: motor sensory deficit Psychiatric exam: PRESENT: appropriate affect, normal mood. ABSENT: homicidal ideation, suicidal ideation Skin exam: PRESENT: dry, intact, warm. ABSENT: cyanosis, rash Assessment & Plan - Plan Summary Plan Summary: A/ Hemophilia A Recent spontaneous knee hemoarthrosis Need to chronic (three times a week) self-injection if FYIII Present need of injection of additional F VIII to control the right knee hemoarthrosis P/ Increase the Factor VIII level to an acceptable level before a permanent venous access can be carried out.
[2017-07-21] MEDS ORDERED: [UNRECOGNIZED DRUG - MIXTURE] IV PRN (20:00)
[2017-07-21] MEDS ORDERED: [UNRECOGNIZED DRUG - MIXTURE] IV ONE (20:00)
[2017-07-21 20:19] LABS: ALANINE AMINOTRANSFERASE 59 U/L (21-72); ALBUMIN 5.1 g/dL (3.5-5.0); ALKALINE PHOSPHATASE 80 U/L (38-126); ANION GAP 16 (5-19); ASPARTATE AMINO TRANSFERASE 49 U/L (17-59); BILIRUBIN,DIRECT 0.3 mg/dL (0.0-0.4); BILIRUBIN,TOTAL 1.1 mg/dL (0.2-1.3); BLOOD UREA NITROGEN 15 mg/dL (7-20); CARBON DIOXIDE 27 mmol/L (22-30); CHLORIDE 97 mmol/L (98-107); GLUCOSE 103 mg/dL (75-110); POTASSIUM 4.6 mmol/L (3.6-5.0); SODIUM 139.7 mmol/L (137-145); TOTAL PROTEIN 7.9 g/dL (6.3-8.2)
[2017-07-21] MEDS ORDERED: ZOLPIDEM TARTRATE 5 MG TABLET PO PRN (20:21)
[2017-07-21] MEDS ORDERED: ONDANSETRON 4 MG TAB.RAPDIS PO PRN (20:21)
[2017-07-21] MEDS ORDERED: HYDROMORPHONE HCL 2 MG TABLET PO ONE (20:30)
[2017-07-21] MEDS ORDERED: ANTIHEMOPHILIC FACTOR IV PRN (20:31)
[2017-07-21] MEDS ORDERED: [UNRECOGNIZED DRUG - OTHER] IV PRN (20:31)
--- NOTE | 2017-07-21 21:10 | PDOC H&P ---
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 He injects himself Factor VIII three times a week vi self started peripheral IV's; however, doring the past few days he not been able to access hi peripheral veins. This has complicated his need for additional F VIII necessary to control his recently developed right knee hemoarthrosis. Usualy, his F VIII is in the range of @ 40%. He has presented several times this month to the emergency room. The last was yesterday when he had run out of his factor VIII. He did receive his shipment today but he was unable to achieve venous access and so again presents to the emergency room. He was seen in consultation by surgery who was willing to place a tunneled catheter once he received factor VIII. He is therefore admitted to our service for ongoing care and eventual surgery. It should be noted also that the patient has been receiving prescriptions for narcotics from various visits to the emergency room. It is reported that that he [facility] when they would not continue his narcotics as an inpatient. Past Medical History GI Medical History: Reports: Hepatitis - hep C Musculoskeltal Medical History: Reports: Arthritis Psychiatric Medical History: Denies: Depression Hematology: Reports: Hemophilia Infectious Medical History: Reports: Hepatitis C Past Surgical History Past Surgical History: Reports: Orthopedic Surgery - bilat ankles, bilat knees, L elbow, Bilat Forearms Removal synovial memb L, Vascular Surgery - ports ( inactive) Social History Information Source: Patient Lives with: Family Smoking Status: Current Some Day Smoker Frequency of Alcohol Use: None Hx Recreational Drug Use: No Hx Prescription Drug Abuse: No - Advance Directive Resuscitation Status: Full Code Family History Family History: DM, Other - autoimmune factor VIII deficiency. Hep C Parental Family History Reviewed: Yes Children Family History Reviewed: Yes Sibling(s) Family History Reviewed.: Yes Medication/Allergy Home Medications: Antihemophilic Factor/Vwf [Humate-P 500 Unit Factor VIII Vial] 4,000 unit IV BIDP PRN 07/21/17 Antihemophilic Factor/Vwf [Humate-P 500 Unit Factor VIII Vial] 4,000 unit IV MOWEFR@1000 07/21/17 Allergies/Adverse Reactions: acetaminophen [From Tylenol] Adverse Reaction (Verified 07/21/17 12:57) aspirin [Aspirin] Adverse Reaction (Verified 07/21/17 12:57) bleeding ibuprofen [From Motrin] Adverse Reaction (Verified 07/21/17 12:57) bleeding morphine [Morphine] Adverse Reaction (Verified 07/21/17 12:57) Hives NSAIDS (Non-Steroidal Anti-Inflamma [Nsaids] Adverse Reaction (Verified 12:57) vancomycin [Vancomycin] Adverse Reaction (Verified 07/21/17 12:57) Review of Systems Constitutional: ABSENT: chills, fatigue, fever(s), night sweats, weakness Eyes: ABSENT: visual disturbances Ears: ABSENT: hearing changes Nose, Mouth, and Throat: ABSENT: mouth pain, sore throat Cardiovascular: ABSENT: chest pain, dyspnea on exertion, orthropnea, palpitations Respiratory: ABSENT: cough, dyspnea, hemoptysis Gastrointestinal: ABSENT: abdominal pain, constipation, diarrhea, heartburn Genitourinary: ABSENT: dysuria, hematuria Musculoskeletal: PRESENT: joint swelling Integumentary: ABSENT: rash, wounds Neurological: ABSENT: abnormal gait, abnormal speech, confusion, dizziness, focal weakness, syncope Psychiatric: ABSENT: anxiety, depression, homidical ideation, suicidal ideation Endocrine: ABSENT: cold intolerance, heat intolerance, polydipsia, polyuria Physical Exam Vital Signs: Temp Pulse Resp BP Pulse Ox 98.7 F 103 H 16 124/79 99 07/21/17 18:12 07/21/17 18:12 07/21/17 18:12 07/21/17 18:12 07/21/17 18:12 General appearance: PRESENT: no acute distress, cooperative, well-developed, well-nourished Head exam: PRESENT: atraumatic, normocephalic Eye exam: PRESENT: EOMI, PERRLA. ABSENT: nystagmus Ear exam: PRESENT: normal external ear exam Neck exam: PRESENT: full ROM. ABSENT: carotid bruit, JVD, meningismus Respiratory exam: PRESENT: clear to auscultation iliana, symmetrical, unlabored. ABSENT: accessory muscle use Cardiovascular exam: PRESENT: RRR. ABSENT: diastolic murmur, gallop, systolic murmur GI/Abdominal exam: PRESENT: normal bowel sounds, soft. ABSENT: guarding, organolmegaly, tenderness Rectal exam: PRESENT: deferred Extremities exam: PRESENT: joint swelling - Right knee Musculoskeletal exam: ABSENT: deformity Neurological exam: PRESENT: alert, awake, oriented to person, oriented to place , oriented to time, oriented to situation Psychiatric exam: PRESENT: appropriate affect, normal mood Skin exam: PRESENT: dry, intact, warm. ABSENT: cyanosis, rash Results Laboratory Results: 07/21/17 07/21/17 18:00 18:00 WBC 9.2 Hgb 12.4 L Hct 37.2 L Plt Count 290 Sodium Cancelled Potassium Cancelled Chloride Cancelled Carbon Dioxide Cancelled BUN Cancelled Creatinine Cancelled Glucose Cancelled AST Cancelled ALT Cancelled Albumin Cancelled Assessment & Plan - Diagnosis (1) Hemarthrosis Is this a current diagnosis for this admission?: Yes (2) Hepatitis C Qualifiers: Viral hepatitis chronicity: chronic Hepatic coma status: without hepatic coma Qualified Code(s): B18.2 - Chronic viral hepatitis C Is this a current diagnosis for this admission?: Yes (3) Hemophilia A Is this a current diagnosis for this admission?: Yes - Time Time Spent: 30 to 50 Minutes - Inpatient Certification Based on my medical assessment, after consideration of the patient's comorbidities, presenting symptoms, or acuity I expect that the services needed warrant INPATIENT care.: Yes I certify that my determination is in accordance with my understanding of Medicare's requirements for reasonable and necessary INPATIENT services [42 CFR 412.3e].: Yes Medical Necessity: Failure to Improve With Outpatient Therapy, Need for Surgery - Plan Summary Plan Summary: Patient will be admitted to hospital. He will continue to receive factor VIII replacement. Once his pro time and PTT have normalized he will hopefully have surgery. Pharmacologic prophylaxis for DVT is contraindicated due to his underlying condition
[2017-07-21] MEDS ORDERED: ACETAMINOPHEN 325 MG TABLET PO ONE (21:25)
[2017-07-21] MEDS ORDERED: DOCUSATE SODIUM 100 MG CAPSULE PO ONE (22:00)
[2017-07-22] MEDS: FAMOTIDINE 20 MG TABLET PO SCH ×3 (00:08→21:54)
[2017-07-22] MEDS: HYDROMORPHONE HCL 2 MG TABLET PO PRN ×6 (00:09→20:22)
[2017-07-22 04:52] LABS: URINE AMPHETAMINES SCREEN NEGATIVE; URINE BARBITURATES SCREEN NEGATIVE; URINE BENZODIAZEPINES SCREEN NEGATIVE; URINE COCAINE SCREEN NEGATIVE; URINE MARIJUANA (THC) SCREEN NEGATIVE; URINE METHADONE SCREEN NEGATIVE; URINE PHENCYCLIDINE SCREEN NEGATIVE
[2017-07-22 05:02] LABS: APPEARANCE,URINE SLIGHTLY-CLOUDY; BILIRUBIN,URINE NEGATIVE (NEGATIVE); COLOR,URINE YELLOW; GLUCOSE, URINE >=500 mg/dL (NEGATIVE); KETONES,URINE NEGATIVE (NEGATIVE); LEUKOCYTE ESTERASE,URINE NEGATIVE (NEGATIVE); NITRITE,URINE NEGATIVE (NEGATIVE); PROTEIN,URINE NEGATIVE (NEGATIVE); URINE SPECIFIC GRAVITY 1.023
[2017-07-22 07:35] LABS: HEMATOCRIT 35.9 % (37.9-51.0); MEAN CORPUSCULAR HEMOGLOBIN 29.5 pg (27.0-33.4); MEAN CORPUSCULAR HGB CONC 33.5 g/dL (32.0-36.0); MEAN CORPUSCULAR VOLUME 88 fl (80-97); PLATELET COUNT 244 10^3/uL (150-450); RED BLOOD COUNT 4.07 10^6/uL (4.35-5.55); RED CELL DISTRIBUTION WIDTH 15.9 % (11.5-14.0); WHITE BLOOD COUNT 7.8 10^3/uL (4.0-10.5)
[2017-07-22 07:45] LABS: INTERNATIONAL RATION (INR) 0.94; PROTHROMBIN TIME 13.3 SEC (11.4-15.4)
[2017-07-22 07:46] LABS: PARTIAL THROMBOPLASTIN TIME 55.3 SEC (23.5-35.8)
[2017-07-22 07:56] LABS: ANION GAP 12 (5-19); BLOOD UREA NITROGEN 13 mg/dL (7-20); CALCIUM 9.4 mg/dL (8.4-10.2); CARBON DIOXIDE 29 mmol/L (22-30); CHLORIDE 98 mmol/L (98-107); GLUCOSE 89 mg/dL (75-110); SODIUM 138.8 mmol/L (137-145)
[2017-07-22] MEDS ORDERED: [UNRECOGNIZED DRUG - OTHER] IV ONE ×2 (11:00)
[2017-07-22] MEDS ORDERED: ANTIHEMOPHILIC FACTOR IV ONE ×2 (11:00)
[2017-07-22] MEDS: DOCUSATE SODIUM 100 MG CAPSULE PO SCH (11:12)
--- NOTE | 2017-07-22 12:16 | PDOC PROGRESS REPORT ---
Subjective Progress Note for:: 07/22/17 Subjective:: Patient relates that he had been getting off and on swelling of his right knee and and when that happens he has to inject factor VII. He has been getting recently more difficult for him to take the factor because of lack of IV access. Review of system All organ systems evaluated and negative except as in subjective All significant laboratories and diagnostics had been reviewed Reason For Visit: HEMOPHILIA WITH HEMARTHROSIS Physical Exam Vital Signs: Temp Pulse Resp BP Pulse Ox 98.3 F 97 18 108/69 96 07/22/17 08:23 07/22/17 08:23 07/22/17 08:23 07/22/17 08:23 07/22/17 08:23 Intake & Output 07/21/17 07/22/17 07/23/17 06:59 06:59 06:59 Intake Total 690 Balance 690 Weight 77.3 kg General appearance: PRESENT: no acute distress, cooperative, well-developed, well-nourished Head exam: PRESENT: atraumatic, normocephalic Eye exam: PRESENT: conjunctiva pink, EOMI, PERRLA Ear exam: PRESENT: normal external ear exam Mouth exam: PRESENT: moist Neck exam: PRESENT: full ROM, JVD, tenderness. ABSENT: lymphadenopathy Respiratory exam: PRESENT: clear to auscultation iliana Cardiovascular exam: PRESENT: RRR. ABSENT: diastolic murmur, systolic murmur Vascular exam: PRESENT: normal capillary refill GI/Abdominal exam: PRESENT: normal bowel sounds, soft. ABSENT: tenderness Extremities exam: PRESENT: full ROM, joint swelling - Slight right knee swelling , tenderness - Mild tenderness upon palpation of right knee Musculoskeletal exam: PRESENT: ambulatory Neurological exam: PRESENT: alert, awake, oriented to person, oriented to place , oriented to time, oriented to situation, CN II-XII grossly intact Psychiatric exam: PRESENT: appropriate affect, normal mood Skin exam: PRESENT: intact, pallor Results Laboratory Results: 07/22/17 07:19 07/22/17 07:19 07/22/17 07/22/17 07/22/17 04:00 07:19 07:19 WBC 7.8 RBC 4.07 L Hgb 12.0 L Hct 35.9 L MCV 88 MCH 29.5 MCHC 33.5 RDW 15.9 H Plt Count 244 Sodium 138.8 Potassium 4.0 Chloride 98 Carbon Dioxide 29 Anion Gap 12 BUN 13 Creatinine 0.64 Est GFR ( Amer) > 60 Est GFR (Non-Af Amer) > 60 Glucose 89 Calcium 9.4 Urine Color YELLOW Urine Appearance SLIGHTLY-CLOUDY Urine pH 5.0 Ur Specific [place] 1.023 Urine Protein NEGATIVE Urine Glucose (UA) >=500 H Urine Ketones NEGATIVE Urine Blood NEGATIVE Urine Nitrite NEGATIVE Ur Leukocyte Esterase NEGATIVE Urine WBC (Auto) 1 Urine RBC (Auto) 1 Assessment & Plan - Diagnosis (1) Poor intravenous access Is this a current diagnosis for this admission?: Yes Plan: Surgeon involved in the case and would like for factor VII level to be around 40 % (2) Hemarthrosis Is this a current diagnosis for this admission?: Yes Plan: Then knee appears to be mildly swollen. Patient does have his personal factor and requested nurse to verify with pharmacy as first protocol is to use patient on personal supply of medication. 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 Nurse to assist contacting surgeon since for insurance purposes patient was only allowed observation status - Time Time Spent with patient: 15-24 minutes Medications reviewed and adjusted accordingly: Yes Anticipated discharge: Home - Inpatient Certification Based on my medical assessment, after consideration of the patient's comorbidities, presenting symptoms, or acuity I expect that the services needed warrant INPATIENT care.: No I certify that my determination is in accordance with my understanding of Medicare's requirements for reasonable and necessary INPATIENT services [42 CFR 412.3e].: Yes
--- NOTE | 2017-07-22 19:09 | PDOC PROGRESS REPORT ---
Subjective Progress Note for:: 07/22/17 Subjective:: Pt. c/o some knee pain which happens after injections (Factor VII). Reason For Visit: DIZZINESS Physical Exam Vital Signs: Temp Pulse Resp BP Pulse Ox 97.9 F 89 16 112/68 100 07/22/17 14:43 07/22/17 14:43 07/22/17 14:43 07/22/17 14:43 07/22/17 14:43 Intake & Output 07/21/17 07/22/17 07/23/17 06:59 06:59 06:59 Intake Total 690 Balance 690 Weight 77.3 kg General appearance: PRESENT: no acute distress Head exam: PRESENT: atraumatic, normocephalic Respiratory exam: PRESENT: clear to auscultation iliana, unlabored Cardiovascular exam: PRESENT: RRR GI/Abdominal exam: PRESENT: normal bowel sounds, soft. ABSENT: tenderness Musculoskeletal exam: PRESENT: full ROM, normal inspection Results Laboratory Results: 07/22/17 07:19 07/22/17 07:19 07/22/17 07/22/17 07/22/17 04:00 07:19 07:19 WBC 7.8 RBC 4.07 L Hgb 12.0 L Hct 35.9 L MCV 88 MCH 29.5 MCHC 33.5 RDW 15.9 H Plt Count 244 Sodium 138.8 Potassium 4.0 Chloride 98 Carbon Dioxide 29 Anion Gap 12 BUN 13 Creatinine 0.64 Est GFR ( Amer) > 60 Est GFR (Non-Af Amer) > 60 Glucose 89 Calcium 9.4 Urine Color YELLOW Urine Appearance SLIGHTLY-CLOUDY Urine pH 5.0 Ur Specific [place] 1.023 Urine Protein NEGATIVE Urine Glucose (UA) >=500 H Urine Ketones NEGATIVE Urine Blood NEGATIVE Urine Nitrite NEGATIVE Ur Leukocyte Esterase NEGATIVE Urine WBC (Auto) 1 Urine RBC (Auto) 1 Assessment & Plan - Diagnosis (1) Hemophilia A Is this a current diagnosis for this admission?: Yes - Plan Summary Plan Summary: According to recommended plan, patient will have the Mediport placed as an outpatient.
[2017-07-22] MEDS: ANTIHEMOPHILIC FACTOR IV SCH (21:55)
[2017-07-22] MEDS: [UNRECOGNIZED DRUG - OTHER] IV SCH (21:55)
[2017-07-23] MEDS: HYDROMORPHONE HCL 2 MG TABLET PO PRN ×6 (00:23→20:50)
[2017-07-23 07:19] LABS: HEMOGLOBIN 11.8 g/dL (13.5-17.0); MEAN CORPUSCULAR HEMOGLOBIN 29.4 pg (27.0-33.4); MEAN CORPUSCULAR HGB CONC 33.6 g/dL (32.0-36.0); MEAN CORPUSCULAR VOLUME 87 fl (80-97); PLATELET COUNT 233 10^3/uL (150-450); RED BLOOD COUNT 4.01 10^6/uL (4.35-5.55); RED CELL DISTRIBUTION WIDTH 15.7 % (11.5-14.0); WHITE BLOOD COUNT 6.4 10^3/uL (4.0-10.5)
[2017-07-23 07:22] LABS: INTERNATIONAL RATION (INR) 0.88; PROTHROMBIN TIME 12.6 SEC (11.4-15.4)
[2017-07-23 07:23] LABS: PARTIAL THROMBOPLASTIN TIME 42.5 SEC (23.5-35.8)
[2017-07-23 07:46] LABS: ANION GAP 10 (5-19); BLOOD UREA NITROGEN 12 mg/dL (7-20); CALCIUM 9.5 mg/dL (8.4-10.2); CARBON DIOXIDE 30 mmol/L (22-30); CHLORIDE 97 mmol/L (98-107); GLUCOSE 72 mg/dL (75-110); POTASSIUM 4.4 mmol/L (3.6-5.0); SODIUM 136.6 mmol/L (137-145)
[2017-07-23] MEDS: ANTIHEMOPHILIC FACTOR IV SCH ×2 (10:03→22:27)
[2017-07-23] MEDS: FAMOTIDINE 20 MG TABLET PO SCH ×2 (10:03→22:27)
[2017-07-23] MEDS: DOCUSATE SODIUM 100 MG CAPSULE PO SCH (10:03)
[2017-07-23] MEDS: [UNRECOGNIZED DRUG - OTHER] IV SCH ×2 (10:03→22:27)
[2017-07-23] MEDS ORDERED: DEXTROSE 50%-WATER 25 GM/50 ML DISP.SYRIN IV PRN ×2 (16:53)
[2017-07-23] MEDS ORDERED: GLUCAGON,HUMAN RECOMB 1 MG INJ SUBCUT PRN (16:53)
[2017-07-23] MEDS ORDERED: DEXTROSE 40% GEL 15 GM TUBE PO PRN ×2 (16:53)
--- NOTE | 2017-07-23 16:58 | PDOC PROGRESS REPORT ---
Subjective Progress Note for:: 07/23/17 Subjective:: Pt. still has knee swelling from hemarthrosis. Has brought hos own supply of Factor VIII from home. Reason For Visit: DIZZINESS Physical Exam Vital Signs: Temp Pulse Resp BP Pulse Ox 98.4 F 81 20 109/71 99 07/23/17 15:42 07/23/17 15:42 07/23/17 15:42 07/23/17 15:42 07/23/17 15:42 Intake & Output 07/22/17 07/23/17 07/24/17 06:59 06:59 06:59 Intake Total 690 200 Balance 690 200 Weight 77.3 kg 80.3 kg General appearance: PRESENT: no acute distress Head exam: PRESENT: atraumatic, normocephalic Respiratory exam: PRESENT: clear to auscultation iliana, unlabored Cardiovascular exam: PRESENT: RRR Extremities exam: PRESENT: joint swelling - right knee. Results Laboratory Results: 07/23/17 06:19 07/23/17 06:19 07/23/17 07/23/17 06:19 06:19 WBC 6.4 RBC 4.01 L Hgb 11.8 L Hct 35.0 L MCV 87 MCH 29.4 MCHC 33.6 RDW 15.7 H Plt Count 233 Sodium 136.6 L Potassium 4.4 Chloride 97 L Carbon Dioxide 30 Anion Gap 10 BUN 12 Creatinine 0.66 Est GFR ( Amer) > 60 Est GFR (Non-Af Amer) > 60 Glucose 72 L Calcium 9.5 Assessment & Plan - Diagnosis (1) Hemophilia A Is this a current diagnosis for this admission?: Yes - Plan Summary Plan Summary: Patient will be taken to O.R today for mediport insertion, which was the original plan.
[2017-07-23] MEDS ORDERED: PROPOFOL INJ 200 MG/20 ML VIAL IV ONE (18:31)
[2017-07-23] MEDS ORDERED: FENTANYL CITRATE INJ/PF 100 MCG/2 ML AMPUL ONE ×2 (18:31→20:13)
[2017-07-23] MEDS ORDERED: LIDOCAINE 2% INJ-PF (20 MG/ML) 10 ML AMPUL ONE (18:31)
[2017-07-23] MEDS ORDERED: MIDAZOLAM 2 MG/2 ML INJ ONE (18:31)
[2017-07-23] MEDS ORDERED: BUPIVACAINE HCL 0.5 % INJ/PF 30 ML SDV ONE (18:35)
[2017-07-23] MEDS ORDERED: ONDANSETRON HCL INJ/PF 4 MG/2 ML SDV IV PRN (19:08)
[2017-07-23] MEDS ORDERED: FENTANYL CITRATE INJ/PF 100 MCG/2 ML AMPUL IV PRN ×3 (19:08)
[2017-07-23] MEDS ORDERED: DIPHENHYDRAMINE HCL 50 MG/ML VIAL IV PRN (19:08)
[2017-07-23] MEDS ORDERED: PROMETHAZINE HCL INJ 25 MG/1 ML VIAL IV PRN ×2 (19:08)
[2017-07-23] MEDS ORDERED: MEPERIDINE HCL/PF INJ 25 MG/1 ML DISP.SYRIN IV PRN (19:08)
[2017-07-23] MEDS ORDERED: MORPHINE SULFATE 10 MG/ML INJ IV PRN (19:08)
[2017-07-23] MEDS ORDERED: DEXTROSE 5%-LACTATED RINGERS 1,000 ML IV PRN (19:53)
--- NOTE | 2017-07-23 19:53 | Brief Operative Note ---
BRIEF OPERATIVE REPORT DATE OF SURGERY: 07/23/17 TIME OF SURGERY: 19:00 PREOPERATIVE DIAGNOSIS: Hemophilia with need for central venous access for Factor VIII Infusions POSTOPERATIVE DIAGNOSIS: Same SURGEON: NICOLE KENNEDY FINDINGS: N/A COMPLICATIONS: None ESTIMATED BLOOD LOSS: Negligible TISSUE REMOVED OR ALTERED: N/A TECHNICAL PROCEDURE: See dictation
--- NOTE | 2017-07-24 00:19 | OPERATIVE REPORT E ---
Operative Report NAME: RENAN RAMOS : 1990 AGE: 27Y DATE OF SURGERY: 07/23/2017 ROOM: 205 PREOPERATIVE DIAGNOSIS: Need for central venous access for infusion of Factor VIII secondary to hemophilia with hemarthrosis of the right knee. POSTOPERATIVE DIAGNOSIS: Need for central venous access for infusion of Factor VIII secondary to hemophilia with hemarthrosis of the right knee. OPERATION: MediPort insertion. SURGEON: NICOLE KENNEDY M.D. ANESTHESIA: MAC. REPLACEMENTS: Crystalloids. DRAINS: None. COMPLICATIONS: None. CONDITION: Stable. INDICATION FOR PROCEDURE: This 27-year-old male with history of hemophilia presented with hemarthrosis and low Factor VIII levels. Patient has received transfusion through a peripheral line of Factor VIII in order to correct his hemarthrosis. Patient is now in need of permanent, long-term access as his peripheral access is poor. PROCEDURE: Patient was brought to the operating room suite and placed in the supine position on the operating table. Monitoring devices were attached, IV sedation was administered and the patient's chest wall and neck were prepped and draped in the usual sterile manner. Timeout was achieved when all concurred. The local anesthesia was injected and the space between the clavicle and the first rib. We then accessed the left subclavian vein without complication and when there was flesh or venous blood in the syringe, the syringe was removed and the guidewire was inserted through the needle. Fluoroscopy was done with a C-arm in order to determine if the wire was in the superior vena cava which it confirmed. We then anesthetized from the guidewire to the deltopectoral groove and inferiorly where we reformed the subcutaneous pocket. We then made an incision from the guidewire to the deltopectoral groove. This was carried through the skin and subcutaneous tissue and then we developed a subcutaneous pocket using sharp and blunt dissection to develop pocket going inferiorly along over the pectoralis major. After creating the pocket, we then brought the MediPort and the catheter to the table. We measured it and cut the catheter at the 26 cm yarely and connected it to the MediPort reservoir and secured it in the usual manner. Once this was completed, we then placed under fluoroscopy the vein dilator over the guidewire and the guidewire was removed. Left behind was the vein dilator and the introducer for the MediPort and catheter. We put the catheter at the end of the introducer to make sure there was retrograde blood flow which was noted. We then removed the vein dilator leaving the introducer in place and we then inserted the catheter attached to the MediPort reservoir into the introducer and then peeled the introducer away. We then placed the MediPort in its subcutaneous pocket over the pectoralis major muscle on the left. The C-arm revealed that the catheter was in the superior vena cava and that there were no kinks or natural curves in the catheter. We accessed the catheter which has been flushed with heparinized saline before insertion and there was good antegrade and retrograde blood flow through the MediPort after having been placed in the superior vena cava. We then secured the MediPort to the underlying subcutaneous tissue using 2-0 silk. Once this was secured, we then closed the subcutaneous tissue using 3-0 Vicryl and the skin was approximated using 4-0 Vicryl subcuticular closure. We accessed the MediPort and there was good antegrade and retrograde flow. We attached the Jones needle and the attached tubing so that patient can have immediate access for his Factor VIII infusion. Final C-arm visualization revealed that the catheter was in the superior vena cava and the catheter is smooth without any kinks and the reservoir is in the subcutaneous pocket with good function. DICTATING PHYSICIAN: NICOLE KENNEDY M.D. [id number] PHY#: [id number] ID: [id number] JOB#: [id number] ACCT: [id number] cc:NICOLE KENNEDY M.D. >
[2017-07-24] MEDS: HYDROMORPHONE HCL 2 MG TABLET PO PRN ×3 (00:22→08:22)
[2017-07-24 08:21] LABS: HEMATOCRIT 34.4 % (37.9-51.0); HEMOGLOBIN 11.5 g/dL (13.5-17.0); MEAN CORPUSCULAR HEMOGLOBIN 29.4 pg (27.0-33.4); MEAN CORPUSCULAR HGB CONC 33.3 g/dL (32.0-36.0); MEAN CORPUSCULAR VOLUME 88 fl (80-97); PLATELET COUNT 243 10^3/uL (150-450); RED CELL DISTRIBUTION WIDTH 15.8 % (11.5-14.0)
[2017-07-24 08:24] LABS: INTERNATIONAL RATION (INR) 0.85; PROTHROMBIN TIME 12.2 SEC (11.4-15.4)
--- NOTE | 2017-07-24 08:24 | RADIOLOGY REPORT (SQ) ---
EXAM DESCRIPTION: CHEST SINGLE VIEW; FLUORO/CV PLACEMENT COMPLETED DATE/TIME: 07/23/2017 9:48 pm REASON FOR STUDY: LT SIDED PORT A CATH COMPARISON: None. FLUOROSCOPY TIME: 0.3 minutes 2 images saved to PACS. TECHNIQUE: Intra-operative images acquired during surgical procedure to evaluate progress. NUMBER OF IMAGES: 2 LIMITATIONS: None. FINDINGS: Limited field of view imaging reveals placement of a left port via subclavian vein approac h. Tip grossly to the superior vena cava. IMPRESSION: IMAGE(S) OBTAINED DURING PROCEDURE. COMMENT: Quality ID [id number]: Final reports for procedures using fluoroscopy that document radiation exp osure indices, or exposure time and number of fluorographic images (if radiation exposure indices are not available) Please consult full operative report of the attending physician for description of the procedure. TECHNICAL DOCUMENTATION: JOB ID: [id number] [employer]- All Rights Reserved
--- NOTE | 2017-07-24 08:24 | RADIOLOGY REPORT (SQ) ---
EXAM DESCRIPTION: CHEST SINGLE VIEW; FLUORO/CV PLACEMENT COMPLETED DATE/TIME: 07/23/2017 9:48 pm REASON FOR STUDY: LT SIDED PORT A CATH COMPARISON: None. FLUOROSCOPY TIME: 0.3 minutes 2 images saved to PACS. TECHNIQUE: Intra-operative images acquired during surgical procedure to evaluate progress. NUMBER OF IMAGES: 2 LIMITATIONS: None. FINDINGS: Limited field of view imaging reveals placement of a left port via subclavian vein approac h. Tip grossly to the superior vena cava. IMPRESSION: IMAGE(S) OBTAINED DURING PROCEDURE. COMMENT: Quality ID [id number]: Final reports for procedures using fluoroscopy that document radiation exp osure indices, or exposure time and number of fluorographic images (if radiation exposure indices are not available) Please consult full operative report of the attending physician for description of the procedure. TECHNICAL DOCUMENTATION: JOB ID: [id number] [employer]- All Rights Reserved
[2017-07-24 08:25] LABS: PARTIAL THROMBOPLASTIN TIME 42.8 SEC (23.5-35.8)
[2017-07-24 08:37] LABS: ANION GAP 12 (5-19); BLOOD UREA NITROGEN 15 mg/dL (7-20); CALCIUM 9.4 mg/dL (8.4-10.2); CARBON DIOXIDE 30 mmol/L (22-30); CHLORIDE 97 mmol/L (98-107); GLUCOSE 103 mg/dL (75-110); POTASSIUM 4.3 mmol/L (3.6-5.0); SODIUM 138.5 mmol/L (137-145)
[2017-07-24 08:44] VITALS: BP 109/71
--- NOTE | 2017-07-24 13:41 | PDOC PROGRESS REPORT ---
Subjective Progress Note for:: 07/23/17 Subjective:: Patient was supposed to be discharged on July 23 however discharge was halted by surgical list since could not get medications for pain Review of system All organ systems evaluated and negative except as in subjective All significant laboratories and diagnostics had been reviewed Reason For Visit: DIZZINESS Physical Exam Vital Signs: Temp Pulse Resp BP Pulse Ox 98.3 F 95 16 98/58 L 98 07/24/17 00:39 07/24/17 00:39 07/24/17 00:39 07/24/17 00:39 07/24/17 00:39 Intake & Output 07/23/17 07/24/17 07/25/17 06:59 06:59 06:59 Intake Total 200 200 Output Total 5 Balance 200 195 Weight 80.3 kg General appearance: PRESENT: no acute distress, cooperative Head exam: PRESENT: atraumatic, normocephalic Eye exam: PRESENT: EOMI, PERRLA Mouth exam: PRESENT: moist Respiratory exam: PRESENT: clear to auscultation iliana Cardiovascular exam: PRESENT: RRR. ABSENT: diastolic murmur, systolic murmur Neurological exam: PRESENT: alert, awake, oriented to time, oriented to situation, CN II-XII grossly intact Results Laboratory Results: 07/23/17 06:19 07/23/17 06:19 07/23/17 07/23/17 06:19 06:19 WBC 6.4 RBC 4.01 L Hgb 11.8 L Hct 35.0 L MCV 87 MCH 29.4 MCHC 33.6 RDW 15.7 H Plt Count 233 Sodium 136.6 L Potassium 4.4 Chloride 97 L Carbon Dioxide 30 Anion Gap 10 BUN 12 Creatinine 0.66 Est GFR ( Amer) > 60 Est GFR (Non-Af Amer) > 60 Glucose 72 L Calcium 9.5 Assessment & Plan - Diagnosis (1) Poor intravenous access Is this a current diagnosis for this admission?: Yes Plan: Access was placed by surgery on January 20, 2018. Tolerated procedure well (2) Hemarthrosis Is this a current diagnosis for this admission?: Yes Plan: Patient complains of pain however the knee has been minimally swollen. (3) Hemophilia A Is this a current diagnosis for this admission?: Yes Plan: Continue diffusing factor VII from personal supply as previously instructed by his accountant assistant - Time Time Spent with patient: Less than 15 minutes Medications reviewed and adjusted accordingly: Yes Anticipated discharge: Home Within: within 24 hours - Inpatient Certification Based on my medical assessment, after consideration of the patient's comorbidities, presenting symptoms, or acuity I expect that the services needed warrant INPATIENT care.: No I certify that my determination is in accordance with my understanding of Medicare's requirements for reasonable and necessary INPATIENT services [42 CFR 412.3e].: Yes Medical Necessity: Need for Pain Control
--- NOTE | 2017-07-24 13:51 | PDOC DISCHARGE SUMMARY ---
General - Admit/Disc Date/PCP Admission Date/Primary Care Provider: 07/21/17 19:55 Discharge Date: 07/24/17 - Discharge Diagnosis (1) Poor intravenous access Is this a current diagnosis for this admission?: Yes (2) Hemarthrosis Is this a current diagnosis for this admission?: Yes (3) Hemophilia A Is this a current diagnosis for this admission?: Yes - Additional Information Resuscitation Status: Full Code Discharge Diet: As Tolerated Discharge Activity: Activity As Tolerated Prescriptions: Hydromorphone HCl [Dilaudid 2 mg Tablet] 1 mg PO Q4HP PRN 5 Days #20 tablet PRN Reason: Pain Scale Of 5 Home Medications: Antihemophilic Factor/Vwf [Humate-P 500 Unit Factor VIII Vial] 4,000 unit IV BIDP PRN 07/21/17 Hydromorphone HCl [Dilaudid 2 mg Tablet] 1 mg PO Q4HP PRN 5 Days #20 tablet History of Present Illness History of Present Illness: RENAN RAMOS is a 27 year old male with type A hemophilia. Hismother is carrier, his maternal grandfather was either affected in a laght fashion or suffered of type B hemophilia. He injects himself Factor VIII three times a week via self started peripheral IV's; however, during the past few days he not been able to access his peripheral veins. This has complicated his need for additional F VIII necessary to control his recently developed right knee hemoarthrosis. Usually, his F VIII is in the range of @ 40%. He has presented several times this month to the emergency room. The last was one day prior to admission when he had run out of his factor VIII. He did receive his shipment on the day of admission but he was unable to achieve venous access and so again presented to the emergency room. He was seen in consultation by surgery who was willing to place a tunneled catheter once he received factor VIII. He was therefore admitted to the hospitalist service for ongoing care and eventual surgery. It should be noted also that the patient has been receiving prescriptions for narcotics from various visits to the emergency room. It is reported that that he left AMA from [facility] when they would not continue his narcotics as an inpatient. Hospital Course Hospital Course: Patient was admitted under the hospitalist service and he underwent placement of Mediport on on July 23 and tolerated procedure well. He was expected to be discharged the same day however since his pharmacy was closed surgicalist held discharge for today. Patient continues to be stable and in no distress at the time of discharge. Physical Exam Vital Signs: Temp Pulse Resp BP Pulse Ox 98.3 F 95 16 98/58 L 98 07/24/17 00:39 07/24/17 00:39 07/24/17 00:39 07/24/17 00:39 07/24/17 00:39 Intake & Output 07/23/17 07/24/17 07/25/17 06:59 06:59 06:59 Intake Total 200 200 Output Total 5 Balance 200 195 Weight 80.3 kg General appearance: PRESENT: no acute distress, cooperative Head exam: PRESENT: atraumatic, normocephalic Eye exam: PRESENT: conjunctiva pink, EOMI, PERRLA Ear exam: PRESENT: normal external ear exam Mouth exam: PRESENT: moist Neck exam: PRESENT: full ROM. ABSENT: JVD, lymphadenopathy, tenderness Respiratory exam: PRESENT: clear to auscultation iliana Cardiovascular exam: PRESENT: RRR. ABSENT: diastolic murmur, systolic murmur Vascular exam: PRESENT: normal capillary refill GI/Abdominal exam: PRESENT: normal bowel sounds, soft. ABSENT: tenderness Extremities exam: PRESENT: full ROM Musculoskeletal exam: PRESENT: ambulatory, full ROM Neurological exam: PRESENT: alert, awake, oriented to person, oriented to place , oriented to time, oriented to situation, CN II-XII grossly intact Psychiatric exam: PRESENT: appropriate affect, normal mood Skin exam: PRESENT: intact, normal color Results Laboratory Results: 07/23/17 06:19 07/23/17 06:19 07/23/17 07/23/17 06:19 06:19 WBC 6.4 RBC 4.01 L Hgb 11.8 L Hct 35.0 L MCV 87 MCH 29.4 MCHC 33.6 RDW 15.7 H Plt Count 233 Sodium 136.6 L Potassium 4.4 Chloride 97 L Carbon Dioxide 30 Anion Gap 10 BUN 12 Creatinine 0.66 Est GFR ( Amer) > 60 Est GFR (Non-Af Amer) > 60 Glucose 72 L Calcium 9.5 Plan Discharge Plan: Discharge home Time Spent: Less than 30 Minutes
== END 2017-07-24 08:58 | disposition home or self-care (01) ==
LOC: ER 12:56 → EH 19:55 → INTOOBSV 19:55 → 2N 21:55
PROVIDERS: ADMIT Family Medicine; ATTEND Family Medicine
PROC: 02HV33Z Insertion of Infusion Device into Superior Vena Cava, Percutaneous Approach (ICD-10-PCS; 2017-07-23)
PROC: B518ZZA Fluoroscopy of Superior Vena Cava, Guidance (ICD-10-PCS; 2017-07-23)
PROC: 30233V1 Transfusion of Nonautologous Antihemophilic Factors into Peripheral Vein, Percutaneous Approach (ICD-10-PCS; 2017-07-23)
PROC: 0JH60WZ Insertion of Totally Implantable Vascular Access Device into Chest Subcutaneous Tissue and Fascia, Open Approach (ICD-10-PCS; principal; 2017-07-23 19:30)
DX: M25.061 Hemarthrosis, right knee (principal); D66 Hereditary factor VIII deficiency; B18.2 Chronic viral hepatitis C; F17.200 Nicotine dependence, unspecified, uncomplicated; Z79.899 Other long term (current) drug therapy; Z98.890 Other specified postprocedural states; Z83.2 Family history of diseases of the blood and blood-forming organs and certain disorders involving the immune mechanism; Z84.81 Family history of carrier of genetic disease; Z83.1 Family history of other infectious and parasitic diseases
CPT/HCPCS: 99285; 36415 ×4; 85025; 85027 ×3; 85610 ×3; 85730 ×3; 80048 ×3; 80053; 81001; 80307; 71045; 77001; 36561; 36430; G0378 ×4; C1788; J3490 ×18; J2250; J3010; J2704; J1642; J7187 ×3; 532

== ENCOUNTER 2017-07-24 18:13 | Emergency (ER) | payer MEDICAID ==
[2017-07-24 18:21] VITALS: BP 117/61
--- NOTE | 2017-07-24 18:49 | ER Document Report ---
ED General - General Chief Complaint: Other Stated Complaint: NEED DRESSING CHANGE FOR PORT Time Seen by Provider: 07/24/17 18:43 Notes: Patient is a 27-year-old male requesting a dressing policy change clerk his PowerPort in his left chest. States it was placed during his most recent hospitalization he was not discharged with any supplies for changing the dressing. He denies any additional concerns or complaints TRAVEL OUTSIDE OF THE [place] IN LAST 30 DAYS: No - Related Data Allergies/Adverse Reactions: acetaminophen [From Tylenol] Adverse Reaction (Verified 07/24/17 18:48) aspirin [Aspirin] Adverse Reaction (Verified 07/24/17 18:48) bleeding ibuprofen [From Motrin] Adverse Reaction (Verified 07/24/17 18:48) bleeding morphine [Morphine] Adverse Reaction (Verified 07/24/17 18:48) Hives NSAIDS (Non-Steroidal Anti-Inflamma [Nsaids] Adverse Reaction (Verified 18:48) vancomycin [Vancomycin] Adverse Reaction (Verified 07/24/17 18:48) Past Medical History - General Information source: Patient - Social History Smoking Status: Never Smoker Frequency of alcohol use: None Drug Abuse: None Lives with: Family Family History: Reviewed & Not Pertinent, DM, Other - autoimmune factor VIII deficiency. Hep C Renal/ Medical History: Denies: Hx Peritoneal Dialysis GI Medical History: Reports: Hx Hepatitis - hep C Musculoskeltal Medical History: Reports Hx Arthritis Psychiatric Medical History: Denies: Hx Depression Infectious Medical History: Reports: Hx Hepatitis - hep C Past Surgical History: Reports: Hx Orthopedic Surgery - bilat ankles, bilat knees, L elbow, Bilat Forearms Removal synovial memb L, Hx Vascular Surgery - ports (inactive) - Immunizations Immunizations up to date: Yes Hx Diphtheria, Pertussis, Tetanus Vaccination: Yes Hx Pneumococcal Vaccination: 06/28/09 Review of Systems - Review of Systems Notes: Constitutional: Negative for fever. Cardiovascular: Negative for chest pain. Respiratory: Negative for shortness of breath. Gastrointestinal: Negative for vomiting Musculoskeletal: Negative for back pain. Skin: Negative for rash. Neurological: Negative for weakness or numbness. 10 point ROS negative except as marked above and in HPI. Physical Exam - Vital signs Vitals: Temp Pulse Resp BP Pulse Ox 99.5 F 114 H 20 117/61 97 07/24/17 18:20 07/24/17 18:20 07/24/17 18:20 07/24/17 18:20 07/24/17 18:20 Interpretation: Tachycardic Notes: PHYSICAL EXAMINATION: GENERAL: Well-appearing, well-nourished and in no acute distress. HEAD: Atraumatic, normocephalic. EYES: sclera anicteric, conjunctiva are normal. ENT: Moist mucous membranes. NECK: Normal range of motion LUNGS: Normal work of breathing HEART: 2+ radial pulses bilaterally EXTREMITIES: no pitting or edema. No cyanosis. NEUROLOGICAL: No focal neurological deficits. Moves all extremities spontaneously. PSYCH: Normal mood, normal affect. SKIN: Warm, Dry, normal turgor, power port accessed over left chest Course - Re-evaluation Re-evalutation: 07/24/17 19:02 Patient presents with need of a PowerPort dressing change. The dressing is been changed without difficulty and he will be discharged home. He denies any additional complaints. - Vital Signs Vital signs: Temp Pulse Resp BP Pulse Ox 99.5 F 114 H 20 117/61 97 07/24/17 18:20 07/24/17 18:20 07/24/17 18:20 07/24/17 18:20 07/24/17 18:20 Discharge - Discharge Clinical Impression: Dressing change Condition: Good Disposition: HOME, SELF-CARE Additional Instructions: Please return to the emergency room immediately if you experience any concerning symptoms including high fevers, severe headache, chest pain, difficulty breathing, abdominal pain, slurred speech, numbness or weakness in your arms or legs, or any other symptom that concerns you.
== END 2017-07-24 19:52 | disposition home or self-care (01) ==
LOC: ER 18:13
DX: Z48.01 Encounter for change or removal of surgical wound dressing (principal); R00.0 Tachycardia, unspecified
CPT/HCPCS: 99282

== ENCOUNTER 2017-07-25 10:37 | Emergency (ER) | payer MEDICAID ==
[2017-07-25] MEDS ORDERED: ONDANSETRON 4 MG TAB.RAPDIS PO ONE (10:54)
--- NOTE | 2017-07-25 10:54 | ER Document Report ---
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 Patient denies any fevers or chills admits to nausea I have greeted and performed a rapid initial assessment of this patient. A comprehensive ED assessment and evaluation of the patient, analysis of test results and completion of the medical decision making process will be conducted by additional ED providers. PHYSICAL EXAMINATION: GENERAL: Well-appearing, well-nourished and in no acute distress. HEAD: Atraumatic, normocephalic. EYES: Pupils equal round extraocular movements intact, conjunctiva are normal. ENT: Nares patent NECK: Normal range of motion LUNGS: No respiratory distress Musculoskeletal: Normal range of motion NEUROLOGICAL: Normal speech, normal gait. PSYCH: Normal mood, normal affect. SKIN: Left chest Port-A-Cath mild edema noted TRAVEL OUTSIDE OF THE [place] IN LAST 30 DAYS: No - Related Data Allergies/Adverse Reactions: acetaminophen [From Tylenol] Adverse Reaction (Verified 07/25/17 10:39) aspirin [Aspirin] Adverse Reaction (Verified 07/25/17 10:39) bleeding ibuprofen [From Motrin] Adverse Reaction (Verified 07/25/17 10:39) bleeding morphine [Morphine] Adverse Reaction (Verified 07/25/17 10:39) Hives NSAIDS (Non-Steroidal Anti-Inflamma [Nsaids] Adverse Reaction (Verified 10:39) vancomycin [Vancomycin] Adverse Reaction (Verified 07/25/17 10:39) Past Medical History - Social History Frequency of alcohol use: None Drug Abuse: None Family history: Reviewed & Not Pertinent Renal/ Medical History: Denies: Hx Peritoneal Dialysis GI Medical History: Reports: Hx Hepatitis - hep C Musculoskeltal Medical History: Reports Hx Arthritis Psychiatric Medical History: Denies: Hx Depression Infectious Medical History: Reports: Hx Hepatitis - hep C Past Surgical History: Reports: Hx Orthopedic Surgery - bilat ankles, bilat knees, L elbow, Bilat Forearms Removal synovial memb L, Hx Vascular Surgery - ports (inactive) - Immunizations Immunizations up to date: Yes Hx Diphtheria, Pertussis, Tetanus Vaccination: Yes History of Influenza Vaccine for 03/2017 - 08/2017 Season: Yes Influenza Administration Date for 03/2017 - 08/2017 Season: 06/27/17 Physical Exam - Vital signs Vitals: Temp Pulse Resp BP Pulse Ox 98.4 F 99 20 108/68 94 07/25/17 10:42 07/25/17 10:42 07/25/17 10:42 07/25/17 10:42 07/25/17 10:42 Course - Vital Signs Vital signs: Temp Pulse Resp BP Pulse Ox 98.4 F 99 20 108/68 94 07/25/17 10:42 07/25/17 10:42 07/25/17 10:42 07/25/17 10:42 07/25/17 10:42
[2017-07-25] MEDS ORDERED: ONDANSETRON HCL INJ/PF 4 MG/2 ML SDV IV ONE (11:31)
[2017-07-25] MEDS ORDERED: HYDROMORPHONE HCL INJ/PF 2 MG/ML AMPULE IV ONE ×2 (11:31→14:37)
--- NOTE | 2017-07-25 12:15 | ER Document Report ---
ED General - General Chief Complaint: Other Stated Complaint: PORTACATH SWOLLEN Time Seen by Provider: 07/25/17 10:49 Mode of Arrival: Ambulatory TRAVEL OUTSIDE OF THE [place] 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 Patient infuses himself with factor VIII 3 times per week. The patient denies any difficulty breathing or measured fever, but he does report having chills at home. The patient denies any nausea or vomiting. The patient reports no cough or congestion. Patient has the port accessed since the procedure and was told he could continue to use it, by his report. Patient is unaware of any trauma to the chest wall since the original surgery. - Related Data Allergies/Adverse Reactions: acetaminophen [From Tylenol] Adverse Reaction (Verified 07/25/17 10:39) aspirin [Aspirin] Adverse Reaction (Verified 07/25/17 10:39) bleeding ibuprofen [From Motrin] Adverse Reaction (Verified 07/25/17 10:39) bleeding morphine [Morphine] Adverse Reaction (Verified 07/25/17 10:39) Hives NSAIDS (Non-Steroidal Anti-Inflamma [Nsaids] Adverse Reaction (Verified 10:39) vancomycin [Vancomycin] Adverse Reaction (Verified 07/25/17 10:39) Past Medical History - General Information source: Patient - Social History Smoking Status: Never Smoker Frequency of alcohol use: None Drug Abuse: None Family History: Reviewed & Not Pertinent, DM, Other - autoimmune factor VIII deficiency. Hep C Patient has suicidal ideation: No Patient has homicidal ideation: No Renal/ Medical History: Denies: Hx Peritoneal Dialysis GI Medical History: Reports: Hx Hepatitis - hep C Musculoskeltal Medical History: Reports Hx Arthritis Psychiatric Medical History: Denies: Hx Depression Infectious Medical History: Reports: Hx Hepatitis - hep C Past Surgical History: Reports: Hx Orthopedic Surgery - bilat ankles, bilat knees, L elbow, Bilat Forearms Removal synovial memb L, Hx Vascular Surgery - ports (inactive) - Immunizations Immunizations up to date: Yes Hx Diphtheria, Pertussis, Tetanus Vaccination: Yes Hx Pneumococcal Vaccination: 06/28/09 Review of Systems - Review of Systems Notes: REVIEW OF SYSTEMS: CONSTITUTIONAL : Denies fever or sweats. EENT: Denies eye, ear, throat, or mouth pain or symptoms. Denies nasal or sinus congestion or discharge. Denies throat, tongue, or mouth swelling or difficulty swallowing. CARDIOVASCULAR: RESPIRATORY: No cold or chest congestion. Denies shortness of breath, difficulty breathing, or wheezing. GASTROINTESTINAL: Denies abdominal pain or distention. Denies nausea, vomiting , or diarrhea. Denies blood in vomitus, stools, or per rectum. Denies black, tarry stools. Denies constipation. GENITOURINARY: Denies difficulty urinating, painful urination, burning, frequency, blood in urine, or discharge. MUSCULOSKELETAL: Denies back or neck pain or stiffness. Denies joint pain or swelling. SKIN: Denies rash, lesions or sores. HEMATOLOGIC : patient reports chronic difficulty with bruising and bleeding from various locations. LYMPHATIC: Denies swollen, enlarged glands. NEUROLOGICAL: Denies confusion or altered mental status. Denies passing out or loss of consciousness. Denies dizziness or lightheadedness. Denies headache. Denies weakness or paralysis or loss of use of either side. Denies problems with gait or speech. Denies sensory loss, numbness, or tingling. Denies seizures. PSYCHIATRIC: Denies anxiety or stress. Denies depression, suicidal ideation, or homicidal ideation. ALL OTHER SYSTEMS REVIEWED AND NEGATIVE. Dictation was performed using [employer] voice recognition software Physical Exam - Vital signs Vitals: Temp Pulse Resp BP Pulse Ox 98.4 F 99 20 108/68 94 07/25/17 10:42 07/25/17 10:42 07/25/17 10:42 07/25/17 10:42 07/25/17 10:42 - Notes Notes: PHYSICAL EXAMINATION: GENERAL: Well-appearing, well-nourished and in no acute distress. HEAD: Atraumatic, normocephalic. EYES: Pupils equal round and reactive to light, extraocular movements intact, sclera anicteric, conjunctiva are normal. ENT: Nares patent, oropharynx clear without exudates. Moist mucous membranes. NECK: Normal range of motion, supple without lymphadenopathy LUNGS: Breath sounds clear to auscultation bilaterally and equal. No wheezes rales or rhonchi. HEART: Regular rate and rhythm without murmurs. Examination of the chest wall port shows some swelling with hematoma to the upper aspect surrounding the incisional area measuring 2.5 x 4 cm, but there is only minimal erythema. No gross cellulitic change or abscess noted. Distally, patient is neurovascularly intact in the left upper extremity with good distal pulses and capillary refill and sensation. ABDOMEN: Soft, nontender, nondistended abdomen. No guarding, no rebound. No masses appreciated. Musculoskeletal: Normal range of motion, no pitting or edema. No cyanosis. NEUROLOGICAL: Cranial nerves grossly intact. Normal speech, normal gait. Normal sensory, motor exams PSYCH: Normal mood, normal affect. SKIN: Warm, Dry, normal turgor, no rashes or lesions noted. Course - Re-evaluation Re-evalutation: 07/25/17 13:56 Patient was seen by surgery Dr. Muñiz, who agreed with placing the patient on oral antibiotics for prevention of skin infection. The patient is also given IV Rocephin after blood cultures. Dr. Muñiz agreed that the port was appropriate for use and could remain with access in place. Chest x-ray as interpreted by radiology was negative for acute infiltrate or other abnormality with the port. No evidence for sepsis or port site abscess. There is a mild progression of the patient's relative anemia, but no obvious evidence for significant ongoing blood loss. 07/25/17 13:59 - Vital Signs Vital signs: Temp Pulse Resp BP Pulse Ox 98.4 F 99 20 108/68 94 07/25/17 10:42 07/25/17 10:42 07/25/17 10:42 07/25/17 10:42 07/25/17 10:42 - Laboratory Result Diagrams: 07/25/17 12:18 07/25/17 12:18 Laboratory results interpreted by me: 07/25/17 07/25/17 07/25/17 12:11 12:18 12:18 WBC 13.4 H RBC 3.79 L Hgb 10.9 L Hct 33.0 L RDW 15.2 H Seg Neutrophils % 85.2 H Lymphocytes % 5.5 L Absolute Neutrophils 11.4 H Sodium 136.9 L Chloride 93 L Carbon Dioxide 33 H POC Glucose 128 H Total Bilirubin 2.0 H Discharge - Discharge Clinical Impression: Hematoma Condition: Stable Disposition: HOME, SELF-CARE Instructions: Hematoma ([facility]) Additional Instructions: Return to the emergency department in case of fever, severe pain or swelling. Prescriptions: Cefuroxime Axetil [Ceftin 500 mg Tablet] 1 tab PO BID #16 tablet
[2017-07-25 12:41] LABS: ABSOLUTE BASOPHILS # (AUTO) 0.1 10^3/uL (0.0-0.2); ABSOLUTE LYMPHOCYTES (AUTO) 0.7 10^3/uL (0.5-4.7); ABSOLUTE MONOCYTES (AUTO) 1.2 10^3/uL (0.1-1.4); ABSOLUTE NEUT (AUTO) 11.4 10^3/uL (1.7-8.2); BASOPHILS % (AUTO) 0.5 % (0-2); EOSINOPHILS % (AUTO) 0.2 % (0-6); HEMOGLOBIN 10.9 g/dL (13.5-17.0); LYMPHOCYTES % (AUTO) 5.5 % (13-45); MEAN CORPUSCULAR HEMOGLOBIN 28.8 pg (27.0-33.4); MEAN CORPUSCULAR HGB CONC 33.2 g/dL (32.0-36.0); MEAN CORPUSCULAR VOLUME 87 fl (80-97); MONOCYTES % (AUTO) 8.6 % (3-13); PLATELET COUNT 235 10^3/uL (150-450); RED BLOOD COUNT 3.79 10^6/uL (4.35-5.55); RED CELL DISTRIBUTION WIDTH 15.2 % (11.5-14.0); SEGMENTED NEUTROPHILS % (AUTO) 85.2 % (42-78); TOTAL CELLS COUNTED % (AUTO) 100 %; WHITE BLOOD COUNT 13.4 10^3/uL (4.0-10.5)
[2017-07-25 13:06] LABS: ALANINE AMINOTRANSFERASE 58 U/L (21-72); ALBUMIN 4.4 g/dL (3.5-5.0); ALKALINE PHOSPHATASE 82 U/L (38-126); ANION GAP 11 (5-19); ASPARTATE AMINO TRANSFERASE 43 U/L (17-59); BILIRUBIN,DIRECT 0.3 mg/dL (0.0-0.4); BLOOD UREA NITROGEN 14 mg/dL (7-20); CALCIUM 9.3 mg/dL (8.4-10.2); CARBON DIOXIDE 33 mmol/L (22-30); CHLORIDE 93 mmol/L (98-107); GLUCOSE 108 mg/dL (75-110); POTASSIUM 4.3 mmol/L (3.6-5.0); SODIUM 136.9 mmol/L (137-145); TOTAL PROTEIN 6.9 g/dL (6.3-8.2)
--- NOTE | 2017-07-25 13:32 | RADIOLOGY REPORT (SQ) ---
EXAM DESCRIPTION: CHEST PA/LAT COMPLETED DATE/TIME: 07/25/2017 1:12 pm REASON FOR STUDY: s/p L chest power port placement 07/23/17 with pain COMPARISON: Chest x-ray 06/28/2014 EXAM PARAMETERS: NUMBER OF VIEWS: two views TECHNIQUE: Digital Frontal and Lateral radiographic views of the chest acquired. RADIATION DOSE: NA LIMITATIONS: none FINDINGS: LUNGS AND PLEURA: No consolidation, pneumothorax or pleural effusion. MEDIASTINUM AND HILAR STRUCTURES: No masses or contour abnormalities. HEART AND VASCULAR STRUCTURES: Heart normal size. No evidence for failure. BONES: No acute findings. HARDWARE: Left-sided Port-A-Cath with the tip overlying the region of the SVC. IMPRESSION: No acute radiographic finding in the chest. TECHNICAL DOCUMENTATION: JOB ID: [id number] [employer]- All Rights Reserved
[2017-07-25] MEDS ORDERED: CEFTRIAXONE INJ 1000 MG VIAL IV ONE (13:55)
[2017-07-25 15:17] VITALS: BP 101/68
== END 2017-07-25 15:17 | disposition home or self-care (01) ==
LOC: ER 10:37
DX: L76.32 Postprocedural hematoma of skin and subcutaneous tissue following other procedure (principal); D66 Hereditary factor VIII deficiency; Y83.8 Other surgical procedures as the cause of abnormal reaction of the patient, or of later complication, without mention of misadventure at the time of the procedure; Z86.19 Personal history of other infectious and parasitic diseases; Z88.6 Allergy status to analgesic agent; Z88.3 Allergy status to other anti-infective agents
CPT/HCPCS: 96376; 99284; 96375; 96365; 36415; 87040; 82962; 85025; 87077; 80053; 87186; 71046; S0119; J1170; J0696; J2405

== ENCOUNTER 2017-07-26 14:22 | Inpatient (IN) | payer MEDICAID ==
[2017-07-26] MEDS ORDERED: OXYCODONE-ACETAMINOPHEN 5-325 MG TABLET PO ONE ×2 (15:02→18:09)
--- NOTE | 2017-07-26 15:03 | ER Document Report ---
ED Medical Screen (RME) - General Chief Complaint: Medical Complaint Stated Complaint: PORT PROBLEMS Time Seen by Provider: 07/26/17 15:01 Mode of Arrival: Wheelchair Information source: Patient TRAVEL OUTSIDE OF THE [place] IN LAST 30 DAYS: No - HPI Patient complains to provider of: port issue Onset: Other - pt. has a port-a-cath placed for his Hemophilia that he states has been bleeding intermittently since earlier today - Related Data Allergies/Adverse Reactions: acetaminophen [From Tylenol] Adverse Reaction (Verified 07/26/17 14:24) aspirin [Aspirin] Adverse Reaction (Verified 07/26/17 14:24) bleeding ibuprofen [From Motrin] Adverse Reaction (Verified 07/26/17 14:24) bleeding morphine [Morphine] Adverse Reaction (Verified 07/26/17 14:24) Hives NSAIDS (Non-Steroidal Anti-Inflamma [Nsaids] Adverse Reaction (Verified 14:24) vancomycin [Vancomycin] Adverse Reaction (Verified 07/26/17 14:24) Past Medical History - Social History Family history: Reviewed & Not Pertinent Renal/ Medical History: Denies: Hx Peritoneal Dialysis GI Medical History: Reports: Hx Hepatitis - hep C Musculoskeltal Medical History: Reports Hx Arthritis Psychiatric Medical History: Denies: Hx Depression Infectious Medical History: Reports: Hx Hepatitis - hep C Past Surgical History: Reports: Hx Orthopedic Surgery - bilat ankles, bilat knees, L elbow, Bilat Forearms Removal synovial memb L, Hx Vascular Surgery - ports (inactive) - Immunizations Immunizations up to date: Yes Hx Diphtheria, Pertussis, Tetanus Vaccination: Yes History of Influenza Vaccine for 03/2017 - 08/2017 Season: Yes Influenza Administration Date for 03/2017 - 08/2017 Season: 06/27/17 Physical Exam - Vital signs Vitals: Temp Pulse Resp BP Pulse Ox 98.9 F 114 H 16 114/75 97 07/26/17 14:36 07/26/17 14:36 07/26/17 14:36 07/26/17 14:36 07/26/17 14:36 Course - Vital Signs Vital signs: Temp Pulse Resp BP Pulse Ox 98.9 F 114 H 16 114/75 97 07/26/17 14:36 07/26/17 14:36 07/26/17 14:36 07/26/17 14:36 07/26/17 14:36
[2017-07-26 15:55] LABS: ABSOLUTE EOSINOPHILS # (AUTO) 0.1 10^3/uL (0.0-0.6); ABSOLUTE LYMPHOCYTES (AUTO) 1.1 10^3/uL (0.5-4.7); ABSOLUTE MONOCYTES (AUTO) 0.6 10^3/uL (0.1-1.4); ABSOLUTE NEUT (AUTO) 3.1 10^3/uL (1.7-8.2); BASOPHILS % (AUTO) 0.7 % (0-2); EOSINOPHILS % (AUTO) 2.1 % (0-6); HEMATOCRIT 36.7 % (37.9-51.0); HEMOGLOBIN 12.4 g/dL (13.5-17.0); LYMPHOCYTES % (AUTO) 22.4 % (13-45); MEAN CORPUSCULAR HEMOGLOBIN 29.4 pg (27.0-33.4); MEAN CORPUSCULAR HGB CONC 33.8 g/dL (32.0-36.0); MEAN CORPUSCULAR VOLUME 87 fl (80-97); MONOCYTES % (AUTO) 12.1 % (3-13); PLATELET COUNT 308 10^3/uL (150-450); RED BLOOD COUNT 4.22 10^6/uL (4.35-5.55); RED CELL DISTRIBUTION WIDTH 15.5 % (11.5-14.0); SEGMENTED NEUTROPHILS % (AUTO) 62.7 % (42-78); TOTAL CELLS COUNTED % (AUTO) 100 %; WHITE BLOOD COUNT 4.9 10^3/uL (4.0-10.5)
[2017-07-26 16:12] LABS: ALANINE AMINOTRANSFERASE 71 U/L (21-72); ALBUMIN 4.8 g/dL (3.5-5.0); ALKALINE PHOSPHATASE 75 U/L (38-126); ANION GAP 13 (5-19); ASPARTATE AMINO TRANSFERASE 51 U/L (17-59); BILIRUBIN,DIRECT 0.3 mg/dL (0.0-0.4); BLOOD UREA NITROGEN 16 mg/dL (7-20); CALCIUM 9.6 mg/dL (8.4-10.2); CARBON DIOXIDE 31 mmol/L (22-30); CHLORIDE 100 mmol/L (98-107); GLUCOSE 103 mg/dL (75-110); POTASSIUM 4.2 mmol/L (3.6-5.0); SODIUM 143.5 mmol/L (137-145); TOTAL PROTEIN 7.6 g/dL (6.3-8.2)
[2017-07-26 16:29] LABS: INTERNATIONAL RATION (INR) 0.89; PROTHROMBIN TIME 12.7 SEC (11.4-15.4)
--- NOTE | 2017-07-26 17:32 | ER Document Report ---
ED General - General Chief Complaint: Medical Complaint Stated Complaint: PORT PROBLEMS Time Seen by Provider: 07/26/17 15:01 Mode of Arrival: Wheelchair Information source: Patient TRAVEL OUTSIDE OF THE [place] IN LAST 30 DAYS: No - HPI Notes: 27 yr old male with a history of hemophilia A where he injects himself with factor VIII today, recently had a powerport placed in his left upper chest for issues of access x 3 days ago. Pt presents today because he was called back by the hospital because he did show to have gram-negative E. coli in his blood culture after labs were drawn yesterday when patient came in for swelling around Port-A-Cath site. Today was given 1 g Rocephin and placed on oral Ceftin antibiotic. Denies any chest pain, shortness of breath, nausea, vomiting, diarrhea. His any cough or congestion. Denies any fevers or chills. Reports some noted bloodiness around the insertion site. - Related Data Allergies/Adverse Reactions: acetaminophen [From Tylenol] Adverse Reaction (Verified 07/26/17 14:24) aspirin [Aspirin] Adverse Reaction (Verified 07/26/17 14:24) bleeding ibuprofen [From Motrin] Adverse Reaction (Verified 07/26/17 14:24) bleeding morphine [Morphine] Adverse Reaction (Verified 07/26/17 14:24) Hives NSAIDS (Non-Steroidal Anti-Inflamma [Nsaids] Adverse Reaction (Verified 14:24) vancomycin [Vancomycin] Adverse Reaction (Verified 07/26/17 14:24) Past Medical History - General Information source: Patient - Social History Smoking Status: Never Smoker Frequency of alcohol use: None Drug Abuse: None Family History: Reviewed & Not Pertinent, DM, Other - autoimmune factor VIII deficiency. Hep C Patient has suicidal ideation: No Patient has homicidal ideation: No Renal/ Medical History: Denies: Hx Peritoneal Dialysis GI Medical History: Reports: Hx Hepatitis - hep C Musculoskeltal Medical History: Reports Hx Arthritis Psychiatric Medical History: Denies: Hx Depression Infectious Medical History: Reports: Hx Hepatitis - hep C Past Surgical History: Reports: Hx Orthopedic Surgery - bilat ankles, bilat knees, L elbow, Bilat Forearms Removal synovial memb L, Hx Vascular Surgery - ports (inactive) - Immunizations Immunizations up to date: Yes Hx Diphtheria, Pertussis, Tetanus Vaccination: Yes Hx Pneumococcal Vaccination: 06/28/09 Review of Systems - Review of Systems Constitutional: No symptoms reported EENT: No symptoms reported Cardiovascular: No symptoms reported Respiratory: No symptoms reported Gastrointestinal: No symptoms reported Genitourinary: No symptoms reported Musculoskeletal: See HPI Skin: No symptoms reported Hematologic/Lymphatic: See HPI Neurological/Psychological: No symptoms reported Physical Exam - Vital signs Vitals: Temp Pulse Resp BP Pulse Ox 98.9 F 114 H 16 114/75 97 07/26/17 14:36 07/26/17 14:36 07/26/17 14:36 07/26/17 14:36 07/26/17 14:36 - Notes Notes: PHYSICAL EXAMINATION: GENERAL: Well-appearing, well-nourished and in no acute distress. HEAD: Atraumatic, normocephalic. EYES: Pupils equal round and reactive to light, extraocular movements intact, sclera anicteric, conjunctiva are normal. ENT: Nares patent, oropharynx clear without exudates. Moist mucous membranes. NECK: Normal range of motion, supple without lymphadenopathy LUNGS: Breath sounds clear to auscultation bilaterally and equal. No wheezes rales or rhonchi. HEART: Regular rate and rhythm without murmurs ABDOMEN: Soft, nontender, nondistended abdomen. No guarding, no rebound. No masses appreciated. Musculoskeletal: Normal range of motion, no pitting or edema. No cyanosis. NEUROLOGICAL: Cranial nerves grossly intact. Normal speech, normal gait. Normal sensory, motor exams PSYCH: Normal mood, normal affect. SKIN: Warm, Dry, normal turgor, no rashes or lesions noted. Noted port to left chest wall. Noted swelling with hematoma to the left upper chest around the power port area measures approximately 2.5 x 4 cm with minimal erythema. No villitis or abscessed noted. 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 DTR +2 in bilateral upper extremities. Course - Re-evaluation Re-evalutation: 07/26/17 18:[address] Kapadia about gram negative blood culture, advised that patient would need admission. Consulted case with Dr. Breonna Hinton, hospitalist, due to gram-negative blood culture that was drawn yesterday. For admission. Patient will be admitted to medical floor for further evaluation. Will accept patient for admission for septicemia. - Vital Signs Vital signs: Temp Pulse Resp BP Pulse Ox 98.9 F 114 H 16 114/75 97 07/26/17 14:36 07/26/17 14:36 07/26/17 14:36 07/26/17 14:36 07/26/17 14:36 - Laboratory Result Diagrams: 07/26/17 15:42 07/26/17 15:42 Laboratory results interpreted by me: 07/26/17 07/26/17 15:42 15:42 RBC 4.22 L Hgb 12.4 L Hct 36.7 L RDW 15.5 H Carbon Dioxide 31 H Discharge - Discharge Clinical Impression: Septicemia associated with vascular access catheter Condition: Good Disposition: ADMITTED INPATIENT Admitting Provider: Hospitalist - Dr. Breonna Hinton Unit Admitted: Medical Floor
[2017-07-26] MEDS ORDERED: OXYCODONE-ACETAMINOPHEN 5-325 MG TABLET PO PRN (17:48)
[2017-07-26] MEDS ORDERED: ZOLPIDEM TARTRATE 5 MG TABLET PO PRN (17:48)
[2017-07-26] MEDS ORDERED: GABAPENTIN 300 MG CAPSULE PO SCH (18:15)
--- NOTE | 2017-07-26 18:22 | PDOC H&P ---
History of Present Illness Patient complains of: Bleeding and pain from the port site since Wednesday History of Present Illness: RENAN RAMOS is a 27 year old male presents complaining of pain and bleeding in the area where he had a MediPort putting on Wednesday. Patient states that he came to emergency room yesterday because of bleeding and pain. Patient also complains of having some fever. Patient was seen in emergency room and then sent home. He was then called because the culture grew gram-negative bacilli. He denies having any problems with his right knee. Due to presentation our hospitalist service was contacted for further management Past Medical History Cardiac Medical History: Reports: None Pulmonary Medical History: Reports: None EENT Medical History: Reports: None Neurological Medical History: Reports: None Endocrine Medical History: Reports: None Renal/ Medical History: Reports: None Malignancy Medical History: Reports: None GI Medical History: Reports: Hepatitis - hep C Musculoskeltal Medical History: Reports: Arthritis Psychiatric Medical History: Reports: Other - Chronic opioid dependency Denies: Depression Traumatic Medical History: Reports: None Hematology: Reports: Anemia - hemophilia, Hemophilia Past Surgical History Past Surgical History: Reports: Orthopedic Surgery - bilat ankles, bilat knees, L elbow, Bilat Forearms Removal synovial memb L, Vascular Surgery - ports ( inactive) Social History Information Source: Patient Lives with: Family Smoking Status: Never Smoker Frequency of Alcohol Use: None Hx Recreational Drug Use: No Drugs: None Hx Prescription Drug Abuse: No Family History Family History: Reviewed & Not Pertinent, DM, Other - autoimmune factor VIII deficiency. Hep C Parental Family History Reviewed: Yes Children Family History Reviewed: Yes Sibling(s) Family History Reviewed.: Yes Medication/Allergy Home Medications: Antihemophilic Factor/Vwf [Humate-P 500 Unit Factor VIII Vial] 4,000 unit IV BIDP PRN 07/21/17 Hydromorphone HCl [Dilaudid 2 mg Tablet] 1 mg PO Q4HP PRN 5 Days #20 tablet Cefuroxime Axetil [Ceftin 500 mg Tablet] 1 tab PO BID #16 tablet 07/25/17 Ciprofloxacin HCl 500 mg PO BID 14 Days #7 tablet 07/26/17 Allergies/Adverse Reactions: acetaminophen [From Tylenol] Adverse Reaction (Verified 07/26/17 14:24) aspirin [Aspirin] Adverse Reaction (Verified 07/26/17 14:24) bleeding ibuprofen [From Motrin] Adverse Reaction (Verified 07/26/17 14:24) bleeding morphine [Morphine] Adverse Reaction (Verified 07/26/17 14:24) Hives NSAIDS (Non-Steroidal Anti-Inflamma [Nsaids] Adverse Reaction (Verified 14:24) vancomycin [Vancomycin] Adverse Reaction (Verified 07/26/17 14:24) Review of Systems Constitutional: PRESENT: fever(s) Eyes: ABSENT: visual disturbances Ears: ABSENT: hearing changes Nose, Mouth, and Throat: ABSENT: mouth pain, sore throat Cardiovascular: ABSENT: edema, orthropnea, palpitations Respiratory: ABSENT: cough, dyspnea Gastrointestinal: ABSENT: nausea, vomiting Genitourinary: ABSENT: dysuria, hematuria Neurological: ABSENT: dizziness Physical Exam Vital Signs: Temp Pulse Resp BP Pulse Ox 98.9 F 114 H 16 114/75 97 07/26/17 14:36 07/26/17 14:36 07/26/17 14:36 07/26/17 14:36 07/26/17 14:36 Intake & Output 07/25/17 07/26/17 07/27/17 06:59 06:59 06:59 Weight 76.9 kg General appearance: PRESENT: no acute distress, cooperative, well-developed, well-nourished Head exam: PRESENT: atraumatic, normocephalic Eye exam: PRESENT: EOMI, PERRLA Ear exam: PRESENT: normal external ear exam Mouth exam: PRESENT: moist Neck exam: PRESENT: full ROM. ABSENT: JVD, lymphadenopathy, tenderness Respiratory exam: PRESENT: clear to auscultation iliana, other - There is redness swelling and ecchymosis localized around the MediPort area in left subclavicular area Cardiovascular exam: PRESENT: RRR. ABSENT: diastolic murmur, systolic murmur Vascular exam: PRESENT: normal capillary refill GI/Abdominal exam: PRESENT: normal bowel sounds, soft. ABSENT: tenderness Extremities exam: PRESENT: full ROM. ABSENT: joint swelling, pedal edema Musculoskeletal exam: PRESENT: ambulatory Neurological exam: PRESENT: alert, awake, oriented to person, oriented to place , oriented to time, oriented to situation, CN II-XII grossly intact Psychiatric exam: PRESENT: appropriate affect, normal mood Results Laboratory Results: 07/26/17 15:42 07/26/17 15:42 07/26/17 07/26/17 15:42 15:42 WBC 4.9 RBC 4.22 L Hgb 12.4 L Hct 36.7 L MCV 87 MCH 29.4 MCHC 33.8 RDW 15.5 H Plt Count 308 Seg Neutrophils % 62.7 Lymphocytes % 22.4 Monocytes % 12.1 Eosinophils % 2.1 Basophils % 0.7 Absolute Neutrophils 3.1 Absolute Lymphocytes 1.1 Absolute Monocytes 0.6 Absolute Eosinophils 0.1 Absolute Basophils 0.0 Sodium 143.5 Potassium 4.2 Chloride 100 Carbon Dioxide 31 H Anion Gap 13 BUN 16 Creatinine 0.73 Est GFR ( Amer) > 60 Est GFR (Non-Af Amer) > 60 Glucose 103 Calcium 9.6 Total Bilirubin 1.0 AST 51 ALT 71 Alkaline Phosphatase 75 Total Protein 7.6 Albumin 4.8 Assessment & Plan - Diagnosis (1) Septicemia associated with vascular access catheter Is this a current diagnosis for this admission?: Yes Plan: Consult surgeon for removal of access. Start rocephin IV. (2) Hemarthrosis Is this a current diagnosis for this admission?: Yes Plan: Resolved. (3) Hemophilia A Is this a current diagnosis for this admission?: Yes Plan: Continue with factor infusion prn - Time Time Spent: 30 to 50 Minutes Medications reviewed and adjusted accordingly: Yes Anticipated discharge: Home Within: within 72 hours - Inpatient Certification Based on my medical assessment, after consideration of the patient's comorbidities, presenting symptoms, or acuity I expect that the services needed warrant INPATIENT care.: Yes I certify that my determination is in accordance with my understanding of Medicare's requirements for reasonable and necessary INPATIENT services [42 CFR 412.3e].: Yes Medical Necessity: Need for Pain Control, Need for IV Antibiotics
[2017-07-26] MEDS: HYDROMORPHONE HCL 2 MG TABLET PO PRN ×2 (19:09→23:34)
[2017-07-26] MEDS ORDERED: DAPTOMYCIN INJ 500 MG VIAL IV SCH (20:00)
[2017-07-26] MEDS ORDERED: CEFTRIAXONE 2 GM/D5W RTU 2 GM/50 ML RTUPB IV ONE (20:10)
[2017-07-26 21:17] LABS: INTERNATIONAL RATION (INR) 0.92
[2017-07-26 21:19] LABS: PARTIAL THROMBOPLASTIN TIME 80.2 SEC (23.5-35.8)
[2017-07-26] MEDS ORDERED: DAPTOMYCIN 500 MG in NORMAL SALINE 50 ML IV SCH (22:00)
[2017-07-26] MEDS: NORMAL SALINE 1000 ML 1,000 ML IV PRN (22:11)
--- NOTE | 2017-07-26 22:43 | CONSULTATION REPORT E ---
Consultation Report NAME: RENAN RAMOS : 1990 AGE: 27Y DATE: 07/26/2017 ED47 A TO: MICHAELA HIGGINS M.D. FROM: LEONILA WESTON M.D. Requesting Physician CHIEF COMPLAINT: Rule out infected Infusaport catheter port. HISTORY OF PRESENT ILLNESS: Patient is a 27-year-old white male with a history of hemophilia, factor VIII deficiency, hemarthrosis, who underwent a left subclavian Infusaport catheter placement by Dr. Go Morejon on 07/23/2017, Wednesday evening at approximately 10:00 p.m. The patient went home thereafter with the port access with a Jones needle from the operating room. He underwent factor VIII infusion on Wednesday as well as Wednesday. On Wednesday, he had a chill but did not measure his temperature. The patient continued to do well as a baseline level of function until yesterday when he came to the Emergency Department because of some swelling of the subclavian site and discoloration. The area was assessed and felt to have possible early infection and was seen by Dr. Muñiz, Surgicalist, who recommended oral antibiotics. The port had been accessed the entire time with the initial Jones needle. The exterior dressing was changed, according to the patient. The patient was sent home on p.o. Ceftin and returns to the Emergency Department today complaining of persisting swelling of the subclavian port site and some bleeding. The patient was called back because positive blood cultures, 1 out of 2 growing gram positive cocci and gram negative rods. He was evaluated in the Emergency Department and recommendations were made for intravenous antibiotics and possible port removal. PAST MEDICAL AND SURGICAL HISTORY: Can be found in his admission history and physical document. REVIEW OF SYSTEMS: Can be found in his admission history and physical document. MEDICATIONS: Can be found in his admission history and physical document. PHYSICAL EXAMINATION: Patient is examined in the Emergency Department. VITAL SIGNS: He is afebrile. His heart rate is approximately 90. GENERAL: He is in no acute distress. CUTANEOUS: Multiple scars, lacerations, healed, as well as fasciotomy sites on the upper extremities. CHEST: Left subclavian port site fresh with Opsite dressing and Jones needle exiting from underneath. There is moderate hematoma around the port with some swelling and bruising but no darian cellulitis or drainage LUNGS: Clear to auscultation bilaterally. HEART: Without murmur or gallop. The remainder of the examination is nonfocal. LABORATORY: Laboratory profile this evening shows a white blood cell count of 4900; yesterday white count was 13.4, hemoglobin 12.4. IMAGING STUDIES: Chest x-ray yesterday in the Emergency Department showed no acute findings, a port in appropriate position with tip in the superior vena cava. IMPRESSION: 1. Lula port hematoma, rule out infection. 2. Bacteremia with gram positive cocci and gram negative jyoti, 1 out of 2 bottles from 07/25/2017. 3. Hemarthrosis. 4. 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 DISCUSSION AND PLAN: 1. At bedside tonight in the Emergency Department, we had a peripheral IV started and intravenous antibiotic initiated; I took the left subclavian port site dressing off and removed the Jones needle. From the percutaneous hole above the port, I expressed some postoperative , periport liquified hematoma which was sent for culture and sensitivity. I placed an antimicrobial biologic patch over the exit site and placed a Tegaderm. 2. It would be unusual but not impossible to have a port infected at time of insertion using sterile technique; I reviewed Dr. Go Morejon's operative note from 72 hours ago. We will therefore await results of the repeat blood cultures from today, as well as the surgical site hematoma gram stain and sensitivity. I explained to the patient that he require port removal pending the results of these studies. We will also follow the patient's clinical course and certainly if he develops evidence of sepsis and/or cellulitis, then port removal will be required. 3. Dr. Tejada, Surgicalist for July 27, will round on the patient in the morning and reassess the situation. DICTATING PHYSICIAN: MICHAELA HIGGINS M.D. [id number] PHY#: [id number] ID: [id number] JOB#: [id number] ACCT: [id number] cc:MICHAELA HIGGINS M.D. > [facility]
[2017-07-27] MEDS: GABAPENTIN 400 MG CAPSULE PO SCH ×3 (00:10→13:56)
[2017-07-27] MEDS: GABAPENTIN 100 MG CAPSULE PO SCH ×3 (00:11→13:55)
[2017-07-27] MEDS ORDERED: DEXAMETHASONE SOD PHOSPHATE INJ 4 MG/1 ML VIAL ONE (01:09)
[2017-07-27] MEDS ORDERED: DIPHENHYDRAMINE HCL 50 MG/ML VIAL ONE (01:10)
[2017-07-27] MEDS ORDERED: DEXAMETHASONE SOD PHOSPHATE INJ 4 MG/1 ML VIAL IV ONE (01:21)
[2017-07-27] MEDS ORDERED: DIPHENHYDRAMINE HCL 50 MG/ML VIAL IV ONE (01:21)
[2017-07-27] MEDS ORDERED: ACETAMINOPHEN 325 MG TABLET PO ONE (02:01)
[2017-07-27] MEDS: HYDROMORPHONE HCL 2 MG TABLET PO PRN ×5 (03:42→20:07)
[2017-07-27] MEDS: NORMAL SALINE 1000 ML 1,000 ML IV PRN ×2 (03:54→13:56)
[2017-07-27 06:10] LABS: HEMATOCRIT 30.1 % (37.9-51.0); MEAN CORPUSCULAR HEMOGLOBIN 29.7 pg (27.0-33.4); MEAN CORPUSCULAR VOLUME 88 fl (80-97); PLATELET COUNT 256 10^3/uL (150-450); RED BLOOD COUNT 3.44 10^6/uL (4.35-5.55); RED CELL DISTRIBUTION WIDTH 15.5 % (11.5-14.0)
[2017-07-27 06:30] LABS: ANION GAP 10 (5-19); BLOOD UREA NITROGEN 16 mg/dL (7-20); CARBON DIOXIDE 28 mmol/L (22-30); CHLORIDE 103 mmol/L (98-107); GLUCOSE 221 mg/dL (75-110); POTASSIUM 4.7 mmol/L (3.6-5.0); SODIUM 140.6 mmol/L (137-145)
[2017-07-27 07:28] LABS: ABSOLUTE LYMPHOCYTES# (MANUAL) 0.2 10^3/uL (0.5-4.7); ABSOLUTE MONOCYTES # (MANUAL) 0.6 10^3/uL (0.1-1.4); ABSOLUTE NEUTROPHILS# (MANUAL) 10.4 10^3/uL (1.7-8.2); BAND NEUTROPHILS % (MANUAL) 2 % (3-5); BASOPHILS % (MANUAL) 0 % (0-2); EOSINOPHILS % (MANUAL) 0 % (0-6); LYMPHOCYTES % (MANUAL) 2 % (13-45); MONOCYTES % (MANUAL) 5 % (3-13); SEGMENTED NEUTROPHILS % (MAN) 91 % (42-78); TOTAL CELLS COUNTED 100
[2017-07-27 07:29] LABS: ANISOCYTOSIS SLIGHT; OVALOCYTES SLIGHT; PLATELET COMMENT ADEQUATE; POIKILOCYTOSIS SLIGHT; POLYCHROMASIA SLIGHT; TOXIC GRANULATION 1+; WHITE BLOOD COUNT 11.2 10^3/uL (4.0-10.5)
[2017-07-27 07:30] LABS: HEMOGLOBIN 10.2 g/dL (13.5-17.0)
[2017-07-27] MEDS: DOCUSATE SODIUM 100 MG CAPSULE PO SCH (09:57)
[2017-07-27] MEDS ORDERED: LINEZOLID 300 ML IV SCH ×2 (10:00→22:00)
[2017-07-27] MEDS ORDERED: CEFTRIAXONE 2 GM/D5W RTU 2 GM/50 ML RTUPB IV SCH (10:00)
[2017-07-27] MEDS ORDERED: VANCOMYCIN HCL 0 MG in DEXTROSE 5%-WATER 250 ML IV NR (16:00)
[2017-07-27] MEDS ORDERED: CEFEPIME 2 GM/D5W RTU 2 GM/50 ML RTUPB IV SCH (16:00)
--- NOTE | 2017-07-27 16:16 | PDOC PROGRESS REPORT ---
Subjective Progress Note for:: 07/27/17 Subjective:: Complaining of pain in the left anterior chest And some fever and chills No shortness of breath Blood cultures came back positive for Klebsiella and 2 gram-positive rods The patient is allergic to vancomycin He received daptomycin yesterday and had chills and rigors and it was discontinued He is now on linezolid which is not FDA approved for MRSA bacteremia We will discontinue linezolid and initiate daptomycin watching for allergic reaction Patient agrees Reason For Visit: BACTEREMIA,HEMOPHILIA A,OPIOD DEPENDANCE,CHRONIC Physical Exam Vital Signs: Temp Pulse Resp BP Pulse Ox 97.6 F 68 14 107/68 100 07/27/17 14:44 07/27/17 14:44 07/27/17 14:44 07/27/17 14:44 07/27/17 14:44 Intake & Output 07/26/17 07/27/17 07/28/17 00:59 00:59 00:59 Intake Total 360 Balance 360 Weight 76.9 kg General appearance: PRESENT: no acute distress, well-developed, well-nourished Head exam: PRESENT: atraumatic, normocephalic Eye exam: PRESENT: conjunctiva pink, EOMI, PERRLA. ABSENT: scleral icterus Ear exam: PRESENT: normal external ear exam Mouth exam: PRESENT: moist, tongue midline Neck exam: ABSENT: carotid bruit, JVD, lymphadenopathy, thyromegaly Respiratory exam: PRESENT: chest wall tenderness - Lt upperanterior chest, clear to auscultation iliana. ABSENT: rales, rhonchi, wheezes Cardiovascular exam: PRESENT: RRR. ABSENT: diastolic murmur, rubs, systolic murmur Pulses: PRESENT: normal dorsalis pedis pul Vascular exam: PRESENT: normal capillary refill GI/Abdominal exam: PRESENT: normal bowel sounds, soft. ABSENT: distended, guarding, mass, organolmegaly, rebound, tenderness Rectal exam: PRESENT: deferred Extremities exam: PRESENT: full ROM. ABSENT: calf tenderness, clubbing, pedal edema Neurological exam: PRESENT: alert, awake, oriented to person, oriented to place , oriented to time, oriented to situation, CN II-XII grossly intact. ABSENT: motor sensory deficit Psychiatric exam: PRESENT: appropriate affect, normal mood Skin exam: PRESENT: intact, other - Left anterior chest at site Port-A-Cath ecchymosis swelling Tenderness on palpation No clear cellulitis noted Results Laboratory Results: 07/27/17 05:45 07/27/17 05:45 07/27/17 07/27/17 05:45 05:45 WBC 11.2 H D RBC 3.44 L Hgb 10.2 L D Hct 30.1 L MCV 88 MCH 29.7 MCHC 34.0 RDW 15.5 H Plt Count 256 Seg Neutrophils % Not Reportable Lymphocytes % Not Reportable Monocytes % Not Reportable Eosinophils % Not Reportable Basophils % Not Reportable Absolute Neutrophils Not Reportable Absolute Lymphocytes Not Reportable Absolute Monocytes Not Reportable Absolute Eosinophils Not Reportable Absolute Basophils Not Reportable Sodium 140.6 Potassium 4.7 Chloride 103 Carbon Dioxide 28 Anion Gap 10 BUN 16 Creatinine 0.79 Est GFR ( Amer) > 60 Est GFR (Non-Af Amer) > 60 Glucose 221 H Calcium 9.0 07/26/17 21:44 Gram Stain - Preliminary Arm - Left Upper Wound Culture - Preliminary NO GROWTH IN 1 DAY 07/26/17 20:58 Blood Culture - Pending Blood 07/26/17 15:42 Blood Culture - Pending Blood 07/25/17 14:50 Blood Culture - Preliminary Blood NO GROWTH AFTER 48 HOURS 07/25/17 12:18 Blood Culture - Preliminary Blood Klebsiella Pneumoniae Gram Positive Cocci Clusters Gram Positive Cocci In Chains Assessment & Plan - Diagnosis (1) Bacteremia Is this a current diagnosis for this admission?: Yes Plan: Klebsiella and 2 gram-positive rods were isolated Continue treatment with cefepime and daptomycin i (2) Hemarthrosis Is this a current diagnosis for this admission?: Yes (4) Hemophilia A Is this a current diagnosis for this admission?: Yes - Time Time Spent with patient: As stated above Treat with daptomycin and cefepime Further management as per surgery Time Spent with patient: 25-34 minutes
[2017-07-27] MEDS ORDERED: CEFEPIME HCL 2 GM in DEXTROSE 5%-WATER 50 ML IV ONE (17:00)
[2017-07-27] MEDS: CEFEPIME HCL 2 GM in DEXTROSE 5%-WATER 50 ML IV SCH (18:14)
[2017-07-27] MEDS: GABAPENTIN 300 MG CAPSULE PO SCH (21:34)
[2017-07-27] MEDS ORDERED: DAPTOMYCIN IV SCH (22:00)
[2017-07-27] MEDS ORDERED: NORMAL SALINE IV SCH (22:00)
[2017-07-28] MEDS: HYDROMORPHONE HCL 2 MG TABLET PO PRN ×3 (00:09→09:21)
[2017-07-28] MEDS: CEFEPIME HCL 2 GM in DEXTROSE 5%-WATER 50 ML IV SCH ×2 (05:14→17:55)
[2017-07-28] MEDS ORDERED: CEFEPIME HCL 2 GM in DEXTROSE 5%-WATER 50 ML IV SCH (06:00)
--- NOTE | 2017-07-28 09:03 | PDOC PROGRESS REPORT ---
Subjective Progress Note for:: 07/27/17 Subjective:: No complaints and he is still having some pain around the insertion site of the Port-A-Cath Reason For Visit: BACTEREMIA,HEMOPHILIA A,OPIOD DEPENDANCE,CHRONIC Physical Exam Vital Signs: Temp Pulse Resp BP Pulse Ox 98.3 F 75 16 107/57 L 99 07/28/17 04:04 07/28/17 04:04 07/28/17 04:04 07/28/17 04:04 07/28/17 04:04 Intake & Output 07/27/17 07/28/17 07/29/17 06:59 06:59 06:59 Intake Total 360 Balance 360 Weight 76.9 kg 81.1 kg General appearance: PRESENT: no acute distress Skin exam: PRESENT: other - Port site with hematoma around the port. No cellulitis. Results Laboratory Results: 07/27/17 05:45 07/27/17 05:45 Assessment & Plan - Diagnosis (1) Bacteremia Is this a current diagnosis for this admission?: Yes (2) Hemophilia A Is this a current diagnosis for this admission?: Yes - Plan Summary Plan Summary: Preliminary Gram stain done on the fluid around the port by Dr. Beltre revealed no polys and no bacteria. Initial blood culture did suggest Klebsiella and gram-positive cocci in clusters and chains. Subsequent cultures were negative. Continue observation. I would not remove the port at this point.
--- NOTE | 2017-07-28 09:05 | PDOC PROGRESS REPORT ---
Subjective Progress Note for:: 07/28/17 Subjective:: No new complaints. No fevers overnight. No chills. Reason For Visit: BACTEREMIA,HEMOPHILIA A,OPIOD DEPENDANCE,CHRONIC Physical Exam Vital Signs: Temp Pulse Resp BP Pulse Ox 98.3 F 75 16 107/57 L 99 07/28/17 04:04 07/28/17 04:04 07/28/17 04:04 07/28/17 04:04 07/28/17 04:04 Intake & Output 07/27/17 07/28/17 07/29/17 06:59 06:59 06:59 Intake Total 360 Balance 360 Weight 76.9 kg 81.1 kg Skin exam: PRESENT: other - No change in exam. He still has a hematoma around the port site. There is no drainage. No cellulitis. Results Laboratory Results: 07/27/17 05:45 07/27/17 05:45 Assessment & Plan - Diagnosis (1) Bacteremia Is this a current diagnosis for this admission?: Yes (2) Hemophilia A Is this a current diagnosis for this admission?: Yes - Plan Summary Plan Summary: Continue antibiotics per medicine service. I would not recommend removal of the port at this time as he remains afebrile. Gram stain done by Dr. Beltre at the time of admission revealed no polys and no bacteria. Initial blood culture did reveal Klebsiella as well as gram-positive cocci in chains and clusters however subsequent blood cultures have been negative. We will sign off at this point. If you have any further problems questions or concerns please reconsult surgery.
[2017-07-28] MEDS: GABAPENTIN 300 MG CAPSULE PO SCH ×2 (09:21→21:19)
[2017-07-28] MEDS: DOCUSATE SODIUM 100 MG CAPSULE PO SCH (09:21)
--- NOTE | 2017-07-28 11:22 | PDOC PROGRESS REPORT ---
Subjective Progress Note for:: 07/28/17 Subjective:: Doing extremely well he has no complaints No fever no chills He did tolerate the daptomycin well Culture and sensitivity of blood culture is now completed Patient had Klebsiella, strep mitis. and Staphylococcus aureus sensitive to ceftriaxone Reason For Visit: BACTEREMIA,HEMOPHILIA A,OPIOD DEPENDANCE,CHRONIC Physical Exam Vital Signs: Temp Pulse Resp BP Pulse Ox 97.5 F 68 15 100/63 98 07/28/17 07:42 07/28/17 07:42 07/28/17 07:42 07/28/17 07:42 07/28/17 07:42 Intake & Output 07/27/17 07/28/17 07/29/17 00:59 00:59 00:59 Intake Total 360 Balance 360 Weight 76.9 kg 81.1 kg General appearance: PRESENT: no acute distress, well-developed, well-nourished Head exam: PRESENT: atraumatic, normocephalic Eye exam: PRESENT: conjunctiva pink, EOMI, PERRLA. ABSENT: scleral icterus Ear exam: PRESENT: normal external ear exam Mouth exam: PRESENT: moist, tongue midline Neck exam: ABSENT: carotid bruit, JVD, lymphadenopathy, thyromegaly Respiratory exam: PRESENT: clear to auscultation iliana. ABSENT: rales, rhonchi, wheezes Cardiovascular exam: PRESENT: RRR. ABSENT: diastolic murmur, rubs, systolic murmur Pulses: PRESENT: normal dorsalis pedis pul Vascular exam: PRESENT: normal capillary refill GI/Abdominal exam: PRESENT: normal bowel sounds, soft. ABSENT: distended, guarding, mass, organolmegaly, rebound, tenderness Rectal exam: PRESENT: deferred Extremities exam: PRESENT: full ROM. ABSENT: calf tenderness, clubbing, pedal edema Neurological exam: PRESENT: alert, awake, CN II-XII grossly intact Psychiatric exam: PRESENT: appropriate affect, normal mood Skin exam: PRESENT: dry, intact, warm - Hematoma left upper chest wall at site of Port-A-Cath tende on palpation. ABSENT: cyanosis, rash Results Laboratory Results: 07/27/17 05:45 07/27/17 05:45 Assessment & Plan - Diagnosis (1) Bacteremia Is this a current diagnosis for this admission?: Yes Plan: 3 bacteria cultured in the blood are sensitive to ceftriaxone We will switch the antibiotic treatment to ceftriaxone 2 g IV daily Treatment should be continued for 14 days after negative blood culture Treatment will be completed on 08/09/2017 (2) Hemarthrosis Is this a current diagnosis for this admission?: Yes (4) Hemophilia A Is this a current diagnosis for this admission?: Yes - Time Time Spent with patient: 25-34 minutes
[2017-07-28] MEDS: OXYCODONE HCL IR 5 MG TABLET PO PRN ×3 (14:24→22:36)
[2017-07-28] MEDS: NORMAL SALINE 1000 ML 1,000 ML IV PRN (22:39)
[2017-07-29] MEDS: OXYCODONE HCL IR 5 MG TABLET PO PRN ×5 (04:11→20:45)
[2017-07-29] MEDS: CEFEPIME HCL 2 GM in DEXTROSE 5%-WATER 50 ML IV SCH ×2 (06:05→17:41)
[2017-07-29] MEDS: GABAPENTIN 300 MG CAPSULE PO SCH ×2 (09:54→21:58)
[2017-07-29] MEDS: DOCUSATE SODIUM 100 MG CAPSULE PO SCH (09:54)
[2017-07-29] MEDS: NORMAL SALINE 1000 ML 1,000 ML IV PRN (17:18)
--- NOTE | 2017-07-29 18:08 | PDOC PROGRESS REPORT ---
Subjective Progress Note for:: 07/29/17 - Patient is doing extremely well Subjective:: Patient is doing extremely well no specific complaints Reason For Visit: BACTEREMIA,HEMOPHILIA A,OPIOD DEPENDANCE,CHRONIC Physical Exam Vital Signs: Temp Pulse Resp BP Pulse Ox 98.3 F 83 15 120/68 98 07/29/17 15:46 07/29/17 15:46 07/29/17 15:46 07/29/17 15:46 07/29/17 15:46 Intake & Output 07/28/17 07/29/17 07/30/17 00:59 00:59 00:59 Intake Total 360 Output Total 700 Balance 360 -700 Weight 76.9 kg 81.1 kg 84.3 kg Results Laboratory Results: 07/27/17 05:45 07/27/17 05:45 07/26/17 21:44 Arm - Left Upper Gram Stain - Final 07/26/17 21:44 Arm - Left Upper Wound Culture - Final NO GROWTH 3 DAYS Assessment & Plan - Diagnosis (1) Bacteremia Is this a current diagnosis for this admission?: Yes (2) Hemarthrosis Is this a current diagnosis for this admission?: Yes (4) Hemophilia A Is this a current diagnosis for this admission?: Yes - Time Time Spent with patient: Continue cefepime IV patient will be discharged home tomorrow with home infusions To complete the treatment on 08/09/2017 Time Spent with patient: 15-24 minutes
[2017-07-29] MEDS ORDERED: CEFTRIAXONE 2 GM/D5W RTU 2 GM/50 ML RTUPB IV ONE (19:00)
[2017-07-30] MEDS: OXYCODONE HCL IR 5 MG TABLET PO PRN ×5 (00:28→20:34)
[2017-07-30] MEDS: NORMAL SALINE 1000 ML 1,000 ML IV PRN ×3 (03:00→22:18)
[2017-07-30 07:06] LABS: ABSOLUTE BASOPHILS # (AUTO) 0.1 10^3/uL (0.0-0.2); ABSOLUTE EOSINOPHILS # (AUTO) 0.1 10^3/uL (0.0-0.6); ABSOLUTE LYMPHOCYTES (AUTO) 1.7 10^3/uL (0.5-4.7); ABSOLUTE MONOCYTES (AUTO) 0.6 10^3/uL (0.1-1.4); ABSOLUTE NEUT (AUTO) 3.2 10^3/uL (1.7-8.2); BASOPHILS % (AUTO) 0.9 % (0-2); EOSINOPHILS % (AUTO) 2.4 % (0-6); HEMATOCRIT 32.1 % (37.9-51.0); HEMOGLOBIN 10.8 g/dL (13.5-17.0); LYMPHOCYTES % (AUTO) 29.9 % (13-45); MEAN CORPUSCULAR HEMOGLOBIN 29.2 pg (27.0-33.4); MEAN CORPUSCULAR HGB CONC 33.7 g/dL (32.0-36.0); MEAN CORPUSCULAR VOLUME 87 fl (80-97); MONOCYTES % (AUTO) 11.1 % (3-13); PLATELET COUNT 321 10^3/uL (150-450); RED BLOOD COUNT 3.71 10^6/uL (4.35-5.55); RED CELL DISTRIBUTION WIDTH 15.2 % (11.5-14.0); SEGMENTED NEUTROPHILS % (AUTO) 55.7 % (42-78); TOTAL CELLS COUNTED % (AUTO) 100 %; WHITE BLOOD COUNT 5.7 10^3/uL (4.0-10.5)
[2017-07-30 07:23] LABS: ANION GAP 9 (5-19); BLOOD UREA NITROGEN 10 mg/dL (7-20); CARBON DIOXIDE 34 mmol/L (22-30); CHLORIDE 99 mmol/L (98-107); GLUCOSE 84 mg/dL (75-110); SODIUM 141.5 mmol/L (137-145)
[2017-07-30] MEDS: GABAPENTIN 300 MG CAPSULE PO SCH ×2 (09:00→22:49)
[2017-07-30] MEDS: DOCUSATE SODIUM 100 MG CAPSULE PO SCH (09:00)
--- NOTE | 2017-07-30 11:24 | PDOC DISCHARGE SUMMARY ---
General - Admit/Disc Date/PCP Admission Date/Primary Care Provider: 07/26/17 18:03 Discharge Date: 07/30/17 - Discharge Diagnosis (1) Bacteremia Is this a current diagnosis for this admission?: Yes (2) Hemarthrosis Is this a current diagnosis for this admission?: Yes (4) Hemophilia A Is this a current diagnosis for this admission?: Yes - Additional Information Discharge Diet: As Tolerated Discharge Activity: Activity As Tolerated Prescriptions: Ceftriaxone 2 gm/D5w RTU [Rocephin RTU 2 gm/D5w 50 ml Premix Bag] 2 gm IV DAILY #10 rtupb Home Medications: Antihemophilic Factor/Vwf [Humate-P 500 Unit Factor VIII Vial] 4,000 unit IV BIDP PRN 07/26/17 Antihemophilic Factor/Vwf [Humate-P 500 Unit Factor VIII Vial] 4,000 unit IV MOWEFR@10 07/27/17 Ceftriaxone 2 gm/D5w RTU [Rocephin RTU 2 gm/D5w 50 ml Premix Bag] 2 gm IV DAILY #10 rtupb 07/30/17 History of Present Illness Patient complains of: pain bleeding mediport site History of Present Illness: RENAN RAMOS is a 27 year old male presents complaining of pain and bleeding in the area where he had a MediPort putting on Wednesday. Patient states that he came to emergency room yesterday because of bleeding and pain. Patient also complains of having some fever. Patient was seen in emergency room and then sent home. He was then called because the culture grew gram-negative bacilli. He denies having any problems with his right knee. Due to presentation our hospitalist service was contacted for further management Hospital Course Hospital Course: (1) Bacteremia Is this a current diagnosis for this admission?: Yes Plan: 3 bacteria cultured in the blood are sensitive to ceftriaxone We will switch the antibiotic treatment to ceftriaxone 2 g IV daily Treatment should be continued for 14 days after negative blood culture Treatment will be completed on 08/09/2017 07/25/17 12:18 Blood Culture - Final Blood Klebsiella Pneumoniae Staphylococcus Aureus Strep Mutans (Viridans Strep) Patient was evaluated by surgery Mediport was left in place repeat blood cultures were negative 07/26/17 21:44 Gram Stain - Final Arm - Left Upper Wound Culture - Final NO GROWTH 3 DAYS 07/26/17 20:58 Blood Culture - Preliminary Blood NO GROWTH AFTER 72 HOURS 07/26/17 15:42 Blood Culture - Preliminary Blood NO GROWTH AFTER 72 HOURS 07/25/17 14:50 Blood Culture - Preliminary Blood NO GROWTH 4 DAYS (2) Hematoma at site Mediport resolving Physical Exam Vital Signs: Temp Pulse Resp BP Pulse Ox 98.0 F 80 18 114/69 100 07/30/17 03:38 07/30/17 03:38 07/30/17 03:38 07/30/17 03:38 07/30/17 00:16 Intake & Output 07/29/17 07/30/17 07/31/17 00:59 00:59 00:59 Output Total 700 Balance -700 Weight 81.1 kg 84.3 kg 83 kg General appearance: PRESENT: no acute distress, well-developed, well-nourished Head exam: PRESENT: atraumatic, normocephalic Eye exam: PRESENT: conjunctiva pink, EOMI, PERRLA. ABSENT: scleral icterus Ear exam: PRESENT: normal external ear exam Mouth exam: PRESENT: moist, tongue midline Neck exam: ABSENT: carotid bruit, JVD, lymphadenopathy, thyromegaly Respiratory exam: PRESENT: clear to auscultation iliana. ABSENT: rales, rhonchi, wheezes Cardiovascular exam: PRESENT: RRR. ABSENT: diastolic murmur, rubs, systolic murmur Pulses: PRESENT: normal dorsalis pedis pul Vascular exam: PRESENT: normal capillary refill GI/Abdominal exam: PRESENT: normal bowel sounds, soft. ABSENT: distended, guarding, mass, organolmegaly, rebound, tenderness Rectal exam: PRESENT: deferred Extremities exam: PRESENT: full ROM. ABSENT: calf tenderness, clubbing, pedal edema Neurological exam: PRESENT: alert, awake, CN II-XII grossly intact Psychiatric exam: PRESENT: appropriate affect, normal mood Skin exam: PRESENT: dry, intact, warm - Hematoma left upper chest wall at site of Port-A-Cath tende on palpatio Results Laboratory Results: 07/30/17 06:24 07/30/17 06:24 07/30/17 07/30/17 06:24 06:24 WBC 5.7 RBC 3.71 L Hgb 10.8 L Hct 32.1 L MCV 87 MCH 29.2 MCHC 33.7 RDW 15.2 H Plt Count 321 Seg Neutrophils % 55.7 Lymphocytes % 29.9 Monocytes % 11.1 Eosinophils % 2.4 Basophils % 0.9 Absolute Neutrophils 3.2 Absolute Lymphocytes 1.7 Absolute Monocytes 0.6 Absolute Eosinophils 0.1 Absolute Basophils 0.1 Sodium 141.5 Potassium 4.0 Chloride 99 Carbon Dioxide 34 H Anion Gap 9 BUN 10 Creatinine 0.67 Est GFR ( Amer) > 60 Est GFR (Non-Af Amer) > 60 Glucose 84 Calcium 9.0 07/26/17 21:44 Arm - Left Upper Gram Stain - Final 07/26/17 21:44 Arm - Left Upper Wound Culture - Final NO GROWTH 3 DAYS
[2017-07-30] MEDS ORDERED: ACETAMINOPHEN 325 MG TABLET ONE (14:58)
[2017-07-30] MEDS ORDERED: ACETAMINOPHEN 325 MG TABLET PO ONE (15:00)
[2017-07-30] MEDS ORDERED: NORMAL SALINE 1000 ML 2,500 ML IV ONE (15:12)
[2017-07-30] MEDS ORDERED: PIPERACILLIN SODIUM/TAZOBACTAM 3.375 GM in NORMAL SALINE 100 ML IV ONE (16:30)
[2017-07-30] MEDS ORDERED: DEXTROSE 5%-WATER 250 ML with NOREPINEPHRINE BITARTRATE 4 MG IV PRN ×2 (16:35)
--- NOTE | 2017-07-30 16:42 | Progress Note ---
Provider Note Provider Note: Patient was about to be discharged when he spiked a temp of 102 shaking chills it happened About a couple hours after the port was accessed Patient went into septic shock with a blood pressure of 80/60 Mentation excellent Sepsis protocol followed IV antibiotics vancomycin and Zosyn initiated Surgical consult to remove Mediport Patient will be transferred to the intensive care unit
[2017-07-30] MEDS ORDERED: NOREPINEPHRINE BITARTRATE INJ/PF 4 MG/4 ML SDV IV ONE (16:48)
[2017-07-30] MEDS: DAPTOMYCIN 500 MG in NORMAL SALINE 50 ML IV SCH (18:09)
[2017-07-30] MEDS: HYDROMORPHONE HCL INJ/PF 2 MG/ML AMPULE IV PRN ×2 (18:12→23:52)
[2017-07-30] MEDS ORDERED: PIPERACILLIN SODIUM/TAZOBACTAM 3.375 GM in NORMAL SALINE 100 ML IV SCH (21:00)
--- NOTE | 2017-07-30 21:16 | RADIOLOGY REPORT (SQ) ---
EXAM DESCRIPTION: CT CHEST WITHOUT COMPLETED DATE/TIME: 07/30/2017 8:57 pm REASON FOR STUDY: check port for hematoma or abcess COMPARISON: None. TECHNIQUE: CT scan performed of the chest without intravenous contrast. Images reviewed with lung, soft tissue and bone windows. Reconstructed coronal and sagittal MPR images reviewed. All images st ored on PACS. All CT scanners at this facility use dose modulation, iterative reconstruction, and/or weight based d osing when appropriate to reduce radiation dose to as low as reasonably achievable (ALARA). [facility]: Dose Right [facility]: CareDose [facility]: Dose Right [facility]: Teradose 4D [facility]: Biosensia RADIATION DOSE: CT Rad equipment meets quality standard of care and radiation dose reduction techniq ues were employed. CTDIvol: 9.4 mGy. DLP: 375 mGy-cm. mGy. LIMITATIONS: No technical limitations. FINDINGS: LUNGS AND PLEURA: No masses, infiltrates, pneumothorax. No pleural effusions, calcificati ons. HILAR AND MEDIASTINAL STRUCTURES: No identified masses or abnormal nodes. No obvious aneurysm. HEART AND VASCULAR STRUCTURES: No aneurysm. No pericardial effusion. UPPER ABDOMEN: No significant findings. Limited exam. THYROID AND OTHER SOFT TISSUES: There is a small amount of soft tissue attenuation surrounding the p atient's left or which is accessed. No masses. No adenopathy. BONES: Advanced arthritic change of the shoulders consistent with history of hemophilia. No acute os seous abnormality. HARDWARE: Left-sided port in place. OTHER: No other significant findings. IMPRESSION: NO SIGNIFICANT FINDING ON NON-CONTRASTED CHEST CT. THERE IS A SMALL AMOUNT OF SOFT TISSUE ATTENUATION SURROUNDING THE LEFT POOR WHICH IS ACCESS PRESUMAB LY REPRESENTS A SMALL AMOUNT OF BLOOD PRODUCTS. TECHNICAL DOCUMENTATION: JOB ID: [id number] Quality ID # [id number]: Final reports with documentation of one or more dose reduction techniques (e.g., Au tomated exposure control, adjustment of the mA and/or kV according to patient size, use of iterative reconstruction technique) 2010 [employer]- All Rights Reserved
[2017-07-30] MEDS ORDERED: CEFTRIAXONE 2 GM/D5W RTU 2 GM/50 ML RTUPB IV SCH (22:00)
--- NOTE | 2017-07-30 23:28 | PDOC PROGRESS REPORT ---
Subjective Progress Note for:: 07/30/17 Subjective:: Patient was said to have spiked a fever up to 107F today after port flush with trigors. Apparently subsequently had a drop in BP Reason For Visit: BACTEREMIA,HEMOPHILIA A,OPIOD DEPENDANCE,CHRONIC Physical Exam Vital Signs: Temp Pulse Resp BP Pulse Ox 98.6 F 94 15 107/64 96 07/30/17 20:00 07/30/17 22:00 07/30/17 22:00 07/30/17 22:00 07/30/17 22:00 Intake & Output 07/29/17 07/30/17 07/31/17 06:59 06:59 06:59 Intake Total 480 Output Total 700 Balance -700 480 Weight 84.3 kg 83 kg General appearance: PRESENT: no acute distress Head exam: PRESENT: normocephalic Respiratory exam: PRESENT: clear to auscultation iliana Cardiovascular exam: PRESENT: +S1, +S2 GI/Abdominal exam: PRESENT: normal bowel sounds, soft Neurological exam: PRESENT: alert, oriented to person, oriented to place, oriented to time, oriented to situation, CN II-XII grossly intact Skin exam: PRESENT: other - Left chest wall mediport with some surrounding swelling, presently accessed and functioning. Results Laboratory Results: 07/30/17 06:24 07/30/17 06:24 07/30/17 07/30/17 07/30/17 06:24 06:24 16:20 WBC 5.7 RBC 3.71 L Hgb 10.8 L Hct 32.1 L MCV 87 MCH 29.2 MCHC 33.7 RDW 15.2 H Plt Count 321 Seg Neutrophils % 55.7 Lymphocytes % 29.9 Monocytes % 11.1 Eosinophils % 2.4 Basophils % 0.9 Absolute Neutrophils 3.2 Absolute Lymphocytes 1.7 Absolute Monocytes 0.6 Absolute Eosinophils 0.1 Absolute Basophils 0.1 Sodium 141.5 Potassium 4.0 Chloride 99 Carbon Dioxide 34 H Anion Gap 9 BUN 10 Creatinine 0.67 Est GFR ( Amer) > 60 Est GFR (Non-Af Amer) > 60 Glucose 84 Lactic Acid 2.3 H Calcium 9.0 07/30/17 21:25 WBC RBC Hgb Hct MCV MCH MCHC RDW Plt Count Seg Neutrophils % Lymphocytes % Monocytes % Eosinophils % Basophils % Absolute Neutrophils Absolute Lymphocytes Absolute Monocytes Absolute Eosinophils Absolute Basophils Sodium Potassium Chloride Carbon Dioxide Anion Gap BUN Creatinine Est GFR ( Amer) Est GFR (Non-Af Amer) Glucose Lactic Acid 2.0 Calcium Impressions: Chest CT 07/30/17 00:00 IMPRESSION: NO SIGNIFICANT FINDING ON NON-CONTRASTED CHEST CT. THERE IS A SMALL AMOUNT OF SOFT TISSUE ATTENUATION SURROUNDING THE LEFT POOR WHICH IS ACCESS PRESUMABLY REPRESENTS A SMALL AMOUNT OF BLOOD PRODUCTS. Assessment & Plan - Diagnosis (1) History of vascular access device Is this a current diagnosis for this admission?: Yes Plan: Await cultures from today before embarking on port-a-cath removal. All prior cultures from 07/26/17 are negative. 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
[2017-07-30] MEDS: PIPERACILLIN SODIUM/TAZOBACTAM 3.375 GM in NORMAL SALINE 100 ML IV SCH (23:45)
[2017-07-31] MEDS: HYDROMORPHONE HCL INJ/PF 2 MG/ML AMPULE IV PRN ×3 (04:26→14:12)
[2017-07-31 04:28] LABS: HEMATOCRIT 29.9 % (37.9-51.0); HEMOGLOBIN 9.9 g/dL (13.5-17.0); MEAN CORPUSCULAR HEMOGLOBIN 28.8 pg (27.0-33.4); MEAN CORPUSCULAR HGB CONC 33.2 g/dL (32.0-36.0); MEAN CORPUSCULAR VOLUME 87 fl (80-97); PLATELET COUNT 295 10^3/uL (150-450); RED BLOOD COUNT 3.45 10^6/uL (4.35-5.55); RED CELL DISTRIBUTION WIDTH 15.5 % (11.5-14.0)
[2017-07-31 04:29] LABS: WHITE BLOOD COUNT 18.1 10^3/uL (4.0-10.5)
[2017-07-31 04:40] LABS: ANION GAP 9 (5-19); BLOOD UREA NITROGEN 10 mg/dL (7-20); CALCIUM 8.6 mg/dL (8.4-10.2); CARBON DIOXIDE 29 mmol/L (22-30); CHLORIDE 107 mmol/L (98-107); GLUCOSE 133 mg/dL (75-110); POTASSIUM 3.9 mmol/L (3.6-5.0); SODIUM 144.5 mmol/L (137-145)
[2017-07-31 04:53] LABS: ABSOLUTE LYMPHOCYTES# (MANUAL) 1.8 10^3/uL (0.5-4.7); ABSOLUTE MONOCYTES # (MANUAL) 1.3 10^3/uL (0.1-1.4); BAND NEUTROPHILS % (MANUAL) 5 % (3-5); BASOPHILS % (MANUAL) 0 % (0-2); EOSINOPHILS % (MANUAL) 0 % (0-6); LYMPHOCYTES % (MANUAL) 10 % (13-45); MONOCYTES % (MANUAL) 7 % (3-13); SEGMENTED NEUTROPHILS % (MAN) 78 % (42-78); TOTAL CELLS COUNTED 100
[2017-07-31 04:54] LABS: TOXIC GRANULATION 1+; TOXIC VACUOLATION PRESENT
[2017-07-31 04:55] LABS: ANISOCYTOSIS SLIGHT; POLYCHROMASIA SLIGHT
[2017-07-31 04:57] LABS: TARGET CELLS 1+
[2017-07-31 04:58] LABS: PLATELET CLUMPS PRESENT; PLATELET COMMENT ADEQUATE
[2017-07-31] MEDS: PIPERACILLIN SODIUM/TAZOBACTAM 3.375 GM in NORMAL SALINE 100 ML IV SCH ×4 (05:04→23:45)
[2017-07-31] MEDS: NORMAL SALINE 1000 ML 1,000 ML IV PRN ×2 (06:46→12:04)
[2017-07-31] MEDS: OXYCODONE HCL IR 5 MG TABLET PO PRN ×4 (06:52→23:43)
[2017-07-31] MEDS: GABAPENTIN 300 MG CAPSULE PO SCH ×2 (09:00→23:43)
[2017-07-31] MEDS: DOCUSATE SODIUM 100 MG CAPSULE PO SCH (09:00)
--- NOTE | 2017-07-31 09:29 | PDOC PROGRESS REPORT ---
Subjective Progress Note for:: 07/31/17 Subjective:: Patient seen on rounds.He is resting comfortably in bed. He denies any chest pain, shortness of breath or dyspnea. He denies any fever or chills. Denies any nausea, vomiting or abdominal pain. He denies any significant arthralgias or myalgias. Remaining review of systems are negative. Reason For Visit: BACTEREMIA,HEMOPHILIA A,OPIOD DEPENDANCE,CHRONIC Physical Exam Vital Signs: Temp Pulse Resp BP Pulse Ox 98.4 F 91 13 98/65 L 100 07/31/17 08:00 07/31/17 08:00 07/31/17 08:00 07/31/17 08:00 07/31/17 08:00 Intake & Output 07/30/17 07/31/17 08/01/17 06:59 06:59 06:59 Intake Total 2874 Output Total 1675 Balance 1199 Weight 83 kg 86.1 kg General appearance: PRESENT: no acute distress, well-developed, well-nourished Head exam: PRESENT: atraumatic, normocephalic Eye exam: PRESENT: conjunctiva pink, EOMI, PERRLA. ABSENT: scleral icterus Ear exam: PRESENT: normal external ear exam Neck exam: ABSENT: carotid bruit, JVD, lymphadenopathy, thyromegaly Respiratory exam: PRESENT: clear to auscultation iliana. ABSENT: rales, rhonchi, wheezes Cardiovascular exam: PRESENT: RRR. ABSENT: diastolic murmur, rubs, systolic murmur Pulses: PRESENT: normal dorsalis pedis pul Vascular exam: PRESENT: normal capillary refill GI/Abdominal exam: PRESENT: normal bowel sounds, soft. ABSENT: distended, guarding, mass, organolmegaly, rebound, tenderness Rectal exam: PRESENT: deferred Extremities exam: PRESENT: full ROM. ABSENT: calf tenderness, clubbing, pedal edema Neurological exam: PRESENT: alert, awake, oriented to person, oriented to place , oriented to time, oriented to situation, CN II-XII grossly intact. ABSENT: motor sensory deficit Psychiatric exam: PRESENT: appropriate affect, normal mood. ABSENT: homicidal ideation, suicidal ideation Skin exam: PRESENT: dry, intact, warm. ABSENT: cyanosis, rash Results Laboratory Results: 07/31/17 04:15 07/31/17 04:15 07/30/17 07/30/17 07/31/17 16:20 21:25 04:15 WBC 18.1 H D RBC 3.45 L Hgb 9.9 L Hct 29.9 L MCV 87 MCH 28.8 MCHC 33.2 RDW 15.5 H Plt Count 295 Seg Neutrophils % Not Reportable Lymphocytes % Not Reportable Monocytes % Not Reportable Eosinophils % Not Reportable Basophils % Not Reportable Absolute Neutrophils Not Reportable Absolute Lymphocytes Not Reportable Absolute Monocytes Not Reportable Absolute Eosinophils Not Reportable Absolute Basophils Not Reportable Sodium Potassium Chloride Carbon Dioxide Anion Gap BUN Creatinine Est GFR ( Amer) Est GFR (Non-Af Amer) Glucose Lactic Acid 2.3 H 2.0 Calcium Magnesium 07/31/17 04:15 WBC RBC Hgb Hct MCV MCH MCHC RDW Plt Count Seg Neutrophils % Lymphocytes % Monocytes % Eosinophils % Basophils % Absolute Neutrophils Absolute Lymphocytes Absolute Monocytes Absolute Eosinophils Absolute Basophils Sodium 144.5 Potassium 3.9 Chloride 107 Carbon Dioxide 29 Anion Gap 9 BUN 10 Creatinine 0.70 Est GFR ( Amer) > 60 Est GFR (Non-Af Amer) > 60 Glucose 133 H Lactic Acid Calcium 8.6 Magnesium 2.0 Impressions: Chest CT 07/30/17 00:00 IMPRESSION: NO SIGNIFICANT FINDING ON NON-CONTRASTED CHEST CT. THERE IS A SMALL AMOUNT OF SOFT TISSUE ATTENUATION SURROUNDING THE LEFT POOR WHICH IS ACCESS PRESUMABLY REPRESENTS A SMALL AMOUNT OF BLOOD PRODUCTS. Assessment & Plan - Diagnosis (1) Bacteremia Is this a current diagnosis for this admission?: Yes Plan: 1out of 2 cultures from yesterday are positive for gram-positive cocci. White count is up to 18.1 thousand. Will continue IV broad-spectrum antibiotics until organism is identified. Most likely from [facility]. 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
[2017-07-31] MEDS: DAPTOMYCIN 500 MG in NORMAL SALINE 50 ML IV SCH (17:34)
[2017-07-31] MEDS ORDERED: FENTANYL CITRATE INJ/PF 100 MCG/2 ML AMPUL ONE (20:06)
[2017-07-31] MEDS ORDERED: KETAMINE HCL INJ 500 MG/10 ML VIAL ONE (20:06)
[2017-07-31] MEDS ORDERED: PROPOFOL INJ 200 MG/20 ML VIAL IV ONE (20:07)
[2017-07-31] MEDS ORDERED: DEXMEDETOMIDINE INJ 80 MCG/20 ML VIAL IV ONE (20:07)
[2017-07-31] MEDS ORDERED: MIDAZOLAM 2 MG/2 ML INJ ONE (20:07)
[2017-07-31] MEDS ORDERED: BUPIVACAINE HCL 0.5 % INJ/PF 30 ML SDV ONE (20:32)
[2017-07-31] MEDS ORDERED: BUPIVACAINE HCL 0.25 % INJ/PF (2.5 MG/1 ML) 30 ML VIAL ONE (20:33)
[2017-07-31] MEDS ORDERED: LIDOCAINE 1% INJ-PF (10 MG/ML) 30 ML SDV ONE (20:33)
[2017-07-31] MEDS ORDERED: FENTANYL CITRATE INJ/PF 100 MCG/2 ML AMPUL IV PRN ×3 (20:53)
[2017-07-31] MEDS ORDERED: DIPHENHYDRAMINE HCL 50 MG/ML VIAL IV PRN (20:53)
[2017-07-31] MEDS ORDERED: PROMETHAZINE HCL INJ 25 MG/1 ML VIAL IV PRN (20:53)
[2017-07-31] MEDS ORDERED: [UNRECOGNIZED DRUG - OTHER] IV PRN (21:21)
[2017-07-31] MEDS ORDERED: ANTIHEMOPHILIC FACTOR IV PRN (21:21)
--- NOTE | 2017-07-31 21:21 | PDOC PROGRESS REPORT ---
Subjective Progress Note for:: 07/31/17 Subjective:: Patient was transiently on single pressor yesterday but is off that now. Blood culture drawn through the port yesterday is growing gram positive cocci Reason For Visit: BACTEREMIA,HEMOPHILIA A,OPIOD DEPENDANCE,CHRONIC Physical Exam Vital Signs: Temp Pulse Resp BP Pulse Ox 98.1 F 74 14 103/69 95 07/31/17 19:57 07/31/17 19:57 07/31/17 19:57 07/31/17 19:57 07/31/17 19:57 Intake & Output 07/30/17 07/31/17 08/01/17 06:59 06:59 06:59 Intake Total 2874 1516 Output Total 1675 1875 Balance 1199 -359 Weight 83 kg 86.1 kg General appearance: PRESENT: no acute distress Head exam: PRESENT: normocephalic Respiratory exam: PRESENT: clear to auscultation iliana Cardiovascular exam: PRESENT: RRR, +S1, +S2 GI/Abdominal exam: PRESENT: normal bowel sounds, soft Neurological exam: PRESENT: alert, awake, oriented to person, oriented to place , oriented to time, oriented to situation, CN II-XII grossly intact Skin exam: PRESENT: other - left chest wall port site with swelling Results Laboratory Results: 07/31/17 04:15 07/31/17 04:15 07/30/17 07/31/17 07/31/17 21:25 04:15 04:15 WBC 18.1 H D RBC 3.45 L Hgb 9.9 L Hct 29.9 L MCV 87 MCH 28.8 MCHC 33.2 RDW 15.5 H Plt Count 295 Seg Neutrophils % Not Reportable Lymphocytes % Not Reportable Monocytes % Not Reportable Eosinophils % Not Reportable Basophils % Not Reportable Absolute Neutrophils Not Reportable Absolute Lymphocytes Not Reportable Absolute Monocytes Not Reportable Absolute Eosinophils Not Reportable Absolute Basophils Not Reportable Sodium 144.5 Potassium 3.9 Chloride 107 Carbon Dioxide 29 Anion Gap 9 BUN 10 Creatinine 0.70 Est GFR ( Amer) > 60 Est GFR (Non-Af Amer) > 60 Glucose 133 H Lactic Acid 2.0 Calcium 8.6 Magnesium 2.0 07/26/17 20:58 Blood Blood Culture - Final NO GROWTH IN 5 DAYS Impressions: Chest CT 07/30/17 00:00 IMPRESSION: NO SIGNIFICANT FINDING ON NON-CONTRASTED CHEST CT. THERE IS A SMALL AMOUNT OF SOFT TISSUE ATTENUATION SURROUNDING THE LEFT POOR WHICH IS ACCESS PRESUMABLY REPRESENTS A SMALL AMOUNT OF BLOOD PRODUCTS. Assessment & Plan - Diagnosis (1) History of vascular access device Is this a current diagnosis for this admission?: Yes Plan: For removal of the port-a-cath today for presumed catheter associated blood stream infection. 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
[2017-07-31] MEDS ORDERED: HYDROMORPHONE HCL INJ/PF 2 MG/ML AMPULE ONE (21:28)
--- NOTE | 2017-07-31 21:35 | Operative Report ---
Operative Report DATE OF SURGERY: 07/31/17 PREOPERATIVE DIAGNOSIS: 1. Vascular Access Device (Mediport) Associated Blood stream infection in a hemophiliac. 2. Hematoma of mediport subcutaneous pocket POSTOPERATIVE DIAGNOSIS: 1. Vascular Access Device (Mediport) Associated Blood stream infection in a hemophiliac. 2. Hematoma of mediport subcutaneous pocket OPERATION: 1. Removal of left subclavian Mediport. 2. Evacuation of hematoma of mediport subcutaneous pocket. SURGEON: Yannick Forbes ANESTHESIA: LMAC TISSUE REMOVED OR ALTERED: none COMPLICATIONS: none ESTIMATED BLOOD LOSS: 20 ml INTRAOPERATIVE FINDINGS: Hematoma in mediport subcutaneous pocket. PROCEDURE: The patient was brought to the operating room and placed on the operating table. Anesthetic sedation was administered, he was positioned supine with both arms on armboards. The left chest wall was prepped and sterile drapes laid to expose the mediport. Under sterile aseptic conditions, the previous skin incision was opened up with a scalpel blade and dissection taken down to the mediport hub in the subcutaneous pocket. Hematoma was evacuated from the pocket and cultures sent. The anchoring sutures were trqansected to free the mediport and the port with its catheter was pulled out of the patient in its entirety. A figure of eight stitch was used to ligate off the catheter entry point into the vein. The subcutaneous pocket was irrigated with saline and the wound closed in layers with 3-0 vicryl to the subcutaneous layer - placing the sutures in a plicating manner to obliterate the space of the pocket - and 4-0 nylon, simple interrupted stitches to the skin. The wound was cleaned and dressed with xeroform and a pressure dressing of 4x4 gauze held with tape. The patient tolerated the procedure well and was taken to the PACU in stable condition. The catheter tip was sent for culture.
[2017-07-31] MEDS ORDERED: HYDROMORPHONE HCL INJ/PF 2 MG/ML AMPULE IV PRN (21:59)
[2017-08-01] MEDS: HYDROMORPHONE HCL INJ/PF 2 MG/ML AMPULE IV PRN ×5 (02:00→19:55)
[2017-08-01] MEDS: NORMAL SALINE 1000 ML 1,000 ML IV PRN ×3 (02:00→15:15)
[2017-08-01] MEDS: OXYCODONE HCL IR 5 MG TABLET PO PRN ×5 (04:30→21:56)
[2017-08-01 07:08] LABS: ABSOLUTE EOSINOPHILS # (AUTO) 0.2 10^3/uL (0.0-0.6); ABSOLUTE LYMPHOCYTES (AUTO) 1.7 10^3/uL (0.5-4.7); ABSOLUTE MONOCYTES (AUTO) 0.8 10^3/uL (0.1-1.4); ABSOLUTE NEUT (AUTO) 6.9 10^3/uL (1.7-8.2); BASOPHILS % (AUTO) 0.4 % (0-2); EOSINOPHILS % (AUTO) 2.1 % (0-6); HEMATOCRIT 30.5 % (37.9-51.0); HEMOGLOBIN 10.3 g/dL (13.5-17.0); LYMPHOCYTES % (AUTO) 17.8 % (13-45); MEAN CORPUSCULAR HEMOGLOBIN 29.3 pg (27.0-33.4); MEAN CORPUSCULAR HGB CONC 33.9 g/dL (32.0-36.0); MEAN CORPUSCULAR VOLUME 87 fl (80-97); MONOCYTES % (AUTO) 8.3 % (3-13); PLATELET COUNT 279 10^3/uL (150-450); RED BLOOD COUNT 3.53 10^6/uL (4.35-5.55); RED CELL DISTRIBUTION WIDTH 15.5 % (11.5-14.0); SEGMENTED NEUTROPHILS % (AUTO) 71.4 % (42-78); TOTAL CELLS COUNTED % (AUTO) 100 %; WHITE BLOOD COUNT 9.7 10^3/uL (4.0-10.5)
[2017-08-01] MEDS: PIPERACILLIN SODIUM/TAZOBACTAM 3.375 GM in NORMAL SALINE 100 ML IV SCH ×3 (07:09→17:21)
[2017-08-01 07:27] LABS: ANION GAP 7 (5-19); BLOOD UREA NITROGEN 8 mg/dL (7-20); CALCIUM 9.5 mg/dL (8.4-10.2); CARBON DIOXIDE 30 mmol/L (22-30); CHLORIDE 103 mmol/L (98-107); GLUCOSE 83 mg/dL (75-110); POTASSIUM 4.3 mmol/L (3.6-5.0); SODIUM 139.7 mmol/L (137-145)
[2017-08-01] MEDS: GABAPENTIN 300 MG CAPSULE PO SCH ×2 (08:36→21:56)
[2017-08-01] MEDS: DOCUSATE SODIUM 100 MG CAPSULE PO SCH (08:36)
[2017-08-01] MEDS ORDERED: KETOROLAC TROMETHAMINE INJ/PF 30 MG/1 ML SDV ONE (11:01)
[2017-08-01] MEDS: ONDANSETRON HCL INJ/PF 4 MG/2 ML SDV IV PRN ×2 (11:14→17:21)
[2017-08-01] MEDS ORDERED: NALBUPHINE HCL INJ 10 MG/1 ML AMPULE INJ ONE (12:00)
--- NOTE | 2017-08-01 12:43 | PDOC PROGRESS REPORT ---
Subjective Progress Note for:: 08/01/17 Subjective:: Patient seen on rounds.He is resting in bed. He denies any chest pain, shortness of breath or dyspnea. He denies any fever or chills. He is complaining about a headache and feeling nauseated. Denies any vomiting or abdominal pain. He denies any significant arthralgias or myalgias. Remaining review of systems are negative. Reason For Visit: BACTEREMIA,HEMOPHILIA A,OPIOD DEPENDANCE,CHRONIC Physical Exam Vital Signs: Temp Pulse Resp BP Pulse Ox 98.5 F 73 12 109/59 L 90 L 08/01/17 11:25 08/01/17 11:25 08/01/17 11:25 08/01/17 11:25 08/01/17 11:25 Intake & Output 07/31/17 08/01/17 08/02/17 06:59 06:59 06:59 Intake Total 2874 4661 Output Total 1675 3155 Balance 1199 1506 Weight 86.1 kg 86.8 kg General appearance: PRESENT: no acute distress, well-developed, well-nourished Head exam: PRESENT: atraumatic, normocephalic Eye exam: PRESENT: conjunctiva pink, EOMI, PERRLA. ABSENT: scleral icterus Ear exam: PRESENT: normal external ear exam Mouth exam: PRESENT: moist, tongue midline Respiratory exam: PRESENT: clear to auscultation iliana. ABSENT: rales, rhonchi, wheezes Cardiovascular exam: PRESENT: RRR. ABSENT: diastolic murmur, rubs, systolic murmur Pulses: PRESENT: normal dorsalis pedis pul Vascular exam: PRESENT: normal capillary refill Rectal exam: PRESENT: deferred Extremities exam: PRESENT: full ROM. ABSENT: calf tenderness, clubbing, pedal edema Neurological exam: PRESENT: alert, awake, oriented to person, oriented to place , oriented to time, oriented to situation, CN II-XII grossly intact. ABSENT: motor sensory deficit Psychiatric exam: PRESENT: appropriate affect, normal mood. ABSENT: homicidal ideation, suicidal ideation Skin exam: PRESENT: other - Left subclavian dressing dry and intact. No bleeding post port removal Results Laboratory Results: 08/01/17 06:50 08/01/17 06:50 08/01/17 08/01/17 06:50 06:50 WBC 9.7 RBC 3.53 L Hgb 10.3 L Hct 30.5 L MCV 87 MCH 29.3 MCHC 33.9 RDW 15.5 H Plt Count 279 Seg Neutrophils % 71.4 Lymphocytes % 17.8 Monocytes % 8.3 Eosinophils % 2.1 Basophils % 0.4 Absolute Neutrophils 6.9 Absolute Lymphocytes 1.7 Absolute Monocytes 0.8 Absolute Eosinophils 0.2 Absolute Basophils 0.0 Sodium 139.7 Potassium 4.3 Chloride 103 Carbon Dioxide 30 Anion Gap 7 BUN 8 Creatinine 0.64 Est GFR ( Amer) > 60 Est GFR (Non-Af Amer) > 60 Glucose 83 Calcium 9.5 07/26/17 20:58 Blood Blood Culture - Final NO GROWTH IN 5 DAYS Impressions: Chest CT 07/30/17 00:00 IMPRESSION: NO SIGNIFICANT FINDING ON NON-CONTRASTED CHEST CT. THERE IS A SMALL AMOUNT OF SOFT TISSUE ATTENUATION SURROUNDING THE LEFT POOR WHICH IS ACCESS PRESUMABLY REPRESENTS A SMALL AMOUNT OF BLOOD PRODUCTS. Assessment & Plan - Diagnosis (1) Staphylococcus epidermidis bacteremia Is this a current diagnosis for this admission?: Yes Plan: Continue IV antibiotics (2) Bacteremia Is this a current diagnosis for this admission?: Yes Plan: Both cultures from / growing gram neg bacilli, one culture with gram positive cocci as well White count went up to 18.1 thousand improved to 9k today. Will continue IV broad-spectrum antibiotics until organism is identified. Mediport removed last night by surgery. Will repeat blood cultures this afternoon to see if bacteremia has resolved. Will need PICC or another port prior to discharge. 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
[2017-08-01] MEDS: DAPTOMYCIN 500 MG in NORMAL SALINE 50 ML IV SCH (16:15)
--- NOTE | 2017-08-01 16:38 | PDOC PROGRESS REPORT ---
Subjective Progress Note for:: 08/01/17 Subjective:: POD #1 s/p removal of infected port-a-cath No subjective complaints related to the port-a-cath removal. Reason For Visit: BACTEREMIA,HEMOPHILIA A,OPIOD DEPENDANCE,CHRONIC Physical Exam Vital Signs: Temp Pulse Resp BP Pulse Ox 98.4 F 76 12 115/73 91 L 08/01/17 15:30 08/01/17 15:30 08/01/17 15:30 08/01/17 15:30 08/01/17 15:30 Intake & Output 07/31/17 08/01/17 08/02/17 06:59 06:59 06:59 Intake Total 2874 4661 Output Total 1675 3155 2250 Balance 1199 1506 -2250 Weight 86.1 kg 86.8 kg General appearance: PRESENT: no acute distress Respiratory exam: PRESENT: clear to auscultation iliana, unlabored, other - Port-a- cath removal site is clean and dry, no bleeding, no swelling. Cardiovascular exam: PRESENT: RRR, +S1, +S2 GI/Abdominal exam: PRESENT: normal bowel sounds, soft Neurological exam: PRESENT: alert, awake, oriented to person, oriented to place , oriented to time, CN II-XII grossly intact Results Laboratory Results: 08/01/17 06:50 08/01/17 06:50 08/01/17 08/01/17 06:50 06:50 WBC 9.7 RBC 3.53 L Hgb 10.3 L Hct 30.5 L MCV 87 MCH 29.3 MCHC 33.9 RDW 15.5 H Plt Count 279 Seg Neutrophils % 71.4 Lymphocytes % 17.8 Monocytes % 8.3 Eosinophils % 2.1 Basophils % 0.4 Absolute Neutrophils 6.9 Absolute Lymphocytes 1.7 Absolute Monocytes 0.8 Absolute Eosinophils 0.2 Absolute Basophils 0.0 Sodium 139.7 Potassium 4.3 Chloride 103 Carbon Dioxide 30 Anion Gap 7 BUN 8 Creatinine 0.64 Est GFR ( Amer) > 60 Est GFR (Non-Af Amer) > 60 Glucose 83 Calcium 9.5 07/26/17 20:58 Blood Blood Culture - Final NO GROWTH IN 5 DAYS Impressions: Chest CT 07/30/17 00:00 IMPRESSION: NO SIGNIFICANT FINDING ON NON-CONTRASTED CHEST CT. THERE IS A SMALL AMOUNT OF SOFT TISSUE ATTENUATION SURROUNDING THE LEFT POOR WHICH IS ACCESS PRESUMABLY REPRESENTS A SMALL AMOUNT OF BLOOD PRODUCTS. Assessment & Plan - Diagnosis (1) History of vascular access device Is this a current diagnosis for this admission?: Yes Plan: Surgery will sign off at this time. Continue with pressure type dressing to port-a-cath site. Return to the ER for suture removal x 8 days. 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
[2017-08-02] MEDS: HYDROMORPHONE HCL INJ/PF 2 MG/ML AMPULE IV PRN ×3 (00:20→18:55)
[2017-08-02] MEDS: NORMAL SALINE 1000 ML 1,000 ML IV PRN ×3 (00:20→17:07)
[2017-08-02] MEDS: PIPERACILLIN SODIUM/TAZOBACTAM 3.375 GM in NORMAL SALINE 100 ML IV SCH ×4 (00:20→18:24)
[2017-08-02] MEDS: OXYCODONE HCL IR 5 MG TABLET PO PRN ×5 (02:13→22:18)
[2017-08-02] MEDS: DOCUSATE SODIUM 100 MG CAPSULE PO SCH (08:14)
[2017-08-02] MEDS ORDERED: ANTIHEMOPHILIC FACTOR IV SCH (10:00)
[2017-08-02] MEDS ORDERED: [UNRECOGNIZED DRUG - OTHER] IV SCH (10:00)
[2017-08-02] MEDS: GABAPENTIN 300 MG CAPSULE PO SCH ×2 (11:04→22:16)
--- NOTE | 2017-08-02 17:04 | PDOC PROGRESS REPORT ---
Subjective Progress Note for:: 08/02/17 Subjective:: Pt states that he is feeling better currently. Nursing states that pt had no issues overnight. Reason For Visit: BACTEREMIA,HEMOPHILIA A,OPIOD DEPENDANCE,CHRONIC Physical Exam Vital Signs: Temp Pulse Resp BP Pulse Ox 98.4 F 70 16 101/54 L 97 08/02/17 15:40 08/02/17 15:40 08/02/17 15:40 08/02/17 15:40 08/02/17 15:40 Intake & Output 08/01/17 08/02/17 08/03/17 06:59 06:59 06:59 Intake Total 4661 3746 Output Total 3155 3550 Balance 1506 196 Weight 86.8 kg 81.8 kg General appearance: PRESENT: no acute distress, well-developed, well-nourished Head exam: PRESENT: atraumatic, normocephalic Eye exam: PRESENT: conjunctiva pink, EOMI. ABSENT: scleral icterus Ear exam: PRESENT: normal external ear exam Mouth exam: PRESENT: moist, tongue midline Neck exam: ABSENT: carotid bruit, JVD, lymphadenopathy, thyromegaly Respiratory exam: PRESENT: clear to auscultation iliana. ABSENT: rales, rhonchi, wheezes Cardiovascular exam: PRESENT: RRR. ABSENT: diastolic murmur, rubs, systolic murmur Pulses: PRESENT: normal dorsalis pedis pul Vascular exam: PRESENT: normal capillary refill GI/Abdominal exam: PRESENT: normal bowel sounds, soft. ABSENT: distended, guarding, mass, organolmegaly, rebound, tenderness Rectal exam: PRESENT: deferred Extremities exam: PRESENT: full ROM. ABSENT: calf tenderness, clubbing, pedal edema Neurological exam: PRESENT: alert, awake, oriented to person, oriented to place , oriented to time, oriented to situation, CN II-XII grossly intact. ABSENT: motor sensory deficit Psychiatric exam: PRESENT: appropriate affect, normal mood. ABSENT: homicidal ideation, suicidal ideation Skin exam: PRESENT: other - Dressing placed over chest. Results Laboratory Results: 08/01/17 06:50 08/01/17 06:50 Impressions: Chest CT 07/30/17 00:00 IMPRESSION: NO SIGNIFICANT FINDING ON NON-CONTRASTED CHEST CT. THERE IS A SMALL AMOUNT OF SOFT TISSUE ATTENUATION SURROUNDING THE LEFT POOR WHICH IS ACCESS PRESUMABLY REPRESENTS A SMALL AMOUNT OF BLOOD PRODUCTS. Assessment & Plan - Diagnosis (1) Bacteremia Is this a current diagnosis for this admission?: Yes Plan: Secondary to Staphylococcus and Enterococcus Faecium Group D: Daptomycin and Zosyn. Will narrow treatment tomorrow. Will request for PICC Line placement tomorrow. (2) Hemarthrosis Is this a current diagnosis for this admission?: Yes Plan: Resolving. 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 (4) Hepatitis C Qualifiers: Viral hepatitis chronicity: chronic Hepatic coma status: without hepatic coma Qualified Code(s): B18.2 - Chronic viral hepatitis C Is this a current diagnosis for this admission?: Yes Plan: Supportive care. - Time Time Spent with patient: 15-24 minutes
[2017-08-02] MEDS: DAPTOMYCIN 500 MG in NORMAL SALINE 50 ML IV SCH (17:06)
[2017-08-03] MEDS: PIPERACILLIN SODIUM/TAZOBACTAM 3.375 GM in NORMAL SALINE 100 ML IV SCH ×5 (00:28→23:20)
[2017-08-03] MEDS: NORMAL SALINE 1000 ML 1,000 ML IV PRN (00:28)
[2017-08-03] MEDS: HYDROMORPHONE HCL INJ/PF 2 MG/ML AMPULE IV PRN ×2 (00:29→16:00)
[2017-08-03] MEDS: OXYCODONE HCL IR 5 MG TABLET PO PRN ×6 (02:38→23:20)
[2017-08-03 05:38] LABS: ABSOLUTE EOSINOPHILS # (AUTO) 0.2 10^3/uL (0.0-0.6); ABSOLUTE LYMPHOCYTES (AUTO) 1.3 10^3/uL (0.5-4.7); ABSOLUTE MONOCYTES (AUTO) 0.2 10^3/uL (0.1-1.4); ABSOLUTE NEUT (AUTO) 3.7 10^3/uL (1.7-8.2); BASOPHILS % (AUTO) 0.6 % (0-2); EOSINOPHILS % (AUTO) 3.7 % (0-6); HEMATOCRIT 33.5 % (37.9-51.0); HEMOGLOBIN 11.3 g/dL (13.5-17.0); LYMPHOCYTES % (AUTO) 23.8 % (13-45); MEAN CORPUSCULAR HGB CONC 33.9 g/dL (32.0-36.0); MEAN CORPUSCULAR VOLUME 86 fl (80-97); MONOCYTES % (AUTO) 3.8 % (3-13); PLATELET COUNT 303 10^3/uL (150-450); RED CELL DISTRIBUTION WIDTH 14.8 % (11.5-14.0); SEGMENTED NEUTROPHILS % (AUTO) 68.1 % (42-78); TOTAL CELLS COUNTED % (AUTO) 100 %; WHITE BLOOD COUNT 5.5 10^3/uL (4.0-10.5)
[2017-08-03 06:17] LABS: ALANINE AMINOTRANSFERASE 37 U/L (21-72); ALBUMIN 3.9 g/dL (3.5-5.0); ALKALINE PHOSPHATASE 82 U/L (38-126); ANION GAP 10 (5-19); ASPARTATE AMINO TRANSFERASE 23 U/L (17-59); BILIRUBIN,DIRECT 0.1 mg/dL (0.0-0.4); BILIRUBIN,TOTAL 1.1 mg/dL (0.2-1.3); BLOOD UREA NITROGEN 8 mg/dL (7-20); CALCIUM 9.3 mg/dL (8.4-10.2); CARBON DIOXIDE 28 mmol/L (22-30); CHLORIDE 102 mmol/L (98-107); GLUCOSE 74 mg/dL (75-110); MAGNESIUM 1.9 mg/dL (1.6-2.3); POTASSIUM 4.5 mmol/L (3.6-5.0); SODIUM 140.2 mmol/L (137-145); TOTAL PROTEIN 6.3 g/dL (6.3-8.2)
[2017-08-03] MEDS: DOCUSATE SODIUM 100 MG CAPSULE PO SCH (08:14)
--- NOTE | 2017-08-03 10:46 | PDOC PROGRESS REPORT ---
Subjective Progress Note for:: 08/03/17 Subjective:: No new issues. Reason For Visit: BACTEREMIA,HEMOPHILIA A,OPIOD DEPENDANCE,CHRONIC Physical Exam Vital Signs: Temp Pulse Resp BP Pulse Ox 98.5 F 79 18 104/54 L 97 08/03/17 07:31 08/03/17 07:31 08/03/17 07:31 08/03/17 07:31 08/03/17 07:31 Intake & Output 08/02/17 08/03/17 08/04/17 06:59 06:59 06:59 Intake Total 3746 4950 Output Total 3550 2300 Balance 196 2650 Weight 81.8 kg 81.5 kg General appearance: PRESENT: no acute distress, well-developed, well-nourished Head exam: PRESENT: atraumatic, normocephalic Eye exam: PRESENT: conjunctiva pink, EOMI. ABSENT: scleral icterus Ear exam: PRESENT: normal external ear exam Mouth exam: PRESENT: moist, tongue midline Neck exam: ABSENT: carotid bruit, JVD, lymphadenopathy, thyromegaly Respiratory exam: PRESENT: clear to auscultation iliana. ABSENT: rales, rhonchi, wheezes Cardiovascular exam: PRESENT: RRR. ABSENT: diastolic murmur, rubs, systolic murmur Pulses: PRESENT: normal dorsalis pedis pul Vascular exam: PRESENT: normal capillary refill GI/Abdominal exam: PRESENT: normal bowel sounds, soft. ABSENT: distended, guarding, mass, organolmegaly, rebound, tenderness Rectal exam: PRESENT: deferred Extremities exam: PRESENT: full ROM. ABSENT: calf tenderness, clubbing, pedal edema Neurological exam: PRESENT: alert, awake, oriented to person, oriented to place , oriented to time, oriented to situation, CN II-XII grossly intact. ABSENT: motor sensory deficit Psychiatric exam: PRESENT: appropriate affect, normal mood. ABSENT: homicidal ideation, suicidal ideation Skin exam: PRESENT: dry, intact, warm. ABSENT: cyanosis, rash Results Laboratory Results: 08/03/17 04:42 08/03/17 04:42 08/03/17 08/03/17 04:42 04:42 WBC 5.5 RBC 3.90 L Hgb 11.3 L Hct 33.5 L MCV 86 MCH 29.0 MCHC 33.9 RDW 14.8 H Plt Count 303 Seg Neutrophils % 68.1 Lymphocytes % 23.8 Monocytes % 3.8 Eosinophils % 3.7 Basophils % 0.6 Absolute Neutrophils 3.7 Absolute Lymphocytes 1.3 Absolute Monocytes 0.2 Absolute Eosinophils 0.2 Absolute Basophils 0.0 Sodium 140.2 Potassium 4.5 Chloride 102 Carbon Dioxide 28 Anion Gap 10 BUN 8 Creatinine 0.69 Est GFR ( Amer) > 60 Est GFR (Non-Af Amer) > 60 Glucose 74 L Calcium 9.3 Magnesium 1.9 Total Bilirubin 1.1 AST 23 ALT 37 Alkaline Phosphatase 82 Total Protein 6.3 Albumin 3.9 07/31/17 20:56 Catheter Tip - Peripheral Line (Cath Tip) Catheter Tip Culture - Final NO GROWTH 3 DAYS Impressions: Chest CT 07/30/17 00:00 IMPRESSION: NO SIGNIFICANT FINDING ON NON-CONTRASTED CHEST CT. THERE IS A SMALL AMOUNT OF SOFT TISSUE ATTENUATION SURROUNDING THE LEFT POOR WHICH IS ACCESS PRESUMABLY REPRESENTS A SMALL AMOUNT OF BLOOD PRODUCTS. Assessment & Plan - Diagnosis (1) Bacteremia Is this a current diagnosis for this admission?: Yes Plan: Secondary to Staphylococcus and Enterococcus Faecium Group D: Daptomycin and Zosyn. Contacted Micro who reported that No growth for 24 hours. Will plan on having PICC placed tomorrow. (2) Hemarthrosis Is this a current diagnosis for this admission?: Yes Plan: Resolved. Pt administering Factor on MWF. 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 Pt giving Factor on M/W/F. (4) Hepatitis C Qualifiers: Viral hepatitis chronicity: chronic Hepatic coma status: without hepatic coma Qualified Code(s): B18.2 - Chronic viral hepatitis C Is this a current diagnosis for this admission?: Yes Plan: Supportive care. - Time Time Spent with patient: 15-24 minutes - Will plan to have PICC placed tomorrow once culture negative for 48 hours.
[2017-08-03] MEDS: GABAPENTIN 300 MG CAPSULE PO SCH ×2 (10:47→21:06)
[2017-08-03] MEDS: DAPTOMYCIN 500 MG in NORMAL SALINE 50 ML IV SCH (15:58)
[2017-08-04] MEDS: HYDROMORPHONE HCL INJ/PF 2 MG/ML AMPULE IV PRN ×3 (01:31→19:49)
[2017-08-04] MEDS: OXYCODONE HCL IR 5 MG TABLET PO PRN ×5 (03:43→22:28)
[2017-08-04 05:00] LABS: ABSOLUTE EOSINOPHILS # (AUTO) 0.3 10^3/uL (0.0-0.6); ABSOLUTE LYMPHOCYTES (AUTO) 1.4 10^3/uL (0.5-4.7); ABSOLUTE MONOCYTES (AUTO) 0.7 10^3/uL (0.1-1.4); BASOPHILS % (AUTO) 0.6 % (0-2); EOSINOPHILS % (AUTO) 3.4 % (0-6); HEMATOCRIT 35.3 % (37.9-51.0); HEMOGLOBIN 11.9 g/dL (13.5-17.0); LYMPHOCYTES % (AUTO) 19.3 % (13-45); MEAN CORPUSCULAR HEMOGLOBIN 28.9 pg (27.0-33.4); MEAN CORPUSCULAR HGB CONC 33.6 g/dL (32.0-36.0); MEAN CORPUSCULAR VOLUME 86 fl (80-97); PLATELET COUNT 326 10^3/uL (150-450); RED CELL DISTRIBUTION WIDTH 15.1 % (11.5-14.0); SEGMENTED NEUTROPHILS % (AUTO) 66.7 % (42-78); TOTAL CELLS COUNTED % (AUTO) 100 %; WHITE BLOOD COUNT 7.5 10^3/uL (4.0-10.5)
[2017-08-04 05:03] LABS: INTERNATIONAL RATION (INR) 0.89; PROTHROMBIN TIME 12.7 SEC (11.4-15.4)
[2017-08-04 05:22] LABS: ALANINE AMINOTRANSFERASE 44 U/L (21-72); ALBUMIN 4.2 g/dL (3.5-5.0); ALKALINE PHOSPHATASE 82 U/L (38-126); ANION GAP 12 (5-19); ASPARTATE AMINO TRANSFERASE 29 U/L (17-59); BILIRUBIN,DIRECT 0.4 mg/dL (0.0-0.4); BLOOD UREA NITROGEN 12 mg/dL (7-20); CALCIUM 10.1 mg/dL (8.4-10.2); CARBON DIOXIDE 29 mmol/L (22-30); CHLORIDE 99 mmol/L (98-107); GLUCOSE 85 mg/dL (75-110); MAGNESIUM 2.1 mg/dL (1.6-2.3); POTASSIUM 4.7 mmol/L (3.6-5.0); SODIUM 139.9 mmol/L (137-145); TOTAL PROTEIN 7.1 g/dL (6.3-8.2)
[2017-08-04] MEDS: PIPERACILLIN SODIUM/TAZOBACTAM 3.375 GM in NORMAL SALINE 100 ML IV SCH ×3 (05:55→18:20)
[2017-08-04] MEDS: DOCUSATE SODIUM 100 MG CAPSULE PO SCH (08:12)
[2017-08-04] MEDS: GABAPENTIN 300 MG CAPSULE PO SCH ×2 (09:53→22:29)
--- NOTE | 2017-08-04 12:37 | PDOC PROGRESS REPORT ---
Subjective Progress Note for:: 08/04/17 Subjective:: No new issues. Reason For Visit: BACTEREMIA,HEMOPHILIA A,OPIOD DEPENDANCE,CHRONIC Physical Exam Vital Signs: Temp Pulse Resp BP Pulse Ox 98.7 F 87 16 105/66 99 08/04/17 11:09 08/04/17 11:09 08/04/17 11:09 08/04/17 11:09 08/04/17 11:09 Intake & Output 08/03/17 08/04/17 08/05/17 06:59 06:59 06:59 Intake Total 4950 2779 Output Total 2300 Balance 2650 2779 Weight 81.5 kg 80.6 kg General appearance: PRESENT: no acute distress, well-developed, well-nourished Head exam: PRESENT: atraumatic, normocephalic Eye exam: PRESENT: conjunctiva pink, EOMI. ABSENT: scleral icterus Ear exam: PRESENT: normal external ear exam Mouth exam: PRESENT: moist, tongue midline Neck exam: ABSENT: carotid bruit, JVD, lymphadenopathy, thyromegaly Respiratory exam: PRESENT: clear to auscultation iliana. ABSENT: rales, rhonchi, wheezes Cardiovascular exam: PRESENT: RRR. ABSENT: diastolic murmur, rubs, systolic murmur Pulses: PRESENT: normal dorsalis pedis pul Vascular exam: PRESENT: normal capillary refill GI/Abdominal exam: PRESENT: normal bowel sounds, soft. ABSENT: distended, guarding, mass, organolmegaly, rebound, tenderness Rectal exam: PRESENT: deferred Extremities exam: PRESENT: full ROM. ABSENT: calf tenderness, clubbing, pedal edema Neurological exam: PRESENT: alert, awake, oriented to person, oriented to place , oriented to time, oriented to situation, CN II-XII grossly intact. ABSENT: motor sensory deficit Psychiatric exam: PRESENT: appropriate affect, normal mood. ABSENT: homicidal ideation, suicidal ideation Skin exam: PRESENT: dry, intact, warm. ABSENT: cyanosis, rash Results Laboratory Results: 08/04/17 03:46 08/04/17 03:46 08/04/17 08/04/17 03:46 03:46 WBC 7.5 RBC 4.10 L Hgb 11.9 L Hct 35.3 L MCV 86 MCH 28.9 MCHC 33.6 RDW 15.1 H Plt Count 326 Seg Neutrophils % 66.7 Lymphocytes % 19.3 Monocytes % 10.0 Eosinophils % 3.4 Basophils % 0.6 Absolute Neutrophils 5.0 Absolute Lymphocytes 1.4 Absolute Monocytes 0.7 Absolute Eosinophils 0.3 Absolute Basophils 0.0 Sodium 139.9 Potassium 4.7 Chloride 99 Carbon Dioxide 29 Anion Gap 12 BUN 12 Creatinine 0.76 Est GFR ( Amer) > 60 Est GFR (Non-Af Amer) > 60 Glucose 85 Calcium 10.1 Magnesium 2.1 Total Bilirubin 1.0 AST 29 ALT 44 Alkaline Phosphatase 82 Total Protein 7.1 Albumin 4.2 07/31/17 20:41 Chest - Left Side Gram Stain - Final 07/31/17 20:41 Chest - Left Side Wound Culture - Final NO AEROBIC OR ANAEROBIC ORGANISMS RECOVERED 07/31/17 20:56 Catheter Tip - Peripheral Line (Cath Tip) Catheter Tip Culture - Final NO GROWTH 3 DAYS Impressions: Chest CT 07/30/17 00:00 IMPRESSION: NO SIGNIFICANT FINDING ON NON-CONTRASTED CHEST CT. THERE IS A SMALL AMOUNT OF SOFT TISSUE ATTENUATION SURROUNDING THE LEFT POOR WHICH IS ACCESS PRESUMABLY REPRESENTS A SMALL AMOUNT OF BLOOD PRODUCTS. Assessment & Plan - Diagnosis (1) Bacteremia Is this a current diagnosis for this admission?: Yes Plan: Secondary to Staphylococcus and Enterococcus Faecium Group D: Daptomycin and Zosyn. Will consult surgery for a Cowan. (2) Hemarthrosis Is this a current diagnosis for this admission?: Yes Plan: Resolved. Pt administering Factor on MWF. 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 Pt giving Factor on M//F. (4) Hepatitis C Qualifiers: Viral hepatitis chronicity: chronic Hepatic coma status: without hepatic coma Qualified Code(s): B18.2 - Chronic viral hepatitis C Is this a current diagnosis for this admission?: Yes Plan: Supportive care. - Time Time Spent with patient: 15-24 minutes
[2017-08-04] MEDS: DAPTOMYCIN 500 MG in NORMAL SALINE 50 ML IV SCH (16:59)
[2017-08-05] MEDS: PIPERACILLIN SODIUM/TAZOBACTAM 3.375 GM in NORMAL SALINE 100 ML IV SCH ×4 (00:26→17:31)
[2017-08-05] MEDS: OXYCODONE HCL IR 5 MG TABLET PO PRN ×5 (03:28→20:39)
[2017-08-05 04:34] LABS: ABSOLUTE EOSINOPHILS # (AUTO) 0.3 10^3/uL (0.0-0.6); ABSOLUTE LYMPHOCYTES (AUTO) 1.6 10^3/uL (0.5-4.7); ABSOLUTE NEUT (AUTO) 3.3 10^3/uL (1.7-8.2); BASOPHILS % (AUTO) 0.8 % (0-2); EOSINOPHILS % (AUTO) 4.3 % (0-6); HEMATOCRIT 37.7 % (37.9-51.0); HEMOGLOBIN 12.5 g/dL (13.5-17.0); LYMPHOCYTES % (AUTO) 25.5 % (13-45); MEAN CORPUSCULAR HEMOGLOBIN 28.5 pg (27.0-33.4); MEAN CORPUSCULAR HGB CONC 33.2 g/dL (32.0-36.0); MEAN CORPUSCULAR VOLUME 86 fl (80-97); MONOCYTES % (AUTO) 16.2 % (3-13); PLATELET COUNT 317 10^3/uL (150-450); RED BLOOD COUNT 4.39 10^6/uL (4.35-5.55); RED CELL DISTRIBUTION WIDTH 15.2 % (11.5-14.0); SEGMENTED NEUTROPHILS % (AUTO) 53.2 % (42-78); TOTAL CELLS COUNTED % (AUTO) 100 %; WHITE BLOOD COUNT 6.1 10^3/uL (4.0-10.5)
[2017-08-05 04:51] LABS: ALANINE AMINOTRANSFERASE 42 U/L (21-72); ALBUMIN 4.6 g/dL (3.5-5.0); ALKALINE PHOSPHATASE 80 U/L (38-126); ANION GAP 13 (5-19); ASPARTATE AMINO TRANSFERASE 35 U/L (17-59); BILIRUBIN,TOTAL 1.2 mg/dL (0.2-1.3); BLOOD UREA NITROGEN 12 mg/dL (7-20); CALCIUM 9.8 mg/dL (8.4-10.2); CARBON DIOXIDE 28 mmol/L (22-30); CHLORIDE 98 mmol/L (98-107); GLUCOSE 101 mg/dL (75-110); POTASSIUM 4.5 mmol/L (3.6-5.0); SODIUM 138.9 mmol/L (137-145); TOTAL PROTEIN 7.2 g/dL (6.3-8.2)
[2017-08-05] MEDS: HYDROMORPHONE HCL INJ/PF 2 MG/ML AMPULE IV PRN ×3 (05:29→22:01)
[2017-08-05] MEDS: GABAPENTIN 300 MG CAPSULE PO SCH ×2 (10:20→20:39)
[2017-08-05] MEDS: DOCUSATE SODIUM 100 MG CAPSULE PO SCH (10:20)
--- NOTE | 2017-08-05 15:45 | PDOC PROGRESS REPORT ---
Subjective Progress Note for:: 08/05/17 Subjective:: Pt doing well. Reason For Visit: BACTEREMIA,HEMOPHILIA A,OPIOD DEPENDANCE,CHRONIC Physical Exam Vital Signs: Temp Pulse Resp BP Pulse Ox 97.9 F 79 16 96/60 L 100 08/05/17 11:24 08/05/17 11:24 08/05/17 11:24 08/05/17 11:24 08/05/17 11:24 Intake & Output 08/04/17 08/05/17 08/06/17 06:59 06:59 06:59 Intake Total 2779 2648 850 Output Total 625 Balance 2779 3 850 Weight 80.6 kg 78.7 kg General appearance: PRESENT: no acute distress, well-developed, well-nourished Head exam: PRESENT: atraumatic, normocephalic Eye exam: PRESENT: conjunctiva pink, EOMI. ABSENT: scleral icterus Ear exam: PRESENT: normal external ear exam Mouth exam: PRESENT: moist, tongue midline Neck exam: ABSENT: carotid bruit, JVD, lymphadenopathy, thyromegaly Respiratory exam: PRESENT: clear to auscultation iliana. ABSENT: rales, rhonchi, wheezes Cardiovascular exam: PRESENT: RRR. ABSENT: diastolic murmur, rubs, systolic murmur Pulses: PRESENT: normal dorsalis pedis pul Vascular exam: PRESENT: normal capillary refill GI/Abdominal exam: PRESENT: normal bowel sounds, soft. ABSENT: distended, guarding, mass, organolmegaly, rebound, tenderness Rectal exam: PRESENT: deferred Extremities exam: PRESENT: full ROM, other - right knee swelling. ABSENT: calf tenderness, clubbing, pedal edema Musculoskeletal exam: PRESENT: other - Right knee swelling Neurological exam: PRESENT: alert, awake, oriented to person, oriented to place , oriented to time, oriented to situation, CN II-XII grossly intact. ABSENT: motor sensory deficit Psychiatric exam: PRESENT: appropriate affect, normal mood. ABSENT: homicidal ideation, suicidal ideation Skin exam: PRESENT: dry, intact, warm. ABSENT: cyanosis, rash Results Laboratory Results: 08/05/17 04:10 08/05/17 04:10 08/05/17 08/05/17 04:10 04:10 WBC 6.1 RBC 4.39 Hgb 12.5 L Hct 37.7 L MCV 86 MCH 28.5 MCHC 33.2 RDW 15.2 H Plt Count 317 Seg Neutrophils % 53.2 Lymphocytes % 25.5 Monocytes % 16.2 H Eosinophils % 4.3 Basophils % 0.8 Absolute Neutrophils 3.3 Absolute Lymphocytes 1.6 Absolute Monocytes 1.0 Absolute Eosinophils 0.3 Absolute Basophils 0.0 Sodium 138.9 Potassium 4.5 Chloride 98 Carbon Dioxide 28 Anion Gap 13 BUN 12 Creatinine 0.80 Est GFR ( Amer) > 60 Est GFR (Non-Af Amer) > 60 Glucose 101 Calcium 9.8 Total Bilirubin 1.2 AST 35 ALT 42 Alkaline Phosphatase 80 Total Protein 7.2 Albumin 4.6 07/30/17 16:20 Blood Blood Culture - Final NO GROWTH IN 5 DAYS 07/30/17 15:00 Blood Blood Culture - Final Enterococcus Faecium (Group D) Alcaligenes Species Impressions: Chest CT 07/30/17 00:00 IMPRESSION: NO SIGNIFICANT FINDING ON NON-CONTRASTED CHEST CT. THERE IS A SMALL AMOUNT OF SOFT TISSUE ATTENUATION SURROUNDING THE LEFT POOR WHICH IS ACCESS PRESUMABLY REPRESENTS A SMALL AMOUNT OF BLOOD PRODUCTS. Assessment & Plan - Diagnosis (1) Bacteremia Is this a current diagnosis for this admission?: Yes Plan: Secondary to Staphylococcus and Enterococcus Faecium Group D: Daptomycin and Zosyn. Will consult surgery for a Cowan. (2) Hemarthrosis Is this a current diagnosis for this admission?: Yes Plan: Resolved. Pt administering Factor on MWF. 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 Pt giving Factor on M/W/F. (4) Hepatitis C Qualifiers: Viral hepatitis chronicity: chronic Hepatic coma status: without hepatic coma Qualified Code(s): B18.2 - Chronic viral hepatitis C Is this a current diagnosis for this admission?: Yes Plan: Supportive care. - Time Time Spent with patient: 15-24 minutes
[2017-08-05] MEDS: DAPTOMYCIN 500 MG in NORMAL SALINE 50 ML IV SCH (16:33)
[2017-08-06] MEDS: PIPERACILLIN SODIUM/TAZOBACTAM 3.375 GM in NORMAL SALINE 100 ML IV SCH ×4 (00:39→18:53)
[2017-08-06] MEDS: OXYCODONE HCL IR 5 MG TABLET PO PRN ×4 (00:39→18:51)
[2017-08-06] MEDS: HYDROMORPHONE HCL INJ/PF 2 MG/ML AMPULE IV PRN ×3 (06:37→22:31)
[2017-08-06] MEDS: DOCUSATE SODIUM 100 MG CAPSULE PO SCH (12:04)
[2017-08-06] MEDS: GABAPENTIN 300 MG CAPSULE PO SCH ×2 (12:05→22:30)
--- NOTE | 2017-08-06 21:01 | PDOC PROGRESS REPORT ---
Subjective Progress Note for:: 08/06/17 Subjective:: No new issues. Reason For Visit: BACTEREMIA,HEMOPHILIA A,OPIOD DEPENDANCE,CHRONIC Physical Exam Vital Signs: Temp Pulse Resp BP Pulse Ox 98.8 F 112 H 16 118/76 100 08/06/17 15:20 08/06/17 15:20 08/06/17 15:20 08/06/17 15:20 08/06/17 15:20 Intake & Output 08/05/17 08/06/17 08/07/17 06:59 06:59 06:59 Intake Total 2648 2073 1010 Output Total 625 Balance 2022 2073 1010 Weight 78.7 kg 78.2 kg General appearance: PRESENT: no acute distress, well-developed, well-nourished Head exam: PRESENT: atraumatic, normocephalic Eye exam: PRESENT: conjunctiva pink, EOMI. ABSENT: scleral icterus Ear exam: PRESENT: normal external ear exam Mouth exam: PRESENT: moist, tongue midline Neck exam: ABSENT: carotid bruit, JVD, lymphadenopathy, thyromegaly Respiratory exam: PRESENT: clear to auscultation iliana. ABSENT: rales, rhonchi, wheezes Cardiovascular exam: PRESENT: RRR. ABSENT: diastolic murmur, rubs, systolic murmur Pulses: PRESENT: normal dorsalis pedis pul Vascular exam: PRESENT: normal capillary refill GI/Abdominal exam: PRESENT: normal bowel sounds, soft. ABSENT: distended, guarding, mass, organolmegaly, rebound, tenderness Rectal exam: PRESENT: deferred Extremities exam: PRESENT: full ROM. ABSENT: calf tenderness, clubbing, pedal edema Neurological exam: PRESENT: alert, awake, oriented to person, oriented to place , oriented to time, oriented to situation, CN II-XII grossly intact. ABSENT: motor sensory deficit Psychiatric exam: PRESENT: appropriate affect, normal mood. ABSENT: homicidal ideation, suicidal ideation Skin exam: PRESENT: dry, intact, warm. ABSENT: cyanosis, rash Results Laboratory Results: 08/05/17 04:10 08/05/17 04:10 08/01/17 15:40 Blood Blood Culture - Final NO GROWTH IN 5 DAYS 08/01/17 15:00 Blood Blood Culture - Final NO GROWTH IN 5 DAYS Impressions: Chest CT 07/30/17 00:00 IMPRESSION: NO SIGNIFICANT FINDING ON NON-CONTRASTED CHEST CT. THERE IS A SMALL AMOUNT OF SOFT TISSUE ATTENUATION SURROUNDING THE LEFT POOR WHICH IS ACCESS PRESUMABLY REPRESENTS A SMALL AMOUNT OF BLOOD PRODUCTS. Assessment & Plan - Diagnosis (1) Bacteremia Is this a current diagnosis for this admission?: Yes Plan: Secondary to Staphylococcus and Enterococcus Faecium Group D: Daptomycin and Zosyn. Patient has completed 14 days of antibiotics will discharge home (2) Hemarthrosis Is this a current diagnosis for this admission?: Yes Plan: Resolved. Pt administering Factor on MWF. 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 Pt giving Factor on M/W/F. (4) Hepatitis C Qualifiers: Viral hepatitis chronicity: chronic Hepatic coma status: without hepatic coma Qualified Code(s): B18.2 - Chronic viral hepatitis C Is this a current diagnosis for this admission?: Yes Plan: Supportive care. - Time Time Spent with patient: 15-24 minutes - Discussed with patient about history with IV access and he reports multiple episodes of line infections. Feel that patient most likely will be safe with doing peripheral IV sticks as he is done in the past. Due to patient not being sanitary enough to decrease IV line infections
[2017-08-07] MEDS: PIPERACILLIN SODIUM/TAZOBACTAM 3.375 GM in NORMAL SALINE 100 ML IV SCH (00:41)
[2017-08-07] MEDS: OXYCODONE HCL IR 5 MG TABLET PO PRN ×6 (00:42→22:52)
[2017-08-07] MEDS: DOCUSATE SODIUM 100 MG CAPSULE PO SCH (09:25)
[2017-08-07] MEDS: GABAPENTIN 300 MG CAPSULE PO SCH ×2 (09:25→20:29)
[2017-08-07] MEDS: HYDROMORPHONE HCL INJ/PF 2 MG/ML AMPULE IV PRN ×2 (13:14→20:28)
--- NOTE | 2017-08-07 16:04 | PDOC PROGRESS REPORT ---
Subjective Progress Note for:: 08/07/17 Subjective:: No new issues today. Reason For Visit: BACTEREMIA,HEMOPHILIA A,OPIOD DEPENDANCE,CHRONIC Physical Exam Vital Signs: Temp Pulse Resp BP Pulse Ox 97.9 F 87 14 105/59 L 100 08/07/17 11:14 08/07/17 11:14 08/07/17 11:14 08/07/17 11:14 08/07/17 11:14 Intake & Output 08/06/17 08/07/17 08/08/17 06:59 06:59 06:59 Intake Total 2073 Balance 2073 Weight 78.2 kg 77.6 kg General appearance: PRESENT: no acute distress, well-developed, well-nourished Head exam: PRESENT: atraumatic, normocephalic Eye exam: PRESENT: conjunctiva pink, EOMI. ABSENT: scleral icterus Ear exam: PRESENT: normal external ear exam Mouth exam: PRESENT: moist, tongue midline Neck exam: ABSENT: carotid bruit, JVD, lymphadenopathy, thyromegaly Respiratory exam: PRESENT: clear to auscultation iliana. ABSENT: rales, rhonchi, wheezes Cardiovascular exam: PRESENT: RRR. ABSENT: diastolic murmur, rubs, systolic murmur Pulses: PRESENT: normal dorsalis pedis pul Vascular exam: PRESENT: normal capillary refill GI/Abdominal exam: PRESENT: normal bowel sounds, soft. ABSENT: distended, guarding, mass, organolmegaly, rebound, tenderness Rectal exam: PRESENT: deferred Extremities exam: PRESENT: full ROM. ABSENT: calf tenderness, clubbing, pedal edema Neurological exam: PRESENT: alert, awake, oriented to person, oriented to place , oriented to time, oriented to situation, CN II-XII grossly intact. ABSENT: motor sensory deficit Psychiatric exam: PRESENT: appropriate affect, normal mood. ABSENT: homicidal ideation, suicidal ideation Results Laboratory Results: 08/05/17 04:10 08/05/17 04:10 08/01/17 15:40 Blood Blood Culture - Final NO GROWTH IN 5 DAYS 08/01/17 15:00 Blood Blood Culture - Final NO GROWTH IN 5 DAYS Impressions: Chest CT 07/30/17 00:00 IMPRESSION: NO SIGNIFICANT FINDING ON NON-CONTRASTED CHEST CT. THERE IS A SMALL AMOUNT OF SOFT TISSUE ATTENUATION SURROUNDING THE LEFT POOR WHICH IS ACCESS PRESUMABLY REPRESENTS A SMALL AMOUNT OF BLOOD PRODUCTS. Assessment & Plan - Diagnosis (1) Bacteremia Is this a current diagnosis for this admission?: Yes Plan: Secondary to Alcaligenes Species and Enterococcus Faecium Group D: Daptomycin and Zosyn. Patient has completed 14 days of antibiotics will discharge home (2) Hemarthrosis Is this a current diagnosis for this admission?: Yes Plan: Resolved. Pt administering Factor on MWF. 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 Pt giving Factor on M/W/F. (4) Hepatitis C Qualifiers: Viral hepatitis chronicity: chronic Hepatic coma status: without hepatic coma Qualified Code(s): B18.2 - Chronic viral hepatitis C Is this a current diagnosis for this admission?: Yes Plan: Supportive care. - Time Time Spent with patient: Less than 15 minutes - Will complete 14 days of IV antibiotics on August 09. Plan for discharge will be on August 09, 2017
[2017-08-08] MEDS: HYDROMORPHONE HCL INJ/PF 2 MG/ML AMPULE IV PRN ×4 (01:09→23:22)
[2017-08-08] MEDS: OXYCODONE HCL IR 5 MG TABLET PO PRN ×5 (02:57→21:21)
[2017-08-08] MEDS: DOCUSATE SODIUM 100 MG CAPSULE PO SCH (09:01)
[2017-08-08] MEDS: GABAPENTIN 300 MG CAPSULE PO SCH ×2 (09:01→21:21)
--- NOTE | 2017-08-08 11:38 | PDOC PROGRESS REPORT ---
Subjective Progress Note for:: 08/08/17 Subjective:: Pt states that he is doing well. Pt states that he is ready to go home. Reason For Visit: BACTEREMIA,HEMOPHILIA A,OPIOD DEPENDANCE,CHRONIC Physical Exam Vital Signs: Temp Pulse Resp BP Pulse Ox 98.3 F 81 14 107/70 97 08/08/17 07:20 08/08/17 07:20 08/08/17 07:20 08/08/17 07:20 08/08/17 07:20 Intake & Output 08/07/17 08/08/17 08/09/17 06:59 06:59 06:59 Intake Total 2084 1465 Balance 2084 1465 Weight 77.6 kg 77.6 kg General appearance: PRESENT: no acute distress, well-developed, well-nourished Head exam: PRESENT: atraumatic, normocephalic Eye exam: PRESENT: conjunctiva pink, EOMI. ABSENT: scleral icterus Ear exam: PRESENT: normal external ear exam Mouth exam: PRESENT: moist, tongue midline Neck exam: ABSENT: carotid bruit, JVD, lymphadenopathy, thyromegaly Respiratory exam: PRESENT: clear to auscultation iliana. ABSENT: rales, rhonchi, wheezes Cardiovascular exam: PRESENT: RRR. ABSENT: diastolic murmur, rubs, systolic murmur Pulses: PRESENT: normal dorsalis pedis pul Vascular exam: PRESENT: normal capillary refill GI/Abdominal exam: PRESENT: normal bowel sounds, soft. ABSENT: distended, guarding, mass, organolmegaly, rebound, tenderness Rectal exam: PRESENT: deferred Extremities exam: PRESENT: full ROM. ABSENT: calf tenderness, clubbing, pedal edema Neurological exam: PRESENT: alert, awake, oriented to person, oriented to place , oriented to time, oriented to situation, CN II-XII grossly intact. ABSENT: motor sensory deficit Psychiatric exam: PRESENT: appropriate affect, normal mood. ABSENT: homicidal ideation, suicidal ideation Skin exam: PRESENT: dry, intact, warm. ABSENT: cyanosis, rash Results Laboratory Results: 08/05/17 04:10 08/05/17 04:10 Impressions: Chest CT 07/30/17 00:00 IMPRESSION: NO SIGNIFICANT FINDING ON NON-CONTRASTED CHEST CT. THERE IS A SMALL AMOUNT OF SOFT TISSUE ATTENUATION SURROUNDING THE LEFT POOR WHICH IS ACCESS PRESUMABLY REPRESENTS A SMALL AMOUNT OF BLOOD PRODUCTS. Assessment & Plan - Diagnosis (1) Bacteremia Is this a current diagnosis for this admission?: Yes Plan: Secondary to Alcaligenes Species and Enterococcus Faecium Group D: Daptomycin and Zosyn. Patient has completed 14 days of antibiotics will discharge home (2) Hemarthrosis Is this a current diagnosis for this admission?: Yes Plan: Resolved. Pt administering Factor on MWF. 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 Pt giving Factor on M/W/F. (4) Hepatitis C Qualifiers: Viral hepatitis chronicity: chronic Hepatic coma status: without hepatic coma Qualified Code(s): B18.2 - Chronic viral hepatitis C Is this a current diagnosis for this admission?: Yes Plan: Supportive care. - Time Time Spent with patient: Less than 15 minutes
[2017-08-08] MEDS: PIPERACILLIN SODIUM/TAZOBACTAM 3.375 GM in NORMAL SALINE 100 ML IV SCH ×3 (12:18→23:23)
[2017-08-08] MEDS ORDERED: DAPTOMYCIN 500 MG in NORMAL SALINE 50 ML IV SCH (14:00)
[2017-08-09] MEDS: OXYCODONE HCL IR 5 MG TABLET PO PRN ×4 (02:13→14:34)
[2017-08-09] MEDS: HYDROMORPHONE HCL INJ/PF 2 MG/ML AMPULE IV PRN ×3 (03:21→13:51)
[2017-08-09] MEDS: PIPERACILLIN SODIUM/TAZOBACTAM 3.375 GM in NORMAL SALINE 100 ML IV SCH (06:08)
[2017-08-09] MEDS: GABAPENTIN 300 MG CAPSULE PO SCH (10:30)
[2017-08-09] MEDS: DOCUSATE SODIUM 100 MG CAPSULE PO SCH (10:34)
--- NOTE | 2017-08-09 13:02 | PDOC DISCHARGE SUMMARY ---
General - Admit/Disc Date/PCP Admission Date/Primary Care Provider: 07/26/17 18:03 Discharge Date: 08/09/17 - Discharge Diagnosis (1) Septic shock due to Enterococcus fecalis Is this a current diagnosis for this admission?: Yes Summary: and Alcaligenes Species: Pt completed 14 days of antibiotics. (2) Bacteremia Is this a current diagnosis for this admission?: Yes Summary: Secondary to Alcaligenes Species and Enterococcus Faecium Group D due to Port: Pt has completed 14 days of antibiotics. (3) Hemarthrosis Is this a current diagnosis for this admission?: Yes Summary: Pt will use Factor on M/W/F. 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 (5) Hepatitis C Is this a current diagnosis for this admission?: Yes Summary: Supportive care. (6) Hematoma Is this a current diagnosis for this admission?: Yes Summary: Right upper ext: Pt has given him self factor. Will place on Keflex for 10 days. - Additional Information Resuscitation Status: Full Code Discharge Diet: As Tolerated Discharge Activity: Activity As Tolerated Prescriptions: Ceftriaxone 2 gm/D5w RTU [Rocephin RTU 2 gm/D5w 50 ml Premix Bag] 2 gm IV DAILY #10 rtupb Oxycodone HCl [Oxy-Ir 5 mg Tablet] 5 mg PO Q4HP PRN #15 tablet PRN Reason: Home Medications: Antihemophilic Factor/Vwf [Humate-P 500 Unit Factor VIII Vial] 4,000 unit IV BIDP PRN 07/26/17 Antihemophilic Factor/Vwf [Humate-P 500 Unit Factor VIII Vial] 4,000 unit IV MOWEFR@10 07/27/17 Ceftriaxone 2 gm/D5w RTU [Rocephin RTU 2 gm/D5w 50 ml Premix Bag] 2 gm IV DAILY #10 rtupb 07/30/17 Oxycodone HCl [Oxy-Ir 5 mg Tablet] 5 mg PO Q4HP PRN #15 tablet 07/30/17 History of Present Illness Patient complains of: Pain and bleeding at the site of MediPort. History of Present Illness: RENAN RAMOS is a 27 year old male presented to the ER after receiving call that his blood culture was positive. Pt had a mediport placed a few days ago. Pt was noted to have complained of fever. Pt was admitted to the hospital and found to have Enterococcus Faecalis and Alcalgenes species. Pt was placed on 14 days of IV antibiotics. Pt was placed in the ICU. Pt was transferred to regular floor. On day of discharge pt was noted to have right upper ext hematoma. Hospital Course Hospital Course: RENAN RAMOS is a 27 year old male presented to the ER after receiving call that his blood culture was positive. Pt had a mediport placed a few days ago. Pt was noted to have complained of fever. Pt was admitted to the hospital and found to have Enterococcus Faecalis and Alcalgenes species. Pt was placed on 14 days of IV antibiotics. Pt was placed in the ICU. Pt was transferred to regular floor. On day of discharge pt was noted to have right upper ext hematoma. Physical Exam Vital Signs: Temp Pulse Resp BP Pulse Ox 98.3 F 87 18 100/68 98 08/09/17 08:18 08/09/17 08:18 08/09/17 08:18 08/09/17 08:18 08/09/17 08:18 Intake & Output 08/08/17 08/09/17 08/10/17 06:59 06:59 06:59 Intake Total 1465 1637 Balance 1465 1637 Weight 77.6 kg 96.1 kg General appearance: PRESENT: no acute distress, well-developed, well-nourished Head exam: PRESENT: atraumatic, normocephalic Eye exam: PRESENT: conjunctiva pink, EOMI. ABSENT: scleral icterus Ear exam: PRESENT: normal external ear exam Mouth exam: PRESENT: moist, tongue midline Neck exam: ABSENT: carotid bruit, JVD, lymphadenopathy, thyromegaly Respiratory exam: PRESENT: clear to auscultation iliana. ABSENT: rales, rhonchi, wheezes Cardiovascular exam: PRESENT: RRR. ABSENT: diastolic murmur, rubs, systolic murmur Pulses: PRESENT: normal dorsalis pedis pul Vascular exam: PRESENT: normal capillary refill GI/Abdominal exam: PRESENT: normal bowel sounds, soft. ABSENT: distended, guarding, mass, organolmegaly, rebound, tenderness Rectal exam: PRESENT: deferred Extremities exam: PRESENT: other - + right upper ext hematoma. ABSENT: calf tenderness, clubbing, pedal edema Neurological exam: PRESENT: alert, awake, oriented to person, oriented to place , oriented to time, oriented to situation, CN II-XII grossly intact. ABSENT: motor sensory deficit Psychiatric exam: PRESENT: appropriate affect, normal mood. ABSENT: homicidal ideation, suicidal ideation Skin exam: PRESENT: other - + right upper ext hematoma and ecchymosis Results Laboratory Results: 08/05/17 04:10 08/05/17 04:10 Impressions: Chest CT 07/30/17 00:00 IMPRESSION: NO SIGNIFICANT FINDING ON NON-CONTRASTED CHEST CT. THERE IS A SMALL AMOUNT OF SOFT TISSUE ATTENUATION SURROUNDING THE LEFT POOR WHICH IS ACCESS PRESUMABLY REPRESENTS A SMALL AMOUNT OF BLOOD PRODUCTS. Plan Time Spent: Greater than 30 Minutes
[2017-08-09 14:07] VITALS: BP 103/69
== END 2017-08-09 15:50 | disposition home or self-care (01) | DRG 314 ==
LOC: ER 14:22 → EH 18:03 → 2S 07-27 14:36 → ICU 07-30 17:40 → 4N 07-31 22:10 → 2N 08-08 18:43
PROVIDERS: ADMIT Emergency Medicine; ATTEND Emergency Medicine
DX: T80.211A Bloodstream infection due to central venous catheter, initial encounter (principal); A41.81 Sepsis due to Enterococcus; R65.21 Severe sepsis with septic shock; D66 Hereditary factor VIII deficiency; M25.00 Hemarthrosis, unspecified joint; M19.90 Unspecified osteoarthritis, unspecified site; B18.2 Chronic viral hepatitis C; Z79.891 Long term (current) use of opiate analgesic; Z79.899 Other long term (current) drug therapy; Z88.6 Allergy status to analgesic agent; Z88.3 Allergy status to other anti-infective agents
CPT/HCPCS: 36415; 400; 71250; 80048; 80053; 83605; 83735; 85025; 85610; 85730; 87040; 87070; 87077; 87186; 87205; 99284; J0692; J0696; J0878; J1100; J1170; J1200; J2020; J2250; J2300; J2405; J2543; J2704; J3010; J3490; J7030; J7060

== ENCOUNTER 2017-08-13 14:07 | Emergency (ER) | payer MEDICAID ==
[2017-08-13] MEDS ORDERED: OXYCODONE HCL IR 5 MG TABLET PO ONE (16:59)
--- NOTE | 2017-08-13 16:59 | ER Document Report ---
ED Skin Rash/Insect Bite/Abscs - General Chief Complaint: Skin Problem Stated Complaint: ARM SWELLING Time Seen by Provider: 08/13/17 16:29 Mode of Arrival: Ambulatory Information source: Patient Notes: Patient is a 27-year-old male with hemophilia A who presents to the ER today for bruising, swelling and pain to his right upper arm. Patient denies any injuries states, "my kids must avoid on it wrong or something." Patient states that he has not had his factor VIII since 4 days ago because he is out. TRAVEL OUTSIDE OF THE [place] IN LAST 30 DAYS: No - Related Data Allergies/Adverse Reactions: acetaminophen [From Tylenol] Adverse Reaction (Verified 08/13/17 14:08) aspirin [Aspirin] Adverse Reaction (Verified 08/13/17 14:08) bleeding ibuprofen [From Motrin] Adverse Reaction (Verified 08/13/17 14:08) bleeding morphine [Morphine] Adverse Reaction (Verified 08/13/17 14:08) Hives NSAIDS (Non-Steroidal Anti-Inflamma [Nsaids] Adverse Reaction (Verified 14:08) Bleeding Risk vancomycin [Vancomycin] Adverse Reaction (Verified 08/13/17 14:08) austyn's syndrome Past Medical History - General Information source: Patient - Social History Smoking Status: Never Smoker Chew tobacco use (# tins/day): No Frequency of alcohol use: None Drug Abuse: None Family History: Reviewed & Not Pertinent, DM, Other - autoimmune factor VIII deficiency. Hep C Patient has suicidal ideation: No Patient has homicidal ideation: No Renal/ Medical History: Denies: Hx Peritoneal Dialysis GI Medical History: Reports: Hx Hepatitis - hep C Musculoskeltal Medical History: Reports Hx Arthritis Psychiatric Medical History: Denies: Hx Depression Infectious Medical History: Reports: Hx Hepatitis - hep C Past Surgical History: Reports: Hx Orthopedic Surgery - bilat ankles, bilat knees, L elbow, Bilat Forearms Removal synovial memb L, Hx Vascular Surgery - ports (inactive) - Immunizations Immunizations up to date: Yes Hx Diphtheria, Pertussis, Tetanus Vaccination: Yes Hx Pneumococcal Vaccination: 06/28/09 Review of Systems - Review of Systems Constitutional: No symptoms reported EENT: No symptoms reported Cardiovascular: No symptoms reported Respiratory: No symptoms reported Gastrointestinal: No symptoms reported Genitourinary: No symptoms reported Male Genitourinary: No symptoms reported Musculoskeletal: No symptoms reported Skin: No symptoms reported Hematologic/Lymphatic: See HPI Neurological/Psychological: No symptoms reported Physical Exam - Vital signs Vitals: Temp Pulse Resp BP Pulse Ox 98.6 F 101 H 18 115/77 98 08/13/17 14:16 18 14:16 08/13/17 14:16 08/13/17 14:16 08/13/17 14:16 - Notes Notes: PHYSICAL EXAMINATION: GENERAL: Well-appearing and in no acute distress. HEAD: Atraumatic, normocephalic. EYES: Pupils equal round and reactive to light, extraocular movements intact, sclera anicteric, conjunctiva are normal. NECK: Normal range of motion, supple without lymphadenopathy LUNGS: CTAB and equal. No wheezes rales or rhonchi. HEART: Regular rate and rhythm without murmurs EXTREMITIES: Normal range of motion, no pitting edema. No cyanosis. NEUROLOGICAL: Cranial nerves grossly intact. Normal sensory/motor exams. PSYCH: Normal mood, normal affect. SKIN: Warm, Dry, normal turgor, large amount of ecchymosis to the right upper arm, tender to palpation Course - Re-evaluation Re-evalutation: 08/13/17 18:44 Patient is getting factor VIII now. No x-rays necessary since patient really had no injury. Patient received pain medication today. - Vital Signs Vital signs: Temp Pulse Resp BP Pulse Ox 98.6 F 101 H 18 115/77 98 08/13/17 14:16 08/13/17 14:16 08/13/17 14:16 08/13/17 14:16 08/13/17 14:16 Discharge - Discharge Clinical Impression: Hemophilia A, bruising right arm Condition: Stable Disposition: HOME, SELF-CARE Additional Instructions: Return immediately for any new or worsening symptoms. Follow up with primary care provider, call tomorrow to make followup appointment. Prescriptions: Oxycodone HCl 15 mg PO Q6 PRN #10 tablet PRN Reason:
[2017-08-13] MEDS ORDERED: [UNRECOGNIZED DRUG - OTHER] IV ONE ×2 (18:30)
[2017-08-13] MEDS ORDERED: ANTIHEMOPHILIC FACTOR IV ONE ×2 (18:30)
[2017-08-13 20:13] VITALS: BP 128/82
== END 2017-08-13 20:15 | disposition home or self-care (01) ==
LOC: ER 14:07
DX: D66 Hereditary factor VIII deficiency (principal); S40.021A Contusion of right upper arm, initial encounter; M79.601 Pain in right arm; M79.89 Other specified soft tissue disorders; X58.XXXA Exposure to other specified factors, initial encounter
CPT/HCPCS: J3490 ×2; J7187

== ENCOUNTER 2017-08-16 13:34 | Emergency (ER) | payer MEDICAID ==
[2017-08-16 13:54] VITALS: BP 125/83
--- NOTE | 2017-08-16 15:38 | ER Document Report ---
ED Extremity Problem, Lower - General Chief Complaint: Knee Pain Stated Complaint: RIGHT KNEE SWELLING Time Seen by Provider: 08/16/17 15:28 Mode of Arrival: Ambulatory Information source: Patient Notes: Patient is well-known to the emergency department. He presents with right knee pain and swelling. He states it is been going on for several days. He is a hemophiliac and states he is currently out of his medications. The pain is constant. It is moderate. It radiates up the right leg. It is worse with movement and better with rest. He denies any trauma or injury. Patient states that he does not wish to be transferred at this time but wishes to receive prescriptions for his factor and pain medication. TRAVEL OUTSIDE OF THE [place] IN LAST 30 DAYS: No - Related Data Allergies/Adverse Reactions: acetaminophen [From Tylenol] Adverse Reaction (Verified 08/16/17 13:38) aspirin [Aspirin] Adverse Reaction (Verified 08/16/17 13:38) bleeding ibuprofen [From Motrin] Adverse Reaction (Verified 08/16/17 13:38) bleeding morphine [Morphine] Adverse Reaction (Verified 08/16/17 13:38) Hives NSAIDS (Non-Steroidal Anti-Inflamma [Nsaids] Adverse Reaction (Verified 13:38) Bleeding Risk vancomycin [Vancomycin] Adverse Reaction (Verified 08/16/17 13:38) austyn's syndrome Past Medical History - General Information source: Patient - Social History Smoking Status: Never Smoker Chew tobacco use (# tins/day): No Frequency of alcohol use: None Drug Abuse: None Family History: Reviewed & Not Pertinent, DM, Other - autoimmune factor VIII deficiency. Hep C Patient has suicidal ideation: No Patient has homicidal ideation: No Renal/ Medical History: Denies: Hx Peritoneal Dialysis GI Medical History: Reports: Hx Hepatitis - hep C Musculoskeltal Medical History: Reports Hx Arthritis Psychiatric Medical History: Denies: Hx Depression Infectious Medical History: Reports: Hx Hepatitis - hep C Past Surgical History: Reports: Hx Orthopedic Surgery - bilat ankles, bilat knees, L elbow, Bilat Forearms Removal synovial memb L, Hx Vascular Surgery - ports (inactive) - Immunizations Immunizations up to date: Yes Hx Diphtheria, Pertussis, Tetanus Vaccination: Yes Hx Pneumococcal Vaccination: 06/28/09 Review of Systems - Review of Systems Constitutional: denies: Chills, Fever Cardiovascular: denies: Chest pain, Palpitations Respiratory: denies: Cough, Short of breath Physical Exam - Vital signs Vitals: Temp Pulse Resp BP Pulse Ox 98.5 F 101 H 18 125/83 97 08/16/17 13:53 08/16/17 13:53 08/16/17 13:53 08/16/17 13:53 08/16/17 13:53 Interpretation: Normal - General General appearance: Appears well, Alert In distress: None - HEENT Head: Normocephalic, Atraumatic Eyes: Normal Pupils: PERRL - Respiratory Respiratory status: No respiratory distress Chest status: Nontender Breath sounds: Normal Chest palpation: Normal - Cardiovascular Rhythm: Regular Heart sounds: Normal auscultation Murmur: No - Abdominal Inspection: Normal Distension: No distension Bowel sounds: Normal Tenderness: Nontender Organomegaly: No organomegaly - Back Back: Normal, Nontender - Extremities General upper extremity: Normal inspection, Nontender, Normal color, Normal ROM , Normal temperature General lower extremity: Tender, Edema, Normal color, Other - There is a right knee that has a moderate effusion it is mildly tender. There is some increased warmth.. No: Normal temperature, Nicolasa's sign - Neurological Neuro grossly intact: Yes Cognition: Normal Orientation: AAOx4 [place] Coma Scale Eye Opening: Spontaneous [place] Coma Scale Verbal: Oriented [place] Coma Scale Motor: Obeys Commands [place] Coma Scale Total: 15 Speech: Normal Motor strength normal: LUE, RUE, LLE, RLE Sensory: Normal - Psychological Associated symptoms: Normal affect, Normal mood - Skin Skin Temperature: Warm Skin Moisture: Dry Skin Color: Normal Course - Re-evaluation Re-evalutation: 08/16/17 15:36 discussed transfer with pt and he declines - Vital Signs Vital signs: Temp Pulse Resp BP Pulse Ox 98.5 F 101 H 18 125/83 97 08/16/17 13:53 08/16/17 13:53 08/16/17 13:53 08/16/17 13:53 08/16/17 13:53 Discharge - Discharge Clinical Impression: Knee effusion, right, Hemophilia Condition: Stable Disposition: HOME, SELF-CARE Instructions: Ice & Elevation ([facility]), Oral Narcotic Medication ([facility]) Additional Instructions: please call your pillowcase cleaner as soon as possible to discuss a reevaluation Prescriptions: Oxycodone HCl 15 mg PO BID PRN 3 Days #10 tablet PRN Reason:
== END 2017-08-16 15:49 | disposition home or self-care (01) ==
LOC: ER 13:34
DX: M25.461 Effusion, right knee (principal); D66 Hereditary factor VIII deficiency; M25.561 Pain in right knee; Z88.6 Allergy status to analgesic agent; Z88.3 Allergy status to other anti-infective agents; Z86.19 Personal history of other infectious and parasitic diseases
CPT/HCPCS: 99283

== ENCOUNTER 2017-08-19 09:21 | Emergency (ER) | payer MEDICAID ==
[2017-08-19 09:26] VITALS: BP 133/93
--- NOTE | 2017-08-19 09:48 | ER Document Report ---
ED General - General Chief Complaint: Swelling of Lower Extremity Stated Complaint: RIGHT KNEE PAIN Time Seen by Provider: 08/19/17 09:36 Mode of Arrival: Ambulatory Information source: Patient Notes: 27-year-old male presents with history of hemophilia A with complaints of right knee swelling. Patient notes his right knee is swollen more than usual, he denies any fevers or chills, patient is able to ambulate and is resting comfortably TRAVEL OUTSIDE OF THE [place] IN LAST 30 DAYS: No - HPI Onset: Just prior to arrival Onset/Duration: Persistent Quality of pain: Achy Severity: Mild Pain Level: 1 Associated symptoms: Body/muscle aches Exacerbated by: Movement Relieved by: Denies Similar symptoms previously: Yes Recently seen / treated by doctor: Yes - Related Data Allergies/Adverse Reactions: acetaminophen [From Tylenol] Adverse Reaction (Verified 08/19/17 09:34) aspirin [Aspirin] Adverse Reaction (Verified 08/19/17 09:34) bleeding ibuprofen [From Motrin] Adverse Reaction (Verified 08/19/17 09:34) bleeding morphine [Morphine] Adverse Reaction (Verified 08/19/17 09:34) Hives NSAIDS (Non-Steroidal Anti-Inflamma [Nsaids] Adverse Reaction (Verified 09:34) Bleeding Risk vancomycin [Vancomycin] Adverse Reaction (Verified 08/19/17 09:34) austyn's syndrome Past Medical History - Social History Smoking Status: Never Smoker Cigarette use (# per day): No Chew tobacco use (# tins/day): No Smoking Education Provided: No Frequency of alcohol use: None Drug Abuse: None Family History: Reviewed & Not Pertinent, DM, Other - autoimmune factor VIII deficiency. Hep C Patient has suicidal ideation: No Patient has homicidal ideation: No Renal/ Medical History: Denies: Hx Peritoneal Dialysis GI Medical History: Reports: Hx Hepatitis - hep C Musculoskeltal Medical History: Reports Hx Arthritis Psychiatric Medical History: Denies: Hx Depression Infectious Medical History: Reports: Hx Hepatitis - hep C Past Surgical History: Reports: Hx Orthopedic Surgery - bilat ankles, bilat knees, L elbow, Bilat Forearms Removal synovial memb L, Hx Vascular Surgery - ports (inactive) - Immunizations Immunizations up to date: Yes Hx Diphtheria, Pertussis, Tetanus Vaccination: Yes Hx Pneumococcal Vaccination: 06/28/09 Review of Systems - Review of Systems Notes: REVIEW OF SYSTEMS: CONSTITUTIONAL : Denies fever, chills, or sweats. Denies recent illness. EENT: Denies eye, ear, throat, or mouth pain or symptoms. Denies nasal or sinus congestion or discharge. Denies throat, tongue, or mouth swelling or difficulty swallowing. CARDIOVASCULAR: Denies chest pain. Denies palpitations or racing or irregular heart beat. Denies ankle edema. RESPIRATORY: Denies cough, cold, or chest congestion. Denies shortness of breath, difficulty breathing, or wheezing. GASTROINTESTINAL: Denies abdominal pain or distention. Denies nausea, vomiting , or diarrhea. Denies blood in vomitus, stools, or per rectum. Denies black, tarry stools. Denies constipation. GENITOURINARY: Denies difficulty urinating, painful urination, burning, frequency, blood in urine, or discharge. MUSCULOSKELETAL: Admits to knee pain swelling SKIN: Denies rash, lesions or sores. HEMATOLOGIC : Denies easy bruising or bleeding. LYMPHATIC: Denies swollen, enlarged glands. NEUROLOGICAL: Denies confusion or altered mental status. Denies passing out or loss of consciousness. Denies dizziness or lightheadedness. Denies headache. Denies weakness or paralysis or loss of use of either side. Denies problems with gait or speech. Denies sensory loss, numbness, or tingling. Denies seizures. PSYCHIATRIC: Denies anxiety or stress. Denies depression, suicidal ideation, or homicidal ideation. ALL OTHER SYSTEMS REVIEWED AND NEGATIVE. Dictation was performed using [email or web address] voice recognition software PHYSICAL EXAMINATION: GENERAL: Well-appearing, well-nourished and in no acute distress. HEAD: Atraumatic, normocephalic. EYES: Pupils equal round and reactive to light, extraocular movements intact, sclera anicteric, conjunctiva are normal. ENT: Nares patent, oropharynx clear without exudates. Moist mucous membranes. NECK: Normal range of motion, supple without lymphadenopathy LUNGS: Breath sounds clear to auscultation bilaterally and equal. No wheezes rales or rhonchi. HEART: Regular rate and rhythm without murmurs ABDOMEN: Soft, nontender, nondistended abdomen. No guarding, no rebound. No masses appreciated. Musculoskeletal: Right knee is chronically edematous and actually looks smaller than his baseline which the patient admits to. NEUROLOGICAL: Cranial nerves grossly intact. Normal speech, normal gait. Normal sensory, motor exams PSYCH: Normal mood, normal affect. SKIN: Warm, Dry, normal turgor, no rashes or lesions noted. Physical Exam - Vital signs Vitals: Temp Pulse Resp BP Pulse Ox 98.7 F 95 16 133/93 H 99 08/19/17 09:25 08/19/17 09:25 08/19/17 09:25 08/19/17 09:25 08/19/17 09:25 Course - Re-evaluation Re-evalutation: 08/19/17 09:47 Patient has been seen multiple times for similar complaints, has been noted to have a narcotic abuse history he continues to receive narcotics in the emergency department and has been told multiple times that he must follow-up with his own physicians for his care and is not appropriate to continue receiving narcotics through the emergency department. I will order factor VIII his request, I did offer nonnarcotics but the patient states he is allergic to everything else 08/19/17 11:17 It appears patient has eloped since he was told he would not receive narcotics, it appears his knee swelling was not concerning enough to receive the factor VIII that was ordered for him - Vital Signs Vital signs: Temp Pulse Resp BP Pulse Ox 98.7 F 95 16 133/93 H 99 08/19/17 09:25 08/19/17 09:25 08/19/17 09:25 08/19/17 09:25 08/19/17 09:25 Discharge - Discharge Clinical Impression: Opioid abuse, Hemophilia A, Hemarthrosis Condition: Stable Disposition: ELOPED
[2017-08-19] MEDS ORDERED: ANTIHEMOPHILIC FACTOR IV ONE ×2 (11:00)
[2017-08-19] MEDS ORDERED: [UNRECOGNIZED DRUG - OTHER] IV ONE ×2 (11:00)
== END 2017-08-19 11:15 | disposition left against medical advice (07) ==
LOC: ER 09:21
DX: D66 Hereditary factor VIII deficiency (principal); M25.061 Hemarthrosis, right knee; F11.10 Opioid abuse, uncomplicated; R22.41 Localized swelling, mass and lump, right lower limb; M79.1 Myalgia; Z88.6 Allergy status to analgesic agent; Z88.3 Allergy status to other anti-infective agents; Z86.19 Personal history of other infectious and parasitic diseases
CPT/HCPCS: 99281

== ENCOUNTER 2017-08-20 11:32 | Emergency (ER) | payer MEDICAID ==
--- NOTE | 2017-08-20 13:05 | ER Document Report ---
ED General - General Chief Complaint: Medication Refill Stated Complaint: MEDICATION REFILL Time Seen by Provider: 08/20/17 12:14 Mode of Arrival: Ambulatory Information source: Patient Notes: Patient is a 27-year-old male with hemophilia A who presents to the ER today for right knee swelling. Patient is here sometimes daily for his right knee swelling and yesterday was seen here, had factor VIII ordered, mixed and then left without getting it. Patient denies any new injury. TRAVEL OUTSIDE OF THE [place] IN LAST 30 DAYS: No - Related Data Allergies/Adverse Reactions: acetaminophen [From Tylenol] Adverse Reaction (Verified 08/19/17 09:34) aspirin [Aspirin] Adverse Reaction (Verified 08/19/17 09:34) bleeding ibuprofen [From Motrin] Adverse Reaction (Verified 08/19/17 09:34) bleeding morphine [Morphine] Adverse Reaction (Verified 08/19/17 09:34) Hives NSAIDS (Non-Steroidal Anti-Inflamma [Nsaids] Adverse Reaction (Verified 09:34) Bleeding Risk vancomycin [Vancomycin] Adverse Reaction (Verified 08/19/17 09:34) austyn's syndrome Past Medical History - General Information source: Patient - Social History Smoking Status: Unknown if Ever Smoked Family History: Reviewed & Not Pertinent, DM, Other - autoimmune factor VIII deficiency. Hep C Patient has suicidal ideation: No Patient has homicidal ideation: No Renal/ Medical History: Denies: Hx Peritoneal Dialysis GI Medical History: Reports: Hx Hepatitis - hep C Musculoskeltal Medical History: Reports Hx Arthritis Psychiatric Medical History: Denies: Hx Depression Infectious Medical History: Reports: Hx Hepatitis - hep C Past Surgical History: Reports: Hx Orthopedic Surgery - bilat ankles, bilat knees, L elbow, Bilat Forearms Removal synovial memb L, Hx Vascular Surgery - ports (inactive) - Immunizations Immunizations up to date: Yes Hx Diphtheria, Pertussis, Tetanus Vaccination: Yes Hx Pneumococcal Vaccination: 06/28/09 Review of Systems - Review of Systems Constitutional: No symptoms reported EENT: No symptoms reported Cardiovascular: No symptoms reported Respiratory: No symptoms reported Gastrointestinal: No symptoms reported Genitourinary: No symptoms reported Male Genitourinary: No symptoms reported Musculoskeletal: See HPI Skin: No symptoms reported Hematologic/Lymphatic: See HPI Neurological/Psychological: No symptoms reported Physical Exam - Vital signs Vitals: Temp Pulse Resp BP Pulse Ox 98.4 F 97 16 129/90 H 98 08/20/17 11:42 08/20/17 11:42 08/20/17 11:42 08/20/17 11:42 08/20/17 11:42 - Notes Notes: PHYSICAL EXAMINATION: GENERAL: Well-appearing and in no acute distress. HEAD: Atraumatic, normocephalic. EYES: Pupils equal round and reactive to light, extraocular movements intact, sclera anicteric, conjunctiva are normal. ENT: ear canals without erythema or foreign body, TMs pearly brice with good bony landmarks, nares patent, oropharynx clear without exudates. Moist mucous membranes. NECK: Normal range of motion, supple without lymphadenopathy LUNGS: CTAB and equal. No wheezes rales or rhonchi. HEART: Regular rate and rhythm without murmurs ABDOMEN: Soft, no tenderness. No guarding, no rebound BACK: no vertebral tenderness, normal ROM GI/: no CVA tenderness EXTREMITIES: Normal range of motion, no pitting edema. No cyanosis. NEUROLOGICAL: Cranial nerves grossly intact. Normal sensory/motor exams. PSYCH: Normal mood, normal affect. SKIN: Warm, Dry, normal turgor, no rashes or lesions noted Course - Vital Signs Vital signs: Temp Pulse Resp BP Pulse Ox 98.4 F 97 16 129/90 H 98 08/20/17 11:42 08/20/17 11:42 08/20/17 11:42 08/20/17 11:42 08/20/17 11:42 Discharge - Discharge Clinical Impression: Hemophilia A, Knee effusion, right Condition: Stable Disposition: HOME, SELF-CARE Additional Instructions: Return immediately for any new or worsening symptoms. Follow up with primary care provider, call tomorrow to make followup appointment.
[2017-08-20 14:21] VITALS: BP 130/83
== END 2017-08-20 13:30 | disposition home or self-care (01) ==
LOC: ER 11:32
DX: D66 Hereditary factor VIII deficiency (principal); M25.461 Effusion, right knee; M79.89 Other specified soft tissue disorders
CPT/HCPCS: 99281

== ENCOUNTER 2017-10-11 10:16 | Day surgery (SDC) | payer MEDICAID ==
[~2017-10-11 10:16] MED LIST: ACETAMINOPHEN 325 MG TABLET PO PRN; CEFAZOLIN 1 GM/D5W RTU 1 GM/50 ML RTUPB IV PRN
[2017-10-11 11:40] LABS: HEMATOCRIT 40.7 % (37.9-51.0); HEMOGLOBIN 13.3 g/dL (13.5-17.0); MEAN CORPUSCULAR HEMOGLOBIN 27.7 pg (27.0-33.4); MEAN CORPUSCULAR HGB CONC 32.6 g/dL (32.0-36.0); MEAN CORPUSCULAR VOLUME 85 fl (80-97); PLATELET COUNT 297 10^3/uL (150-450); RED BLOOD COUNT 4.78 10^6/uL (4.35-5.55); RED CELL DISTRIBUTION WIDTH 15.4 % (11.5-14.0); WHITE BLOOD COUNT 7.5 10^3/uL (4.0-10.5)
[2017-10-11 11:51] LABS: INTERNATIONAL RATION (INR) 0.91; PARTIAL THROMBOPLASTIN TIME 86.6 SEC (23.5-35.8); PROTHROMBIN TIME 12.7 SEC (11.4-15.4)
[2017-10-11] MEDS ORDERED: FENTANYL CITRATE INJ/PF 100 MCG/2 ML AMPUL ONE (12:24)
[2017-10-11] MEDS ORDERED: MIDAZOLAM 2 MG/2 ML INJ ONE (12:24)
[2017-10-11] MEDS ORDERED: EPHEDRINE SULFATE INJ 50 MG/1 ML AMPULE ONE (12:24)
[2017-10-11] MEDS ORDERED: ACETAMINOPHEN 0 ML IV ONE (12:25)
[2017-10-11] MEDS ORDERED: PROPOFOL INJ 200 MG/20 ML VIAL IV ONE ×2 (12:25→14:32)
[2017-10-11] MEDS ORDERED: LIDOCAINE 1%/EPINEPHRINE INJ 20 ML VIAL ONE ×2 (12:49→13:55)
[2017-10-11] MEDS ORDERED: LIDOCAINE 2% INJ-PF (20 MG/ML) 2 ML AMPUL ONE (13:42)
[2017-10-11] MEDS ORDERED: ONDANSETRON HCL INJ/PF 4 MG/2 ML SDV ONE (13:42)
[2017-10-11] MEDS ORDERED: KETAMINE HCL INJ 500 MG/10 ML VIAL ONE (14:00)
--- NOTE | 2017-10-11 14:19 | Discharge Summary ---
Discharge Summary (SDC) - Discharge Final Diagnosis: Factory Eight deficiency Date of Surgery: 10/11/17 Discharge Date: 10/11/17 Condition: Good Treatment or Instructions: Regular diet; may use catheter in 10 days. May shower; prescription on chart limited to 48 hours. Discharge Diet: Regular Discharge Activity: Activity As Tolerated Home Care Assistance: None Needed Report the Following to Your Physician Immediately: Shortness of Breath, Increase in Pain, Fever over 101 Degrees
--- NOTE | 2017-10-11 14:24 | Operative Report ---
Operative Report DATE OF SURGERY: 10/11/17 PREOPERATIVE DIAGNOSIS: Factor VIII deficiency; inadequate peripheral IV access POSTOPERATIVE DIAGNOSIS: Same OPERATION: 1. Focused ultrasound of the right neck. 2. Ultrasound directed insertion of single lumen [id number] catheter to right subclavian position. 3. Interpretation of intraoperative fluoroscopy. SURGEON: MICHAELA HIGGINS ANESTHESIA: LMAC TISSUE REMOVED OR ALTERED: None COMPLICATIONS: None ESTIMATED BLOOD LOSS: Minimal INTRAOPERATIVE FINDINGS: See below PROCEDURE: Patient was taken to the preop holding area the main operating room where the right neck was marked. Which were placed in supine position. The neck and chest wall prepped and draped sterile fashion. Surgical plan and surgical timeout were conducted. Right neck was scanned with a variable frequency linear transducer. Findings were significant for suitable, compressible right internal jugular vein. Skin was decreased as 1% plain lidocaine, knife wound made with a 15 blade, and a micro needle and wire were threaded into the right internal jugular vein. A suitable site for placement of the port was chosen in the right subclavian position. Skin was anesthetized with plain lidocaine, 4 cm incision was made with a knife, using electrocautery, pocket developed large enough to accommodate a single-chamber port was created. The catheter was then trimmed the appropriate length tunneled between the 2 incisions with the tunneling device, then attached to the port with the plastic locking ring. The port was tucked into the pocket. Under fluoroscopic guidance, the right internal jugular vein micro wire was switched over to a conventional guidewire using the micro introducer sheath. Then threaded the 9 Italian dilator and sheath over the wire and dilator wire removed, catheter threaded into the internal jugular vein under fluoroscopic guidance and strip away sheath removed leaving the catheter in excellent position with no kinking, and the tip in the right atrium. There was no evidence of ectopy. Catheter was aspirated and flushed with heparinized saline. Wounds were closed with 3-0 Vicryl, Dermabond glue. Patient tolerated procedure well, taken recovery in stable condition.
[2017-10-11] MEDS: FENTANYL CITRATE INJ/PF 100 MCG/2 ML AMPUL ONE ×2 (14:25→14:30)
--- NOTE | 2017-10-11 16:33 | RADIOLOGY REPORT (SQ) ---
EXAM DESCRIPTION: FLUORO/CV PLACEMENT COMPLETED DATE/TIME: 10/11/2017 2:40 pm REASON FOR STUDY: PORTACATH RT SIDE PLCMT ASST W/ FLUORO IN OR D66 HEREDITARY FACTOR VIII DEFICIENC Y COMPARISON: None. FLUOROSCOPY TIME: 0.2 minutes. 4 images saved to PACS. TECHNIQUE: Intra-operative images acquired during surgical procedure to evaluate progress. NUMBER OF IMAGES: 4 images. LIMITATIONS: None. FINDINGS: Images of the chest acquired during port placement. IMPRESSION: IMAGE(S) OBTAINED DURING PROCEDURE. COMMENT: Quality ID [id number]: Final reports for procedures using fluoroscopy that document radiation exp osure indices, or exposure time and number of fluorographic images (if radiation exposure indices are not available) Please consult full operative report of the attending physician for description of the procedure. TECHNICAL DOCUMENTATION: JOB ID: [id number] [employer]- All Rights Reserved Reading location - IP/workstation name: [email or web address]
[2017-10-12 13:53] VITALS: BP 142/78
== END 2017-10-11 16:20 | disposition home or self-care (01) ==
LOC: OROUT 10:16
PROVIDERS: ATTEND Surgery
PROC: 05H533Z Insertion of Infusion Device into Right Subclavian Vein, Percutaneous Approach (ICD-10-PCS; principal; 2017-10-11 13:30)
DX: D66 Hereditary factor VIII deficiency (principal); B19.20 Unspecified viral hepatitis C without hepatic coma; Z88.5 Allergy status to narcotic agent; D64.9 Anemia, unspecified; M25.00 Hemarthrosis, unspecified joint; Z88.0 Allergy status to penicillin; Z88.6 Allergy status to analgesic agent; Z79.899 Other long term (current) drug therapy
CPT/HCPCS: 36415; 85027; 85610; 85730; 77001; 36561; C1752; C1788; J2250; J0690; J3010; J3490 ×3; J2405; J2704; J1642; 532; J0131

== ENCOUNTER 2017-11-05 17:17 | Emergency (ER) | payer MEDICAID ==
[~2017-11-05 17:17] MED LIST changes: -ACETAMINOPHEN 325 MG TABLET PO PRN; -CEFAZOLIN 1 GM/D5W RTU 1 GM/50 ML RTUPB IV PRN; +SUCCINYLCHOLINE CHLORIDE INJ 200 MG/10 ML VIAL ONE
[2017-11-05] MEDS ORDERED: MIDAZOLAM 2 MG/2 ML INJ ONE (17:49)
[2017-11-05] MEDS ORDERED: FENTANYL CITRATE INJ/PF 100 MCG/2 ML AMPUL ONE (17:49)
[2017-11-05] MEDS ORDERED: PROPOFOL 100 ML IV ONE (17:50)
[2017-11-05 18:07] LABS: INTERNATIONAL RATION (INR) 0.94
[2017-11-05] MEDS ORDERED: MIDAZOLAM 2 MG/2 ML INJ IV ONE (18:08)
[2017-11-05] MEDS ORDERED: PROPOFOL INJ 200 MG/20 ML VIAL IV ONE ×2 (18:08→18:09)
[2017-11-05] MEDS ORDERED: FENTANYL CITRATE INJ/PF 100 MCG/2 ML AMPUL IV ONE (18:08)
[2017-11-05] MEDS ORDERED: VECURONIUM BROMIDE INJ 10 MG VIAL IV ONE ×2 (18:08→20:08)
[2017-11-05 18:09] LABS: ABSOLUTE EOSINOPHILS # (AUTO) 0.1 10^3/uL (0.0-0.6); ABSOLUTE LYMPHOCYTES (AUTO) 1.4 10^3/uL (0.5-4.7); ABSOLUTE MONOCYTES (AUTO) 0.9 10^3/uL (0.1-1.4); ABSOLUTE NEUT (AUTO) 7.5 10^3/uL (1.7-8.2); BASOPHILS % (AUTO) 0.4 % (0-2); EOSINOPHILS % (AUTO) 0.7 % (0-6); HEMATOCRIT 31.1 % (37.9-51.0); HEMOGLOBIN 10.2 g/dL (13.5-17.0); LYMPHOCYTES % (AUTO) 14.3 % (13-45); MEAN CORPUSCULAR HGB CONC 32.7 g/dL (32.0-36.0); MEAN CORPUSCULAR VOLUME 86 fl (80-97); MONOCYTES % (AUTO) 8.8 % (3-13); PARTIAL THROMBOPLASTIN TIME 92.3 SEC (23.5-35.8); PLATELET COUNT 413 10^3/uL (150-450); RED BLOOD COUNT 3.64 10^6/uL (4.35-5.55); SEGMENTED NEUTROPHILS % (AUTO) 75.8 % (42-78); TOTAL CELLS COUNTED % (AUTO) 100 %; WHITE BLOOD COUNT 9.8 10^3/uL (4.0-10.5)
[2017-11-05] MEDS ORDERED: NORMAL SALINE 1000 ML 1,000 ML IV ONE (18:15)
--- NOTE | 2017-11-05 18:20 | RADIOLOGY REPORT (SQ) ---
EXAM DESCRIPTION: CHEST SINGLE VIEW COMPLETED DATE/TIME: 11/05/2017 6:12 pm REASON FOR STUDY: chest palpitations COMPARISON: 07/25/2017 EXAM PARAMETERS: NUMBER OF VIEWS: One view. TECHNIQUE: Single frontal radiographic view of the chest acquired. RADIATION DOSE: NA LIMITATIONS: None. FINDINGS: LUNGS AND PLEURA: No opacities, masses or pneumothorax. No pleural effusion. MEDIASTINUM AND HILAR STRUCTURES: No masses. Contour normal. HEART AND VASCULAR STRUCTURES: Heart normal in size. Normal vasculature. BONES: No acute findings. HARDWARE: Injection port on the right OTHER: No other significant finding. IMPRESSION: NO ACUTE RADIOGRAPHIC FINDING IN THE CHEST. TECHNICAL DOCUMENTATION: JOB ID: [id number] [employer]- All Rights Reserved Reading location - IP/workstation name: [email or web address]
[2017-11-05 18:26] LABS: ANION GAP 9 (5-19); BLOOD UREA NITROGEN 25 mg/dL (7-20); CALCIUM 9.1 mg/dL (8.4-10.2); CARBON DIOXIDE 36 mmol/L (22-30); CHLORIDE 100 mmol/L (98-107); GLUCOSE 115 mg/dL (75-110); POTASSIUM 3.4 mmol/L (3.6-5.0); SODIUM 145.1 mmol/L (137-145)
[2017-11-05] MEDS ORDERED: NORMAL SALINE 250 ML IV PRN ×2 (18:48)
--- NOTE | 2017-11-05 19:13 | RADIOLOGY REPORT (SQ) ---
EXAM DESCRIPTION: CT HEAD WITHOUT COMPLETED DATE/TIME: 11/05/2017 6:40 pm REASON FOR STUDY: facial swelling hemophilia eval active bleeding COMPARISON: None. TECHNIQUE: Axial images acquired through the brain without intravenous contrast. Images reviewed wi th bone, brain and subdural windows. Additional sagittal and coronal reconstructions were generated. Images stored on PACS. All CT scanners at this facility use dose modulation, iterative reconstruction, and/or weight based d osing when appropriate to reduce radiation dose to as low as reasonably achievable (ALARA). [facility]: Dose Right [facility]: CareDose [facility]: Dose Right [facility]: Teradose 4D [facility]: [employer] RADIATION DOSE: mGy. LIMITATIONS: None. FINDINGS: VENTRICLES: Normal size and contour. CEREBRUM: No masses. No hemorrhage. No midline shift. No evidence for acute infarction. Normal gra y/white matter differentiation. No areas of low density in the white matter. CEREBELLUM: No masses. No hemorrhage. No alteration of density. No evidence for acute infarction. EXTRAAXIAL SPACES: No fluid collections. No masses. ORBITS AND GLOBE: No intra- or extraconal masses. Normal contour of globe without masses. CALVARIUM: No fracture. PARANASAL SINUSES: There is almost complete opacification of the left maxillary sinus. SOFT TISSUES: There is what appears to be a large soft tissue hematoma in the left side of the face a ll extending inferiorly from the inferior orbit and laterally. OTHER: No other significant finding. IMPRESSION: 1. No acute intracranial imaging findings. 2. There is opacification in the left maxillary sinus. 3. There is large apparent soft tissue hematoma in the left side of the face. EVIDENCE OF ACUTE STROKE: NO. COMMENT: Quality ID # 436: Final reports with documentation of one or more dose reduction techniques (e.g., Automated exposure control, adjustment of the mA and/or kV according to patient size, use of iterative reconstruction technique) TECHNICAL DOCUMENTATION: JOB ID: [id number] [employer]- All Rights Reserved Reading location - IP/workstation name: [email or web address]
--- NOTE | 2017-11-05 19:21 | RADIOLOGY REPORT (SQ) ---
EXAM DESCRIPTION: CT SOFT TISSUE NECK WITH COMPLETED DATE/TIME: 11/05/2017 6:40 pm REASON FOR STUDY: facial swelling hemophilia eval active bleeding COMPARISON: None. TECHNIQUE: Post IV contrasted scanning from skull base through lung apices with review of bone, soft tissue and lung windows. Reconstructed coronal and sagittal MPR images reviewed. All images stored on PACS. All CT scanners at this facility use dose modulation, iterative reconstruction, and/or weight based d osing when appropriate to reduce radiation dose to as low as reasonably achievable (ALARA). [facility]: Dose Right [facility]: CareDose [facility]: Dose Right [facility]: Teradose 4D [facility]: [employer] CONTRAST TYPE AND DOSE: 75 cc Isovue 370- low osmolar. RENAL FUNCTION: Emergency room physician waived the renal function tests RADIATION DOSE: . LIMITATIONS: None. FINDINGS: There is large left facial hematoma that extends inferiorly from the left orbit and involv es the lateral soft tissues. This is bounded posteriorly by the parotid gland. This extends slightl y inferior to to the mandibular ramus. Some of this extends into the parapharyngeal region. Major v essels in the neck are opacified. An endotracheal tube is present. The left maxillary sinus is almo st completely opacified. IMPRESSION: Large left facial hematoma as described. TECHNICAL DOCUMENTATION: JOB ID: [id number] Quality ID # [id number]: Final reports with documentation of one or more dose reduction techniques (e.g., Au tomated exposure control, adjustment of the mA and/or kV according to patient size, use of iterative reconstruction technique) 2010 [employer]- All Rights Reserved Reading location - IP/workstation name: [email or web address]
--- NOTE | 2017-11-05 19:21 | ER Document Report ---
ED General - General Chief Complaint: Facial Swelling Stated Complaint: FACIAL SWELLING Time Seen by Provider: 11/05/17 17:27 TRAVEL OUTSIDE OF THE [place] IN LAST 30 DAYS: No - HPI Patient complains to provider of: Facial swelling Notes: Patient coming in for evaluation of facial swelling. Patient has a history of hemophilia A patient states he did not take any factor today however went to one the local dental clinics and had a lower molar on the left side removed. Patient states this was performed at 10:00 since that time has had increased facial swelling. Upon my evaluation patient is speaking with a muffled voice however denies any shortness of breath however he is requesting pain medications. - Related Data Allergies/Adverse Reactions: acetaminophen [From Tylenol] Adverse Reaction (Verified 11/05/17 17:50) aspirin [Aspirin] Adverse Reaction (Verified 11/05/17 17:50) bleeding ibuprofen [From Motrin] Adverse Reaction (Verified 11/05/17 17:50) bleeding morphine [Morphine] Adverse Reaction (Verified 11/05/17 17:50) Hives NSAIDS (Non-Steroidal Anti-Inflamma [Nsaids] Adverse Reaction (Verified 17:50) Bleeding Risk vancomycin [Vancomycin] Adverse Reaction (Verified 11/05/17 17:50) austyn's syndrome Past Medical History - Social History Smoking Status: Never Smoker Chew tobacco use (# tins/day): No Frequency of alcohol use: None Drug Abuse: None Family History: Reviewed & Not Pertinent, DM, Other - autoimmune factor VIII deficiency. Hep C Patient has suicidal ideation: No Patient has homicidal ideation: No - Past Medical History Cardiac Medical History: Denies: Hx Coronary Artery Disease, Hx Heart Attack, Hx Hypertension Pulmonary Medical History: Denies: Hx Asthma, Hx Bronchitis, Hx COPD, Hx Pneumonia Neurological Medical History: Denies: Hx Cerebrovascular Accident, Hx Seizures Renal/ Medical History: Denies: Hx Peritoneal Dialysis GI Medical History: Reports: Hx Hepatitis - hep C Musculoskeltal Medical History: Reports Hx Arthritis Psychiatric Medical History: Denies: Hx Depression Infectious Medical History: Reports: Hx Hepatitis - hep C Past Surgical History: Reports: Hx Orthopedic Surgery - bilat ankles, bilat knees, L elbow, Bilat Forearms Removal synovial memb L, Hx Vascular Surgery - ports (inactive) - Immunizations Immunizations up to date: Yes Hx Diphtheria, Pertussis, Tetanus Vaccination: Yes Hx Pneumococcal Vaccination: 06/28/09 Review of Systems - Review of Systems Constitutional: No symptoms reported EENT: Other - Facial swelling Cardiovascular: No symptoms reported Respiratory: No symptoms reported Gastrointestinal: No symptoms reported Genitourinary: No symptoms reported Male Genitourinary: No symptoms reported Musculoskeletal: No symptoms reported Skin: No symptoms reported Hematologic/Lymphatic: No symptoms reported Neurological/Psychological: No symptoms reported -: Yes All other systems reviewed and negative Physical Exam - Vital signs Vitals: Pulse Ox 97 11/05/17 17:29 Interpretation: Normal - General General appearance: Appears well, Alert - HEENT Head: Normocephalic, Ecchymosis, [place]'s eyes Eyes: Normal Pupils: PERRL Notes: Patient has obvious left orbital ecchymosis along with swelling to the right side of face consistent more likely hematoma formation of the patient's history of tooth extraction hemophilia. This does extend down into the left lateral neck there is no crepitus felt. Patient does have minimal tracheal deviation upon his physical examination patient does have swelling ofBoth lips does not cross the midline.Patient does have a difficult time in opening his mouth he is speaking with a muffled voice. Am able to examine 8 the posterior pharynx I do see signs of possible tooth extraction however there is some blood in the oral cavity posteriorly does look to be maintained with no swelling or uvula deviation. - Respiratory Respiratory status: No respiratory distress Chest status: Nontender Breath sounds: Normal Chest palpation: Normal - Cardiovascular Rhythm: Regular Heart sounds: Normal auscultation Murmur: No - Abdominal Inspection: Normal Distension: No distension Bowel sounds: Normal Tenderness: Nontender Organomegaly: No organomegaly - Back Back: Normal, Nontender - Extremities General upper extremity: Normal inspection - Ecchymosis to the left thigh mild swelling to the right knee, Nontender, Normal color, Normal ROM, Normal temperature General lower extremity: Nontender, Normal color, Normal ROM, Normal temperature , Nicolasa's sign. No: Normal inspection - Ecchymosis to the left thigh mild swelling to the right knee - Neurological Neuro grossly intact: Yes Cognition: Normal Orientation: AAOx4 [place] Coma Scale Eye Opening: Spontaneous [place] Coma Scale Verbal: Oriented [place] Coma Scale Motor: Obeys Commands [place] Coma Scale Total: 15 Speech: Normal Motor strength normal: LUE, RUE, LLE, RLE Sensory: Normal - Psychological Associated symptoms: Normal affect, Normal mood - Skin Skin Temperature: Warm Skin Moisture: Dry Skin Color: Normal Course - Re-evaluation Re-evalutation: 11/05/17 18:44 Patient coming in today with a history of hemophilia type A patient states he did not take any factor today however did have 1 of his lower molars removed I wonder local dental clinics here in [place]. Patient states this was performed at 10:00 and since that time has had increased swelling to the left side of his face that includes above the orbit both eyelids and left side of his face going down to the left lateral neck. Patient states he is not having any trouble breathing. Patient states he did take his factor day prior. Patient denies any difficulty breathing however he does have some difficulty opening his mouth. Both his lips are involved however does not track across the midline. Patient also has will likely be significant hematoma formation left-sided jaw tracking down to the left lateral neck. There are the looks like to be some slight tracheal deviation. Patient does have elevation of his tongue when opening his mouth and does speak with a muffled voice. Because of these findings decision was made to intubate the patient prophylactically. Patient was made to our trauma bay and anesthesia was called intubation was performed without difficulty. CT scan was also performed The results are currently pending. Patient upon returning from CT scan does look to have an air leak in the ET tube. I did reconsult anesthesia pop exchange the tube however etiology is having a little bit of bleeding around the oral mucosa therefore decision was made at the ET tube was in correct place to leave ET tube along. Patient at this time would not have an NG or a G-tube placed because of his hemophilia 11/05/17 19:50 Discussed with [facility] transfer team patient was accepted for transfer. We will air with the patient to [facility]. 11/05/17 19:53 CT scan results confirms no active intracranial bleed No active bleeding in the left facial regio, Large hematoma - Vital Signs Vital signs: Temp Pulse Resp BP Pulse Ox 96.5 F L 69 13 107/72 97 11/05/17 21:06 11/05/17 21:06 11/05/17 21:06 11/05/17 21:06 11/05/17 21:06 - Laboratory Result Diagrams: 11/05/17 17:38 11/05/17 17:38 Laboratory results interpreted by me: 11/05/17 11/05/17 11/05/17 17:38 17:38 17:38 RBC 3.64 L Hgb 10.2 L Hct 31.1 L RDW 15.0 H APTT 92.3 H Sodium 145.1 H Potassium 3.4 L Carbon Dioxide 36 H BUN 25 H Glucose 115 H Critical Care Note - Critical Care Note Total time excluding time spent on procedures (mins): 60 Comments: Multiple evaluation for patient with facial swelling causing airway compromise requiring prophylactic intubation. Discharge - Discharge Clinical Impression: Hemophilia A, facial swelling/Hematoma , Airway compromise Condition: Stable Disposition: [place]
[2017-11-05] MEDS: PROPOFOL 100 ML IV PRN ×2 (20:15→21:20)
[2017-11-05 21:19] VITALS: BP 107/72
--- NOTE | 2017-11-06 08:58 | EKG REPORT ---
SEVERITY:- ABNORMAL ECG - SINUS RHYTHM PROBABLE LEFT VENTRICULAR HYPERTROPHY : Confirmed by: Paul Peacock MD 06-Nov-2017 08:57:46
== END 2017-11-05 21:38 | disposition short-term general hospital (02) ==
LOC: ER 17:17
DX: M96.841 Postprocedural hematoma of a musculoskeletal structure following other procedure (principal); Y83.8 Other surgical procedures as the cause of abnormal reaction of the patient, or of later complication, without mention of misadventure at the time of the procedure; D66 Hereditary factor VIII deficiency; M25.461 Effusion, right knee; R58 Hemorrhage, not elsewhere classified
CPT/HCPCS: 93005; 99291; 96360; 86900; 86901; 36415; 36430; 86850; 85025; 85610; 85730; 80048; 71045; 70450; 70491; 93010; 31500; P9017; J2704 ×2; J3490; J0330; J7030; 94660

== ENCOUNTER 2018-08-20 00:33 | Emergency (ER) | payer MEDICAID ==
--- NOTE | 2018-08-20 01:42 | RADIOLOGY REPORT (SQ) ---
EXAM DESCRIPTION: XR ANKLE 3 OR MORE VIEWS COMPLETED DATE/TME: 08/20/2018 00:00 CLINICAL HISTORY: 28 years, Male, injury COMPARISON: 01/24/2017 left ankle NUMBER OF VIEWS: 3 TECHNIQUE: 3 view left ankle LIMITATIONS: None. FINDINGS: Stable postsurgical change with old fracture deformities of the distal tibia and fibula with partial bony fusion with the underlying talus. No evidence for acute fracture or dislocation. Soft tissues are unremarkable IMPRESSION: Old fracture deformities with post surgical change and partial bony fusion, as above copyright 2010 [employer]- All Rights Reserved
[2018-08-20] MEDS ORDERED: OXYCODONE HCL IR 5 MG TABLET PO ONE (01:49)
--- NOTE | 2018-08-20 01:50 | ER Document Report ---
ED Extremity Problem, Lower - General Chief Complaint: Ankle Pain Stated Complaint: LEFT ANKLE PAIN Time Seen by Provider: 08/20/18 01:43 Notes: Patient is a 28-year-old male that comes to the emergency department for chief complaint of left ankle injury. He states that he was walking on the side of the road and he accidentally slipped on the curb, he inverted his left ankle. States he has some pain and he is starting to have some swelling. He states he is concerned because he has a history of hemophilia A. He takes factor VIII and oxycodone for pain. He denies any other concerns or any other injuries. TRAVEL OUTSIDE OF THE [place] IN LAST 30 DAYS: No - Related Data Allergies/Adverse Reactions: acetaminophen [From Tylenol] Adverse Reaction (Verified 11/05/17 17:50) aspirin [Aspirin] Adverse Reaction (Verified 11/05/17 17:50) bleeding ibuprofen [From Motrin] Adverse Reaction (Verified 11/05/17 17:50) bleeding morphine [Morphine] Adverse Reaction (Verified 11/05/17 17:50) Hives NSAIDS (Non-Steroidal Anti-Inflamma [Nsaids] Adverse Reaction (Verified 11/05/17 17:50) Bleeding Risk vancomycin [Vancomycin] Adverse Reaction (Verified 11/05/17 17:50) austyn's syndrome Past Medical History - General Information source: Patient - Social History Smoking Status: Current Every Day Smoker Lives with: Family Family History: Reviewed & Not Pertinent, DM, Other - autoimmune factor VIII deficiency. Hep C - Past Medical History Cardiac Medical History: Denies: Hx Coronary Artery Disease, Hx Heart Attack, Hx Hypertension Pulmonary Medical History: Denies: Hx Asthma, Hx Bronchitis, Hx COPD, Hx Pneumonia Neurological Medical History: Denies: Hx Cerebrovascular Accident, Hx Seizures Renal/ Medical History: Denies: Hx Peritoneal Dialysis GI Medical History: Reports: Hx Hepatitis - hep C Musculoskeletal Medical History: Reports Hx Arthritis Psychiatric Medical History: Denies: Hx Depression Infectious Medical History: Reports: Hx Hepatitis - hep C Past Surgical History: Reports: Hx Orthopedic Surgery - bilat ankles, bilat knees, L elbow, Bilat Forearms Removal synovial memb L, Hx Vascular Surgery - ports (inactive) - Immunizations Immunizations up to date: Yes Hx Diphtheria, Pertussis, Tetanus Vaccination: Yes Hx Pneumococcal Vaccination: 06/28/09 Review of Systems - Review of Systems Constitutional: No symptoms reported EENT: No symptoms reported Cardiovascular: No symptoms reported Respiratory: No symptoms reported Gastrointestinal: No symptoms reported Genitourinary: No symptoms reported Male Genitourinary: No symptoms reported Musculoskeletal: See HPI Skin: No symptoms reported Hematologic/Lymphatic: See HPI Neurological/Psychological: No symptoms reported Physical Exam - Vital signs Vitals: Temp Pulse Resp BP Pulse Ox 98.4 F 121 H 17 140/73 H 99 08/20/18 01:16 08/20/18 01:16 08/20/18 01:16 08/20/18 01:16 08/20/18 01:16 - Notes Notes: GENERAL: Alert, interacts well. Anxious but otherwise well-appearing HEAD: Normocephalic, atraumatic. EYES: Pupils equal, round, and reactive to light. Extraocular movements intact. ENT: Oral mucosa moist, tongue midline. Oropharynx unremarkable. Airway patent. Nares patent, no nasal septal hematoma, TM's intact. NECK: Full range of motion. Supple. Trachea midline. LUNGS: Clear to auscultation bilaterally, no wheezes, rales, or rhonchi. No respiratory distress. HEART: Borderline tachycardia, normal rhythm. No murmur ABDOMEN: Soft, non-tender. Non-distended. Bowel sounds present in all 4 quadrants. GENITOURINARY: Deferred EXTREMITIES: BACK: no cervical, thoracic, lumbar midline tenderness. No saddle anesthesia, normal distal neurovascular exam. NEUROLOGICAL: Alert and oriented x3. Normal speech. [cranial nerves II through XII grossly intact]. PSYCH: Somewhat anxious in appearance SKIN: Warm, dry, normal turgor. No rashes or lesions noted. Course - Re-evaluation Re-evalutation: X-ray unremarkable with no soft tissue swelling or acute fracture, only old hardware. Examination is actually benign with minimal to no soft tissue swelling, pain is over the ATF distribution. Consistent with ankle sprain. No additional injuries noted or reported. Patient tells me that he missed his dose of factor VIII today, he is out of his medication and will be out until Wednesday when he will resume. 08/20/18 03:05 Spoke with service girl oncology specialist for [facility], Dr. Stephens, he recommends dose of what ever available for hydrate that we have, elevation, careful protection of the area, and close follow-up on Wednesday by calling the hemophilia nurses. I discussed this with patient, he states full agreement with this plan, Venkatesh wrap was placed, provided with crutches, instructions, and patient will be given Humate-P dose, I called and spoke with pharmacy oncology specialist to confirm the dose which is being prepared for the patient to be given. - Vital Signs Vital signs: Temp Pulse Resp BP Pulse Ox 98.1 F 86 18 138/60 H 98 08/20/18 05:32 08/20/18 05:32 08/20/18 05:32 08/20/18 05:32 08/20/18 05:32 Procedures - Immobilization Left ankle Pre-Proc Neuro Vasc Exam: Normal Immobilizer type: Venkatesh wrap Performed by: RN Post-Proc Neuro Vasc Exam: Normal Alignment checked and good: Yes Discharge - Discharge Clinical Impression: Hemophilia A Left ankle injury Qualifiers: Encounter type: initial encounter Qualified Code(s): S99.912A - Unspecified injury of left ankle, initial encounter Condition: Stable Disposition: HOME, SELF-CARE Additional Instructions: The x-ray does not show any new or concerning findings. I spoke with Dr. Stephens (Hemotologist at [facility]). Recommendations to immobilize the left ankle/leg as much as possible, elevate, ice at least 3-4 times a day for 10-15 minutes, wear the Venkatesh wrap, use the crutches. Please call Wednesday with the nurses covering the hemophilia service at [facility] and resume your treatment as discussed. Return if you worsen including increased swelling or pain.
[2018-08-20] MEDS ORDERED: [UNRECOGNIZED DRUG - OTHER] IV ONE (03:45)
[2018-08-20] MEDS ORDERED: [UNRECOGNIZED DRUG - MIXTURE] IV PRN (04:12)
[2018-08-20 06:28] VITALS: BP 138/60
== END 2018-08-20 05:35 | disposition home or self-care (01) ==
LOC: ER 00:33
DX: S99.912A Unspecified injury of left ankle, initial encounter (principal); M25.572 Pain in left ankle and joints of left foot; X50.0XXA Overexertion from strenuous movement or load, initial encounter; Y93.01 Activity, walking, marching and hiking; Y92.410 Unspecified street and highway as the place of occurrence of the external cause; D66 Hereditary factor VIII deficiency; T45.8X6A Underdosing of other primarily systemic and hematological agents, initial encounter; Z91.128 Patient's intentional underdosing of medication regimen for other reason; Z91.14 Patient's other noncompliance with medication regimen; Z79.899 Other long term (current) drug therapy; Z79.891 Long term (current) use of opiate analgesic; F17.200 Nicotine dependence, unspecified, uncomplicated
CPT/HCPCS: 36591; 99283; 73610; J3490 ×2; J7187

== ENCOUNTER 2018-08-23 08:05 | Emergency (ER) | payer SELFPAY ==
--- NOTE | 2018-08-23 09:12 | ER Document Report ---
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 Patient states that a few days ago his right knee started swelling, he has a history of frequent hemarthrosis of the right knee, he states he has been in group home for the last 8 or 9 months, he last received a factor VIII dose on Wednesday, he also states his been having coughing, and occasionally a few drops of blood. He thinks he has an irritation to the back of his throat. Denies feeling short of breath or difficulty breathing. He is usually seen at [facility], but has not had follow-up recently due to being in group home. He does have factor rate at home, but did not administer it to himself recently. He states to help with the pain his girlfriend gave him methamphetamine yesterday, he states that it was "slipped to him." He denies having any chest pain, headache, lightheadedness, dizziness, denies having any rectal bleeding or melena. Past Medical History: Hemophilia A, hepatitis C Past Surgical History: Bilateral ankle fusions, left knee synovectomy Social History: Admits to smoking cigarettes daily, denies alcohol use, admits to occasional methamphetamine use Family History: Reviewed and noncontributory for presenting illness Allergies: Reviewed, see documented allergy list. REVIEW OF SYSTEMS: Other than noted above, the 12 point review of systems was reviewed with the patient and were negative, all pertinent findings are included in the HPI. PHYSICAL EXAMINATION: Vital signs reviewed, nursing noted reviewed. GENERAL: Well-appearing, well-nourished and in no acute distress. HEAD: Atraumatic, normocephalic. EYES: Eyes appear normal, extraocular movements intact, sclera anicteric, conjunctiva are normal. ENT: nares patent, oropharynx clear without exudates. Moist mucous membranes. The right tonsil, has an area which appears to have recently bled, and healed now, no active bleeding. No evidence of recent epistaxis. NECK: Normal range of motion, supple without lymphadenopathy LUNGS: Breath sounds clear to auscultation bilaterally and equal. No wheezes rales or rhonchi. HEART: Heart rate tachycardic, regular rhythm ABDOMEN: Soft, nontender, normoactive bowel sounds. No rebound, guarding, or rigidity. No masses appreciated. EXTREMITIES: Right knee effusion appreciated, no erythema or warmth. Decent range of motion, bilateral ankles are fused, decreased range of motion as result, chronic, unchanged, the rest of the extremity exam is grossly unremarkable. NEUROLOGICAL: No focal neurological deficits. Moves all extremities spontaneously Motor and sensory grossly intact on exam. PSYCH: Flat affect SKIN: Warm, Dry, normal turgor, no rashes or lesions noted on exposed skin TRAVEL OUTSIDE OF THE [place] IN LAST 30 DAYS: No - Related Data Allergies/Adverse Reactions: acetaminophen [From Tylenol] Adverse Reaction (Verified 08/23/18 08:11) aspirin [Aspirin] Adverse Reaction (Verified 08/23/18 08:11) bleeding ibuprofen [From Motrin] Adverse Reaction (Verified 08/23/18 08:11) bleeding morphine [Morphine] Adverse Reaction (Verified 08/23/18 08:11) Hives NSAIDS (Non-Steroidal Anti-Inflamma [Nsaids] Adverse Reaction (Verified 08/23/18 08:11) Bleeding Risk vancomycin [Vancomycin] Adverse Reaction (Verified 08/23/18 08:11) austyn's syndrome Past Medical History - Social History Smoking Status: Current Every Day Smoker Family History: Reviewed & Not Pertinent, DM, Other - autoimmune factor VIII deficiency. Hep C Patient has suicidal ideation: No Patient has homicidal ideation: No - Past Medical History Cardiac Medical History: Denies: Hx Coronary Artery Disease, Hx Heart Attack, Hx Hypertension Pulmonary Medical History: Denies: Hx Asthma, Hx Bronchitis, Hx COPD, Hx Pneumonia Neurological Medical History: Denies: Hx Cerebrovascular Accident, Hx Seizures Renal/ Medical History: Denies: Hx Peritoneal Dialysis GI Medical History: Reports: Hx Hepatitis - hep C Musculoskeletal Medical History: Reports Hx Arthritis Psychiatric Medical History: Denies: Hx Depression Infectious Medical History: Reports: Hx Hepatitis - hep C Past Surgical History: Reports: Hx Orthopedic Surgery - bilat ankles, bilat knees, L elbow, Bilat Forearms Removal synovial memb L, Hx Vascular Surgery - ports (inactive) - Immunizations Immunizations up to date: Yes Hx Diphtheria, Pertussis, Tetanus Vaccination: Yes Hx Pneumococcal Vaccination: 06/28/09 Physical Exam - Vital signs Vitals: Temp Pulse Resp BP Pulse Ox 98.7 F 126 H 16 151/100 H 96 08/23/18 08:14 08/23/18 08:14 08/23/18 08:14 08/23/18 08:14 08/23/18 08:14 Course - Re-evaluation Re-evalutation: Patient seen and examined vital signs reviewed. Laboratory data and imaging were ordered as appropriate for the patient's presenting symptoms and complaint, with consideration of any critical or life threatening conditions that may be associated with their obtained history and exam as noted above. Patient was treated with factor VIII, 2000 units, we had to order this from [facility] as we did not have enough in house at our facility. Patient was agreeable to wait for this, he was given fentanyl and Zofran for pain and nausea. And placed in a right knee immobilizer. Factor VIII activity was ordered, and pending at this is a send out, patient was not anemic. The patient was re-evaluated and was stable, pain improved, after reevaluated the patient, he states he is typically admitted for this, for several days to get repeated doses of factor VIII, I discussed with him that I will call [facility], who has seen him in the past, and discuss plan of care at this point. I discussed the case with the hospitalist and the director of healthcare systems from [facility], we will work to find a place to transfer him to, given the patient's complicated social situation of recently getting out of detention, does not have a true address at this time, and not reliable ability to continue factor treatments for the next 3-5 days. Because of lack of bed availability at [facility], I spoke with [facility] medical facility, and they were agreeable to prioritize his transfer, I spoke with Dr. Weller the hematology fellow, who is in agreement with this plan of care, will await for bed assignment patient updated on this plan of care. And he was agreeable as well Evaluation was most consistent with hemarthrosis secondary to hemophilia A. *Note is created using voice recognition software and may contain spelling, syntax or grammatical errors. Laboratory 08/23/18 08/23/18 09:50 09:50 WBC 8.3 RBC 4.50 Hgb 13.5 Hct 39.3 MCV 87 MCH 29.9 MCHC 34.3 RDW 13.4 Plt Count 230 Seg Neutrophils % 73.0 Lymphocytes % 13.0 Monocytes % 13.1 H Eosinophils % 0.5 Basophils % 0.4 Absolute Neutrophils 6.1 Absolute Lymphocytes 1.1 Absolute Monocytes 1.1 Absolute Eosinophils 0.0 Absolute Basophils 0.0 Sodium 140.2 Potassium 3.6 Chloride 97 L Carbon Dioxide 33 H Anion Gap 10 BUN 18 Creatinine 0.63 Est GFR ( Amer) > 60 Est GFR (Non-Af Amer) > 60 Glucose 118 H Calcium 9.4 08/23/18 15:03 - Vital Signs Vital signs: Temp Pulse Resp BP Pulse Ox 98.7 F 126 H 13 129/82 H 99 08/23/18 08:14 08/23/18 08:14 08/23/18 15:01 08/23/18 15:01 08/23/18 15:01 - Laboratory Result Diagrams: 08/23/18 09:50 08/23/18 09:50 Laboratory results interpreted by me: 08/23/18 08/23/18 09:50 09:50 Monocytes % 13.1 H Chloride 97 L Carbon Dioxide 33 H Glucose 118 H Procedures - Immobilization Right Knee Pre-Proc Neuro Vasc Exam: Normal Immobilizer type: Knee immobilizer Performed by: PCT Post-Proc Neuro Vasc Exam: Normal Discharge - Discharge Clinical Impression: Hemarthrosis, Hemophilia A Condition: Stable Disposition: [facility] Additional Instructions: Please administer 2000 units please administer 2000 units of your factor VIII, on , August 25 of this week, to help increase your overall factor activity. I have provided you a phone number for a local director of healthcare systems, otherwise please get in contact with [facility] for follow-up. Prescriptions: Oxycodone HCl/Acetaminophen [Percocet 5-325 mg Tablet] 1 tab PO Q8H PRN #10 tab PRN Reason: knee pain Referrals: MERRY HILL MD [ACTIVE STAFF] - Follow up in 3-5 days (Hematology )
[2018-08-23] MEDS ORDERED: ONDANSETRON HCL INJ/PF 4 MG/2 ML SDV IV ONE (09:23)
[2018-08-23] MEDS ORDERED: FENTANYL CITRATE INJ/PF 100 MCG/2 ML AMPUL IV ONE ×3 (09:23→18:53)
[2018-08-23 10:16] LABS: ABSOLUTE LYMPHOCYTES (AUTO) 1.1 10^3/uL (0.5-4.7); ABSOLUTE MONOCYTES (AUTO) 1.1 10^3/uL (0.1-1.4); ABSOLUTE NEUT (AUTO) 6.1 10^3/uL (1.7-8.2); BASOPHILS % (AUTO) 0.4 % (0-2); EOSINOPHILS % (AUTO) 0.5 % (0-6); HEMATOCRIT 39.3 % (37.9-51.0); HEMOGLOBIN 13.5 g/dL (13.5-17.0); MEAN CORPUSCULAR HEMOGLOBIN 29.9 pg (27.0-33.4); MEAN CORPUSCULAR HGB CONC 34.3 g/dL (32.0-36.0); MEAN CORPUSCULAR VOLUME 87 fl (80-97); MONOCYTES % (AUTO) 13.1 % (3-13); PLATELET COUNT 230 10^3/uL (150-450); RED CELL DISTRIBUTION WIDTH 13.4 % (11.5-14.0); TOTAL CELLS COUNTED % (AUTO) 100 %; WHITE BLOOD COUNT 8.3 10^3/uL (4.0-10.5)
[2018-08-23] MEDS ORDERED: LORAZEPAM INJ 2 MG/1 ML VIAL IV ONE (10:16)
[2018-08-23 10:30] LABS: ANION GAP 10 (5-19); BLOOD UREA NITROGEN 18 mg/dL (7-20); CALCIUM 9.4 mg/dL (8.4-10.2); CARBON DIOXIDE 33 mmol/L (22-30); CHLORIDE 97 mmol/L (98-107); GLUCOSE 118 mg/dL (75-110); POTASSIUM 3.6 mmol/L (3.6-5.0); SODIUM 140.2 mmol/L (137-145)
[2018-08-23] MEDS ORDERED: [UNRECOGNIZED DRUG - MIXTURE] IV ONE (13:00)
[2018-08-23 18:48] VITALS: BP 134/80
== END 2018-08-23 19:31 | disposition short-term general hospital (02) ==
LOC: ER 08:05
DX: M25.061 Hemarthrosis, right knee (principal); D66 Hereditary factor VIII deficiency; M25.561 Pain in right knee; M79.89 Other specified soft tissue disorders; R05 Cough; F17.210 Nicotine dependence, cigarettes, uncomplicated
CPT/HCPCS: 96376; 99285; 96374; 96375; 36415; 85240; 85025; 80048; L1830; J3010; J3490; J2060; J2405; J7187

== ENCOUNTER 2018-11-17 14:26 | Emergency (ER) | payer MEDICAID ==
[2018-11-17] MEDS ORDERED: OXYCODONE HCL IR 5 MG TABLET PO ONE (16:28)
--- NOTE | 2018-11-17 16:31 | ER Document Report ---
ED Medical Screen (RME) - General Chief Complaint: Groin Pain Stated Complaint: LEFT HIP PAIN, SWELLING Time Seen by Provider: 11/17/18 16:26 Mode of Arrival: Wheelchair Information source: Patient Notes: Patient is a 28-year-old male with history of hemophilia presenting with a painful bruise to the inside of his groin. Patient denies any direct trauma. Patient states he has not been on his feeling a medication. Patient reports pain 5/5. There is ecchymosis noted just left of the pelvis in the groin. I have greeted and performed a rapid initial assessment of this patient. A comprehensive ED assessment and evaluation of the patient, analysis of test results and completion of the medical decision making process will be conducted by additional ED providers. Dictation of this chart was performed using voice recognition software; therefore, there may be some unintended grammatical errors. TRAVEL OUTSIDE OF THE [place] IN LAST 30 DAYS: No - Related Data Allergies/Adverse Reactions: acetaminophen [From Tylenol] Adverse Reaction (Verified 11/17/18 16:23) aspirin [Aspirin] Adverse Reaction (Verified 11/17/18 16:23) bleeding ibuprofen [From Motrin] Adverse Reaction (Verified 11/17/18 16:23) bleeding morphine [Morphine] Adverse Reaction (Verified 11/17/18 16:23) Hives NSAIDS (Non-Steroidal Anti-Inflamma [Nsaids] Adverse Reaction (Verified 11/17/18 16:23) Bleeding Risk vancomycin [Vancomycin] Adverse Reaction (Verified 11/17/18 16:23) austyn's syndrome Past Medical History - Social History Family history: Reviewed & Not Pertinent - Past Medical History Cardiac Medical History: Denies: Hx Coronary Artery Disease, Hx Heart Attack, Hx Hypertension Pulmonary Medical History: Denies: Hx Asthma, Hx Bronchitis, Hx COPD, Hx Pneumonia Neurological Medical History: Denies: Hx Cerebrovascular Accident, Hx Seizures Renal/ Medical History: Denies: Hx Peritoneal Dialysis GI Medical History: Reports: Hx Hepatitis - hep C Musculoskeltal Medical History: Reports Hx Arthritis Psychiatric Medical History: Denies: Hx Depression Infectious Medical History: Reports: Hx Hepatitis - hep C Past Surgical History: Reports: Hx Orthopedic Surgery - bilat ankles, bilat knees, L elbow, Bilat Forearms Removal synovial memb L, Hx Vascular Surgery - ports (inactive) - Immunizations Immunizations up to date: Yes Hx Diphtheria, Pertussis, Tetanus Vaccination: Yes History of Influenza Vaccine for 03/2017 - 08/2017 Season: Yes Influenza Administration Date for 03/2017 - 08/2017 Season: 06/27/17 Physical Exam - Vital signs Vitals: Temp Pulse Resp BP Pulse Ox 98.7 F 94 16 137/84 H 99 11/17/18 14:38 11/17/18 14:38 11/17/18 14:38 11/17/18 14:38 11/17/18 14:38 Course - Vital Signs Vital signs: Temp Pulse Resp BP Pulse Ox 98.7 F 94 16 137/84 H 99 11/17/18 14:38 11/17/18 14:38 11/17/18 14:38 11/17/18 14:38 11/17/18 14:38
[2018-11-17] MEDS ORDERED: HYDROMORPHONE HCL INJ/PF 2 MG/ML AMPULE IV ONE (19:40)
--- NOTE | 2018-11-17 19:41 | RADIOLOGY REPORT (SQ) ---
EXAM DESCRIPTION: U/S NON-OB PELVIS LTD W/O DOP COMPLETED DATE/TIME: 11/17/2018 7:29 pm REASON FOR STUDY: hx hemophilia, bruise to Lt medial thigh COMPARISON: None. TECHNIQUE: Dynamic and static grayscale images acquired of the pelvis via transabdominal approach an d recorded on PACS. Additional selected color Doppler and spectral images recorded. LIMITATIONS: None. FINDINGS: Sonographic imaging of the area of bruising in the medial left thigh demonstrated some swathi ma. There is a hypoechoic subcutaneous area. Bilateral lymph nodes seen in the groin, left more cait n right. IMPRESSION: There is a small hematoma in the left thigh with associated edema. Bilateral lymph node s as described. TECHNICAL DOCUMENTATION: JOB ID: [id number] [employer]- All Rights Reserved Rev-11/12 Reading location - IP/workstation name: [email or web address]
[2018-11-17] MEDS ORDERED: ANTIHEMOPHILIC FACTOR IV ONE ×2 (21:00)
[2018-11-17] MEDS ORDERED: [UNRECOGNIZED DRUG - OTHER] IV ONE ×2 (21:00)
--- NOTE | 2018-11-17 22:11 | ER Document Report ---
ED General - General Chief Complaint: Groin Pain Stated Complaint: LEFT HIP PAIN, SWELLING Time Seen by Provider: 11/17/18 16:26 Mode of Arrival: Wheelchair TRAVEL OUTSIDE OF THE [place] IN LAST 30 DAYS: No - HPI Notes: Patient is a 28-year-old male with a history of hemophilia A who presents to the emergency department for evaluation of hematoma. He states he is out of his factor VIII. He states he tried to get some through [facility] and was unsuccessful. He has a hematoma in his left groin region. He denies any trauma. He states is been present for a few days and is been gradually worsening. He denies any dizziness. No other acute complaints or concerns other than the pain associated with this hematoma. - Related Data Allergies/Adverse Reactions: acetaminophen [From Tylenol] Adverse Reaction (Verified 11/17/18 16:23) aspirin [Aspirin] Adverse Reaction (Verified 11/17/18 16:23) bleeding ibuprofen [From Motrin] Adverse Reaction (Verified 11/17/18 16:23) bleeding morphine [Morphine] Adverse Reaction (Verified 11/17/18 16:23) Hives NSAIDS (Non-Steroidal Anti-Inflamma [Nsaids] Adverse Reaction (Verified 11/17/18 16:23) Bleeding Risk vancomycin [Vancomycin] Adverse Reaction (Verified 11/17/18 16:23) austyn's syndrome Past Medical History - General Information source: Patient - Social History Smoking Status: Never Smoker Chew tobacco use (# tins/day): No Frequency of alcohol use: None Drug Abuse: None Family History: Reviewed & Not Pertinent, DM Patient has suicidal ideation: No Patient has homicidal ideation: No - Medical History Medical History: Other - Hemophilia A - Past Medical History Cardiac Medical History: Denies: Hx Coronary Artery Disease, Hx Heart Attack, Hx Hypertension Pulmonary Medical History: Denies: Hx Asthma, Hx Bronchitis, Hx COPD, Hx Pneumonia Neurological Medical History: Denies: Hx Cerebrovascular Accident, Hx Seizures Renal/ Medical History: Denies: Hx Peritoneal Dialysis GI Medical History: Reports: Hx Hepatitis - hep C Musculoskeletal Medical History: Reports Hx Arthritis Psychiatric Medical History: Denies: Hx Depression Infectious Medical History: Reports: Hx Hepatitis - hep C Past Surgical History: Reports: Hx Orthopedic Surgery - bilat ankles, bilat knees, L elbow, Bilat Forearms Removal synovial memb L, Hx Vascular Surgery - ports (inactive) - Immunizations Immunizations up to date: Yes Hx Diphtheria, Pertussis, Tetanus Vaccination: Yes Hx Pneumococcal Vaccination: 06/28/09 Review of Systems - Review of Systems Constitutional: No symptoms reported EENT: No symptoms reported Cardiovascular: No symptoms reported Respiratory: No symptoms reported Gastrointestinal: No symptoms reported Genitourinary: No symptoms reported Musculoskeletal: See HPI Skin: No symptoms reported Neurological/Psychological: No symptoms reported Physical Exam - Vital signs Vitals: Temp Pulse Resp BP Pulse Ox 98.7 F 94 16 137/84 H 99 11/17/18 14:38 11/17/18 14:38 11/17/18 14:38 11/17/18 14:38 11/17/18 14:38 - Notes Notes: Vital signs reviewed, please refer to chart. Head is normocephalic, atraumatic. Pupils equal round, reactive to light. Neck is supple without meningismus. Heart is regular rate and rhythm. Lungs are clear to auscultation bilaterally. Abdomen is soft, nontender, normoactive bowel sounds throughout. Extremities without cyanosis, clubbing. Posterior calves are nontender. Examination of the left thigh yields a hematoma in the proximal inguinal region, the tract around to the posterior aspect of the leg. It is tender to palpation. There is overlying ecchymosis. Femoral pulse and dorsalis pedis pulse on the left are 2+ and equal. Peripheral pulses are equal. Skin is warm and dry. Patient is awake, alert, neurological exam is nonfocal. Course - Re-evaluation Re-evalutation: 11/17/18 22:08 Patient is a 28-year-old male with a known history of hemophilia. He does not have his factor VIII concentrate. It was ordered for him here. He received oxycodone through triage and had an ultrasound. Ultrasound revealed small hematoma. He remained vitally stable throughout the course of his stay. He complained of pain multiple times. He was further given Dilaudid 0.5 mg IV. I do not feel there is any further indication for narcotic medications. He has extensive allergy list. We will get an discharge the patient to home. He is to follow-up with his respiratory director and primary care, return to the ED with worsening or new concerning symptoms. - Vital Signs Vital signs: Temp Pulse Resp BP Pulse Ox 98.7 F 94 16 137/84 H 99 11/17/18 14:38 11/17/18 14:38 11/17/18 14:38 11/17/18 14:38 11/17/18 14:38 Discharge - Discharge Clinical Impression: Hemophilia A, Hematoma Condition: Stable Disposition: HOME, SELF-CARE Instructions: Hematoma ([facility]) Additional Instructions: Follow-up with your respiratory director and primary care provider this week. Return to the emergency department with worsening or new concerning symptoms.
[2018-11-17 23:01] VITALS: BP 141/82
== END 2018-11-17 23:02 | disposition home or self-care (01) ==
LOC: ER 14:26
DX: D66 Hereditary factor VIII deficiency (principal); S30.1XXA Contusion of abdominal wall, initial encounter; X58.XXXA Exposure to other specified factors, initial encounter; Z88.6 Allergy status to analgesic agent; Z88.3 Allergy status to other anti-infective agents; Z86.19 Personal history of other infectious and parasitic diseases
CPT/HCPCS: 99283; 96374; 96375; 76857; J3490 ×2; J1170; J7187

== ENCOUNTER 2018-12-04 09:59 | Emergency (ER) | payer MEDICAID ==
[2018-12-04] MEDS ORDERED: HYDROMORPHONE HCL INJ/PF 2 MG/ML AMPULE IV ONE ×2 (10:55→13:36)
[2018-12-04] MEDS ORDERED: ONDANSETRON HCL INJ/PF 4 MG/2 ML SDV IV ONE ×2 (11:00→13:29)
[2018-12-04] MEDS ORDERED: NORMAL SALINE 1000 ML 1,000 ML IV ONE (11:07)
[2018-12-04] MEDS ORDERED: OXYCODONE HCL IR 5 MG TABLET PO ONE ×2 (11:10→13:24)
[2018-12-04] MEDS ORDERED: LIDOCAINE 5% (700 MG) TRANSDERMAL ADH..PATCH TP ONE (11:11)
[2018-12-04 11:19] LABS: ABSOLUTE EOSINOPHILS # (AUTO) 0.1 10^3/uL (0.0-0.6); ABSOLUTE LYMPHOCYTES (AUTO) 1.4 10^3/uL (0.5-4.7); ABSOLUTE MONOCYTES (AUTO) 0.7 10^3/uL (0.1-1.4); ABSOLUTE NEUT (AUTO) 6.2 10^3/uL (1.7-8.2); BASOPHILS % (AUTO) 0.3 % (0-2); EOSINOPHILS % (AUTO) 0.8 % (0-6); HEMATOCRIT 35.9 % (37.9-51.0); HEMOGLOBIN 11.9 g/dL (13.5-17.0); LYMPHOCYTES % (AUTO) 17.2 % (13-45); MEAN CORPUSCULAR HEMOGLOBIN 28.7 pg (27.0-33.4); MEAN CORPUSCULAR HGB CONC 33.3 g/dL (32.0-36.0); MEAN CORPUSCULAR VOLUME 86 fl (80-97); MONOCYTES % (AUTO) 7.9 % (3-13); PLATELET COUNT 392 10^3/uL (150-450); RED BLOOD COUNT 4.16 10^6/uL (4.35-5.55); RED CELL DISTRIBUTION WIDTH 14.9 % (11.5-14.0); SEGMENTED NEUTROPHILS % (AUTO) 73.8 % (42-78); TOTAL CELLS COUNTED % (AUTO) 100 %; WHITE BLOOD COUNT 8.4 10^3/uL (4.0-10.5)
[2018-12-04 11:40] LABS: ANION GAP 11 (5-19); BLOOD UREA NITROGEN 15 mg/dL (7-20); CARBON DIOXIDE 30 mmol/L (22-30); CHLORIDE 99 mmol/L (98-107); GLUCOSE 132 mg/dL (75-110); POTASSIUM 3.7 mmol/L (3.6-5.0)
--- NOTE | 2018-12-04 11:43 | ER Document Report ---
ED General - General Chief Complaint: Swelling Stated Complaint: BODY SWELLING Time Seen by Provider: 12/04/18 10:40 Notes: Patient is a 28-year-old male presents to the emergency department with a chief complaint of body swelling. 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 Patient states he is supposed to take factor V 3 times per week but his last dose was 2 weeks ago he was seen in the emergency department. He states that he was supposed to follow-up with [facility] but missed his appointment and as a result he does not have a prescription for his medications. Patient reports a left groin pain, right buttocks swelling and bruising throughout his body. Patient also complaint of sores but he states appear to be popping up all over his body. Patient states that normally when this happens he does receive the factor VIII through the IV here and that his gas charger is contacted at [facility]. TRAVEL OUTSIDE OF THE [place] IN LAST 30 DAYS: No - Related Data Allergies/Adverse Reactions: acetaminophen [From Tylenol] Adverse Reaction (Verified 12/04/18 10:06) aspirin [Aspirin] Adverse Reaction (Verified 12/04/18 10:06) bleeding ibuprofen [From Motrin] Adverse Reaction (Verified 12/04/18 10:06) bleeding morphine [Morphine] Adverse Reaction (Verified 12/04/18 10:06) Hives NSAIDS (Non-Steroidal Anti-Inflamma [Nsaids] Adverse Reaction (Verified 12/04/18 10:06) Bleeding Risk vancomycin [Vancomycin] Adverse Reaction (Verified 12/04/18 10:06) austyn's syndrome Past Medical History - General Information source: Patient - Social History Smoking Status: Unknown if Ever Smoked Cigarette use (# per day): No Chew tobacco use (# tins/day): No Lives with: Alone Family History: Reviewed & Not Pertinent, DM Patient has suicidal ideation: No Patient has homicidal ideation: No - Past Medical History Cardiac Medical History: Reports: None Denies: Hx Coronary Artery Disease, Hx Heart Attack, Hx Hypertension Pulmonary Medical History: Reports: None Denies: Hx Asthma, Hx Bronchitis, Hx COPD, Hx Pneumonia EENT Medical History: Reports: None Neurological Medical History: Reports: None. Denies: Hx Cerebrovascular Accident, Hx Seizures Endocrine Medical History: Reports: None Renal/ Medical History: Reports: None. Denies: Hx Peritoneal Dialysis Malignancy Medical History: Reports None GI Medical History: Reports: Hx Hepatitis - hep C Musculoskeletal Medical History: Reports Hx Arthritis Skin Medical History: Reports None Psychiatric Medical History: Reports: None Denies: Hx Depression Traumatic Medical History: Reports: None Infectious Medical History: Reports: Hx Hepatitis - hep C Past Surgical History: Reports: Hx Orthopedic Surgery - bilat ankles, bilat knees, L elbow, Bilat Forearms Removal synovial memb L, Hx Vascular Surgery - ports (inactive) Other: Hemophilia A - Immunizations Immunizations up to date: Yes Hx Diphtheria, Pertussis, Tetanus Vaccination: Yes Hx Pneumococcal Vaccination: 06/28/09 Review of Systems - Review of Systems Constitutional: See HPI EENT: No symptoms reported Cardiovascular: No symptoms reported Respiratory: No symptoms reported Gastrointestinal: No symptoms reported Genitourinary: No symptoms reported Male Genitourinary: No symptoms reported Musculoskeletal: See HPI Skin: See HPI Hematologic/Lymphatic: See HPI Neurological/Psychological: No symptoms reported Physical Exam - Vital signs Vitals: Temp Pulse Resp BP Pulse Ox 98.4 F 123 H 18 151/75 H 98 12/04/18 10:14 12/04/18 10:14 12/04/18 10:14 12/04/18 10:14 12/04/18 10:14 Interpretation: Hypertensive, Tachycardic - Notes Notes: GENERAL: Well-appearing, well-nourished and in mild acute distress which appears related to pain and discomfort HEAD: Atraumatic, normocephalic. EYES: Pupils equal round and reactive to light, extraocular movements intact, sclera anicteric, conjunctiva are normal. ENT: Nares patent, oropharynx clear without exudates. Moist mucous membranes. Dried blood noted to the external right ear, no active bleeding. NECK: Normal range of motion, supple without lymphadenopathy or JVD. LUNGS: Breath sounds clear to auscultation bilaterally and equal. No wheezes rales or rhonchi. HEART: Regular rate and rhythm without murmurs, rubs or gallops. ABDOMEN: Soft, nontender, normoactive bowel sounds. No guarding, no rebound. No masses appreciated. BACK: No cervical, thoracic, lumbar midline tenderness. No saddle anesthesia, normal distal neurovascular exam. Ecchymosis and edema to the right buttocks, the area is tender to touch and somewhat firm. GENITOURINARY: starch treating assistant at the bedside did inspect the left and right groin as well as the testicles and penis. There is no obvious swelling or ecchymosis but there was palpable slightly enlarged lymph nodes bilaterally. EXTREMITIES: Normal range of motion, no pitting or edema. Patient has multiple bruises throughout bilateral lower extremities. There is no active bleeding. NEUROLOGICAL: Cranial nerves II through XII grossly intact. Normal speech, normal gait. PSYCH: Normal mood, normal affect. SKIN: Scattered bruising with various coloring and stages of healing noted throughout body, patient has a large amount of sores throughout body - some are open but none draining or cellulitic. Course - Re-evaluation Re-evalutation: 12/04/18 11:41 Paged hematology at [facility] for a consult in regards to patient history of hemophilia A. 12/04/18 12:25 Spoke with both ED physician at [facility] Dr. Molly Vargas and gas charger Dr. Kulkarni regarding patient complaint and missed doses of factor VIII for two weeks. They would like patient to be transferred ED to ED. Dr. Bates with hematology will consult with another physician who is familiar with the patient and call back with further orders and transfer status. Due to right hip and right gluteal swelling I have ordered an ultrasound to check for bleeding. Patient remains tachycardiac, asking for pain medication, normotensive. A pain patch was prescribed. IVF's initiated. 12/04/18 13:[address] Adelina Kulkarni with hematology who would like patient transferred, as Dr. Molly Vargas will except transfer from ED to ED. Dr. Kulkarni would like patient to receive Hemophil 4,000 units IV prior to transfer for bleeding. 12/04/18 13:38 I have updated patient regarding transfer to [facility]. He verbalized understanding. Patient but does appear to be uncomfortable I will order an oral dose of pain medication as well as IV pain medication. Patient and his significant other agreement with this. Patient is going to be flown to [facility] due to possibility for bleeding, tachycardia and his history of hemophilia. 12/04/18 13:46 [address] did speak with Dr. Kulkarni with hematology to make her aware that our pharmacy does not have the 4000 units of Hemophil that was ordered. She states that since the patient is flying in the helicopter is at our facility they will dose the patient once he gets to the emergency department. I did update the patient in regards to this and he is in agreement. 12/04/18 13:50 Transport at bedside. Patient is stable and in no acute distress. Patient appears more comfortable after receiving dose of pain medication. - Vital Signs Vital signs: Temp Pulse Resp BP Pulse Ox 98.4 F 123 H 22 H 120/76 100 12/04/18 10:14 12/04/18 10:14 12/04/18 13:45 12/04/18 13:45 12/04/18 13:45 - Laboratory Result Diagrams: 12/04/18 10:58 12/04/18 10:58 Laboratory results interpreted by me: 12/04/18 12/04/18 10:58 10:58 RBC 4.16 L Hgb 11.9 L Hct 35.9 L RDW 14.9 H Glucose 132 H Discharge - Discharge Clinical Impression: Hemophilia A, Gluteal pain Condition: Stable Disposition: [place]
[2018-12-04 11:47] LABS: CALCIUM 9.7 mg/dL (8.4-10.2)
--- NOTE | 2018-12-04 13:32 | RADIOLOGY REPORT (SQ) ---
EXAM DESCRIPTION: U/S EXTREMITY NONVASCULAR COMP COMPLETED DATE/TIME: 12/04/2018 1:20 pm REASON FOR STUDY: hx. hemophilia A, right gluteal swelling COMPARISON: None. TECHNIQUE: Dynamic and static grayscale images acquired of the localized site of clinical concern an d recorded on PACS. Additional selected color Doppler and spectral images recorded. SITE OF CONCERN: Right gluteal region LIMITATIONS: None. FINDINGS: SKIN AND SUBCUTANEOUS TISSUES: No fluid collections. Moderate edema. DEEP SOFT TISSUES/MUSCLES: No masses. No fluid collections. No edema. VASCULAR: No increased or decreased vascularity. No occlusions. OTHER: No other significant finding. IMPRESSION: No fluid collections. Moderate edema. TECHNICAL DOCUMENTATION: JOB ID: [id number] [employer]- All Rights Reserved Reading location - IP/workstation name: [email or web address]
[2018-12-04 13:58] VITALS: BP 120/76
== END 2018-12-04 14:09 | disposition short-term general hospital (02) ==
LOC: ER 09:59
DX: D66 Hereditary factor VIII deficiency (principal); T45.8X6A Underdosing of other primarily systemic and hematological agents, initial encounter; Z91.128 Patient's intentional underdosing of medication regimen for other reason; Z91.14 Patient's other noncompliance with medication regimen; M79.18 Myalgia, other site; M25.451 Effusion, right hip; R58 Hemorrhage, not elsewhere classified; R59.0 Localized enlarged lymph nodes; R10.30 Lower abdominal pain, unspecified; R00.0 Tachycardia, unspecified; Z86.19 Personal history of other infectious and parasitic diseases
CPT/HCPCS: 96376; 99285; 96374; 96375; 36415; 85240; 85025; 80048; 76881; J1170; J3490 ×2; J2405; J7030; 96361

== ENCOUNTER 2018-12-24 10:13 | Emergency (ER) | payer MEDICAID ==
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
--- NOTE | 2018-12-24 11:27 | RADIOLOGY REPORT (SQ) ---
EXAM DESCRIPTION: FINGER RIGHT COMPLETED DATE/TIME: 12/24/2018 11:08 am REASON FOR STUDY: 5th finger and metacarpal trauma swelling COMPARISON: None. NUMBER OF VIEWS: Three views. TECHNIQUE: AP, lateral, and oblique images acquired of the right fifth finger. LIMITATIONS: None. FINDINGS: MINERALIZATION: Normal. BONES: No acute fracture or dislocation. No worrisome bone lesions. SOFT TISSUES: Soft tissue swelling. No foreign body. OTHER: No other significant finding. IMPRESSION: SOFT TISSUE SWELLING. NO FRACTURE. COMMENT: SITE OF TRAUMA/COMPLAINT MARKED/STAMP COMPLETED: YES. TECHNICAL DOCUMENTATION: JOB ID: [id number] [employer]- All Rights Reserved Reading location - IP/workstation name: [email or web address]
--- NOTE | 2018-12-24 11:28 | RADIOLOGY REPORT (SQ) ---
EXAM DESCRIPTION: HAND RIGHT 3 VIEWS COMPLETED DATE/TIME: 12/24/2018 11:08 am REASON FOR STUDY: 5th finger and metacarpal trauma swelling COMPARISON: None. EXAM PARAMETERS: NUMBER OF VIEWS: Three views. TECHNIQUE: AP, lateral and oblique radiographic images acquired of the right hand. LIMITATIONS: None. FINDINGS: MINERALIZATION: Normal. BONES: No acute fracture or dislocation. No worrisome bone lesions. JOINTS: No effusions. SOFT TISSUES: Soft tissue swelling. No foreign body. OTHER: No other significant finding. IMPRESSION: SOFT TISSUE SWELLING. NO FRACTURE. TECHNICAL DOCUMENTATION: JOB ID: [id number] [employer]- All Rights Reserved Reading location - IP/workstation name: [email or web address]
[2018-12-24 12:38] VITALS: BP 108/61
[2018-12-24] MEDS ORDERED: [UNRECOGNIZED DRUG - REMARK] IV ONE ×2 (14:00)
== END 2018-12-24 14:58 | disposition home or self-care (01) ==
LOC: ER 10:13
DX: S60.221A Contusion of right hand, initial encounter (principal); M25.461 Effusion, right knee; D66 Hereditary factor VIII deficiency; F11.10 Opioid abuse, uncomplicated; R53.1 Weakness; M79.641 Pain in right hand; M79.89 Other specified soft tissue disorders; W22.8XXA Striking against or struck by other objects, initial encounter
CPT/HCPCS: 99283; 73140; 73130; J3490; J7187

== ENCOUNTER 2020-07-02 07:01 | Emergency (ER) | payer SELFPAY ==
[2020-07-02 07:07] VITALS: BP 132/82
[2020-07-02 09:14] LABS: HEMATOCRIT 40.9 % (37.9-51.0); HEMOGLOBIN 14.3 g/dL (13.5-17.0); MEAN CORPUSCULAR HEMOGLOBIN 30.2 pg (27.0-33.4); MEAN CORPUSCULAR VOLUME 86 fl (80-97); PLATELET COUNT 236 10^3/uL (150-450); RED BLOOD COUNT 4.73 10^6/uL (4.35-5.55); RED CELL DISTRIBUTION WIDTH 13.2 % (11.5-14.0); WHITE BLOOD COUNT 8.7 10^3/uL (4.0-10.5)
[2020-07-02] MEDS ORDERED: [UNRECOGNIZED DRUG - MIXTURE] IV PRN (10:17)
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
== END 2020-07-02 12:09 | disposition home or self-care (01) ==
LOC: ER 07:01
DX: D66 Hereditary factor VIII deficiency (principal); M25.561 Pain in right knee; M25.461 Effusion, right knee; Z59.0 Homelessness; Z88.6 Allergy status to analgesic agent; Z88.3 Allergy status to other anti-infective agents; Z86.19 Personal history of other infectious and parasitic diseases
CPT/HCPCS: 99284; 96374; 36415; 85027; J3490; J7187